=== PATIENT | male | born 1945 | race Caucasian/White ===

== ENCOUNTER → 2017-01-31 | Outpatient (CLI) | payer MEDICARE ==
[2017-01-31 09:08] LABS: ALT 51 U/L (21-72); AST 26 U/L (17-59); Alkaline Phosphatase 105 U/L (38-126); Anion Gap 10 mmol/L; Blood Urea Nitrogen 19 mg/dL (9-20); Calcium 8.6 mg/dL (8.4-10.2); Carbon Dioxide 27 mmol/L (22-30); Chloride 103 mmol/L (98-107); Cholesterol 152 mg/dL (<200); Glucose 113 mg/dL (74-99); HDL Cholesterol 40 mg/dL (40-60); Non-African American GFR(MDRD) >60 (>60 ml/min/1.73 sqM); Potassium 4.5 mmol/L (3.5-5.1); Sodium 140 mmol/L (137-145); Total Bilirubin 0.6 mg/dL (0.2-1.3); Total Protein 6.6 g/dL (6.3-8.2)
== END | disposition home or self-care (01) ==
LOC: LABWHC1 08:03
PROVIDERS: ATTEND Internal Medicine Interventional Cardiology
DX: E78.2 Mixed hyperlipidemia (principal)
CPT/HCPCS: 36415; 80053; 80061

== ENCOUNTER → 2018-01-01 | Outpatient (CLI) | payer MEDICARE ==
--- NOTE | 2018-01-01 16:02 | US ---
EXAMINATION TYPE: US venous doppler duplex LE LT DATE OF EXAM: 01/01/2018 3:31 PM COMPARISON: NONE CLINICAL HISTORY: I80.9 Superficial Thrombophlebitis. SIDE PERFORMED: Left TECHNIQUE: The lower extremity deep venous system is examined utilizing real time linear array sonog sang with graded compression, doppler sonography and color-flow sonography. VESSELS IMAGED: External Iliac Vein (EIV) Common Femoral Vein Deep Femoral Vein Greater Saphenous Vein * Femoral Vein Popliteal Vein Small Saphenous Vein * Proximal Calf Veins (* superficial vessels) Left Leg: Negative for DVT Preliminary report given to Taylor at Dr's office at time of exam. IMPRESSION: 1. Left lower extremity ultrasound negative for deep venous thrombosis.
== END | disposition home or self-care (01) ==
LOC: RADUSWWP 14:30
PROVIDERS: ATTEND Internal Medicine
DX: I80.9 Phlebitis and thrombophlebitis of unspecified site (principal)

== ENCOUNTER → 2018-03-17 | Outpatient (CLI) | payer MEDICARE ==
[2018-03-17 17:55] LABS: HCT 41.5 % (39.0-53.0); HGB 14.3 gm/dL (13.0-17.5); MCH 31.2 pg (25.0-35.0); MCHC 34.5 g/dL (31.0-37.0); MCV 90.4 fL (80.0-100.0); Mean Platelet Volume 7.3; Platelet Count 188 k/uL (150-450); RDW 13.4 % (11.5-15.5); WBC 7.6 k/uL (3.8-10.6)
[2018-03-17 18:12] LABS: Potassium 4.7 mmol/L (3.5-5.1)
== END | disposition home or self-care (01) ==
LOC: LABPAT 16:04
PROVIDERS: ATTEND Internal Medicine Interventional Cardiology
DX: Z01.812 Encounter for preprocedural laboratory examination (principal); I25.10 Atherosclerotic heart disease of native coronary artery without angina pectoris; I10 Essential (primary) hypertension; R07.9 Chest pain, unspecified
CPT/HCPCS: 80051; 82565; 84520; 85027

== ENCOUNTER 2018-03-25 06:14 | Day surgery (SDC) | payer MEDICARE ==
[2018-03-18 14:29] VITALS: BMI 29.9
[2018-03-25] MEDS ORDERED: NITROGLYCERIN SL TABS 0.4 MG TAB SUBLINGUAL PRN (06:39)
[2018-03-25] MEDS ORDERED: ATORVASTATIN 80 MG TAB PO STA (06:39)
[2018-03-25] MEDS ORDERED: ASPIRIN 325 MG TAB PO STA (06:39)
[2018-03-25] MEDS ORDERED: ALPRAZolam 0.5 MG TAB PO PRN (06:39)
[2018-03-25] MEDS ORDERED: SODIUM CHLORIDE 0.9% 1,000 ML in EMPTY BAG 1 BAG IV ONE (06:39)
[2018-03-25] MEDS ORDERED: ALPRAZolam 0.25 MG TAB PO PRN (06:39)
[2018-03-25 07:08] VITALS: TEMP 98.2
[2018-03-25 07:12] LABS: Glucose,Whole Blood 114 mg/dL (75-99)
[2018-03-25] MEDS ORDERED: fentaNYL (PF) 50 MCG/ML 2 ML AMP IV ONE (07:30)
[2018-03-25] MEDS ORDERED: LIDOCAINE 1% INJ 10MG/ML (20 ML MDV) SQ ONE (07:37)
[2018-03-25] MEDS: VERAPAMIL SYRINGE (5 MG/10 ML) INTRAARTER ONE ×2 (07:39→07:46)
[2018-03-25] MEDS ORDERED: HEPARIN SODIUM 1,000 UN/ML (10ML VL) IV ONE (07:45)
[2018-03-25] MEDS ORDERED: MIDAZOLAM 2 MG/2 ML VIAL IV ONE (07:47)
[2018-03-25] MEDS ORDERED: IOPAMIDOL-370 125ML BTL INJ ONE (07:57)
[2018-03-25] MEDS ORDERED: RX INFO: IV CONTRAST WAS GIVEN 1 EACH MISC MISCELLANE PRN (08:08)
[2018-03-25] MEDS ORDERED: SODIUM CHLORIDE 0.9% 1,000 ML IV SCH (08:15)
--- NOTE | 2018-03-25 08:37 | CC ---
CARDIAC CATHETERIZATION REPORT Mr. Neal is a 72-year-old male with a known history of coronary artery disease, status post stenting of the LAD in 2002, history of hypertension, hyperlipidemia, and diabetes mellitus who presented with symptoms of chest discomfort. In view of that, recommendation made regarding cardiac catheterization, the procedures, risks and complications were discussed with the patient who is in full understanding and agreement. PROCEDURE: Patient was brought to labor contract analyst in a fasting semi-sedated state after receiving fentanyl and Benadryl and achieving moderate conscious sedated state. Using Xylocaine anesthesia assist technique, a 6-Amharic sheath was introduced in the right radial artery. Selective right and left angiography performed using 5-Amharic 3.5 bend right and left Vilma catheter, multiple views of coronary artery including hemiaxial views were obtained. Following that, catheter and sheath were removed. Hemostasis was obtained with deployment of a TR band. There was no immediate complication. Patient was returned to his room in stable condition. Of note, patient received 5000 units of intravenous heparin as well as intra-arterial verapamil. FINDINGS: LEFT MAIN: This is a large-sized vessel bifurcating into left circumflex, left descending artery. The distal left main artery has a 50% to 60% plaque. LEFT ANTERIOR DESCENDING ARTERY: This is a large-sized vessel reaching toward the apex with a wraparound apex segment. The stented segment in the proximal and mid LAD are patent with mild intimal disease. The proximal LAD shortly after the takeoff has an eccentric 70% plaque. The rest of the vessel has no high-grade stenosis. LEFT CIRCUMFLEX: This vessel gives rise to three obtuse marginal branch after the takeoff of the first obtuse marginal branch. The vessel is totally occluded with ipsilateral collaterals to the large third obtuse marginal branch. RIGHT CORONARY ARTERY: This is a large dominant vessel, bifurcating into PDA and posterolateral segment branches. The right coronary artery proximally has an 80% stenosis. There is another tubular lesion in mid area of 80% and another 80% stenosis distally prior to the bifurcation. The right coronary artery gives collaterals to the left circumflex, third obtuse marginal branch. LEFT VENTRICULOGRAM: Left ventriculogram was not performed. CONCLUSION: 1. Significant disease involving the distal left main and the proximal left anterior descending artery. 2. Chronic occluded mid left circumflex. 3. Severe diffuse disease in the right coronary artery. RECOMMENDATION: In view of the anatomy and the location of the lesions and the a history of diabetes, I would recommend to be evaluated for possible coronary artery bypass grafting and depending on that, further recommendation will be made. Those findings and recommendation were discussed with the patient and his family who are in full understanding and agreement. Duration of procedure is 20 minutes. BERNY / GUANAKO: [id number] /
[2018-03-25] MEDS ORDERED: ISOSORBIDE MONONITRATE 120 MG PO SCH (09:00)
[2018-03-25] MEDS ORDERED: ATENOLOL 25 MG TAB PO SCH (09:00)
[2018-03-25] MEDS ORDERED: VENLAFAXINE HCL 75 MG TAB PO SCH (09:00)
[2018-03-25] MEDS ORDERED: ASPIRIN 325 MG TAB PO SCH (09:00)
[2018-03-25 13:23] LABS: Appearance,Urine Clear (Clear); Bilirubin,Urine Negative (Negative); Blood,Urine Negative (Negative); Color,Urine Yellow; Glucose,Urine (UA) Negative (Negative); Ketones,Urine Negative (Negative); Leukocyte Esterase,Urine Negative (Negative); Nitrite,Urine Negative (Negative); PH, Urine 6.5 (5.0-8.0); Protein,Urine Trace (Negative); Specific Gravity,Urine 1.043 (1.001-1.035); Urobilinogen,Urine <2.0 mg/dL (<2.0)
--- NOTE | 2018-03-25 15:43 | US ---
EXAMINATION TYPE: US carotid duplex BILAT DATE OF EXAM: 03/25/2018 COMPARISON: NONE CLINICAL HISTORY: Pre-Op Cardiac Surgery. EXAM MEASUREMENTS: RIGHT: Peak Systolic Velocity (PSV) cm/sec ----- Right CCA: 68.0 ----- Right ICA: 67.1 ----- Right ECA: 98.2 ICA/CCA ratio: 1.0 RIGHT: End Diastole cm/sec ----- Right CCA: 10.4 ----- Right ICA: 13.0 ----- Right ECA: 0.0 LEFT: Peak Systolic Velocity (PSV) cm/sec ----- Left CCA: 82.3 ----- Left ICA: 72.4 ----- Left ECA: 84.5 ICA/CCA ratio: 0.9 LEFT: End Diastole cm/sec ----- Left CCA: 16.4 ----- Left ICA: 23.0 ----- Left ECA: 0.0 VERTEBRALS (direction of flow): Right Vertebral: Antegrade Left Vertebral: Antegrade Rhythm: Normal No significant stenosis seen, mild bilateral plaque, no elevated velocities. IMPRESSION: 1. Mild atherosclerotic plaque bilaterally with no significant hemodynamic stenosis. Criteria for Assigning % of Stenosis / Diameter reduction (Estimation based on the indirect measurements of the internal carotid artery velocities (ICA PSV). 1. Normal (no stenosis)=ICA PSV < 125 cm/s: ratio < 2.0: ICA EDV<40 cm/s. 2. Less than 50% stenosis=ICA PSV < 125 cm/s: ratio < 2.0: ICA EDV<40 cm/s. 3. 50 to 69% stenosis=ICA PSV of 125 to 230 cm/s: ration 2.0 ? 4.0: ICA EDV 40-100 cm/s. 4. Greater than 70% stenosis to near occlusion= ICA PSV > 230 cm/s: ratio > 4.0: ICA EDV > 100 cm/s. 5. Near occlusion= ICA PSV velocities may be low or undetectable: variable ratio and ICA EDV. 6. Total occlusion=unable to detect flow.
[2018-03-25 16:46] LABS: ALT 38 U/L (21-72); AST 27 U/L (17-59); Albumin 3.4 g/dL (3.5-5.0); Alkaline Phosphatase 67 U/L (38-126); Anion Gap 7 mmol/L; Basophils % (A) 1 %; Blood Urea Nitrogen 23 mg/dL (9-20); Calcium 8.8 mg/dL (8.4-10.2); Carbon Dioxide 27 mmol/L (22-30); Chloride 105 mmol/L (98-107); Cholesterol 135 mg/dL (<200); Eosinophils # (A) 0.1 k/uL (0-0.7); Eosinophils % (A) 2 %; Glucose 112 mg/dL (74-99); HCT 40.3 % (39.0-53.0); HDL Cholesterol 40 mg/dL (40-60); HGB 13.2 gm/dL (13.0-17.5); LDL Cholesterol,Calculated 68 mg/dL (0-99); Lymphocytes # (A) 1.6 k/uL (1.0-4.8); Lymphocytes % (A) 26 %; MCH 31.1 pg (25.0-35.0); MCHC 32.7 g/dL (31.0-37.0); Magnesium 1.4 mg/dL (1.6-2.3); Mean Platelet Volume 7.1; Monocytes # (A) 0.6 k/uL (0-1.0); Monocytes % (A) 9 %; Neutrophils # (A) 3.7 k/uL (1.3-7.7); Neutrophils % (A) 61 %; Platelet Count 163 k/uL (150-450); Potassium 4.3 mmol/L (3.5-5.1); RBC 4.24 m/uL (4.30-5.90); RDW 13.9 % (11.5-15.5); Sodium 139 mmol/L (137-145); Total Bilirubin 0.4 mg/dL (0.2-1.3); Total Protein 6.1 g/dL (6.3-8.2); Triglycerides 134 mg/dL (<150); WBC 6.1 k/uL (3.8-10.6)
[2018-03-25 17:00] LABS: INR 1.1 (<1.2); Partial Thromboplastin Time 22.7 sec (22.0-30.0); Prothrombin Time 10.6 sec (9.0-12.0)
--- NOTE | 2018-03-25 17:29 | XR ---
EXAMINATION TYPE: XR chest 2V DATE OF EXAM: 03/25/2018 COMPARISON: 11/04/2014 HISTORY: Preop cardiac surgery TECHNIQUE: Frontal and lateral views of the chest are obtained. FINDINGS: There is no heart failure nor confluent pneumonic infiltrate. Costophrenic angles are rosita r. Bony thorax appears intact. Pulmonary vascularity is normal. IMPRESSION: No active cardiopulmonary disease. No change.
--- NOTE | 2018-03-25 18:17 | P.GSCN ---
History of Present Illness Consult date: 03/25/18 Reason for Consult: Symptomatic multivessel coronary artery disease. Requesting physician: Myla Arriaga History of present illness: This is 73-year-old gentleman who is followed by Dr. Aldo Cisse on an outpatient basis. Patient has a past medical history significant for coronary artery disease and previous myocardial infarction in 1986 with previous coronary artery stent placements in 1986 and 2002, hypertension, hyperlipidemia , obesity with a BMI of 30.7 kg/m, diabetes mellitus type 2, family history of early onset coronary artery disease with his dad being diagnosed with a myocardial infarction at age 55, depression and a history of sleep apnea and does not use a CPAP machine. The patient reports that he has been having episodes of chest discomfort off and on for the last 2-3 years which has been progressively coming on more frequently and has not been associated with activity. He denies any complaints of shortness of breath, nausea, vomiting, orthopnea, edema, palpitations or syncope. He was subsequently seen by his telephone surveyor Dr. Arriaga and on 10/15/2017 underwent a nuclear Lexiscan Cardiolite stress test which showed abnormal myocardial perfusion imaging with prior myocardial infarction involving the inferior and inferior lateral wall with minimal avani-infarct ischemia consistent with coronary artery disease of the left circumflex or right coronary artery. He also underwent a 2-D echocardiogram on 10/18/2017 which showed a normal left ventricular size with mildly decreased systolic function with an ejection fraction of 45%, mild mitral valve regurgitation, mild mitral valve stenosis and trace tricuspid valve regurgitation. Due to the patient's above-mentioned symptoms, history of coronary artery disease and abnormal stress test he was recommended to undergo a cardiac catheterization. After obtaining consent Dr. Arriaga performed a cardiac catheterization on the patient today 03/25/2018 which demonstrated a distal left main stenosis of 50-60%, a 70% stenosis to his proximal left anterior descending coronary artery, the stented segments of his proximal left anterior descending coronary artery and mid left anterior descending artery were patent with mild intimal disease, a totally occluded circumflex coronary artery with ipsilateral collaterals to the large third obtuse marginal branch, an 80% stenosis to his mid right coronary artery, an 80% stenosis to his distal right coronary artery and it also demonstrated the right coronary artery gives collaterals to the left circumflex, and third obtuse marginal coronary artery branch. The results of the heart catheterization were reviewed with the patient by Dr. Arriaga and a consult was placed to Dr. Marilu Rubio from cardiothoracic surgery for recommendations on myocardial revascularization surgery. Review of Systems A 14 point review systems was completed and was negative except as mentioned in the HPI. Past Medical History Past Medical History: Coronary Artery Disease (CAD) (History of previous stent placement in 1986 and 2002.), Diabetes Mellitus, Eye Disorder (History of bilateral cataracts.), Hyperlipidemia, Hypertension, Myocardial Infarction (DC) , Sleep Apnea/CPAP/BIPAP Additional Past Medical History / Comment(s): seasonal allergies, unable to use cpap, obesity. Last Myocardial Infarction Date:: 1986 History of Any Multi-Drug Resistant Organisms: None Reported Past Surgical History: Heart Catheterization With Stent Additional Past Surgical History / Comment(s): "3 or 4" heart stents, varicose veins rt leg with right leg vein stripping. Varicose veins to his left leg. Cataract surgery bilateral eyes 12 years ago. Past Anesthesia/Blood Transfusion Reactions: No Reported Reaction Date of Last Stent Placement:: 2002 Past Psychological History: Depression Smoking Status: Never smoker Past Alcohol Use History: Occasional Past Drug Use History: None Reported - Past Family History Mother Additional Family Medical History / Comment(s): Mother at age 89 from kidney disease and bladder problems. Father Family Medical History: Myocardial Infarction (DC) Additional Family Medical History / Comment(s): Father from myocardial infarction at age 56. Medications and Allergies Home Medications Medication Instructions Recorded Confirmed Type Atenolol [Tenormin] 25 mg PO DAILY 11/04/14 03/25/18 History Atorvastatin [Lipitor] 80 mg PO HS 11/04/14 03/25/18 History Isosorbide Mononitrate [Imdur] 120 mg PO DAILY 11/04/14 03/25/18 History metFORMIN HCL [Glucophage] 850 mg PO BID 11/04/14 03/25/18 History Aspirin 325 mg PO DAILY 03/18/18 03/25/18 History Lisinopril [Zestril] 10 mg PO HS 03/18/18 03/25/18 History Venlafaxine HCl [Effexor] 75 mg PO DAILY 03/18/18 03/25/18 History Allergies Allergy/AdvReac Type Severity Reaction Status Date / Time No Known Allergies Allergy Verified 03/25/18 06:56 Surgical - Exam Vital Signs Temp Pulse Resp BP Pulse Ox 98.2 F 60 18 134/84 94 L 03/25/18 07:07 03/25/18 07:07 03/25/18 07:07 03/25/18 07:07 03/25/18 07:07 - General well developed, well nourished, no distress, no pain, obese - Eyes PERRL, normal ocular movement - ENT normal pinna, normal nares, normal mucosa, no hearing loss, no congestion - Neck Neck is supple, no lymphadenopathy. no masses, no bruits, no venous distension - Respiratory Lung sounds are essentially clear throughout. Respirations are symmetrical and nonlabored. Bedside FEV1 was completed which showed 81% of predicted value. Oxygen saturations are 95% on room air. - Cardiovascular Regular rhythm and rate. S1 and S2 present, negative for S3, gallop or murmur. No edema present. Bedside telemetry showing sinus bradycardia heart rate 56. - Abdomen Abdomen is soft, nontender and nondistended. Active bowel sounds all 4 abdominal quadrants. No organomegaly. No guarding or rigidity. - Genitourinary Deferred - Rectum Deferred - Integumentary no rash, no growths, no abnormal pigmentation - Neurologic normal coordination, normal sensation - Musculoskeletal normal gait, normal posture - Psychiatric oriented to time, oriented to person, oriented to place, speech is normal, memory intact Results - Labs 03/25/18 16:22 03/25/18 16:22 Abnormal Lab Results - Last 24 Hours (Table) 03/25/18 03/25/18 Range/Units 06:50 13:00 POC Glucose (mg/dL) 114 H (75-99) mg/dL Ur Specific [place] 1.043 H (1.001-1.035) Urine Protein Trace H (Negative) - Imaging Comments: Radial artery studies reviewed, and vein mapping studies results reviewed, carotid duplex study results was reviewed and pulmonary function FEV1 study results reviewed. 2-D echocardiogram and nuclear Lexiscan Cardiolite stress test report reviewed. Heart cath films and results were reviewed by Dr. Marilu Rubio. Assessment and Plan (1) Hypertension Current Visit: Yes Status: Acute Code(s): I10 - ESSENTIAL (PRIMARY) HYPERTENSION SNOMED Code(s): 23163323 (2) Hyperlipidemia Current Visit: Yes Status: Acute Code(s): E78.5 - HYPERLIPIDEMIA, UNSPECIFIED SNOMED Code(s): 28942103 (3) Depression Current Visit: Yes Status: Acute Code(s): F32.9 - MAJOR DEPRESSIVE DISORDER , SINGLE EPISODE, UNSPECIFIED SNOMED Code(s): 24287337 (4) Coronary arteriosclerosis in patient with history of previous myocardial infarction Current Visit: Yes Status: Acute Code(s): I25.10 - ATHSCL HEART DISEASE OF [place] CORONARY ARTERY W/O ANG PCTRS; I25.2 - OLD MYOCARDIAL INFARCTION SNOMED Code(s): 796165596259307 (5) History of coronary artery stent placement Current Visit: Yes Status: Acute Code(s): Z95.5 - PRESENCE OF CORONARY ANGIOPLASTY IMPLANT AND GRAFT SNOMED Code(s): 371209379 (6) Coronary artery disease Current Visit: Yes Status: Acute Code(s): I25.10 - ATHSCL HEART DISEASE OF [place] CORONARY ARTERY W/O ANG PCTRS SNOMED Code(s): 26968853 (7) Sleep apnea Current Visit: Yes Status: Acute Code(s): G47.30 - SLEEP APNEA, UNSPECIFIED SNOMED Code(s): 86503423 (8) Type 2 diabetes mellitus Current Visit: Yes Status: Acute Code(s): E11.9 - TYPE 2 DIABETES MELLITUS WITHOUT COMPLICATIONS SNOMED Code(s): 80887901 (9) Obesity (BMI 30.0-34.9) Current Visit: Yes Status: Acute Code(s): E66.9 - OBESITY, UNSPECIFIED SNOMED Code(s): 267235752932448 (10) Family history of coronary artery disease in father Current Visit: Yes Status: Acute Code(s): Z82.49 - FAMILY HX OF ISCHE[place] HEART DIS AND OTH DIS OF THE CIRC SYS SNOMED Code(s): 151147635 Plan: The patient was seen and examined. Chart and diagnostics were reviewed. Preoperative testing was initiated. Preoperative teaching was initiated. He was seen and examined by Dr. Marilu Rubio from cardiothoracic surgery. He discussed the risks and benefits with the patient, STS risk score was calculated and discussed with the patient. Dr. Rubio discussed the cardiac catheterization film results with the patient and his family and has determined the patient a candidate for myocardial revascularization surgery. The patient wishes to proceed knowing the risks and benefits of surgery with myocardial revascularization and has been scheduled for myocardial revascularization surgery with FONTAINE and left radial artery endoscopic harvest for 04/01/2018. Thank you Dr. Arriaga for this consult and we will look for to working with you in the care of your patient. Time with Patient: Greater than 30
[2018-03-25 19:31] VITALS: PULSE 60; RESP 18
[2018-03-25 19:34] VITALS: BP 122/70
[2018-03-25 19:48] LABS: T4, Free (Free Thyroxine) 1.04 ng/dL (0.78-2.19)
[2018-03-25] MEDS ORDERED: ATORVASTATIN 80 MG TAB PO SCH (21:00)
[2018-03-25] MEDS ORDERED: LISINOPRIL 10 MG TAB PO SCH (21:00)
[2018-03-26 04:42] LABS: Hemoglobin A1C 6.3 % (4.0-6.0)
--- NOTE | 2018-03-29 08:46 | P.PN ---
Progress Note - Text Progress Note Date: 03/25/18 5 meter walk test completed 03/25/18: #1 3.38 sec #2 2.30 sec #3 3.02 sec
--- NOTE | 2018-04-02 09:27 | P.VSCSTY ---
Greater Saphenous Vein Mapping This is bilateral lower extremity greater saphenous vein mapping. Date of service 03/25/2018 Vein quality and ultrasound appearance the right side was not studied. The left side shows thrombosis of the greater saphenous vein mid calf on the left.. Vein size groin right [ ] groin left 7.6 x 6.9 High thigh right [ ] high thigh left 5.3 x 6.1 Mid thigh right [ ] mid thigh left 7.8 x 6.0 Above-knee right [ ] above-knee left 7.0 x 4.5 Below knee right [] below- knee left 6.1 x 6.7 Mid calf right [] mid calf left 6.1 x 5.6 but thrombosed in this area Ankle right [] ankle left 6.1 x 3.5 Impression vein on the right is not studied. Left leg greater saphenous vein is somewhat large for coronary conduit but potentially usable from groin to below the knee. Thrombosed area in mid calf. Clinical status to be reviewed..
--- NOTE | 2018-04-02 09:28 | P.ARTDOP ---
Arterial Doppler LOWER EXTREMITY ARTERIAL DOPPLER: DATE OF SERVICE: 03/25/2018 Reason for study: Pre-CABG. Doppler waveforms: Blunted but multiphasic bilaterally throughout. Pulse volume recording: []. Pressure gradients: None. Ankle-brachial indices: Greater than 1 bilaterally. Toe pressures: [] on the right, [] on the left Impression: Normal study.
--- NOTE | 2018-04-02 09:32 | P.ARTDOP ---
Arterial Doppler Left arm radial artery testing: Reason for study: Preop CABG This is an extremely limited study with imaging of the left radial artery done only. Imaging shows a large left radial ranging in size from 4.6 x 4.1-6.1 x 4.2. Left radial artery is noted to be of a size compatible with use as conduit. However, no plethysmography readings were done with radial artery compression to assess collateral status. We can not assess with this study the viability of the hand should the left radial artery be harvested. Clinical correlation suggested.
== END 2018-03-25 18:15 | disposition home or self-care (01) ==
LOC: CATHCVL 06:14
PROVIDERS: ATTEND Internal Medicine Interventional Cardiology
DX: I25.10 Atherosclerotic heart disease of native coronary artery without angina pectoris (principal); Z01.810 Encounter for preprocedural cardiovascular examination; I25.82 Chronic total occlusion of coronary artery; I10 Essential (primary) hypertension; I25.5 Ischemic cardiomyopathy; I08.3 Combined rheumatic disorders of mitral, aortic and tricuspid valves; E11.9 Type 2 diabetes mellitus without complications; E78.2 Mixed hyperlipidemia; I25.2 Old myocardial infarction; G47.30 Sleep apnea, unspecified; E66.9 Obesity, unspecified; F32.9 Major depressive disorder, single episode, unspecified; Z95.5 Presence of coronary angioplasty implant and graft; Z79.84 Long term (current) use of oral hypoglycemic drugs; Z79.82 Long term (current) use of aspirin; Z79.899 Other long term (current) drug therapy; Z82.49 Family history of ischemic heart disease and other diseases of the circulatory system; Z68.30 Body mass index [BMI] 30.0-30.9, adult
CPT/HCPCS: 94150; 93454; 86900; 86901; 84439; 83880; 80061; 80053; 80074; 84443; 83735; 85025; 85610; 85730; 86850; 86920; 81003; 87070; 87086; 83036; 71046; 93931; 93971; 93922; 93880; C1894; C1769; J2250; J2001; J3010; J1644; Q9967; 93458; 93930; 93970

== ENCOUNTER 2018-04-01 05:33 | Inpatient (IN) | payer MEDICARE ==
[2018-03-26 04:22] LABS: Hepatitis A Antibody IgM Non-Reactive (Non-Reactive); Hepatitis B Core IgM Non-Reactive (Non-Reactive)
[~2018-04-01 05:33] MED LIST: ALBUMIN HUMAN 25% 50 ML IV ONE; ALBUMIN HUMAN 5% 500 ML IVPB ONE; AMINOCAPROIC ACID 5,000 MG in DEXTROSE 5% IN WATER 50 ML IV ONE; ASPIRIN 325 MG TAB PO ONE; ATORVASTATIN 10 MG TAB PO ONE; CALCIUM CHLORIDE 100 MG/ML 10 ML SYRINGE IV ONE; CHLORHEXIDINE GLUCONATE 15 ML CUP MUCOUS MEM ONE; CLEVIDIPINE BUTYRATE 25 MG in EMPTY BAG 1 BAG IV ONE; DEXTROSE 5% IN WATER 1,000 ML with POTASSIUM CHLORIDE 110 MEQ, MAGNESIUM SULFATE 16 MEQ... IV ONE; DEXTROSE 5% IN WATER 1,000 ML with POTASSIUM CHLORIDE 25 MEQ, SODIUM CHLORIDE 2.5MEQ/ML... IRRIGATION ONE; HEPARIN SODIUM 1,000 UN/ML (10ML VL) IV ONE; HEPARIN SODIUM,PORCINE 5,000 UNIT in SODIUM CHLORIDE 0.9% 500 ML 500 ML IV ONE; INSULIN REGULAR 100 UNIT in SODIUM CHLORIDE 0.9% 100 ML IV ONE; LACTATED RINGERS 1,000 ML IV ONE; MAGNESIUM SULFATE MG 500 MG/ML IV ONE; METOPROLOL TARTRATE 12.5 MG TAB PO ONE; NITROGLYCERIN-D5W PMX 25 MG/250 ML BTL IV ONE; NITROGLYCERIN-D5W PMX 50 MG in DEXTROSE/WATER 1 250ML.BAG IV ONE; NOREPINEPHRINE 4 MG in SODIUM CHLORIDE 0.9% 250 ML IV ONE; PAPAVERINE 360 MG in SODIUM CHLORIDE 0.9% 90 ML IV ONE; PHENYLEPHRINE 40 MG in SODIUM CHLORIDE 0.9% 250 ML IV ONE; PHENYLEPHRINE-0.9% NACL SYG 1 MG/10 ML SYRINGE IV ONE; PROPOFOL 1,000 MG/100 ML VIAL IV ONE; PROTAMINE SULFATE 10 MG/ML 25 ML VIAL IV ONE; PROTAMINE SULFATE 250 MG in EMPTY BAG 1 BAG IV ONE; SODIUM BICARB 8.4% 50 ML SYR (1 MEQ/ML) IV ONE; SODIUM CHLORIDE 0.9% 1,000 ML IV ONE; TRANEXAMIC ACID 2,000 MG in SODIUM CHLORIDE 0.9% 180 ML IV ONE; ceFAZolin 1,000 MG in SODIUM CHLORIDE 0.9% IRRIGATIO 1,000 ML IRRIGATION ONE; ceFAZolin 2,000 MG in SODIUM CHLORIDE 0.9% 30 ML IVPB ONE; ceFAZolin IN SWFI 2 GM/20 ML SYRINGE IVP ONE
[2018-04-01 06:05] LABS: Glucose,Whole Blood 117 mg/dL (75-99)
[2018-04-01] MEDS ORDERED: VECURONIUM 10 MG VIAL IV ONE (08:02)
[2018-04-01] MEDS ORDERED: ALBUMIN HUMAN 5% 500 ML VIAL IVPB ONE (08:02)
[2018-04-01] MEDS ORDERED: ELECTROLYTE-R (PH 7.4) 1,000 ML IV.SOLN IV ONE (08:02)
[2018-04-01] MEDS ORDERED: HEPARIN SODIUM,PORCINE 10,000 UNIT/ML 1 ML VIAL ONE (08:02)
[2018-04-01] MEDS ORDERED: fentaNYL (PF) 50 MCG/ML 2 ML AMP ONE (08:02)
[2018-04-01] MEDS ORDERED: PROPOFOL 10 MG/ML 20 ML VIAL IV ONE (08:02)
[2018-04-01] MEDS ORDERED: LIDOCAINE 2% SYG (PF) 100 MG/5 ML ONE (08:02)
[2018-04-01] MEDS ORDERED: SODIUM CHLORIDE 0.9% IRRIG 1,000 ML BTL IRRIGATION ONE (08:02)
[2018-04-01] MEDS ORDERED: fentaNYL (PF) 50 MCG/ML 50 ML VIAL ONE (08:02)
[2018-04-01] MEDS ORDERED: PHENYLEPHRINE-0.9% NACL SYG 1 MG/10 ML SYRINGE ONE (08:02)
[2018-04-01] MEDS ORDERED: MIDAZOLAM 2 MG/2 ML VIAL ONE (08:02)
[2018-04-01] MEDS ORDERED: DILTIAZEM 50 MG in SODIUM CHLORIDE 0.9% 40 ML IV SCH (08:15)
[2018-04-01 08:40] LABS: ABG Base Excess -1.7 mmol/L; ABG HCO3 24 mmol/L (21-25); ABG Oxygen Saturation 99.5 % (94-97); ABG PCO2 45 mmHg (35-45); ABG PH 7.34 (7.35-7.45); ABG PO2 224 mmHg (83-108); ABG Potassium Whole Blood 4.3 mmol/L (3.4-4.5); ABG Sodium Whole Blood 138 mmol/L (135-146); ABG TCO2 26 mmol/L (19-24)
[2018-04-01 11:02] LABS: ABG Base Excess -2.7 mmol/L; ABG HCO3 23 mmol/L (21-25); ABG Oxygen Saturation 99.4 % (94-97); ABG PCO2 42 mmHg (35-45); ABG PH 7.34 (7.35-7.45); ABG PO2 221 mmHg (83-108); ABG Potassium Whole Blood 4.5 mmol/L (3.4-4.5); ABG Sodium Whole Blood 137 mmol/L (135-146); ABG TCO2 24 mmol/L (19-24)
[2018-04-01 11:46] LABS: ABG HCO3 25 mmol/L (21-25); ABG PCO2 38 mmHg (35-45); ABG PH 7.43 (7.35-7.45); ABG PO2 373 mmHg (83-108); ABG Potassium Whole Blood 5.8 mmol/L (3.4-4.5); ABG Sodium Whole Blood 132 mmol/L (135-146); ABG TCO2 27 mmol/L (19-24)
[2018-04-01 12:24] LABS: ABG Base Excess -0.2 mmol/L; ABG HCO3 24 mmol/L (21-25); ABG Oxygen Saturation 99.7 % (94-97); ABG PCO2 38 mmHg (35-45); ABG PH 7.41 (7.35-7.45); ABG PO2 303 mmHg (83-108); ABG Sodium Whole Blood 134 mmol/L (135-146); ABG TCO2 25 mmol/L (19-24)
[2018-04-01 12:56] LABS: ABG Base Excess -0.3 mmol/L; ABG HCO3 24 mmol/L (21-25); ABG Oxygen Saturation 99.9 % (94-97); ABG PCO2 39 mmHg (35-45); ABG PH 7.41 (7.35-7.45); ABG PO2 299 mmHg (83-108); ABG Potassium Whole Blood 4.8 mmol/L (3.4-4.5); ABG Sodium Whole Blood 135 mmol/L (135-146); ABG TCO2 26 mmol/L (19-24)
[2018-04-01 14:29] LABS: ABG Base Excess -1.9 mmol/L; ABG HCO3 23 mmol/L (21-25); ABG Oxygen Saturation 99.5 % (94-97); ABG PCO2 41 mmHg (35-45); ABG PH 7.36 (7.35-7.45); ABG PO2 184 mmHg (83-108); ABG Potassium Whole Blood 4.1 mmol/L (3.4-4.5); ABG Sodium Whole Blood 139 mmol/L (135-146); ABG TCO2 25 mmol/L (19-24)
--- NOTE | 2018-04-01 14:54 | XR ---
EXAMINATION TYPE: XR chest 1V DATE OF EXAM: 04/01/2018 COMPARISON: Prior chest x-ray 03/25/2018 HISTORY: Missing sponge, abnormal sponge count TECHNIQUE: Frontal view of the chest is obtained on 2 images. FINDINGS: Endotracheal tube is overlying the tracheal air column. There are overlying sternal wires. Right jugular central venous sheath and coaxial [place] catheter present with the distal tip over the right pulmonary artery. Lung apices not entirely included on the exam. Lung volumes are low. Subc utaneous emphysema present on the left, left-sided chest tube is in place. No evident pneumothorax. R etrocardiac densities present, bibasilar increased density noted. Metallic density is present in the parasternal location on the left coursing vertically from cephalad to caudal direction. There are ove rlying cardiac leads, suspect epicardial pacing leads. IMPRESSION: The entire chest is not included on the exam. There are overlying artifacts, instrumenta tion as described. Sponge not identified
[2018-04-01] MEDS ORDERED: AMIODARONE 450 MG in DEXTROSE 5% IN WATER 250 ML IV PRN ×2 (15:39)
[2018-04-01] MEDS ORDERED: ONDANSETRON 4 MG/2 ML VIAL IVP PRN (15:39)
[2018-04-01] MEDS ORDERED: ALBUMIN HUMAN 5% 250 ML in EMPTY BAG 1 BAG IVPB PRN (15:39)
[2018-04-01] MEDS ORDERED: PROPOFOL 1,000 MG in EMPTY BAG 1 BAG IV SCH (15:39)
[2018-04-01] MEDS ORDERED: BENZOCAINE/MENTHOL LOZENG 1 EACH LOZENGE MUCOUS MEM PRN (15:39)
[2018-04-01] MEDS ORDERED: NITROGLYCERIN-D5W PMX 50 MG in DEXTROSE/WATER 1 250ML.BAG IV SCH (15:39)
[2018-04-01] MEDS ORDERED: Magnesium Replacement Protocol 1 EACH MISC MISCELLANE PRN (15:39)
[2018-04-01] MEDS ORDERED: Phosphorus Replacement Protoco 1 EACH MISC MISCELLANE PRN (15:39)
[2018-04-01] MEDS ORDERED: IPRATROPIUM-ALBUTEROL 3 ML NEB INHALATION PRN (15:39)
[2018-04-01] MEDS ORDERED: Potassium Replacement Protocol 1 EACH MISC MISCELLANE PRN (15:39)
[2018-04-01] MEDS ORDERED: METOCLOPRAMIDE 5 MG/ML 2 ML VIAL IVP PRN (15:39)
[2018-04-01] MEDS: LACTATED RINGERS 1,000 ML IV SCH (16:00)
[2018-04-01] MEDS: CLEVIDIPINE BUTYRATE 25 MG in EMPTY BAG 1 BAG IV SCH ×2 (16:00→21:11)
[2018-04-01 16:05] LABS: Glucose,Whole Blood 132 mg/dL (75-99)
[2018-04-01 16:08] LABS: ABG HCO3 24 mmol/L (21-25); ABG Oxygen Saturation 99.4 % (94-97); ABG PCO2 47 mmHg (35-45); ABG PH 7.32 (7.35-7.45); ABG PO2 221 mmHg (83-108); ABG TCO2 26 mmol/L (19-24)
--- NOTE | 2018-04-01 16:10 | OP ---
OPERATIVE REPORT DATE OF THE SURGERY: 04/01/2018. SURGEON: Dr. Marilu Rubio. FORENSIC ACCOUNTANT: Dr. Neisha Pantoja and Nhan ARCE. PREOPERATIVE DIAGNOSES: 1. Triple-vessel coronary artery disease. 2. Chronically occluded circumflex artery collateralized. 3. Status post LAD stent that is patent. 4. 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 5. Mild mitral valve regurgitation. 6. Diabetes mellitus. 7. Hypertension. 8. Hyperlipidemia. 9. Obesity. 10.Varicose veins of both lower extremities, status post stripping of the right lower extremity, greater saphenous vein. POSTOPERATIVE DIAGNOSES: 1. Triple-vessel coronary artery disease. 2. Chronically occluded circumflex artery collateralized. 3. Status post LAD stent that is patent. 4. 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 5. Mild mitral valve regurgitation. 6. Diabetes mellitus. 7. Hypertension. 8. Hyperlipidemia. 9. Obesity. 10.Varicose veins of both lower extremities, status post stripping of the right lower extremity, greater saphenous vein. PROCEDURE: 1. All arterial triple coronary artery bypass grafting using the in situ skeletonized right internal mammary artery crossing the midline anteriorly to the left anterior descending artery, the skeletonized in situ left internal mammary artery to the obtuse marginal artery, the left radial artery from the aorta to the right coronary artery. 2. Endoscopic harvesting of the left radial artery. 3. Intraoperative graft flow measurements using the Medi-Stim system. 4. Intraoperative MELISSA and epiaortic scanning. INDICATIONS FOR PROCEDURE: The patient is a 73-year-old gentleman who is status post lateral myocardial infarction in 1986. He is status post stent to his LAD. He has a chronically occluded collateralized large obtuse marginal artery. The patient at this point has disease in his right coronary artery and proximal left anterior descending artery. He is brought in today for coronary artery bypass grafting. The strategy would be all arterial in view of stripping of the right lower extremity and grossly varicose veins on the left lower extremity. The STS risk was discussed with him and his family. They understood it and agreed to proceed. DESCRIPTION OF PROCEDURE: The patient had a right internal jugular Clay-Danny catheter and a right radial arterial line placed in the preoperative holding area. His PA pressure was 40/20 and his cardiac index was 2.5. Subsequently, he was brought to the operating room where general endotracheal anesthesia was induced uneventfully. The patient received 2 g of cefazolin intravenously. A Mott catheter was inserted. The chest, abdomen and both lower extremities and the left upper extremities were prepped and draped using ChloraPrep. Ioban was used to cover the skin. MELISSA confirmed the preoperative finding of severe hypokinesia of the lateral wall with mild mitral valve regurgitation and moderate left ventricular dysfunction. Midline sternotomy was performed and no bone wax was used. The bone was reasonably dense. The left hemisternum was elevated and the left internal mammary artery was harvested in a totally skeletonized fashion using the plasma blade. The left pleura was intentionally opened in this process and drained with a 24-Mozambican Patrice drain. The same procedure was repeated on the right side where the right richi sternum was elevated and the right internal mammary artery was harvested in a totally skeletonized fashion using the plasma blade. The right pleura was intentionally opened in this process and was drained with another 24-Mozambican Patrice drain. The patient was given 5000 units of heparin before clipping and transecting the left internal mammary artery before its bifurcation and it had an excellent pulsatile flow in it and also the right internal mammary artery was clipped distally and transected, had an excellent pulsatile flow in it. In the same setting, the left radial artery was harvested endoscopically without tourniquet. The left forearm incision was closed over a drain. The left radial artery was prepared by incising the fascia all along its volar aspect and clipping all the branches. It was of excellent quality around 3 mm in diameter. Mediastinal fat transected between 2 ties and epiaortic scanning revealed normal ascending aorta. Pericardium was opened in an inverted T-fashion and a pericardial crater was created. Findings included a normal size heart that was high situated with a short aorta. After systemic heparinization, after placement of respective pledgeted pursestring, aortic cannulation with a 24-Mozambican soft flow cannula in the proximal arch was performed. The venous cannulation was done via the right atrial appendage using a 29/37 dual stage cannula. Antegrade as well as retrograde cardioplegia catheter were placed. Cardiopulmonary bypass was initiated and patient temperature was allowed to drift down to 34 degrees Celsius. With the heart empty and beating, we looked at the target and appeared that the LAD, the right coronary artery beyond its distal plaque, and the obtuse marginal artery which is a totally occluded collateralized vessels would be the site for bypass. The aorta was clamped and myocardial protection was achieved with initial dose of 700 mL of antegrade cold blood cardioplegia followed by 500 mL of retrograde cold blood cardioplegia with adequate arrest at around 250 mL. Rest of the doses were given retrograde every 15 minutes. Graft: The 1st distal anastomosis was between the left internal mammary artery which was around 1.75 mm in diameter and the obtuse marginal artery which was opened was around 1.5 mm in diameter using Prolene 7-0 in continuous fashion. There was excellent flow into the graft, which was hemostatic. FloSeal was applied over the anastomosis. The 2nd distal anastomosis was between the left radial artery and the right coronary artery before its distal plaque which was continuing into an left ventricular branch. At that level, it was around 1.75 mm in diameter with a posterior plaque and the anastomosis was completed using Prolene 7-0 in a continuous fashion. There was excellent flow into the radial artery graft which was cut to length and suspended. At this point, I elected to perform the proximal anastomosis of the radial artery to the anterior proximal aorta using Prolene 7-0 in continuous fashion. Rewarming was started as we performed the last distal anastomosis between the right internal mammary artery, which crossed midline anteriorly at the level of the mid ascending aorta and the left anterior descending artery, which wass around 2 mm in diameter using Prolene 7-0 in continuous fashion. That anastomosis was hemostatic. The flow was reestablished into the grafts. The patient was given lidocaine and magnesium before unclamping the aorta. He regained spontaneous sinus rhythm. All anastomosis were hemostatic. However, I put in FloSeal over all anastomosis after reversal with protamine. We were able to wean off cardiopulmonary bypass after a period of reperfusion without the need of any inotropic support. The echo had showed the same preoperative finding of severe lateral hypokinesia and mild mitral valve regurgitation. Cardiac index was around 2.8. The test dose and then full dose protamine was given. Decannulation followed. The aortic cannulation site required several pledgeted 3-0 Prolene to control bleeding. A groove was made in the left pleura pericardial fat to accommodate the left internal mammary artery medial to the lung and away from the posterior sternal table. A shallower groove was made on the right pleura pericardial fat to accommodate the right internal mammary artery also away from the posterior sternal table. Two Patrice drains of 24-Mozambican each were placed, 1 substernal and 1 in the posterior pericardium. Pericardial fat was approximated over the heart and grafts. Graft flow measurements performed and that showed a graft flow off 51 mL/minute in the right internal mammary artery going to the left anterior descending artery with a pulsatility index of 2.3 and diastolic filling of 77%. The flow into the left internal mammary artery to the obtuse marginal artery was 27 mL/minute, pulsatility index of 2.6, and diastolic filling of 57%. The flow into the right radial artery going to the RCA was 45 mL/minute, pulsatility index 1, and diastolic filling at 62%. After ensuring adequate hemostasis and hemodynamic and after correct sponge, instrument, and needle count, the sternum was approximated using 5 figure-of- eight Bryce cable after interposing fibular between the sternal edges. Thorough irrigation with cefazolin followed. The rest of the closure proceeded in layers. Skin glue was applied. The patient did not receive any blood bank product but received 700 mL of Cell Saver blood. He was transferred to the ICU in stable condition, atrially paced at 80 , mean arterial pressure of 90 and PA pressure of 31/13 with a cardiac index of 3 with the chest closed. MMODL / IJN: [id number] / ALEJANDRO
--- NOTE | 2018-04-01 16:12 | XR ---
EXAMINATION TYPE: XR chest 1V portable DATE OF EXAM: 04/01/2018 Comparison: 04/01/2018 Clinical History: 73-year-old male Post Operative Cardiac Surgery Findings: Right IJ sheath with Sibley-Danny catheter. Tip in the distal right main pulmonary artery. NG tube cours es below the diaphragm. ET tube is satisfactory. Cardiomegaly. Left sided chest tube is in place. Med toni sternotomy wires. No appreciable pneumothorax. There is a small left pleural effusion with left b asilar and retrocardiac opacity which persists. Mild interstitial prominence. Cutaneous emphysema sherie ng the left chest wall. Impression: Cardiomegaly with interstitial changes, possible mild pulmonary vascular congestion. There is persist ent small left pleural effusion with left basilar and retrocardiac atelectasis and or consolidation.
[2018-04-01 16:22] LABS: Glucose,Whole Blood 120 mg/dL (75-99)
[2018-04-01] MEDS ORDERED: INSULIN REGULAR 100 UNIT in SODIUM CHLORIDE 0.9% 100 ML IV SCH (16:30)
[2018-04-01 16:59] LABS: Basophils % (A) 0 %; Eosinophils % (A) 0 %; HCT 31.7 % (39.0-53.0); HGB 10.6 gm/dL (13.0-17.5); Lymphocytes # (A) 1.3 k/uL (1.0-4.8); Lymphocytes % (A) 15 %; MCH 31.7 pg (25.0-35.0); MCHC 33.4 g/dL (31.0-37.0); MCV 94.9 fL (80.0-100.0); Mean Platelet Volume 7.4; Monocytes # (A) 0.5 k/uL (0-1.0); Monocytes % (A) 6 %; Neutrophils # (A) 6.3 k/uL (1.3-7.7); Neutrophils % (A) 77 %; Platelet Count 105 k/uL (150-450); RBC 3.35 m/uL (4.30-5.90); RDW 14.1 % (11.5-15.5); WBC 8.2 k/uL (3.8-10.6)
[2018-04-01] MEDS ORDERED: CALCIUM CHLORIDE 1,000 MG in SODIUM CHLORIDE 0.9% 100 ML IV PRN (17:00)
--- NOTE | 2018-04-01 17:02 | P.CNPUL ---
History of Present Illness Consult date: 04/01/18 Requesting physician: Marilu Rubio Reason for consult: other Chief complaint: Coronary artery disease, status post three-vessel coronary artery bypass History of present illness: This is A 73-year-old patient of Dr. Nicholas, with past medical history of coronary artery disease and previous myocardial infarction with previous stent placement, hypertension, hyperlipidemia, obesity, diabetes mellitus type 2, family history of early onset coronary artery disease, obstructive sleep apnea not on CPAP therapy. Patient had been having episodes of chest discomfort for 2 -3 years, he became progressively worse. He had Lexiscan Cardiolite stress test was abnormal. Heart catheterization on 03/25/2018 showed a distal left main stenosis of 50-60%, proximal LAD 70%, totally occluded circumflex coronary artery with ipsilateral collaterals to the large third obtuse marginal branch, mid RCA of 80%, and distal RCA of 80%. Patient was recommended surgical intervention, and today on 04/01/2018 patient underwent three-vessel artery artery bypass grafting Dr. Rubio, with right internal mammary artery to LAD, FONTAINE to the OM, left radial artery to the RCA with endoscopic harvesting of the left radial artery. He seen in the intensive care unit, the [facility], intubated on mechanical ventilator, current vent settings of SIMV mode with a rate of 14, tidal vital 600, FiO2 100%, PEEP of 8. Maintenance IV fluids include LR at a rate of 50, Diprivan is 65 mics per kilo per minute, clevidipine is currently at 4 mg per hour. Cardiac output and index is 7.3 and 3.0 respectively. Hemodynamically stable. Patient has 4 chest tubes, 2 mediastinal and right and left pleural chest tubes with small amount of sanguinous drainage in the Pleur- evac. PA pressure is 42/24. Blood gas showed pO2 of 184, pCO2 41, pH of 7.36. Chest x-ray has been reviewed, showed cardiomegaly with interstitial changes, mild pulmonary vascular congestion, persistent small left pleural effusion, left basilar and retrocardiac atelectasis. Review of Systems All systems: negative Constitutional: Denies chills, Denies fever Eyes: denies blurred vision, denies pain Ears, nose, mouth and throat: Denies headache, Denies sore throat Cardiovascular: Denies chest pain, Denies shortness of breath Respiratory: Denies cough Gastrointestinal: Denies abdominal pain, Denies diarrhea, Denies nausea, Denies vomiting Musculoskeletal: Denies myalgias Integumentary: Denies pruritus, Denies rash Neurological: Denies numbness, Denies weakness Psychiatric: Denies anxiety, Denies depression Endocrine: Denies fatigue, Denies weight change Past Medical History Past Medical History: Coronary Artery Disease (CAD), Diabetes Mellitus, Eye Disorder, Hyperlipidemia, Hypertension, Myocardial Infarction (CA), Sleep Apnea/ CPAP/BIPAP Additional Past Medical History / Comment(s): seasonal allergies, unable to use cpap, obesity. varicose vein left leg Last Myocardial Infarction Date:: 1986 History of Any Multi-Drug Resistant Organisms: None Reported Past Surgical History: Heart Catheterization With Stent, Orthopedic Surgery Additional Past Surgical History / Comment(s): 4 heart stents, varicose veins rt leg with right leg vein stripping. walker Cataract, LEFT HAND SX, HEART CATH Past Anesthesia/Blood Transfusion Reactions: No Reported Reaction Date of Last Stent Placement:: 2002 Smoking Status: Never smoker - Past Family History Mother Family Medical History: No Reported History Additional Family Medical History / Comment(s): Mother at age 89 from kidney disease and bladder problems. Father Family Medical History: Myocardial Infarction (CA) Additional Family Medical History / Comment(s): Father from myocardial infarction at age 56. Medications and Allergies Home Medications Medication Instructions Recorded Confirmed Type Atenolol [Tenormin] 25 mg PO DAILY 11/04/14 04/01/18 History Atorvastatin [Lipitor] 80 mg PO HS 11/04/14 04/01/18 History Isosorbide Mononitrate [Imdur] 120 mg PO DAILY 11/04/14 04/01/18 History metFORMIN HCL [Glucophage] 850 mg PO BID 11/04/14 04/01/18 History Aspirin 325 mg PO DAILY 03/18/18 04/01/18 History Lisinopril [Zestril] 10 mg PO HS 03/18/18 04/01/18 History Venlafaxine HCl [Effexor] 75 mg PO DAILY 03/18/18 04/01/18 History Allergies Allergy/AdvReac Type Severity Reaction Status Date / Time No Known Allergies Allergy Verified 04/01/18 05:53 Physical Exam Vitals: Vital Signs Temp Pulse Resp BP BP Pulse Ox 04/01/18 05:57 97 F L 76 16 146/84 152/89 95 Intake and Output 04/01/18 04/01/18 04/01/18 06:59 14:59 22:59 Intake Total 33 Output Total 2500 Balance -2467 Intake: IV 33 Output: Urine 500 Estimated Blood Loss 1999 GENERAL EXAM: Stated, intubated, 73-year-old white male in no apparent distress. HEAD: Normocephalic/atraumatic. EYES: Normal reaction of pupils, equal size. Conjunctiva pink, sclera white. NOSE: Clear with pink turbinates. THROAT: No erythema or exudates. NECK: No masses, no JVD, no thyroid enlargement, no adenopathy. CHEST: No chest wall deformity. Symmetrical expansion. Midsternal incision is clean dry and intact, covered with surgical dressing, epicardial wires connected to an external pacemaker, he is currently in paced at a mode of AAI at a rate of 80 BPM, intrinsic rhythm is sinus rhythm with a rate of 60 BPM. 2 mediastinal and right left pleural chest tubes minimal amount of sanguinous drainage in the Pleurx, connected to the wall suction, no air leak LUNGS: Equal air entry with no crackles, wheeze, rhonchi or dullness. CVS: Regular rate and rhythm, normal S1 and S2, no gallops, no murmurs, no rubs ABDOMEN: Soft, nontender. No hepatosplenomegaly, normal bowel sounds, no guarding or rigidity. EXTREMITIES: No clubbing, no edema, no cyanosis, 2+ pulses and upper and lower extremities. MUSCULOSKELETAL: Muscle strength and tone normal. SPINE: No scoliosis or deformity SKIN: No rashes CENTRAL NERVOUS SYSTEM: Sedated, intubated. No focal deficits, tone is normal in all 4 extremities. PSYCHIATRIC: Unable to assess patient sedated, intubated Results - Laboratory Findings ABG ABG pH 7.36 (7.35-7.45) 04/01/18 14:32 ABG pCO2 41 mmHg (35-45) 04/01/18 14:32 ABG pO2 184 mmHg (83-108) H 04/01/18 14:32 ABG O2 Saturation 99.5 % (94-97) H 04/01/18 14:32 Abnormal lab findings: Abnormal Labs 03/25/18 04/01/18 04/01/18 16:22 06:03 08:44 ABG pH 7.34 L ABG pO2 224 H ABG Total CO2 26 H ABG O2 Saturation 99.5 H ABG Hematocrit ABG Sodium ABG Potassium ABG Ionized Calcium ABG Glucose 109 H Hemoglobin POC Glucose (mg/dL) 117 H Arterial Blood Potassium Arterial Blood Glucose 109 H Crossmatch See Detail 04/01/18 04/01/18 04/01/18 11:05 11:50 12:28 ABG pH 7.34 L ABG pO2 221 H 373 H 303 H ABG Total CO2 27 H 25 H ABG O2 Saturation 99.4 H 100.0 H 99.7 H ABG Hematocrit 30 L 32 L ABG Sodium 132 L 134 L ABG Potassium 5.8 H 5.0 H ABG Ionized Calcium 3.9 L 4.1 L ABG Glucose 132 H 200 H 170 H Hemoglobin 12.9 L 9.8 L 10.4 L POC Glucose (mg/dL) Arterial Blood Potassium 5.8 H 5.0 H Arterial Blood Glucose 132 H 200 H 170 H Crossmatch 04/01/18 04/01/18 04/01/18 12:59 14:32 15:35 ABG pH ABG pO2 299 H 184 H ABG Total CO2 26 H 25 H ABG O2 Saturation 99.9 H 99.5 H ABG Hematocrit 32 L 29 L ABG Sodium ABG Potassium 4.8 H ABG Ionized Calcium 4.2 L 4.1 L ABG Glucose 187 H 130 H Hemoglobin 10.3 L 9.3 L POC Glucose (mg/dL) 132 H Arterial Blood Potassium 4.8 H Arterial Blood Glucose 187 H 130 H Crossmatch 04/01/18 16:02 ABG pH ABG pO2 ABG Total CO2 ABG O2 Saturation ABG Hematocrit ABG Sodium ABG Potassium ABG Ionized Calcium ABG Glucose Hemoglobin POC Glucose (mg/dL) 120 H Arterial Blood Potassium Arterial Blood Glucose Crossmatch - Diagnostic Findings Chest x-ray: report reviewed, image reviewed Assessment and Plan Plan: Assessment: #1. Multivessel symptomatic coronary artery disease, status post three-vessel bypass grafting, with right intramammary artery to the LAD, FONTAINE to the OM, and left radial artery to the right coronary artery, postop day 0 #2. Routine postoperative ventilator management #3. History of previous myocardial infarction, previous coronary artery stenting #4. Hypertension, hyperlipidemia #5. Obesity #6. Diabetes mellitus type 2 #7. Obstructive sleep apnea, patient does not use a CPAP machine #8. Depression #9. Nonsmoker Plan: Postop chest x-ray blood gases were reviewed by Dr. Hackett. We'll proceed with weaning and extubation once the patient is awake and following commands. Hemodynamically stable. Continue nebulized bronchodilators, incentive spirometry to the bedside, deep breathing and coughing after extubation. Continue clevidipine for blood pressure control. Chest x-ray in the morning, labs. GI and DVT prophylaxis per CT surgery. We'll continue to closely follow. I performed a history & physical examination of the patient and discussed their management with my nurse practitioner, Jammie Blackburn. I reviewed the nurse practitioner's note and agree with the documented findings and plan of care. Lung sounds are clear, diminished. The findings and the impression was discussed with the patient. I attest to the documentation by the nurse practitioner. Time with Patient: Greater than 30
[2018-04-01 17:03] LABS: INR 1.2 (<1.2); Partial Thromboplastin Time 50.6 sec (22.0-30.0); Prothrombin Time 11.8 sec (9.0-12.0)
[2018-04-01 17:17] LABS: Ionized Calcium 4.9 mg/dL (4.5-5.3)
[2018-04-01] MEDS: ACETAMINOPHEN IV (For NPO) 1,000 MG in EMPTY BAG 1 BAG IVPB SCH ×2 (17:17→23:01)
[2018-04-01] MEDS: ceFAZolin IN SWFI 2 GM/20 ML SYRINGE IVP SCH (17:27)
[2018-04-01 17:28] LABS: ALT 34 U/L (21-72); AST 45 U/L (17-59); Albumin 3.9 g/dL (3.5-5.0); Alkaline Phosphatase 45 U/L (38-126); Anion Gap 8 mmol/L; Blood Urea Nitrogen 19 mg/dL (9-20); Calcium 8.1 mg/dL (8.4-10.2); Carbon Dioxide 23 mmol/L (22-30); Chloride 108 mmol/L (98-107); Glucose 121 mg/dL (74-99); Sodium 139 mmol/L (137-145); Total Bilirubin 1.3 mg/dL (0.2-1.3); Total Protein 5.9 g/dL (6.3-8.2)
[2018-04-01 17:32] LABS: Glucose,Whole Blood 142 mg/dL (75-99)
[2018-04-01 17:43] LABS: Potassium 4.7 mmol/L (3.5-5.1)
[2018-04-01 18:30] LABS: Glucose,Whole Blood 154 mg/dL (75-99)
[2018-04-01 19:22] LABS: ABG Base Excess -4.5 mmol/L; ABG HCO3 24 mmol/L (21-25); ABG Oxygen Saturation 89.7 % (94-97); ABG PCO2 67 mmHg (35-45); ABG PO2 70 mmHg (83-108); ABG TCO2 26 mmol/L (19-24)
[2018-04-01 19:23] LABS: ABG PH 7.17 (7.35-7.45)
[2018-04-01 19:36] LABS: Glucose,Whole Blood 183 mg/dL (75-99)
[2018-04-01] MEDS ORDERED: IPRATROPIUM-ALBUTEROL 3 ML NEB INHALATION SCH (20:00)
[2018-04-01 20:10] LABS: Glucose,Whole Blood 192 mg/dL (75-99)
[2018-04-01 20:51] LABS: ALT 30 U/L (21-72); AST 42 U/L (17-59); Albumin 3.7 g/dL (3.5-5.0); Alkaline Phosphatase 38 U/L (38-126); Anion Gap 8 mmol/L; Blood Urea Nitrogen 20 mg/dL (9-20); Calcium 7.9 mg/dL (8.4-10.2); Carbon Dioxide 23 mmol/L (22-30); Chloride 107 mmol/L (98-107); Glucose 176 mg/dL (74-99); Potassium 4.6 mmol/L (3.5-5.1); Sodium 138 mmol/L (137-145); Total Bilirubin 1.1 mg/dL (0.2-1.3); Total Protein 5.6 g/dL (6.3-8.2)
[2018-04-01 20:55] LABS: Basophils % (A) 0 %; Eosinophils % (A) 0 %; HCT 30.5 % (39.0-53.0); HGB 10.1 gm/dL (13.0-17.5); Lymphocytes # (A) 0.7 k/uL (1.0-4.8); Lymphocytes % (A) 8 %; MCH 31.4 pg (25.0-35.0); MCV 95.1 fL (80.0-100.0); Mean Platelet Volume 7.1; Monocytes # (A) 0.5 k/uL (0-1.0); Monocytes % (A) 6 %; Neutrophils # (A) 7.4 k/uL (1.3-7.7); Neutrophils % (A) 86 %; Platelet Count 116 k/uL (150-450); RDW 13.9 % (11.5-15.5); WBC 8.6 k/uL (3.8-10.6)
[2018-04-01] MEDS ORDERED: MUPIROCIN 2% OINT 22 GM TUBE NASAL ONE (21:00)
[2018-04-01] MEDS: MUPIROCIN 2% OINT 22 GM TUBE NASAL SCH (21:05)
[2018-04-01 21:10] LABS: Glucose,Whole Blood 182 mg/dL (75-99)
[2018-04-01 21:22] LABS: ABG Base Excess -2.4 mmol/L; ABG HCO3 24 mmol/L (21-25); ABG PCO2 52 mmHg (35-45); ABG PH 7.28 (7.35-7.45); ABG PO2 71 mmHg (83-108); ABG TCO2 26 mmol/L (19-24)
[2018-04-01 22:24] LABS: Glucose,Whole Blood 167 mg/dL (75-99)
[2018-04-01] MEDS: HEPARIN SODIUM,PORCINE 5,000 UNIT/ML 1 ML VIAL SQ SCH (23:00)
[2018-04-01 23:16] LABS: Glucose,Whole Blood 159 mg/dL (75-99)
[2018-04-02] MEDS: CLEVIDIPINE BUTYRATE 25 MG in EMPTY BAG 1 BAG IV SCH ×6 (00:13→18:04)
[2018-04-02 00:20] LABS: Glucose,Whole Blood 141 mg/dL (75-99)
[2018-04-02] MEDS: MORPHINE SULFATE 2 MG/ML SYRINGE IVP PRN ×3 (01:03→05:08)
[2018-04-02] MEDS: ceFAZolin IN SWFI 2 GM/20 ML SYRINGE IVP SCH ×2 (01:04→10:22)
[2018-04-02 01:24] LABS: Glucose,Whole Blood 138 mg/dL (75-99)
[2018-04-02 02:18] LABS: Glucose,Whole Blood 147 mg/dL (75-99)
[2018-04-02 03:22] LABS: Glucose,Whole Blood 151 mg/dL (75-99)
[2018-04-02 04:20] LABS: Glucose,Whole Blood 158 mg/dL (75-99)
[2018-04-02 04:20] LABS: Basophils % (A) 0 %; Eosinophils % (A) 0 %; HCT 31.4 % (39.0-53.0); HGB 10.3 gm/dL (13.0-17.5); Lymphocytes # (A) 0.5 k/uL (1.0-4.8); Lymphocytes % (A) 5 %; MCH 30.9 pg (25.0-35.0); MCHC 32.7 g/dL (31.0-37.0); MCV 94.4 fL (80.0-100.0); Mean Platelet Volume 7.9; Monocytes # (A) 0.5 k/uL (0-1.0); Monocytes % (A) 5 %; Neutrophils # (A) 8.4 k/uL (1.3-7.7); Neutrophils % (A) 89 %; Platelet Count 112 k/uL (150-450); RBC 3.33 m/uL (4.30-5.90); WBC 9.5 k/uL (3.8-10.6)
[2018-04-02 04:26] LABS: INR 1.1 (<1.2); Ionized Calcium 4.9 mg/dL (4.5-5.3); Partial Thromboplastin Time 24.2 sec (22.0-30.0); Prothrombin Time 11.1 sec (9.0-12.0)
[2018-04-02 04:39] LABS: Albumin 3.6 g/dL (3.5-5.0); Calcium 8.3 mg/dL (8.4-10.2); Magnesium 1.7 mg/dL (1.6-2.3); Potassium 4.4 mmol/L (3.5-5.1); Total Bilirubin 0.7 mg/dL (0.2-1.3); Total Protein 5.5 g/dL (6.3-8.2)
[2018-04-02] MEDS ORDERED: Magnesium Replacement Protocol 1 EACH MISC MISCELLANE PRN (04:40)
[2018-04-02] MEDS: MAGNESIUM SULFATE-D5W PMX 1 GM in DEXTROSE/WATER 1 100ML.BAG IVPB SCH ×2 (04:52→07:07)
[2018-04-02 05:11] LABS: Glucose,Whole Blood 156 mg/dL (75-99)
[2018-04-02] MEDS: ACETAMINOPHEN IV (For NPO) 1,000 MG in EMPTY BAG 1 BAG IVPB SCH ×3 (05:13→18:05)
[2018-04-02] MEDS ORDERED: FUROSEMIDE 10 MG/ML 2 ML VIAL IV STA ×2 (06:25→13:59)
[2018-04-02 06:34] LABS: Glucose,Whole Blood 154 mg/dL (75-99)
[2018-04-02] MEDS: IPRATROPIUM-ALBUTEROL 3 ML NEB INHALATION SCH ×4 (07:21→19:34)
[2018-04-02] MEDS: KETOROLAC 30 MG/ML 1 ML VIAL IVP SCH ×3 (07:25→18:06)
[2018-04-02 07:29] LABS: Glucose,Whole Blood 139 mg/dL (75-99)
--- NOTE | 2018-04-02 08:02 | P.PN ---
Subjective Progress Note Date: 04/02/18 Principal diagnosis: Triple-vessel coronary artery disease. Chronically occluded circumflex artery collateralized. Status post LAD stent that is patent. 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 Mild mitral valve regurgitation. Diabetes mellitus with preoperative hemoglobin A1c 6.3%. Hypertension. Hyperlipidemia. Obesity. Varicose veins of both lower extremity is, status post stripping of the right lower extremity, greater saphenous vein. Depression. Obstructive sleep apnea not currently using CPAP. Family history of coronary artery disease. POD #1 all arterial triple coronary artery bypass grafting using the in situ skeletonized right internal mammary artery crossing the midline anteriorly to the left anterior descending artery, skeletonized in situ left internal mammary artery to the obtuse marginal artery, the left radial artery from the aorta to the right coronary artery. Endoscopic harvesting of the left radial artery. Intraoperative graft flow measurements using the [employer] system. Intraoperative transesophageal echocardiogram and epi-aortic scanning. The patient is currently sitting up into the recliner in the intensive care unit. He is in no acute distress. Does complain of pain at his incision and chest tube sites along with mild shortness of breath. Hemodynamically stable on no inotropes. He was successfully extubated at 12:40 AM. Urine output has been marginal overnight and he has ready been given IV Lasix. No other new complaints. Objective - Vital Signs Vital signs: Vital Signs Temp 78.2 F L 04/02/18 04:00 Pulse 81 04/02/18 07:22 Resp 22 04/02/18 07:00 BP 113/72 04/02/18 04:00 Pulse Ox 92 L 04/02/18 07:00 Intake & Output 04/01/18 04/02/18 04/02/18 18:59 06:59 18:59 Intake Total 281.785 3158.773 203.667 Output Total 2835 969 112 Balance -2327.548 1004.773 91.667 Weight 116.7 kg Intake: IV 460 1758 159 ACETAMINOPHEN IV (For NPO 100 800 ) 1,000 mg In Empty Bag 1 bag @ 400 mls/hr IVPB Q6HR [facility] Rx#:[id number] CO/CI 160 150 Lactated Ringers 1,000 ml 100 600 50 @ 20 mls/hr IV .Q24H [facility] Rx#:[id number] Magnesium Sulfate-D5w Pmx 100 100 1 gm In Dextrose/Water 1 100ml.bag @ 100 mls/hr IVPB Q1H [facility] Rx#: [id number] PRESSURE BAGS 27 108 9 ceFAZolin 2,000 mg In 40 Sodium Chloride 0.9% 30 ml @ Per Protocol IVPB ONCE ONE Rx#:[id number] Intake, IV Titration 47.452 215.773 44.667 Amount Clevidipine Butyrate 25 177.999 44.667 mg In Empty Bag 1 bag @ 1 MG/HR 2 mls/hr IV .Q24H [facility] Rx#:[id number] Insulin Regular 100 unit 1.089 37.774 In Sodium Chloride 0.9% 100 ml @ Per Protocol IV .Q0M [facility] Rx#:[id number] Propofol 1,000 mg In 46.363 Empty Bag 1 bag @ Titrate IV .Q0M [facility] Rx#: [id number] Output: Chest Tube Drainage 305 344 72 Chest Tube Bilateral 115 125 50 Mediastinal Chest Tube Left 80 104 20 Chest Tube Right 110 115 2 Urine 530 625 40 Estimated Blood Loss 1999 Other: Voiding Method Indwelling Catheter ABP, PAP, CO, CI - Last Documented Arterial Blood Pressure 108/49 Pulmonary Artery Pressure 28/19 Cardiac Output 7.7 Cardiac Index 3.2 - Constitutional General appearance: Present: cooperative, no acute distress, obese - Respiratory Details: Lungs sounds diminished bilaterally. Respirations even, nonlabored. Currently on 7 L high flow nasal cannula with oxygen saturation 94%. Only able to achieve 500 mL on his incentive spirometry. Weak cough. Mediastinal chest tube to continuous wall suction, 75 mL serosanguineous drainage overnight, 400 mL since surgery. Left pleural chest tube to continuous wall suction, 60 mL serosanguineous drainage overnight, 160 mL since surgery. Right pleural chest tube to continuous wall suction, 70 mL serosanguineous drainage overnight, 300 mL since surgery. No air leaks present. - Cardiovascular Details: S1, S2 present. Regular rate and rhythm, sinus rhythm on telemetry with occasional PVCs. Sternum stable. A/V epicardial pacemaker wires present, grounded. Palpable peripheral pulses bilaterally. No edema present. No calf pain or tenderness noted. Right internal jugular [place], right radial arterial line present. Last CO/CI 7.7/3.2 on no inotropes. Heart hugger in place with patient intermittently demonstrating appropriate use. Antiembolism stockings, SCDs present. - Gastrointestinal Gastrointestinal Comment(s): Abdomen soft, nontender, nondistended. Hypoactive bowel sounds present 4 quadrants. Tolerating sips of clear liquids. Negative flatus. - Genitourinary Genitourinary Comment(s): [place] present draining clear, yellow urine. Output overnight 35-45 mL per hour , 325 mL in 8 hours. - Integumentary Integumentary Comment(s): Skin is warm and dry with evidence of good perfusion. Anterior chest incision well approximated and covered with dry intact dressing. Left radial harvest site well approximated, EDUIN drain present with minimal drainage. - Neurologic Neurologic: Present: CNII-XII intact - Musculoskeletal Musculoskeletal: Present: gait normal, generalized weakness, strength equal bilaterally - Psychiatric Psychiatric: Present: A&O x's 3, appropriate affect, intact judgment & insight - Allied health notes Allied health notes reviewed: nursing - Labs CBC & Chem 7: 04/02/18 04:00 04/02/18 04:00 Labs: Abnormal Lab Results - Last 24 Hours (Table) 03/25/18 04/01/18 04/01/18 Range/Units 16:22 08:44 11:05 RBC (4.30-5.90) m/uL Hgb (13.0-17.5) gm/dL Hct (39.0-53.0) % Plt Count (150-450) k/uL Neutrophils # (1.3-7.7) k/uL Lymphocytes # (1.0-4.8) k/uL INR (<1.2) APTT (22.0-30.0) sec ABG pH 7.34 L 7.34 L (7.35-7.45) ABG pCO2 (35-45) mmHg ABG pO2 224 H 221 H (83-108) mmHg ABG Total CO2 26 H (19-24) mmol/L ABG O2 Saturation 99.5 H 99.4 H (94-97) % ABG Hematocrit (34.0-46.0) % ABG Sodium (135-146) mmol/L ABG Potassium (3.4-4.5) mmol/L ABG Ionized Calcium (4.5-5.3) mg/dL ABG Glucose 109 H 132 H (75-99) mg/dL Hemoglobin 12.9 L (13.0-17.5) gm/dL Chloride (98-107) mmol/L BUN (9-20) mg/dL Glucose (74-99) mg/dL POC Glucose (mg/dL) (75-99) mg/dL Calcium (8.4-10.2) mg/dL Total Protein (6.3-8.2) g/dL Arterial Blood Potassium (3.4-4.5) mmol/L Arterial Blood Glucose 109 H 132 H (75-99) mg/dL Crossmatch See Detail 04/01/18 04/01/18 04/01/18 Range/Units 11:50 12:28 12:59 RBC (4.30-5.90) m/uL Hgb (13.0-17.5) gm/dL Hct (39.0-53.0) % Plt Count (150-450) k/uL Neutrophils # (1.3-7.7) k/uL Lymphocytes # (1.0-4.8) k/uL INR (<1.2) APTT (22.0-30.0) sec ABG pH (7.35-7.45) ABG pCO2 (35-45) mmHg ABG pO2 373 H 303 H 299 H (83-108) mmHg ABG Total CO2 27 H 25 H 26 H (19-24) mmol/L ABG O2 Saturation 100.0 H 99.7 H 99.9 H (94-97) % ABG Hematocrit 30 L 32 L 32 L (34.0-46.0) % ABG Sodium 132 L 134 L (135-146) mmol/L ABG Potassium 5.8 H 5.0 H 4.8 H (3.4-4.5) mmol/L ABG Ionized Calcium 3.9 L 4.1 L 4.2 L (4.5-5.3) mg/dL ABG Glucose 200 H 170 H 187 H (75-99) mg/dL Hemoglobin 9.8 L 10.4 L 10.3 L (13.0-17.5) gm/dL Chloride (98-107) mmol/L BUN (9-20) mg/dL Glucose (74-99) mg/dL POC Glucose (mg/dL) (75-99) mg/dL Calcium (8.4-10.2) mg/dL Total Protein (6.3-8.2) g/dL Arterial Blood Potassium 5.8 H 5.0 H 4.8 H (3.4-4.5) mmol/L Arterial Blood Glucose 200 H 170 H 187 H (75-99) mg/dL Crossmatch 04/01/18 04/01/18 04/01/18 Range/Units 14:32 15:35 16:02 RBC (4.30-5.90) m/uL Hgb (13.0-17.5) gm/dL Hct (39.0-53.0) % Plt Count (150-450) k/uL Neutrophils # (1.3-7.7) k/uL Lymphocytes # (1.0-4.8) k/uL INR (<1.2) APTT (22.0-30.0) sec ABG pH (7.35-7.45) ABG pCO2 (35-45) mmHg ABG pO2 184 H (83-108) mmHg ABG Total CO2 25 H (19-24) mmol/L ABG O2 Saturation 99.5 H (94-97) % ABG Hematocrit 29 L (34.0-46.0) % ABG Sodium (135-146) mmol/L ABG Potassium (3.4-4.5) mmol/L ABG Ionized Calcium 4.1 L (4.5-5.3) mg/dL ABG Glucose 130 H (75-99) mg/dL Hemoglobin 9.3 L (13.0-17.5) gm/dL Chloride (98-107) mmol/L BUN (9-20) mg/dL Glucose (74-99) mg/dL POC Glucose (mg/dL) 132 H 120 H (75-99) mg/dL Calcium (8.4-10.2) mg/dL Total Protein (6.3-8.2) g/dL Arterial Blood Potassium (3.4-4.5) mmol/L Arterial Blood Glucose 130 H (75-99) mg/dL Crossmatch 04/01/18 04/01/18 04/01/18 Range/Units 16:03 16:50 16:50 RBC 3.35 L (4.30-5.90) m/uL Hgb 10.6 L (13.0-17.5) gm/dL Hct 31.7 L (39.0-53.0) % Plt Count 105 L (150-450) k/uL Neutrophils # (1.3-7.7) k/uL Lymphocytes # (1.0-4.8) k/uL INR (<1.2) APTT (22.0-30.0) sec ABG pH 7.32 L (7.35-7.45) ABG pCO2 47 H (35-45) mmHg ABG pO2 221 H (83-108) mmHg ABG Total CO2 26 H (19-24) mmol/L ABG O2 Saturation 99.4 H (94-97) % ABG Hematocrit (34.0-46.0) % ABG Sodium (135-146) mmol/L ABG Potassium (3.4-4.5) mmol/L ABG Ionized Calcium (4.5-5.3) mg/dL ABG Glucose (75-99) mg/dL Hemoglobin (13.0-17.5) gm/dL Chloride 108 H (98-107) mmol/L BUN (9-20) mg/dL Glucose 121 H (74-99) mg/dL POC Glucose (mg/dL) (75-99) mg/dL Calcium 8.1 L (8.4-10.2) mg/dL Total Protein 5.9 L (6.3-8.2) g/dL Arterial Blood Potassium (3.4-4.5) mmol/L Arterial Blood Glucose (75-99) mg/dL Crossmatch 04/01/18 04/01/18 04/01/18 Range/Units 16:50 17:22 18:00 RBC (4.30-5.90) m/uL Hgb (13.0-17.5) gm/dL Hct (39.0-53.0) % Plt Count (150-450) k/uL Neutrophils # (1.3-7.7) k/uL Lymphocytes # (1.0-4.8) k/uL INR 1.2 H (<1.2) APTT 50.6 H (22.0-30.0) sec ABG pH (7.35-7.45) ABG pCO2 (35-45) mmHg ABG pO2 (83-108) mmHg ABG Total CO2 (19-24) mmol/L ABG O2 Saturation (94-97) % ABG Hematocrit (34.0-46.0) % ABG Sodium (135-146) mmol/L ABG Potassium (3.4-4.5) mmol/L ABG Ionized Calcium (4.5-5.3) mg/dL ABG Glucose (75-99) mg/dL Hemoglobin (13.0-17.5) gm/dL Chloride (98-107) mmol/L BUN (9-20) mg/dL Glucose (74-99) mg/dL POC Glucose (mg/dL) 142 H 154 H (75-99) mg/dL Calcium (8.4-10.2) mg/dL Total Protein (6.3-8.2) g/dL Arterial Blood Potassium (3.4-4.5) mmol/L Arterial Blood Glucose (75-99) mg/dL Crossmatch 04/01/18 04/01/18 04/01/18 Range/Units 19:08 19:19 20:00 RBC (4.30-5.90) m/uL Hgb (13.0-17.5) gm/dL Hct (39.0-53.0) % Plt Count (150-450) k/uL Neutrophils # (1.3-7.7) k/uL Lymphocytes # (1.0-4.8) k/uL INR (<1.2) APTT (22.0-30.0) sec ABG pH 7.17 L* (7.35-7.45) ABG pCO2 67 H (35-45) mmHg ABG pO2 70 L (83-108) mmHg ABG Total CO2 26 H (19-24) mmol/L ABG O2 Saturation 89.7 L (94-97) % ABG Hematocrit (34.0-46.0) % ABG Sodium (135-146) mmol/L ABG Potassium (3.4-4.5) mmol/L ABG Ionized Calcium (4.5-5.3) mg/dL ABG Glucose (75-99) mg/dL Hemoglobin (13.0-17.5) gm/dL Chloride (98-107) mmol/L BUN (9-20) mg/dL Glucose 176 H (74-99) mg/dL POC Glucose (mg/dL) 183 H (75-99) mg/dL Calcium 7.9 L (8.4-10.2) mg/dL Total Protein 5.6 L (6.3-8.2) g/dL Arterial Blood Potassium (3.4-4.5) mmol/L Arterial Blood Glucose (75-99) mg/dL Crossmatch 04/01/18 04/01/18 04/01/18 Range/Units 20:00 20:00 20:59 RBC 3.20 L (4.30-5.90) m/uL Hgb 10.1 L (13.0-17.5) gm/dL Hct 30.5 L (39.0-53.0) % Plt Count 116 L (150-450) k/uL Neutrophils # (1.3-7.7) k/uL Lymphocytes # 0.7 L (1.0-4.8) k/uL INR (<1.2) APTT (22.0-30.0) sec ABG pH (7.35-7.45) ABG pCO2 (35-45) mmHg ABG pO2 (83-108) mmHg ABG Total CO2 (19-24) mmol/L ABG O2 Saturation (94-97) % ABG Hematocrit (34.0-46.0) % ABG Sodium (135-146) mmol/L ABG Potassium (3.4-4.5) mmol/L ABG Ionized Calcium (4.5-5.3) mg/dL ABG Glucose (75-99) mg/dL Hemoglobin (13.0-17.5) gm/dL Chloride (98-107) mmol/L BUN (9-20) mg/dL Glucose (74-99) mg/dL POC Glucose (mg/dL) 192 H 182 H (75-99) mg/dL Calcium (8.4-10.2) mg/dL Total Protein (6.3-8.2) g/dL Arterial Blood Potassium (3.4-4.5) mmol/L Arterial Blood Glucose (75-99) mg/dL Crossmatch 04/01/18 04/01/18 04/01/18 Range/Units 21:19 22:13 23:05 RBC (4.30-5.90) m/uL Hgb (13.0-17.5) gm/dL Hct (39.0-53.0) % Plt Count (150-450) k/uL Neutrophils # (1.3-7.7) k/uL Lymphocytes # (1.0-4.8) k/uL INR (<1.2) APTT (22.0-30.0) sec ABG pH 7.28 L (7.35-7.45) ABG pCO2 52 H (35-45) mmHg ABG pO2 71 L (83-108) mmHg ABG Total CO2 26 H (19-24) mmol/L ABG O2 Saturation 93.0 L (94-97) % ABG Hematocrit (34.0-46.0) % ABG Sodium (135-146) mmol/L ABG Potassium (3.4-4.5) mmol/L ABG Ionized Calcium (4.5-5.3) mg/dL ABG Glucose (75-99) mg/dL Hemoglobin (13.0-17.5) gm/dL Chloride (98-107) mmol/L BUN (9-20) mg/dL Glucose (74-99) mg/dL POC Glucose (mg/dL) 167 H 159 H (75-99) mg/dL Calcium (8.4-10.2) mg/dL Total Protein (6.3-8.2) g/dL Arterial Blood Potassium (3.4-4.5) mmol/L Arterial Blood Glucose (75-99) mg/dL Crossmatch 04/02/18 04/02/18 04/02/18 Range/Units 00:09 01:12 02:07 RBC (4.30-5.90) m/uL Hgb (13.0-17.5) gm/dL Hct (39.0-53.0) % Plt Count (150-450) k/uL Neutrophils # (1.3-7.7) k/uL Lymphocytes # (1.0-4.8) k/uL INR (<1.2) APTT (22.0-30.0) sec ABG pH (7.35-7.45) ABG pCO2 (35-45) mmHg ABG pO2 (83-108) mmHg ABG Total CO2 (19-24) mmol/L ABG O2 Saturation (94-97) % ABG Hematocrit (34.0-46.0) % ABG Sodium (135-146) mmol/L ABG Potassium (3.4-4.5) mmol/L ABG Ionized Calcium (4.5-5.3) mg/dL ABG Glucose (75-99) mg/dL Hemoglobin (13.0-17.5) gm/dL Chloride (98-107) mmol/L BUN (9-20) mg/dL Glucose (74-99) mg/dL POC Glucose (mg/dL) 141 H 138 H 147 H (75-99) mg/dL Calcium (8.4-10.2) mg/dL Total Protein (6.3-8.2) g/dL Arterial Blood Potassium (3.4-4.5) mmol/L Arterial Blood Glucose (75-99) mg/dL Crossmatch 04/02/18 04/02/18 04/02/18 Range/Units 03:10 04:00 04:00 RBC 3.33 L (4.30-5.90) m/uL Hgb 10.3 L (13.0-17.5) gm/dL Hct 31.4 L (39.0-53.0) % Plt Count 112 L (150-450) k/uL Neutrophils # 8.4 H (1.3-7.7) k/uL Lymphocytes # 0.5 L (1.0-4.8) k/uL INR (<1.2) APTT (22.0-30.0) sec ABG pH (7.35-7.45) ABG pCO2 (35-45) mmHg ABG pO2 (83-108) mmHg ABG Total CO2 (19-24) mmol/L ABG O2 Saturation (94-97) % ABG Hematocrit (34.0-46.0) % ABG Sodium (135-146) mmol/L ABG Potassium (3.4-4.5) mmol/L ABG Ionized Calcium (4.5-5.3) mg/dL ABG Glucose (75-99) mg/dL Hemoglobin (13.0-17.5) gm/dL Chloride (98-107) mmol/L BUN 21 H (9-20) mg/dL Glucose 142 H (74-99) mg/dL POC Glucose (mg/dL) 151 H (75-99) mg/dL Calcium 8.3 L (8.4-10.2) mg/dL Total Protein 5.5 L (6.3-8.2) g/dL Arterial Blood Potassium (3.4-4.5) mmol/L Arterial Blood Glucose (75-99) mg/dL Crossmatch 04/02/18 04/02/18 04/02/18 Range/Units 04:09 04:59 06:22 RBC (4.30-5.90) m/uL Hgb (13.0-17.5) gm/dL Hct (39.0-53.0) % Plt Count (150-450) k/uL Neutrophils # (1.3-7.7) k/uL Lymphocytes # (1.0-4.8) k/uL INR (<1.2) APTT (22.0-30.0) sec ABG pH (7.35-7.45) ABG pCO2 (35-45) mmHg ABG pO2 (83-108) mmHg ABG Total CO2 (19-24) mmol/L ABG O2 Saturation (94-97) % ABG Hematocrit (34.0-46.0) % ABG Sodium (135-146) mmol/L ABG Potassium (3.4-4.5) mmol/L ABG Ionized Calcium (4.5-5.3) mg/dL ABG Glucose (75-99) mg/dL Hemoglobin (13.0-17.5) gm/dL Chloride (98-107) mmol/L BUN (9-20) mg/dL Glucose (74-99) mg/dL POC Glucose (mg/dL) 158 H 156 H 154 H (75-99) mg/dL Calcium (8.4-10.2) mg/dL Total Protein (6.3-8.2) g/dL Arterial Blood Potassium (3.4-4.5) mmol/L Arterial Blood Glucose (75-99) mg/dL Crossmatch 04/02/18 Range/Units 07:19 RBC (4.30-5.90) m/uL Hgb (13.0-17.5) gm/dL Hct (39.0-53.0) % Plt Count (150-450) k/uL Neutrophils # (1.3-7.7) k/uL Lymphocytes # (1.0-4.8) k/uL INR (<1.2) APTT (22.0-30.0) sec ABG pH (7.35-7.45) ABG pCO2 (35-45) mmHg ABG pO2 (83-108) mmHg ABG Total CO2 (19-24) mmol/L ABG O2 Saturation (94-97) % ABG Hematocrit (34.0-46.0) % ABG Sodium (135-146) mmol/L ABG Potassium (3.4-4.5) mmol/L ABG Ionized Calcium (4.5-5.3) mg/dL ABG Glucose (75-99) mg/dL Hemoglobin (13.0-17.5) gm/dL Chloride (98-107) mmol/L BUN (9-20) mg/dL Glucose (74-99) mg/dL POC Glucose (mg/dL) 139 H (75-99) mg/dL Calcium (8.4-10.2) mg/dL Total Protein (6.3-8.2) g/dL Arterial Blood Potassium (3.4-4.5) mmol/L Arterial Blood Glucose (75-99) mg/dL Crossmatch Assessment and Plan (1) Coronary arteriosclerosis in patient with history of previous myocardial infarction Current Visit: Yes Status: Chronic Code(s): I25.10 - ATHSCL HEART DISEASE OF [place] CORONARY ARTERY W/O ANG PCTRS; I25.2 - OLD MYOCARDIAL INFARCTION SNOMED Code(s): 257382636934878 (2) Coronary artery disease Current Visit: Yes Status: Chronic Code(s): I25.10 - ATHSCL HEART DISEASE OF [place] CORONARY ARTERY W/O ANG PCTRS SNOMED Code(s): 08512289 (3) Depression Current Visit: Yes Status: Chronic Code(s): F32.9 - MAJOR DEPRESSIVE DISORDER, SINGLE EPISODE, UNSPECIFIED SNOMED Code(s): 92336414 (4) Family history of coronary artery disease in father Current Visit: Yes Status: Chronic Code(s): Z82.49 - FAMILY HX OF [place] HEART DIS AND OTH DIS OF THE CIRC SYS SNOMED Code(s): 861874135 (5) History of coronary artery stent placement Current Visit: Yes Status: Chronic Code(s): Z95.5 - PRESENCE OF CORONARY ANGIOPLASTY IMPLANT AND GRAFT SNOMED Code(s): 995193531 (6) Hyperlipidemia Current Visit: Yes Status: Chronic Code(s): E78.5 - HYPERLIPIDEMIA, UNSPECIFIED SNOMED Code(s): 28000908 (7) Hypertension Current Visit: Yes Status: Chronic Code(s): I10 - ESSENTIAL (PRIMARY) HYPERTENSION SNOMED Code(s): 89369041 (8) Obesity (BMI 30.0-34.9) Current Visit: Yes Status: Chronic Code(s): E66.9 - OBESITY, UNSPECIFIED SNOMED Code(s): 378375498150384 (9) Sleep apnea Current Visit: Yes Status: Chronic Code(s): G47.30 - SLEEP APNEA, UNSPECIFIED SNOMED Code(s): 18504228 (10) Type 2 diabetes mellitus Current Visit: Yes Status: Chronic Code(s): E11.9 - TYPE 2 DIABETES MELLITUS WITHOUT COMPLICATIONS SNOMED Code(s): 79077911 (11) Varicose veins of both lower extremities Current Visit: Yes Status: Chronic Code(s): I83.93 - ASYMPTOMATIC VARICOSE VEINS OF BILATERAL LOWER EXTREMITIES SNOMED Code(s): 73225498 Plan: 1. Continue aspirin, statin, Plavix, beta lo. Will increase beta lo therapy as tolerated. Will add Sammy when able. 2. Norvasc added for radial artery spasm. Discontinue IV nitro after administration of Norvasc. 3. Wean Cleviprex as tolerated. 4. Wean O2 as tolerated. Encourage incentive spirometry use 10 times every hour while awake. Patient needs aggressive pulmonary hygiene. 5. IV Lasix 20 mg given this morning. Potentially will give more Lasix later based on patient's progress. 6. Increase activity, ambulate in the room. PT/OT/cardiac rehab following. 7. Pain control with current medication regimen. Toradol added. 8. Will monitor daily labs and x-rays. 10. Insulin per primary care service. 11. Discontinue [place] catheter. Connect Cordis to continuous CVP monitoring. 12. Bronchodilators per pulmonology. 13. Home medications added. 14. More recommendations as patient progresses. Time with Patient: Greater than 30
[2018-04-02] MEDS: HEPARIN SODIUM,PORCINE 5,000 UNIT/ML 1 ML VIAL SQ SCH ×2 (08:12→15:21)
[2018-04-02] MEDS: ASPIRIN 325 MG TAB PO SCH (08:14)
[2018-04-02] MEDS: ATORVASTATIN 80 MG TAB PO SCH (08:15)
[2018-04-02] MEDS: VENLAFAXINE HCL ER 75 MG CAP PO SCH (08:15)
[2018-04-02] MEDS: CLOPIDOGREL 75 MG TAB PO SCH (08:15)
[2018-04-02] MEDS: MUPIROCIN 2% OINT 22 GM TUBE NASAL SCH ×2 (08:15→20:17)
[2018-04-02 08:22] LABS: Glucose,Whole Blood 152 mg/dL (75-99)
[2018-04-02] MEDS ORDERED: ATORVASTATIN 40 MG TAB PO SCH (09:00)
[2018-04-02] MEDS ORDERED: amLODIPine 2.5 MG TAB PO SCH (09:00)
[2018-04-02] MEDS ORDERED: PANTOPRAZOLE 40 MG/10 ML VIAL IVP SCH (09:00)
[2018-04-02] MEDS ORDERED: METOPROLOL TARTRATE 12.5 MG TAB PO SCH (09:00)
[2018-04-02 09:20] LABS: Glucose,Whole Blood 110 mg/dL (75-99)
--- NOTE | 2018-04-02 09:34 | P.CRDCN ---
History of Present Illness Consult date: 04/02/18 History of present illness: This is a pleasant 73-year-old gentleman who I requested to see for post coronary artery bypass grafting. The patient does follows Dr. Arriaga in the office on regular basis. Recently he was experiencing symptoms of chest discomfort. He underwent a myocardial perfusion imaging stress test and that revealed ischemia. Because of that he underwent a heart catheterization on March 252017 and that revealed severe coronary artery disease involving the distal left main coronary artery appears to be in the range of 50-60% and also severe disease involving the proximal LAD as well as totally occluded left circumflex and severe disease involving the RCA. Surgical consult was placed and the patient underwent yesterday coronary artery bypass grafting 3 where he received FONTAINE to OM, TITUS to LAD, and radial artery to RCA. This is postoperative day #1. The patient was extubated after midnight today. He has been maintaining normal sinus mechanism. He is hemodynamically stable and he is currently on nitro drip which would be going to stop soon and the patient will be started on calcium channel lo with Norvasc because of the radial grafts. Beside that he is on aspirin and he is on a statin. He has been refusing about 30-40 mL per hour of urine. The cardiac output and cardiac index appeared to be within normal limits. The chest x-ray from the morning was reviewed and did show cardiomegaly with mild bilateral pleural effusion. From the cardiac standpoint, we'll continue the current medical regimen including aspirin as well as statin. Continue monitor the hemoglobin and kidney function. Continue monitor the rhythm and the patient has been maintaining normal sinus mechanism so far. Past Medical History Past Medical History: Coronary Artery Disease (CAD), Diabetes Mellitus, Eye Disorder, Hyperlipidemia, Hypertension, Myocardial Infarction (ND), Sleep Apnea/ CPAP/BIPAP Additional Past Medical History / Comment(s): seasonal allergies, unable to use cpap, obesity. varicose vein left leg Last Myocardial Infarction Date:: 1986 History of Any Multi-Drug Resistant Organisms: None Reported Past Surgical History: Heart Catheterization With Stent, Orthopedic Surgery Additional Past Surgical History / Comment(s): 4 heart stents, varicose veins rt leg with right leg vein stripping. walker Cataract, LEFT HAND SX, HEART CATH Past Anesthesia/Blood Transfusion Reactions: No Reported Reaction Date of Last Stent Placement:: 2002 Smoking Status: Never smoker - Past Family History Mother Family Medical History: No Reported History Additional Family Medical History / Comment(s): Mother at age 89 from kidney disease and bladder problems. Father Family Medical History: Myocardial Infarction (ND) Additional Family Medical History / Comment(s): Father from myocardial infarction at age 56. Medications and Allergies Home Medications Medication Instructions Recorded Confirmed Type Atenolol [Tenormin] 25 mg PO DAILY 11/04/14 04/01/18 History Atorvastatin [Lipitor] 80 mg PO HS 11/04/14 04/01/18 History Isosorbide Mononitrate [Imdur] 120 mg PO DAILY 11/04/14 04/01/18 History metFORMIN HCL [Glucophage] 850 mg PO BID 11/04/14 04/01/18 History Aspirin 325 mg PO DAILY 03/18/18 04/01/18 History Lisinopril [Zestril] 10 mg PO HS 03/18/18 04/01/18 History Venlafaxine HCl [Effexor] 75 mg PO DAILY 03/18/18 04/01/18 History Allergies Allergy/AdvReac Type Severity Reaction Status Date / Time No Known Allergies Allergy Verified 04/01/18 16:50 Physical Exam Vitals: Vital Signs Temp Pulse Pulse Resp BP BP BP 04/02/18 07:39 82 04/02/18 07:22 81 04/02/18 07:00 86 22 04/02/18 06:30 75 20 04/02/18 06:00 80 22 04/02/18 05:30 77 23 04/02/18 05:00 80 33 H 04/02/18 04:30 81 25 H 04/02/18 04:00 78.2 F L 82 23 113/72 04/02/18 03:30 81 20 113/72 04/02/18 03:00 84 27 H 04/02/18 02:30 86 23 04/02/18 02:00 87 24 04/02/18 01:30 93 33 H 04/02/18 01:00 87 24 113/72 04/02/18 00:30 85 20 113/72 04/02/18 00:05 87 16 113/72 04/02/18 00:00 98.3 F 85 15 04/01/18 23:30 92 26 H 04/01/18 23:00 87 19 04/01/18 22:30 87 10 L 04/01/18 22:00 96 32 H 04/01/18 21:30 93 26 H 113/72 04/01/18 21:00 90 28 H 04/01/18 20:24 87 16 04/01/18 20:09 85 17 04/01/18 20:00 86 8 L 113/72 04/01/18 19:00 91 18 113/72 04/01/18 18:35 97.9 F 94 27 H 113/72 04/01/18 17:00 97.9 F 80 27 H 146/84 152/89 04/01/18 16:00 80 27 H 146/84 152/89 04/01/18 15:39 04/01/18 15:30 80 14 Pulse Ox 04/02/18 07:39 04/02/18 07:22 04/02/18 07:00 92 L 04/02/18 06:30 94 L 04/02/18 06:00 90 L 04/02/18 05:30 91 L 04/02/18 05:00 92 L 04/02/18 04:30 94 L 04/02/18 04:00 92 L 04/02/18 03:30 94 L 04/02/18 03:00 93 L 04/02/18 02:30 94 L 04/02/18 02:00 94 L 04/02/18 01:30 93 L 04/02/18 01:00 93 L 04/02/18 00:30 96 04/02/18 00:05 96 04/02/18 00:00 96 04/01/18 23:30 96 04/01/18 23:00 96 04/01/18 22:30 95 04/01/18 22:00 94 L 04/01/18 21:30 96 04/01/18 21:00 98 04/01/18 20:24 04/01/18 20:09 04/01/18 20:00 96 04/01/18 19:00 91 L 04/01/18 18:35 91 L 04/01/18 17:00 91 L 04/01/18 16:00 91 L 04/01/18 15:39 100 04/01/18 15:30 Intake and Output 10/23/18 10/24/18 10/24/18 22:59 06:59 14:59 Intake Total 878.437 2165.696 219.575 Output Total 774 530 112 Balance 72.529 1071.696 107.575 Intake: IV 743 1442 159 ACETAMINOPHEN IV (For NPO 100 800 ) 1,000 mg In Empty Bag 1 bag @ 400 mls/hr IVPB Q6HR [facility] Rx#:[id number] CO/CI 240 70 Lactated Ringers 1,000 ml 300 400 50 @ 20 mls/hr IV .Q24H [facility] Rx#:[id number] Magnesium Sulfate-D5w Pmx 100 100 1 gm In Dextrose/Water 1 100ml.bag @ 100 mls/hr IVPB Q1H [facility] Rx#: [id number] PRESSURE BAGS 63 72 9 ceFAZolin 2,000 mg In 40 Sodium Chloride 0.9% 30 ml @ Per Protocol IVPB ONCE ONE Rx#:[id number] Intake, IV Titration 103.529 159.696 60.575 Amount Clevidipine Butyrate 25 50 127.999 44.667 mg In Empty Bag 1 bag @ 1 MG/HR 2 mls/hr IV .Q24H [facility] Rx#:[id number] Insulin Regular 100 unit 7.166 31.697 15.908 In Sodium Chloride 0.9% 100 ml @ Per Protocol IV .Q0M [facility] Rx#:[id number] Propofol 1,000 mg In 46.363 Empty Bag 1 bag @ Titrate IV .Q0M [facility] Rx#: [id number] Output: Chest Tube Drainage 444 205 72 Chest Tube Bilateral 165 75 50 Mediastinal Chest Tube Left 124 60 20 Chest Tube Right 155 70 2 Urine 330 325 40 Other: Voiding Method Indwelling Catheter Weight 116.7 kg ABP, PAP, CO, CI - Last 8 Hours Arterial Blood Pressure 108/49 Arterial Blood Pressure 140/66 Arterial Blood Pressure 145/68 Arterial Blood Pressure 128/56 Arterial Blood Pressure 137/60 Arterial Blood Pressure 137/61 Arterial Blood Pressure 138/60 Arterial Blood Pressure 129/58 Arterial Blood Pressure 116/56 Arterial Blood Pressure 126/58 Arterial Blood Pressure 123/60 Arterial Blood Pressure 131/61 Pulmonary Artery Pressure 28/19 Pulmonary Artery Pressure 47/29 Pulmonary Artery Pressure 47/30 Pulmonary Artery Pressure 37/21 Pulmonary Artery Pressure 42/25 Pulmonary Artery Pressure 40/25 Pulmonary Artery Pressure 38/24 Pulmonary Artery Pressure 42/22 Pulmonary Artery Pressure 34/22 Pulmonary Artery Pressure 36/21 Pulmonary Artery Pressure 39/22 Pulmonary Artery Pressure 44/23 Cardiac Output 7.7 Cardiac Index 3.2 - Constitutional General appearance: no acute distress - Respiratory Respiratory: bilateral: diminished - Cardiovascular Rhythm: regular Results 04/02/18 04:00 04/02/18 04:00 Cardiac Enzymes 04/01/18 04/01/18 04/02/18 Range/Units 16:50 20:00 04:00 AST 45 42 44 (17-59) U/L Coagulation 04/01/18 04/02/18 Range/Units 16:50 04:00 PT 11.8 11.1 (9.0-12.0) sec APTT 50.6 H 24.2 (22.0-30.0) sec CBC 04/01/18 04/01/18 04/02/18 Range/Units 16:50 20:00 04:00 WBC 8.2 8.6 9.5 (3.8-10.6) k/uL RBC 3.35 L 3.20 L 3.33 L (4.30-5.90) m/uL Hgb 10.6 L 10.1 L 10.3 L (13.0-17.5) gm/dL Hct 31.7 L 30.5 L 31.4 L (39.0-53.0) % Plt Count 105 L 116 L 112 L (150-450) k/uL Comprehensive Metabolic Panel 04/01/18 04/01/18 04/02/18 Range/Units 16:50 20:00 04:00 Sodium 139 138 138 (137-145) mmol/L Potassium 4.7 4.6 4.4 (3.5-5.1) mmol/L Chloride 108 H 107 107 (98-107) mmol/L Carbon Dioxide 23 23 23 (22-30) mmol/L BUN 19 20 21 H (9-20) mg/dL Creatinine 0.80 0.93 0.99 (0.66-1.25) mg/dL Glucose 121 H 176 H 142 H (74-99) mg/dL Calcium 8.1 L 7.9 L 8.3 L (8.4-10.2) mg/dL AST 45 42 44 (17-59) U/L ALT 34 30 30 (21-72) U/L Alkaline Phosphatase 45 38 42 (38-126) U/L Total Protein 5.9 L 5.6 L 5.5 L (6.3-8.2) g/dL Albumin 3.9 3.7 3.6 (3.5-5.0) g/dL Current Medications Generic Name Dose Route Start Last Admin Trade Name Freq PRN Reason Stop Dose Admin Hydrocodone Bitart/Acetaminophen 2 each 04/02/18 14:48 [place] 5-325 PO Q4HR PRN Severe Pain Hydrocodone Bitart/Acetaminophen 1 each 04/02/18 14:48 [place] 5-325 PO Q4HR PRN Moderate Pain Albuterol/Ipratropium 3 ml 04/01/18 15:39 Duoneb 0.5 Mg-3 Mg/3 Ml Soln INHALATION RT-Q2H PRN Shortness Of Breath Or Wheezing Albuterol/Ipratropium 3 ml 04/02/18 08:00 04/02/18 07:21 Duoneb 0.5 Mg-3 Mg/3 Ml Soln INHALATION 3 ml RT-QID [facility] Administration Amlodipine Besylate 2.5 mg 04/02/18 09:00 04/02/18 08:15 Norvasc PO 2.5 mg DAILY [facility] Administration Aspirin 325 mg 04/02/18 09:00 04/02/18 08:14 Aspirin PO 325 mg DAILY [facility] Administration Atorvastatin Calcium 80 mg 04/02/18 09:00 04/02/18 08:15 Lipitor PO 80 mg DAILY [facility] Administration Benzocaine/Menthol 1 each 04/01/18 15:39 Cepacol Lozenge MUCOUS MEM Q2H PRN Sore Throat Bisacodyl 10 mg 04/02/18 14:49 Dulcolax RECTAL DAILY PRN Constipation Cefazolin Sodium 2 gm 04/01/18 18:00 04/02/18 01:04 Kefzol IVP 04/02/18 10:01 2 gm Q8H [facility] Administration Clopidogrel Bisulfate 75 mg 04/02/18 09:00 04/02/18 08:15 Plavix PO 75 mg DAILY [facility] Administration Heparin Sodium (Porcine) 5,000 unit 04/02/18 00:00 04/02/18 08:12 Heparin SQ 5,000 unit Q8HR [facility] Administration Acetaminophen 1,000 mg/ IV 100 mls @ 400 mls/hr 04/01/18 18:00 04/02/18 05:13 Solution IVPB 04/02/18 18:01 400 mls/hr Q6HR [facility] Administration Albumin Human 250 ml/ IV 250 mls @ 250 mls/hr 04/01/18 15:39 Solution IVPB 04/03/18 15:40 Q1HR PRN For Volume Amiodarone HCl 150 mg/ 103 mls @ 618 mls/hr 04/01/18 15:39 Dextrose/Water IV .Q10M PRN Per protocol Protocol Amiodarone HCl 450 mg/ 259 mls @ 34.53 mls/hr 04/01/18 15:39 Dextrose/Water IV .Q7H31M PRN Per Protocol Protocol 1 MG/MIN Clevidipine 25 mg/ IV Solution 50 mls @ 2 mls/hr 04/01/18 15:39 04/02/18 07: 25 IV 4 mg/hr .Q24H [facility] 8 mls/hr Administration Protocol 1 MG/HR Insulin Human Regular 100 unit 101 mls @ 0 mls/hr 04/01/18 16:30 04/02/18 08: 10 / Sodium Chloride IV 5 units/hr .Q0M [facility] 5.05 mls/hr Titration Protocol Per Protocol Lactated Ringer's 1,000 mls @ 20 mls/hr 04/01/18 15:39 04/01/18 16:00 Lactated Ringers IV 50 mls/hr .Q24H [facility] Administration Ketorolac Tromethamine 15 mg 04/02/18 07:00 04/02/18 07:25 Toradol IVP 04/06/18 07:00 15 mg Q6H [facility] Administration Magnesium Hydroxide 2,400 mg 04/02/18 14:49 Milk Of Magnesia PO BID PRN Constipation Metoclopramide HCl 10 mg 04/01/18 15:39 Reglan IVP Q4H PRN Nausea And Vomiting Metoprolol Tartrate 12.5 mg 04/02/18 09:00 04/02/18 08:12 Lopressor PO 12.5 mg BID [facility] Administration Miscellaneous Information 1 each 04/01/18 15:39 Magnesium Per Protocol MISCELLANE DAILY PRN Per Protocol Protocol Miscellaneous Information 1 each 04/01/18 15:39 Phosphorus Per Protocol MISCELLANE DAILY PRN Per Protocol Protocol Miscellaneous Information 1 each 04/01/18 15:39 Potassium Per Protocol MISCELLANE DAILY PRN Per Protocol Protocol Miscellaneous Information 1 each 04/02/18 04:40 Magnesium Per Protocol MISCELLANE DAILY PRN Per Protocol Protocol Mupirocin 1 applic 04/01/18 21:00 04/02/18 08:15 Bactroban Oint NASAL 04/04/18 21:01 1 applic BID [facility] Administration Ondansetron HCl 4 mg 04/01/18 15:39 Zofran IVP Q6HR PRN Nausea And Vomiting Oxycodone HCl 10 mg 04/01/18 15:39 Oxyir PO 04/02/18 15:40 Q4H PRN Severe Pain Oxycodone HCl 5 mg 04/01/18 15:39 04/01/18 18:29 Oxyir PO 04/02/18 15:40 5 mg Q4H PRN Administration Moderate Pain Pantoprazole Sodium 40 mg 04/02/18 09:00 04/02/18 08:15 Protonix IVP 40 mg DAILY [facility] Administration Senna/Docusate Sodium 2 each 04/02/18 21:00 Senokot-S PO HS [facility] Sodium Chloride 10 ml 04/01/18 21:00 04/02/18 08:16 Saline Flush IV 10 ml BID [facility] Administration Venlafaxine HCl 75 mg 04/02/18 09:00 04/02/18 08:15 Effexor Xr PO 75 mg DAILY [facility] Administration Intake and Output 04/01/18 04/02/18 04/02/18 22:59 06:59 14:59 Intake Total 840.884 3814.696 219.575 Output Total 774 530 112 Balance 72.529 1071.696 107.575 Intake: IV 743 1442 159 ACETAMINOPHEN IV (For NPO 100 800 ) 1,000 mg In Empty Bag 1 bag @ 400 mls/hr IVPB Q6HR [facility] Rx#:[id number] CO/CI 240 70 Lactated Ringers 1,000 ml 300 400 50 @ 20 mls/hr IV .Q24H [facility] Rx#:[id number] Magnesium Sulfate-D5w Pmx 100 100 1 gm In Dextrose/Water 1 100ml.bag @ 100 mls/hr IVPB Q1H [facility] Rx#: [id number] PRESSURE BAGS 63 72 9 ceFAZolin 2,000 mg In 40 Sodium Chloride 0.9% 30 ml @ Per Protocol IVPB ONCE ONE Rx#:[id number] Intake, IV Titration 103.529 159.696 60.575 Amount Clevidipine Butyrate 25 50 127.999 44.667 mg In Empty Bag 1 bag @ 1 MG/HR 2 mls/hr IV .Q24H [facility] Rx#:[id number] Insulin Regular 100 unit 7.166 31.697 15.908 In Sodium Chloride 0.9% 100 ml @ Per Protocol IV .Q0M [facility] Rx#:[id number] Propofol 1,000 mg In 46.363 Empty Bag 1 bag @ Titrate IV .Q0M [facility] Rx#: [id number] Output: Chest Tube Drainage 444 205 72 Chest Tube Bilateral 165 75 50 Mediastinal Chest Tube Left 124 60 20 Chest Tube Right 155 70 2 Urine 330 325 40 Other: Voiding Method Indwelling Catheter Weight 116.7 kg 04/02/18 04:00 04/02/18 04:00 Assessment and Plan Assessment: Assessment #1 multi vessel coronary artery disease and status post coronary artery that is grafting as described above #2 systemic hypertension #3 dyslipidemia #4 diabetes type 2 #5 sleep apnea Plan #1 continue monitor the kidney function as well as electrolytes and hemoglobin #2 start the patient on Plavix in addition to aspirin #3 continue aspirin and statin #4 follow-up with the patient.
--- NOTE | 2018-04-02 09:36 | XR ---
EXAMINATION TYPE: XR chest 1V portable DATE OF EXAM: 04/02/2018 COMPARISON: 04/01/2018 HISTORY: Post cardiac surgery TECHNIQUE: Single frontal view of the chest is obtained. FINDINGS: ET and NG tube have been removed. [place]-Danny catheter stable in position. Fry megaly and postsurgical changes noted with bilateral consolidation and pleural effusion. Central venous congesti on suggested. No pneumothorax. There is near complete resolution of subcutaneous emphysema along the left lateral soft tissues of the chest. IMPRESSION: 1. Postsurgical changes with bilateral consolidation and pleural effusion. Underlying CHF in the diff erential. Correlate clinically.
[2018-04-02 10:03] LABS: Glucose,Whole Blood 115 mg/dL (75-99)
[2018-04-02 10:37] VITALS: BMI 32.1
--- NOTE | 2018-04-02 11:05 | P.PN ---
Subjective Progress Note Date: 04/02/18 Principal diagnosis: Coronary artery disease, status post three-vessel coronary artery bypass grafting This is A 73-year-old patient of Dr. Nicholas, with past medical history of coronary artery disease and previous myocardial infarction with previous stent placement, hypertension, hyperlipidemia, obesity, diabetes mellitus type 2, family history of early onset coronary artery disease, obstructive sleep apnea not on CPAP therapy. Patient had been having episodes of chest discomfort for 2 -3 years, he became progressively worse. He had Lexiscan Cardiolite stress test was abnormal. Heart catheterization on 03/25/2018 showed a distal left main stenosis of 50-60%, proximal LAD 70%, totally occluded circumflex coronary artery with ipsilateral collaterals to the large third obtuse marginal branch, mid RCA of 80%, and distal RCA of 80%. Patient was recommended surgical intervention, and today on 04/01/2018 patient underwent three-vessel artery artery bypass grafting Dr. Rubio, with right internal mammary artery to LAD, FONTAINE to the OM, left radial artery to the RCA with endoscopic harvesting of the left radial artery. He seen in the intensive care unit, the [facility], intubated on mechanical ventilator, current vent settings of SIMV mode with a rate of 14, tidal vital 600, FiO2 100%, PEEP of 8. Maintenance IV fluids include LR at a rate of 50, Diprivan is 65 mics per kilo per minute, clevidipine is currently at 4 mg per hour. Cardiac output and index is 7.3 and 3.0 respectively. Hemodynamically stable. Patient has 4 chest tubes, 2 mediastinal and right and left pleural chest tubes with small amount of sanguinous drainage in the Pleur- evac. PA pressure is 42/24. Blood gas showed pO2 of 184, pCO2 41, pH of 7.36. Chest x-ray has been reviewed, showed cardiomegaly with interstitial changes, mild pulmonary vascular congestion, persistent small left pleural effusion, left basilar and retrocardiac atelectasis. The patient is seen again today 04/02/2018 in follow-up in the intensive care unit. He was successfully extubated approximately midnight last night. He is currently maintaining O2 saturation in the low 90s on 8 L high flow nasal cannula. Chest x-ray reveals some bilateral consolidation and pleural effusion. He did receive one dose of 20 mg of Lasix this morning. Currently in a positive balance. He is up in a chair at the bedside. He is awake and alert in no acute distress. He is receiving lactated Ringer's at 50 MLS per hour. Clevidipine at 4 mg per hour. Insulin drip at 5 units per hour. His remaining in sinus rhythm. Blood pressure stable. PA pressure 28/19, CVP 12, cardiac output 7.7. Cardiac and is 3.2. White count 9.5. Hemoglobin 10.3. Platelet count 112,000. Creatinine 0.99. He is working well with the incentive spirometer. Objective - Vital Signs Vital signs: Vital Signs Temp 78.2 F L 04/02/18 04:00 Pulse 82 04/02/18 07:39 Resp 22 04/02/18 07:00 BP 113/72 04/02/18 04:00 Pulse Ox 92 L 04/02/18 07:00 Intake & Output 04/01/18 04/02/18 04/02/18 18:59 06:59 18:59 Intake Total 430.672 0073.773 219.575 Output Total 2835 969 112 Balance -2327.548 1004.773 107.575 Weight 116.7 kg 116.7 kg Intake: IV 460 1758 159 ACETAMINOPHEN IV (For NPO 100 800 ) 1,000 mg In Empty Bag 1 bag @ 400 mls/hr IVPB Q6HR [facility] Rx#:[id number] CO/CI 160 150 Lactated Ringers 1,000 ml 100 600 50 @ 20 mls/hr IV .Q24H [facility] Rx#:[id number] Magnesium Sulfate-D5w Pmx 100 100 1 gm In Dextrose/Water 1 100ml.bag @ 100 mls/hr IVPB Q1H [facility] Rx#: [id number] PRESSURE BAGS 27 108 9 ceFAZolin 2,000 mg In 40 Sodium Chloride 0.9% 30 ml @ Per Protocol IVPB ONCE ONE Rx#:[id number] Intake, IV Titration 47.452 215.773 60.575 Amount Clevidipine Butyrate 25 177.999 44.667 mg In Empty Bag 1 bag @ 1 MG/HR 2 mls/hr IV .Q24H [facility] Rx#:[id number] Insulin Regular 100 unit 1.089 37.774 15.908 In Sodium Chloride 0.9% 100 ml @ Per Protocol IV .Q0M [facility] Rx#:[id number] Propofol 1,000 mg In 46.363 Empty Bag 1 bag @ Titrate IV .Q0M [facility] Rx#: [id number] Output: Chest Tube Drainage 305 344 72 Chest Tube Bilateral 115 125 50 Mediastinal Chest Tube Left 80 104 20 Chest Tube Right 110 115 2 Urine 530 625 40 Estimated Blood Loss 1999 Other: Voiding Method Indwelling Catheter ABP, PAP, CO, CI - Last Documented Arterial Blood Pressure 108/49 Pulmonary Artery Pressure 28/19 Cardiac Output 7.7 Cardiac Index 3.2 - Exam GENERAL EXAM: Alert, fairly comfortable in no apparent distress. Currently on 8 L high flow nasal cannula. HEAD: Normocephalic. EYES: Normal reaction of pupils, equal size. NOSE: Clear with pink turbinates. THROAT: No erythema or exudates. NECK: No masses, no JVD. CHEST: Gen. dressing dry and intact.. LUNGS: Equal air entry with crackles in the posterior bases. Chest tubes in place. CVS: S1 and S2 normal with no audible murmur, regular rhythm. ABDOMEN: No hepatosplenomegaly, normal bowel sounds, no guarding or rigidity. SPINE: No scoliosis or deformity SKIN: No rashes CENTRAL NERVOUS SYSTEM: No focal deficits, tone is normal in all 4 extremities. EXTREMITIES: Right radial EDUIN drain in place. There is no peripheral edema. No clubbing, no cyanosis. Peripheral pulses are intact. - Labs CBC & Chem 7: 04/02/18 04:00 04/02/18 04:00 Labs: Abnormal Lab Results - Last 24 Hours (Table) 03/25/18 04/01/18 04/01/18 Range/Units 16:22 08:44 11:05 RBC (4.30-5.90) m/uL Hgb (13.0-17.5) gm/dL Hct (39.0-53.0) % Plt Count (150-450) k/uL Neutrophils # (1.3-7.7) k/uL Lymphocytes # (1.0-4.8) k/uL INR (<1.2) APTT (22.0-30.0) sec ABG pH 7.34 L 7.34 L (7.35-7.45) ABG pCO2 (35-45) mmHg ABG pO2 224 H 221 H (83-108) mmHg ABG Total CO2 26 H (19-24) mmol/L ABG O2 Saturation 99.5 H 99.4 H (94-97) % ABG Hematocrit (34.0-46.0) % ABG Sodium (135-146) mmol/L ABG Potassium (3.4-4.5) mmol/L ABG Ionized Calcium (4.5-5.3) mg/dL ABG Glucose 109 H 132 H (75-99) mg/dL Hemoglobin 12.9 L (13.0-17.5) gm/dL Chloride (98-107) mmol/L BUN (9-20) mg/dL Glucose (74-99) mg/dL POC Glucose (mg/dL) (75-99) mg/dL Calcium (8.4-10.2) mg/dL Total Protein (6.3-8.2) g/dL Arterial Blood Potassium (3.4-4.5) mmol/L Arterial Blood Glucose 109 H 132 H (75-99) mg/dL Crossmatch See Detail 04/01/18 04/01/18 04/01/18 Range/Units 11:50 12:28 12:59 RBC (4.30-5.90) m/uL Hgb (13.0-17.5) gm/dL Hct (39.0-53.0) % Plt Count (150-450) k/uL Neutrophils # (1.3-7.7) k/uL Lymphocytes # (1.0-4.8) k/uL INR (<1.2) APTT (22.0-30.0) sec ABG pH (7.35-7.45) ABG pCO2 (35-45) mmHg ABG pO2 373 H 303 H 299 H (83-108) mmHg ABG Total CO2 27 H 25 H 26 H (19-24) mmol/L ABG O2 Saturation 100.0 H 99.7 H 99.9 H (94-97) % ABG Hematocrit 30 L 32 L 32 L (34.0-46.0) % ABG Sodium 132 L 134 L (135-146) mmol/L ABG Potassium 5.8 H 5.0 H 4.8 H (3.4-4.5) mmol/L ABG Ionized Calcium 3.9 L 4.1 L 4.2 L (4.5-5.3) mg/dL ABG Glucose 200 H 170 H 187 H (75-99) mg/dL Hemoglobin 9.8 L 10.4 L 10.3 L (13.0-17.5) gm/dL Chloride (98-107) mmol/L BUN (9-20) mg/dL Glucose (74-99) mg/dL POC Glucose (mg/dL) (75-99) mg/dL Calcium (8.4-10.2) mg/dL Total Protein (6.3-8.2) g/dL Arterial Blood Potassium 5.8 H 5.0 H 4.8 H (3.4-4.5) mmol/L Arterial Blood Glucose 200 H 170 H 187 H (75-99) mg/dL Crossmatch 04/01/18 04/01/18 04/01/18 Range/Units 14:32 15:35 16:02 RBC (4.30-5.90) m/uL Hgb (13.0-17.5) gm/dL Hct (39.0-53.0) % Plt Count (150-450) k/uL Neutrophils # (1.3-7.7) k/uL Lymphocytes # (1.0-4.8) k/uL INR (<1.2) APTT (22.0-30.0) sec ABG pH (7.35-7.45) ABG pCO2 (35-45) mmHg ABG pO2 184 H (83-108) mmHg ABG Total CO2 25 H (19-24) mmol/L ABG O2 Saturation 99.5 H (94-97) % ABG Hematocrit 29 L (34.0-46.0) % ABG Sodium (135-146) mmol/L ABG Potassium (3.4-4.5) mmol/L ABG Ionized Calcium 4.1 L (4.5-5.3) mg/dL ABG Glucose 130 H (75-99) mg/dL Hemoglobin 9.3 L (13.0-17.5) gm/dL Chloride (98-107) mmol/L BUN (9-20) mg/dL Glucose (74-99) mg/dL POC Glucose (mg/dL) 132 H 120 H (75-99) mg/dL Calcium (8.4-10.2) mg/dL Total Protein (6.3-8.2) g/dL Arterial Blood Potassium (3.4-4.5) mmol/L Arterial Blood Glucose 130 H (75-99) mg/dL Crossmatch 04/01/18 04/01/18 04/01/18 Range/Units 16:03 16:50 16:50 RBC 3.35 L (4.30-5.90) m/uL Hgb 10.6 L (13.0-17.5) gm/dL Hct 31.7 L (39.0-53.0) % Plt Count 105 L (150-450) k/uL Neutrophils # (1.3-7.7) k/uL Lymphocytes # (1.0-4.8) k/uL INR (<1.2) APTT (22.0-30.0) sec ABG pH 7.32 L (7.35-7.45) ABG pCO2 47 H (35-45) mmHg ABG pO2 221 H (83-108) mmHg ABG Total CO2 26 H (19-24) mmol/L ABG O2 Saturation 99.4 H (94-97) % ABG Hematocrit (34.0-46.0) % ABG Sodium (135-146) mmol/L ABG Potassium (3.4-4.5) mmol/L ABG Ionized Calcium (4.5-5.3) mg/dL ABG Glucose (75-99) mg/dL Hemoglobin (13.0-17.5) gm/dL Chloride 108 H (98-107) mmol/L BUN (9-20) mg/dL Glucose 121 H (74-99) mg/dL POC Glucose (mg/dL) (75-99) mg/dL Calcium 8.1 L (8.4-10.2) mg/dL Total Protein 5.9 L (6.3-8.2) g/dL Arterial Blood Potassium (3.4-4.5) mmol/L Arterial Blood Glucose (75-99) mg/dL Crossmatch 04/01/18 04/01/18 04/01/18 Range/Units 16:50 17:22 18:00 RBC (4.30-5.90) m/uL Hgb (13.0-17.5) gm/dL Hct (39.0-53.0) % Plt Count (150-450) k/uL Neutrophils # (1.3-7.7) k/uL Lymphocytes # (1.0-4.8) k/uL INR 1.2 H (<1.2) APTT 50.6 H (22.0-30.0) sec ABG pH (7.35-7.45) ABG pCO2 (35-45) mmHg ABG pO2 (83-108) mmHg ABG Total CO2 (19-24) mmol/L ABG O2 Saturation (94-97) % ABG Hematocrit (34.0-46.0) % ABG Sodium (135-146) mmol/L ABG Potassium (3.4-4.5) mmol/L ABG Ionized Calcium (4.5-5.3) mg/dL ABG Glucose (75-99) mg/dL Hemoglobin (13.0-17.5) gm/dL Chloride (98-107) mmol/L BUN (9-20) mg/dL Glucose (74-99) mg/dL POC Glucose (mg/dL) 142 H 154 H (75-99) mg/dL Calcium (8.4-10.2) mg/dL Total Protein (6.3-8.2) g/dL Arterial Blood Potassium (3.4-4.5) mmol/L Arterial Blood Glucose (75-99) mg/dL Crossmatch 04/01/18 04/01/18 04/01/18 Range/Units 19:08 19:19 20:00 RBC (4.30-5.90) m/uL Hgb (13.0-17.5) gm/dL Hct (39.0-53.0) % Plt Count (150-450) k/uL Neutrophils # (1.3-7.7) k/uL Lymphocytes # (1.0-4.8) k/uL INR (<1.2) APTT (22.0-30.0) sec ABG pH 7.17 L* (7.35-7.45) ABG pCO2 67 H (35-45) mmHg ABG pO2 70 L (83-108) mmHg ABG Total CO2 26 H (19-24) mmol/L ABG O2 Saturation 89.7 L (94-97) % ABG Hematocrit (34.0-46.0) % ABG Sodium (135-146) mmol/L ABG Potassium (3.4-4.5) mmol/L ABG Ionized Calcium (4.5-5.3) mg/dL ABG Glucose (75-99) mg/dL Hemoglobin (13.0-17.5) gm/dL Chloride (98-107) mmol/L BUN (9-20) mg/dL Glucose 176 H (74-99) mg/dL POC Glucose (mg/dL) 183 H (75-99) mg/dL Calcium 7.9 L (8.4-10.2) mg/dL Total Protein 5.6 L (6.3-8.2) g/dL Arterial Blood Potassium (3.4-4.5) mmol/L Arterial Blood Glucose (75-99) mg/dL Crossmatch 04/01/18 04/01/18 04/01/18 Range/Units 20:00 20:00 20:59 RBC 3.20 L (4.30-5.90) m/uL Hgb 10.1 L (13.0-17.5) gm/dL Hct 30.5 L (39.0-53.0) % Plt Count 116 L (150-450) k/uL Neutrophils # (1.3-7.7) k/uL Lymphocytes # 0.7 L (1.0-4.8) k/uL INR (<1.2) APTT (22.0-30.0) sec ABG pH (7.35-7.45) ABG pCO2 (35-45) mmHg ABG pO2 (83-108) mmHg ABG Total CO2 (19-24) mmol/L ABG O2 Saturation (94-97) % ABG Hematocrit (34.0-46.0) % ABG Sodium (135-146) mmol/L ABG Potassium (3.4-4.5) mmol/L ABG Ionized Calcium (4.5-5.3) mg/dL ABG Glucose (75-99) mg/dL Hemoglobin (13.0-17.5) gm/dL Chloride (98-107) mmol/L BUN (9-20) mg/dL Glucose (74-99) mg/dL POC Glucose (mg/dL) 192 H 182 H (75-99) mg/dL Calcium (8.4-10.2) mg/dL Total Protein (6.3-8.2) g/dL Arterial Blood Potassium (3.4-4.5) mmol/L Arterial Blood Glucose (75-99) mg/dL Crossmatch 04/01/18 04/01/18 04/01/18 Range/Units 21:19 22:13 23:05 RBC (4.30-5.90) m/uL Hgb (13.0-17.5) gm/dL Hct (39.0-53.0) % Plt Count (150-450) k/uL Neutrophils # (1.3-7.7) k/uL Lymphocytes # (1.0-4.8) k/uL INR (<1.2) APTT (22.0-30.0) sec ABG pH 7.28 L (7.35-7.45) ABG pCO2 52 H (35-45) mmHg ABG pO2 71 L (83-108) mmHg ABG Total CO2 26 H (19-24) mmol/L ABG O2 Saturation 93.0 L (94-97) % ABG Hematocrit (34.0-46.0) % ABG Sodium (135-146) mmol/L ABG Potassium (3.4-4.5) mmol/L ABG Ionized Calcium (4.5-5.3) mg/dL ABG Glucose (75-99) mg/dL Hemoglobin (13.0-17.5) gm/dL Chloride (98-107) mmol/L BUN (9-20) mg/dL Glucose (74-99) mg/dL POC Glucose (mg/dL) 167 H 159 H (75-99) mg/dL Calcium (8.4-10.2) mg/dL Total Protein (6.3-8.2) g/dL Arterial Blood Potassium (3.4-4.5) mmol/L Arterial Blood Glucose (75-99) mg/dL Crossmatch 04/02/18 04/02/18 04/02/18 Range/Units 00:09 01:12 02:07 RBC (4.30-5.90) m/uL Hgb (13.0-17.5) gm/dL Hct (39.0-53.0) % Plt Count (150-450) k/uL Neutrophils # (1.3-7.7) k/uL Lymphocytes # (1.0-4.8) k/uL INR (<1.2) APTT (22.0-30.0) sec ABG pH (7.35-7.45) ABG pCO2 (35-45) mmHg ABG pO2 (83-108) mmHg ABG Total CO2 (19-24) mmol/L ABG O2 Saturation (94-97) % ABG Hematocrit (34.0-46.0) % ABG Sodium (135-146) mmol/L ABG Potassium (3.4-4.5) mmol/L ABG Ionized Calcium (4.5-5.3) mg/dL ABG Glucose (75-99) mg/dL Hemoglobin (13.0-17.5) gm/dL Chloride (98-107) mmol/L BUN (9-20) mg/dL Glucose (74-99) mg/dL POC Glucose (mg/dL) 141 H 138 H 147 H (75-99) mg/dL Calcium (8.4-10.2) mg/dL Total Protein (6.3-8.2) g/dL Arterial Blood Potassium (3.4-4.5) mmol/L Arterial Blood Glucose (75-99) mg/dL Crossmatch 04/02/18 04/02/18 04/02/18 Range/Units 03:10 04:00 04:00 RBC 3.33 L (4.30-5.90) m/uL Hgb 10.3 L (13.0-17.5) gm/dL Hct 31.4 L (39.0-53.0) % Plt Count 112 L (150-450) k/uL Neutrophils # 8.4 H (1.3-7.7) k/uL Lymphocytes # 0.5 L (1.0-4.8) k/uL INR (<1.2) APTT (22.0-30.0) sec ABG pH (7.35-7.45) ABG pCO2 (35-45) mmHg ABG pO2 (83-108) mmHg ABG Total CO2 (19-24) mmol/L ABG O2 Saturation (94-97) % ABG Hematocrit (34.0-46.0) % ABG Sodium (135-146) mmol/L ABG Potassium (3.4-4.5) mmol/L ABG Ionized Calcium (4.5-5.3) mg/dL ABG Glucose (75-99) mg/dL Hemoglobin (13.0-17.5) gm/dL Chloride (98-107) mmol/L BUN 21 H (9-20) mg/dL Glucose 142 H (74-99) mg/dL POC Glucose (mg/dL) 151 H (75-99) mg/dL Calcium 8.3 L (8.4-10.2) mg/dL Total Protein 5.5 L (6.3-8.2) g/dL Arterial Blood Potassium (3.4-4.5) mmol/L Arterial Blood Glucose (75-99) mg/dL Crossmatch 04/02/18 04/02/18 04/02/18 Range/Units 04:09 04:59 06:22 RBC (4.30-5.90) m/uL Hgb (13.0-17.5) gm/dL Hct (39.0-53.0) % Plt Count (150-450) k/uL Neutrophils # (1.3-7.7) k/uL Lymphocytes # (1.0-4.8) k/uL INR (<1.2) APTT (22.0-30.0) sec ABG pH (7.35-7.45) ABG pCO2 (35-45) mmHg ABG pO2 (83-108) mmHg ABG Total CO2 (19-24) mmol/L ABG O2 Saturation (94-97) % ABG Hematocrit (34.0-46.0) % ABG Sodium (135-146) mmol/L ABG Potassium (3.4-4.5) mmol/L ABG Ionized Calcium (4.5-5.3) mg/dL ABG Glucose (75-99) mg/dL Hemoglobin (13.0-17.5) gm/dL Chloride (98-107) mmol/L BUN (9-20) mg/dL Glucose (74-99) mg/dL POC Glucose (mg/dL) 158 H 156 H 154 H (75-99) mg/dL Calcium (8.4-10.2) mg/dL Total Protein (6.3-8.2) g/dL Arterial Blood Potassium (3.4-4.5) mmol/L Arterial Blood Glucose (75-99) mg/dL Crossmatch 04/02/18 04/02/18 04/02/18 Range/Units 07:19 08:09 09:08 RBC (4.30-5.90) m/uL Hgb (13.0-17.5) gm/dL Hct (39.0-53.0) % Plt Count (150-450) k/uL Neutrophils # (1.3-7.7) k/uL Lymphocytes # (1.0-4.8) k/uL INR (<1.2) APTT (22.0-30.0) sec ABG pH (7.35-7.45) ABG pCO2 (35-45) mmHg ABG pO2 (83-108) mmHg ABG Total CO2 (19-24) mmol/L ABG O2 Saturation (94-97) % ABG Hematocrit (34.0-46.0) % ABG Sodium (135-146) mmol/L ABG Potassium (3.4-4.5) mmol/L ABG Ionized Calcium (4.5-5.3) mg/dL ABG Glucose (75-99) mg/dL Hemoglobin (13.0-17.5) gm/dL Chloride (98-107) mmol/L BUN (9-20) mg/dL Glucose (74-99) mg/dL POC Glucose (mg/dL) 139 H 152 H 110 H (75-99) mg/dL Calcium (8.4-10.2) mg/dL Total Protein (6.3-8.2) g/dL Arterial Blood Potassium (3.4-4.5) mmol/L Arterial Blood Glucose (75-99) mg/dL Crossmatch 04/02/18 Range/Units 09:52 RBC (4.30-5.90) m/uL Hgb (13.0-17.5) gm/dL Hct (39.0-53.0) % Plt Count (150-450) k/uL Neutrophils # (1.3-7.7) k/uL Lymphocytes # (1.0-4.8) k/uL INR (<1.2) APTT (22.0-30.0) sec ABG pH (7.35-7.45) ABG pCO2 (35-45) mmHg ABG pO2 (83-108) mmHg ABG Total CO2 (19-24) mmol/L ABG O2 Saturation (94-97) % ABG Hematocrit (34.0-46.0) % ABG Sodium (135-146) mmol/L ABG Potassium (3.4-4.5) mmol/L ABG Ionized Calcium (4.5-5.3) mg/dL ABG Glucose (75-99) mg/dL Hemoglobin (13.0-17.5) gm/dL Chloride (98-107) mmol/L BUN (9-20) mg/dL Glucose (74-99) mg/dL POC Glucose (mg/dL) 115 H (75-99) mg/dL Calcium (8.4-10.2) mg/dL Total Protein (6.3-8.2) g/dL Arterial Blood Potassium (3.4-4.5) mmol/L Arterial Blood Glucose (75-99) mg/dL Crossmatch Assessment and Plan Assessment: Assessment: #1. Multivessel symptomatic coronary artery disease, status post three-vessel bypass grafting, with right intramammary artery to the LAD, FONTAINE to the OM, and left radial artery to the right coronary artery, postop day 1 #2. Routine postoperative ventilator management, successfully extubated. Currently on 8 L high flow nasal cannula. #3. History of previous myocardial infarction, previous coronary artery stenting #4. Hypertension, hyperlipidemia #5. Obesity #6. Diabetes mellitus type 2 #7. Obstructive sleep apnea, patient does not use a CPAP machine #8. Depression #9. Nonsmoker Plan: The patient was seen and evaluated by Dr. Hackett. Chest x-ray and labs were reviewed. He is currently maintaining good O2 saturations in the 90s on 8 L high flow nasal cannula. He received Lasix 20 mg IVP 1 this morning. Needs increased encouragement regarding the use of the incentive spirometer and cough and deep breathing exercises. Continue bronchodilators. Chest tubes remain in place. Chest x-ray and labs in the a.m. We'll continue to monitor him here closely in the intensive care unit another 24 hours. We'll continue to follow make further recommendations based on his clinical status. I, the cosigning physician, performed a history & physical examination of the patient. Lungs sounds with crackles in the bilateral posterior bases. Maintaining good O2 saturations in the 90s on 8 L high flow nasal cannula. I discussed the assessment and plan of care with my nurse practitioner, Racquel Jernigan. I attest to the above note as dictated by her.
[2018-04-02 11:11] LABS: Glucose,Whole Blood 153 mg/dL (75-99)
[2018-04-02] MEDS: LACTATED RINGERS 1,000 ML IV SCH (12:21)
[2018-04-02 12:26] LABS: Glucose,Whole Blood 129 mg/dL (75-99)
[2018-04-02 13:14] LABS: Glucose,Whole Blood 148 mg/dL (75-99)
[2018-04-02] MEDS ORDERED: METOPROLOL TARTRATE 12.5 MG TAB PO STA (13:58)
[2018-04-02 14:02] LABS: Glucose,Whole Blood 119 mg/dL (75-99)
[2018-04-02] MEDS ORDERED: HYDROcodone/APAP 5-325MG 1 EACH TAB PO PRN (14:48)
[2018-04-02] MEDS ORDERED: MAGNESIUM HYDROXIDE 2,400 MG/10 ML CUP PO PRN (14:49)
[2018-04-02] MEDS ORDERED: BISACODYL 10 MG SUPP RECTAL PRN (14:49)
[2018-04-02 15:15] LABS: Glucose,Whole Blood 128 mg/dL (75-99)
--- NOTE | 2018-04-02 16:11 | CONS ---
CONSULTATION DATE OF CONSULTATION: 03/13/2018 REASON FOR CONSULTATION: Medical management requested by Dr. Rubio. CONSULTATION: This is a very pleasant 73-year-old patient who follows with Dr. Aldo Nicholas. Chronic stable medical conditions include diabetes mellitus, type 2, hyperlipidemia, hypertension, obstructive sleep apnea, though does not use a CPAP, and obesity. The patient has known prior history of coronary artery disease with prior stents. His last stent was about a week ago and decision was made to proceed with coronary artery bypass. The patient had coronary artery bypass done yesterday, was extubated around 1:00 this morning. The patient has [address] He is awake, sitting up, tolerating some lunch. He is in sinus rhythm on nasal cannula. Current drips include Cleviprex, insulin. He did get IV Lasix 20 mg this morning. He is a bit tired and rundown, able to answer some questions. Currently no chest pain. Some shortness of breath. REVIEW OF SYSTEMS: CONSTITUTIONAL: Tired. HEENT: None. RESPIRATORY: Some shortness of breath. CARDIOVASCULAR: Some pain at the incision site. Otherwise as above. PULMONARY: As above. DERMATOLOGICAL: None. HEMATOLOGICAL: None. LYMPHATICS: None. PSYCHIATRY: None. MUSCULOSKELETAL: None. PSYCHIATRY: Some depression. PAST MEDICAL HISTORY: 1. Coronary artery disease with stents. 2. Diabetes mellitus, type 2. 3. Hyperlipidemia. 4. Hypertension. 5. Sleep apnea. Does not use CPAP. 6. Varicose vein in the left leg. 7. Seasonal allergies. PAST SURGICAL HISTORY: 1. Cardiac cath stents. 2. Varicose veins, right leg, and right leg vein stripping. 3. Bilateral cataracts. 4. Left hand surgery. 5. Cardiac catheterization on 03/25/2018. SOCIAL HISTORY: . Used to work at [employer]. Would drink about 6 or 7 drinks a week. No smoking. FAMILY HISTORY: Mother at age of 89 from kidney and bladder problems. HOME MEDICATIONS: 1. Metformin 850 mg p.o. b.i.d. 2. Effexor 75 mg p.o. daily. 3. Zestril 10 mg at bedtime. 4. Imdur 120 mg p.o. daily. 5. Lipitor 80 mg at bedtime. 6. Tenormin 25 mg p.o. daily. 7. Aspirin 325 mg p.o. daily. ALLERGIES: NONE. PHYSICAL EXAMINATION: Temperature 98.6, pulse 74, respiration 20, blood pressure 113/72, pulse ox 99% on nasal cannula. GENERAL APPEARANCE: Well built; BMI 32.2. Sitting up, tired-appearing. EYES: Pupils equal. Conjunctivae normal. HEENT: External appearance of nose and ears normal. Oral cavity normal. Nasal cannula in place. NECK: JVD not raised. Mass not palpable. RESPIRATORY: Effort normal. LUNGS: Slightly decreased breath sounds. CARDIOVASCULAR: First and second sounds normal. No edema. ABDOMEN: Soft, non-tender. Liver and spleen not palpable. LYMPHATIC: No lymph node palpable in neck or axillae. PSYCHIATRY: Alert and oriented x3. Mood and affect normal. CHEST WALL: Patient has [address] INVESTIGATIONS: White count 8.2, hemoglobin 10.6, potassium 4.7. BUN and creatinine are normal. Platelets 105. Patient's preoperative blood work showed a white count of 7.6, hemoglobin 14.3 and platelets of 188. Chest x-ray film, personally reviewed by me, shows a portable film slight venous prominence, some fluid in the horizontal fissure. ASSESSMENT: 1. Status post coronary artery bypass. 2. Coronary artery disease with prior history of stent. 3. Obesity; body mass index 32.2. 4. Diabetes mellitus, type 2, on oral hypoglycemic. 5. Essential hypertension. 6. Hyperlipidemia. 7. Depression not otherwise specified. 8. Acute postoperative blood loss anemia, expected from surgery. 9. Dilutional thrombocytopenia. PLAN: Home medications are resumed. Patient is on insulin drip. Also currently on clevidipine. Because of fluid overload, getting IV Lasix. Also did get some amiodarone. Also on insulin drip. Diet has been advanced. Pain is controlled. Chest tubes in place. Follow electrolytes closely. Thank you, Dr. Rubio. MMODL / IJN: [id number] /
[2018-04-02 16:32] LABS: Glucose,Whole Blood 127 mg/dL (75-99)
[2018-04-02 17:17] LABS: Glucose,Whole Blood 105 mg/dL (75-99)
[2018-04-02 18:13] LABS: Glucose,Whole Blood 113 mg/dL (75-99)
[2018-04-02 19:25] LABS: Glucose,Whole Blood 189 mg/dL (75-99)
[2018-04-02] MEDS: SENNOSIDES-DOCUSATE SODIUM 1 EACH TAB PO SCH (20:17)
[2018-04-02 20:31] LABS: Glucose,Whole Blood 157 mg/dL (75-99)
[2018-04-02] MEDS ORDERED: METOPROLOL TARTRATE 25 MG TAB PO SCH (21:00)
[2018-04-02 21:19] LABS: Glucose,Whole Blood 123 mg/dL (75-99)
[2018-04-02 22:10] LABS: Glucose,Whole Blood 110 mg/dL (75-99)
[2018-04-02 23:13] LABS: Glucose,Whole Blood 101 mg/dL (75-99)
[2018-04-03 00:16] LABS: Glucose,Whole Blood 113 mg/dL (75-99)
[2018-04-03] MEDS: KETOROLAC 30 MG/ML 1 ML VIAL IVP SCH ×4 (00:24→18:02)
[2018-04-03] MEDS: HEPARIN SODIUM,PORCINE 5,000 UNIT/ML 1 ML VIAL SQ SCH ×3 (00:24→16:15)
[2018-04-03 01:11] LABS: Glucose,Whole Blood 113 mg/dL (75-99)
[2018-04-03] MEDS: LACTATED RINGERS 1,000 ML IV SCH (01:50)
[2018-04-03] MEDS: CLEVIDIPINE BUTYRATE 25 MG in EMPTY BAG 1 BAG IV SCH ×2 (01:50→06:09)
[2018-04-03 02:08] LABS: Glucose,Whole Blood 125 mg/dL (75-99)
[2018-04-03 03:15] LABS: Glucose,Whole Blood 129 mg/dL (75-99)
[2018-04-03 04:32] LABS: Glucose,Whole Blood 111 mg/dL (75-99)
[2018-04-03 04:44] LABS: Basophils % (A) 0 %; Eosinophils % (A) 0 %; HCT 30.3 % (39.0-53.0); HGB 10.1 gm/dL (13.0-17.5); Lymphocytes # (A) 1.1 k/uL (1.0-4.8); Lymphocytes % (A) 11 %; MCH 31.3 pg (25.0-35.0); MCHC 33.3 g/dL (31.0-37.0); Mean Platelet Volume 7.5; Monocytes # (A) 0.6 k/uL (0-1.0); Monocytes % (A) 6 %; Neutrophils # (A) 8.5 k/uL (1.3-7.7); Neutrophils % (A) 82 %; Platelet Count 104 k/uL (150-450); RBC 3.22 m/uL (4.30-5.90); RDW 14.2 % (11.5-15.5); WBC 10.3 k/uL (3.8-10.6)
[2018-04-03 04:49] LABS: Ionized Calcium 5.1 mg/dL (4.5-5.3)
[2018-04-03 04:57] LABS: Calcium 8.4 mg/dL (8.4-10.2); Magnesium 2.2 mg/dL (1.6-2.3); Phosphorus 2.9 mg/dL (2.5-4.5)
[2018-04-03 05:37] LABS: Glucose,Whole Blood 105 mg/dL (75-99)
[2018-04-03 06:28] LABS: Glucose,Whole Blood 116 mg/dL (75-99)
[2018-04-03 07:19] LABS: Glucose,Whole Blood 122 mg/dL (75-99)
--- NOTE | 2018-04-03 07:22 | P.PN ---
Subjective Progress Note Date: 04/03/18 Principal diagnosis: Status post coronary artery bypass grafting This is a pleasant 73-year-old gentleman who I requested to see for post coronary artery bypass grafting. The patient does follows Dr. Arriaga in the office on regular basis. Recently he was experiencing symptoms of chest discomfort. He underwent a myocardial perfusion imaging stress test and that revealed ischemia. Because of that he underwent a heart catheterization on March 252017 and that revealed severe coronary artery disease involving the distal left main coronary artery appears to be in the range of 50-60% and also severe disease involving the proximal LAD as well as totally occluded left circumflex and severe disease involving the RCA. Surgical consult was placed and the patient underwent yesterday coronary artery bypass grafting 3 where he received FONTAINE to OM, TITUS to LAD, and radial artery to RCA. This is postoperative day #1. The patient was extubated after midnight today. He has been maintaining normal sinus mechanism. He is hemodynamically stable and as a matter of fact he is slightly hypertensive and the dose of metoprolol was increased yesterday and I would suggest increasing her today. He has been Damaso using good urine. He continues to be on dual antiplatelet therapy along with a statin as well as metoprolol. Objective - Vital Signs Vital signs: Vital Signs Temp 98.0 F 04/03/18 04:00 Pulse 76 04/03/18 07:00 Resp 21 04/03/18 07:00 BP 133/83 04/02/18 20:00 Pulse Ox 96 04/03/18 07:00 Intake & Output 04/02/18 04/03/18 04/03/18 18:59 06:59 18:59 Intake Total 1311.670 401.762 26 Output Total 1395 885 60 Balance -83.330 -483.238 -34 Weight 116.7 kg 113.6 kg Intake: IV 654 312 26 ACETAMINOPHEN IV (For NPO 200 ) 1,000 mg In Empty Bag 1 bag @ 400 mls/hr IVPB Q6HR R[facility] Rx#:[id number] Lactated Ringers 1,000 ml 270 240 20 @ 20 mls/hr IV .Q24H R[facility] Rx#:[id number] Magnesium Sulfate-D5w Pmx 100 1 gm In Dextrose/Water 1 100ml.bag @ 100 mls/hr IVPB Q1H R[facility] Rx#: [id number] PRESSURE BAGS 84 72 6 Intake, IV Titration 177.670 89.762 0 Amount Clevidipine Butyrate 25 131.233 78.433 mg In Empty Bag 1 bag @ 1 MG/HR 2 mls/hr IV .Q24H RONEY Rx#:[id number] Insulin Regular 100 unit 46.437 11.329 0 In Sodium Chloride 0.9% 100 ml @ Per Protocol IV .Q0M R[facility]Y Rx#:[id number] Oral 480 Output: Chest Tube Drainage 280 215 20 Chest Tube Bilateral 200 110 10 Mediastinal Chest Tube Left 58 45 10 Chest Tube Right 22 60 0 Urine 1115 670 40 Other: Voiding Method Indwelling Catheter Indwelling Catheter ABP, PAP, CO, CI - Last Documented Arterial Blood Pressure 136/54 Pulmonary Artery Pressure 28/19 Cardiac Output 7.7 Cardiac Index 3.2 - Constitutional General appearance: Present: no acute distress - Respiratory Respiratory: bilateral: diminished - Cardiovascular Rhythm: regular - Labs CBC & Chem 7: 04/03/18 04:30 04/03/18 04:30 Labs: Abnormal Lab Results - Last 24 Hours (Table) 04/02/18 04/02/18 04/02/18 Range/Units 07:19 08:09 09:08 RBC (4.30-5.90) m/uL Hgb (13.0-17.5) gm/dL Hct (39.0-53.0) % Plt Count (150-450) k/uL Neutrophils # (1.3-7.7) k/uL Sodium (137-145) mmol/L BUN (9-20) mg/dL Glucose (74-99) mg/dL POC Glucose (mg/dL) 139 H 152 H 110 H (75-99) mg/dL 04/02/18 04/02/18 04/02/18 Range/Units 09:52 11:00 12:15 RBC (4.30-5.90) m/uL Hgb (13.0-17.5) gm/dL Hct (39.0-53.0) % Plt Count (150-450) k/uL Neutrophils # (1.3-7.7) k/uL Sodium (137-145) mmol/L BUN (9-20) mg/dL Glucose (74-99) mg/dL POC Glucose (mg/dL) 115 H 153 H 129 H (75-99) mg/dL 04/02/18 04/02/18 04/02/18 Range/Units 13:01 13:50 15:04 RBC (4.30-5.90) m/uL Hgb (13.0-17.5) gm/dL Hct (39.0-53.0) % Plt Count (150-450) k/uL Neutrophils # (1.3-7.7) k/uL Sodium (137-145) mmol/L BUN (9-20) mg/dL Glucose (74-99) mg/dL POC Glucose (mg/dL) 148 H 119 H 128 H (75-99) mg/dL 04/02/18 04/02/18 04/02/18 Range/Units 16:21 16:57 18:01 RBC (4.30-5.90) m/uL Hgb (13.0-17.5) gm/dL Hct (39.0-53.0) % Plt Count (150-450) k/uL Neutrophils # (1.3-7.7) k/uL Sodium (137-145) mmol/L BUN (9-20) mg/dL Glucose (74-99) mg/dL POC Glucose (mg/dL) 127 H 105 H 113 H (75-99) mg/dL 04/02/18 04/02/18 04/02/18 Range/Units 19:13 20:20 21:08 RBC (4.30-5.90) m/uL Hgb (13.0-17.5) gm/dL Hct (39.0-53.0) % Plt Count (150-450) k/uL Neutrophils # (1.3-7.7) k/uL Sodium (137-145) mmol/L BUN (9-20) mg/dL Glucose (74-99) mg/dL POC Glucose (mg/dL) 189 H 157 H 123 H (75-99) mg/dL 04/02/18 04/02/18 04/03/18 Range/Units 21:59 23:02 00:04 RBC (4.30-5.90) m/uL Hgb (13.0-17.5) gm/dL Hct (39.0-53.0) % Plt Count (150-450) k/uL Neutrophils # (1.3-7.7) k/uL Sodium (137-145) mmol/L BUN (9-20) mg/dL Glucose (74-99) mg/dL POC Glucose (mg/dL) 110 H 101 H 113 H (75-99) mg/dL 04/03/18 04/03/18 04/03/18 Range/Units 00:59 01:56 03:03 RBC (4.30-5.90) m/uL Hgb (13.0-17.5) gm/dL Hct (39.0-53.0) % Plt Count (150-450) k/uL Neutrophils # (1.3-7.7) k/uL Sodium (137-145) mmol/L BUN (9-20) mg/dL Glucose (74-99) mg/dL POC Glucose (mg/dL) 113 H 125 H 129 H (75-99) mg/dL 04/03/18 04/03/18 04/03/18 Range/Units 04:21 04:30 04:30 RBC 3.22 L (4.30-5.90) m/uL Hgb 10.1 L (13.0-17.5) gm/dL Hct 30.3 L (39.0-53.0) % Plt Count 104 L (150-450) k/uL Neutrophils # 8.5 H (1.3-7.7) k/uL Sodium 136 L (137-145) mmol/L BUN 26 H (9-20) mg/dL Glucose 110 H (74-99) mg/dL POC Glucose (mg/dL) 111 H (75-99) mg/dL 04/03/18 04/03/18 04/03/18 Range/Units 05:26 06:17 07:07 RBC (4.30-5.90) m/uL Hgb (13.0-17.5) gm/dL Hct (39.0-53.0) % Plt Count (150-450) k/uL Neutrophils # (1.3-7.7) k/uL Sodium (137-145) mmol/L BUN (9-20) mg/dL Glucose (74-99) mg/dL POC Glucose (mg/dL) 105 H 116 H 122 H (75-99) mg/dL Assessment and Plan Assessment: Assessment #1 multi vessel coronary artery disease and status post coronary artery that is grafting as described above #2 systemic hypertension #3 dyslipidemia #4 diabetes type 2 #5 sleep apnea Plan #1 continue monitor the kidney function as well as electrolytes and hemoglobin #2 continue the current medical regimen which included dual antiplatelet therapy along with statin #3 increase the dose of metoprolol #4 follow-up with the patient.
[2018-04-03] MEDS: IPRATROPIUM-ALBUTEROL 3 ML NEB INHALATION SCH ×4 (08:13→20:45)
--- NOTE | 2018-04-03 08:20 | P.PN ---
Subjective Progress Note Date: 04/03/18 Principal diagnosis: Triple-vessel coronary artery disease. Chronically occluded circumflex artery collateralized. Status post LAD stent that is patent. 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 Mild mitral valve regurgitation. Diabetes mellitus with preoperative hemoglobin A1c 6.3%. Hypertension. Hyperlipidemia. Obesity. Varicose veins of both lower extremity is, status post stripping of the right lower extremity, greater saphenous vein. Depression. Obstructive sleep apnea not currently using CPAP. Family history of coronary artery disease. POD #2 all arterial triple coronary artery bypass grafting using the in situ skeletonized right internal mammary artery crossing the midline anteriorly to the left anterior descending artery, skeletonized in situ left internal mammary artery to the obtuse marginal artery, the left radial artery from the aorta to the right coronary artery. Endoscopic harvesting of the left radial artery. Intraoperative graft flow measurements using the [employer] system. Intraoperative transesophageal echocardiogram and epi-aortic scanning. The patient is currently sitting up into the recliner in the intensive care unit. He is in no acute distress. Does complain of pain at his incision and chest tube sites, although he has not asked for any pain medication. Denies shortness of breath. Hemodynamically stable on no inotropes. No other new complaints. Objective - Vital Signs Vital signs: Vital Signs Temp 98.0 F 04/03/18 04:00 Pulse 76 04/03/18 07:00 Resp 21 04/03/18 07:00 BP 133/83 04/02/18 20:00 Pulse Ox 96 04/03/18 07:00 Intake & Output 04/02/18 04/03/18 04/03/18 18:59 06:59 18:59 Intake Total 1311.670 401.762 26 Output Total 1395 885 60 Balance -83.330 -483.238 -34 Weight 116.7 kg 113.6 kg Intake: IV 654 312 26 ACETAMINOPHEN IV (For NPO 200 ) 1,000 mg In Empty Bag 1 bag @ 400 mls/hr IVPB Q6HR [facility] Rx#:[id number] Lactated Ringers 1,000 ml 270 240 20 @ 20 mls/hr IV .Q24H [facility] Rx#:[id number] Magnesium Sulfate-D5w Pmx 100 1 gm In Dextrose/Water 1 100ml.bag @ 100 mls/hr IVPB Q1H [facility] Rx#: [id number] PRESSURE BAGS 84 72 6 Intake, IV Titration 177.670 89.762 0 Amount Clevidipine Butyrate 25 131.233 78.433 mg In Empty Bag 1 bag @ 1 MG/HR 2 mls/hr IV .Q24H [facility] Rx#:[id number] Insulin Regular 100 unit 46.437 11.329 0 In Sodium Chloride 0.9% 100 ml @ Per Protocol IV .Q0M [facility] Rx#:[id number] Oral 480 Output: Chest Tube Drainage 280 215 20 Chest Tube Bilateral 200 110 10 Mediastinal Chest Tube Left 58 45 10 Chest Tube Right 22 60 0 Urine 1115 670 40 Other: Voiding Method Indwelling Catheter Indwelling Catheter ABP, PAP, CO, CI - Last Documented Arterial Blood Pressure 136/54 Pulmonary Artery Pressure 28/19 Cardiac Output 7.7 Cardiac Index 3.2 - Constitutional General appearance: Present: cooperative, no acute distress, obese - EENT EENT Comment(s): Voice is a bit hoarse this morning. - Respiratory Details: Lungs sounds diminished bilaterally. Respirations even, nonlabored. Currently on 4 L high flow nasal cannula with oxygen saturation 92%. Only able to achieve 500 mL on his incentive spirometry. Weak cough. Mediastinal chest tube to continuous wall suction, 60 mL serosanguineous drainage overnight, 300 mL in the last 24 hours. Left pleural chest tube to continuous wall suction, 20 mL serosanguineous drainage overnight, 150 mL in the last 24 hours. Right pleural chest tube to continuous wall suction, 40 mL serosanguineous drainage overnight, 100 mL in the last 24 hours. No air leaks present. - Cardiovascular Details: S1, S2 present. Regular rate and rhythm, sinus rhythm on telemetry. Sternum stable. A/V epicardial pacemaker wires present, grounded. Palpable peripheral pulses bilaterally. No edema present. No calf pain or tenderness noted. Right internal jugular Cordis, right radial arterial line present. Heart hugger in place with patient intermittently demonstrating appropriate use. Antiembolism stockings, SCDs present. - Gastrointestinal Gastrointestinal Comment(s): Abdomen soft, nondistended, slightly tender to deep palpation. Active bowel sounds present 4 quadrants. Tolerating minimal diet. Negative flatus. - Genitourinary Genitourinary Comment(s): Mott present draining clear, yellow urine. Output overnight 40-60 mL per hour , 370 mL in 8 hours. - Integumentary Integumentary Comment(s): Skin is warm and dry with evidence of good perfusion. Anterior chest incision well approximated and covered with dry intact dressing. Left radial harvest site well approximated, EDUIN drain present with minimal drainage. - Neurologic Neurologic: Present: CNII-XII intact - Musculoskeletal Musculoskeletal: Present: generalized weakness, strength equal bilaterally - Psychiatric Psychiatric: Present: A&O x's 3, appropriate affect, intact judgment & insight - Allied health notes Allied health notes reviewed: nursing - Labs CBC & Chem 7: 04/03/18 04:30 04/03/18 04:30 Labs: Abnormal Lab Results - Last 24 Hours (Table) 04/02/18 04/02/18 04/02/18 Range/Units 08:09 09:08 09:52 RBC (4.30-5.90) m/uL Hgb (13.0-17.5) gm/dL Hct (39.0-53.0) % Plt Count (150-450) k/uL Neutrophils # (1.3-7.7) k/uL Sodium (137-145) mmol/L BUN (9-20) mg/dL Glucose (74-99) mg/dL POC Glucose (mg/dL) 152 H 110 H 115 H (75-99) mg/dL 04/02/18 04/02/18 04/02/18 Range/Units 11:00 12:15 13:01 RBC (4.30-5.90) m/uL Hgb (13.0-17.5) gm/dL Hct (39.0-53.0) % Plt Count (150-450) k/uL Neutrophils # (1.3-7.7) k/uL Sodium (137-145) mmol/L BUN (9-20) mg/dL Glucose (74-99) mg/dL POC Glucose (mg/dL) 153 H 129 H 148 H (75-99) mg/dL 04/02/18 04/02/18 04/02/18 Range/Units 13:50 15:04 16:21 RBC (4.30-5.90) m/uL Hgb (13.0-17.5) gm/dL Hct (39.0-53.0) % Plt Count (150-450) k/uL Neutrophils # (1.3-7.7) k/uL Sodium (137-145) mmol/L BUN (9-20) mg/dL Glucose (74-99) mg/dL POC Glucose (mg/dL) 119 H 128 H 127 H (75-99) mg/dL 04/02/18 04/02/18 04/02/18 Range/Units 16:57 18:01 19:13 RBC (4.30-5.90) m/uL Hgb (13.0-17.5) gm/dL Hct (39.0-53.0) % Plt Count (150-450) k/uL Neutrophils # (1.3-7.7) k/uL Sodium (137-145) mmol/L BUN (9-20) mg/dL Glucose (74-99) mg/dL POC Glucose (mg/dL) 105 H 113 H 189 H (75-99) mg/dL 04/02/18 04/02/18 04/02/18 Range/Units 20:20 21:08 21:59 RBC (4.30-5.90) m/uL Hgb (13.0-17.5) gm/dL Hct (39.0-53.0) % Plt Count (150-450) k/uL Neutrophils # (1.3-7.7) k/uL Sodium (137-145) mmol/L BUN (9-20) mg/dL Glucose (74-99) mg/dL POC Glucose (mg/dL) 157 H 123 H 110 H (75-99) mg/dL 04/02/18 04/03/18 04/03/18 Range/Units 23:02 00:04 00:59 RBC (4.30-5.90) m/uL Hgb (13.0-17.5) gm/dL Hct (39.0-53.0) % Plt Count (150-450) k/uL Neutrophils # (1.3-7.7) k/uL Sodium (137-145) mmol/L BUN (9-20) mg/dL Glucose (74-99) mg/dL POC Glucose (mg/dL) 101 H 113 H 113 H (75-99) mg/dL 04/03/18 04/03/18 04/03/18 Range/Units 01:56 03:03 04:21 RBC (4.30-5.90) m/uL Hgb (13.0-17.5) gm/dL Hct (39.0-53.0) % Plt Count (150-450) k/uL Neutrophils # (1.3-7.7) k/uL Sodium (137-145) mmol/L BUN (9-20) mg/dL Glucose (74-99) mg/dL POC Glucose (mg/dL) 125 H 129 H 111 H (75-99) mg/dL 04/03/18 04/03/18 04/03/18 Range/Units 04:30 04:30 05:26 RBC 3.22 L (4.30-5.90) m/uL Hgb 10.1 L (13.0-17.5) gm/dL Hct 30.3 L (39.0-53.0) % Plt Count 104 L (150-450) k/uL Neutrophils # 8.5 H (1.3-7.7) k/uL Sodium 136 L (137-145) mmol/L BUN 26 H (9-20) mg/dL Glucose 110 H (74-99) mg/dL POC Glucose (mg/dL) 105 H (75-99) mg/dL 04/03/18 04/03/18 Range/Units 06:17 07:07 RBC (4.30-5.90) m/uL Hgb (13.0-17.5) gm/dL Hct (39.0-53.0) % Plt Count (150-450) k/uL Neutrophils # (1.3-7.7) k/uL Sodium (137-145) mmol/L BUN (9-20) mg/dL Glucose (74-99) mg/dL POC Glucose (mg/dL) 116 H 122 H (75-99) mg/dL - Imaging and Cardiology Chest x-ray: image reviewed Assessment and Plan (1) Coronary arteriosclerosis in patient with history of previous myocardial infarction Current Visit: Yes Status: Chronic Code(s): I25.10 - ATHSCL HEART DISEASE OF [place] CORONARY ARTERY W/O ANG PCTRS; I25.2 - OLD MYOCARDIAL INFARCTION SNOMED Code(s): 724900858727079 (2) Coronary artery disease Current Visit: Yes Status: Chronic Code(s): I25.10 - ATHSCL HEART DISEASE OF [place] CORONARY ARTERY W/O ANG PCTRS SNOMED Code(s): 61252895 (3) Depression Current Visit: Yes Status: Chronic Code(s): F32.9 - MAJOR DEPRESSIVE DISORDER, SINGLE EPISODE, UNSPECIFIED SNOMED Code(s): 50553843 (4) Family history of coronary artery disease in father Current Visit: Yes Status: Chronic Code(s): Z82.49 - FAMILY HX OF ISCHEM HEART DIS AND OTH DIS OF THE CIRC SYS SNOMED Code(s): 513073737 (5) History of coronary artery stent placement Current Visit: Yes Status: Chronic Code(s): Z95.5 - PRESENCE OF CORONARY ANGIOPLASTY IMPLANT AND GRAFT SNOMED Code(s): 869132646 (6) Hyperlipidemia Current Visit: Yes Status: Chronic Code(s): E78.5 - HYPERLIPIDEMIA, UNSPECIFIED SNOMED Code(s): 31424991 (7) Hypertension Current Visit: Yes Status: Chronic Code(s): I10 - ESSENTIAL (PRIMARY) HYPERTENSION SNOMED Code(s): 92707535 (8) Obesity (BMI 30.0-34.9) Current Visit: Yes Status: Chronic Code(s): E66.9 - OBESITY, UNSPECIFIED SNOMED Code(s): 894111757520606 (9) Sleep apnea Current Visit: Yes Status: Chronic Code(s): G47.30 - SLEEP APNEA, UNSPECIFIED SNOMED Code(s): 49042387 (10) Type 2 diabetes mellitus Current Visit: Yes Status: Chronic Code(s): E11.9 - TYPE 2 DIABETES MELLITUS WITHOUT COMPLICATIONS SNOMED Code(s): 29391629 (11) Varicose veins of both lower extremities Current Visit: Yes Status: Chronic Code(s): I83.93 - ASYMPTOMATIC VARICOSE VEINS OF BILATERAL LOWER EXTREMITIES SNOMED Code(s): 39386794 Plan: 1. Continue aspirin, statin, Plavix, beta lo. Will increase beta lo therapy as tolerated, increased to 50 mg twice daily. Will add Sammy when able. 2. Norvasc added for radial artery spasm, increased to 5 mg daily. 3. Wean Cleviprex as tolerated. 4. Wean O2 as tolerated. Encourage incentive spirometry use 10 times every hour while awake. Patient needs aggressive pulmonary hygiene. 5. No IV Lasix today. 6. Increase activity, ambulate in the hallway. PT/OT/cardiac rehab following. 7. Pain control with current medication regimen. 8. Will monitor daily labs and x-rays. 10. Insulin per primary care service. 11. Discontinue Jjis, EDUIN Mott drain. Once off Cleviprex may DC arterial line. 12. Will discontinue mediastinal and right pleural chest tubes today. 13. Bronchodilators per pulmonology. 14. Likely will place transfer orders for 3 [facility] cardiac stepdown unit this afternoon. 15. More recommendations as patient progresses. Time with Patient: Greater than 30
[2018-04-03] MEDS: METOPROLOL TARTRATE 50 MG TAB PO SCH ×2 (09:15→21:21)
[2018-04-03] MEDS: ATORVASTATIN 80 MG TAB PO SCH (09:15)
[2018-04-03] MEDS: VENLAFAXINE HCL ER 75 MG CAP PO SCH (09:16)
[2018-04-03] MEDS: MUPIROCIN 2% OINT 22 GM TUBE NASAL SCH ×2 (09:16→21:21)
[2018-04-03] MEDS: ASPIRIN 325 MG TAB PO SCH (09:16)
[2018-04-03] MEDS: CLOPIDOGREL 75 MG TAB PO SCH (09:16)
[2018-04-03] MEDS: PANTOPRAZOLE 40 MG TABLET PO SCH (09:16)
[2018-04-03] MEDS: HYDROcodone/APAP 5-325MG 1 EACH TAB PO PRN (10:29)
--- NOTE | 2018-04-03 10:55 | XR ---
EXAMINATION TYPE: XR chest 1V portable DATE OF EXAM: 04/03/2018 COMPARISON: Prior chest x-ray 04/02/2018 HISTORY: Chest tube, Abnormal chest x-ray TECHNIQUE: Single frontal view of the chest is obtained. FINDINGS: Right jugular central venous sheath remains in place, coaxial Blanchard-Danny catheter has been removed. Lung volumes are low and the patient is rotated. Left-sided chest tube remains in place. No sizable pneumothorax. Heart size is likely stable. Patient is post median sternotomy. There are overl tawanda cardiac leads. Bibasilar increased density persists. Aorta is dense. IMPRESSION: Expiratory rotated exam. Interval Blanchard-Danny catheter removal. Basilar atelectasis versus edema or pneumonia, difficult to exclude minimal effusion. Additional follow-up recommended. Cardioyassine fiore.
[2018-04-03 12:18] LABS: Glucose,Whole Blood 136 mg/dL (75-99)
[2018-04-03] MEDS: amLODIPine 5 MG TAB PO SCH (12:37)
[2018-04-03] MEDS: INSULIN ASPART 100 UNIT/ML 1 ML 10 ML VIAL SQ SCH ×3 (12:39→21:20)
[2018-04-03] MEDS: DEXTROSE 5% IN WATER 100 ML with AMIODARONE 150 MG IV PRN ×4 (13:03→17:51)
--- NOTE | 2018-04-03 13:38 | P.PN ---
Subjective Progress Note Date: 04/03/18 Principal diagnosis: Coronary artery disease, status post three-vessel coronary artery bypass grafting This is A 73-year-old patient of Dr. Nicholas, with past medical history of coronary artery disease and previous myocardial infarction with previous stent placement, hypertension, hyperlipidemia, obesity, diabetes mellitus type 2, family history of early onset coronary artery disease, obstructive sleep apnea not on CPAP therapy. Patient had been having episodes of chest discomfort for 2 -3 years, he became progressively worse. He had Lexiscan Cardiolite stress test was abnormal. Heart catheterization on 03/25/2018 showed a distal left main stenosis of 50-60%, proximal LAD 70%, totally occluded circumflex coronary artery with ipsilateral collaterals to the large third obtuse marginal branch, mid RCA of 80%, and distal RCA of 80%. Patient was recommended surgical intervention, and today on 04/01/2018 patient underwent three-vessel artery artery bypass grafting Dr. Rubio, with right internal mammary artery to LAD, FONTAINE to the OM, left radial artery to the RCA with endoscopic harvesting of the left radial artery. He seen in the intensive care unit, the [facility], intubated on mechanical ventilator, current vent settings of SIMV mode with a rate of 14, tidal vital 600, FiO2 100%, PEEP of 8. Maintenance IV fluids include LR at a rate of 50, Diprivan is 65 mics per kilo per minute, clevidipine is currently at 4 mg per hour. Cardiac output and index is 7.3 and 3.0 respectively. Hemodynamically stable. Patient has 4 chest tubes, 2 mediastinal and right and left pleural chest tubes with small amount of sanguinous drainage in the Pleur- evac. PA pressure is 42/24. Blood gas showed pO2 of 184, pCO2 41, pH of 7.36. Chest x-ray has been reviewed, showed cardiomegaly with interstitial changes, mild pulmonary vascular congestion, persistent small left pleural effusion, left basilar and retrocardiac atelectasis. The patient is seen again today 04/02/2018 in follow-up in the intensive care unit. He was successfully extubated approximately midnight last night. He is currently maintaining O2 saturation in the low 90s on 8 L high flow nasal cannula. Chest x-ray reveals some bilateral consolidation and pleural effusion. He did receive one dose of 20 mg of Lasix this morning. Currently in a positive balance. He is up in a chair at the bedside. He is awake and alert in no acute distress. He is receiving lactated Ringer's at 50 MLS per hour. Clevidipine at 4 mg per hour. Insulin drip at 5 units per hour. His remaining in sinus rhythm. Blood pressure stable. PA pressure 28/19, CVP 12, cardiac output 7.7. Cardiac and is 3.2. White count 9.5. Hemoglobin 10.3. Platelet count 112,000. Creatinine 0.99. He is working well with the incentive spirometer. The patient is seen again today 04/03/2018 in follow-up in the intensive care unit. He is currently sitting up in a chair at the bedside. He is awake and alert in no acute distress. He is maintaining good O2 saturations in the mid 90s on 6 L high flow nasal cannula. Chest x-ray reveals basilar atelectasis. He is working fairly well with the incentive spirometer. Needs increased encouragement. He's been afebrile. Hemodynamically stable. White count 10.3. Hemoglobin 10.1. Creatinine 1.05. The plan is to remove pacer wires, mediastinal and right chest tubes. Left pleural chest tube to stay in place. Objective - Vital Signs Vital signs: Vital Signs Temp 98.3 F 04/03/18 12:00 Pulse 102 H 04/03/18 13:00 Resp 22 04/03/18 13:00 BP 113/82 04/03/18 13:00 Pulse Ox 96 04/03/18 13:00 Intake & Output 04/02/18 04/03/18 04/03/18 18:59 06:59 18:59 Intake Total 1311.670 401.762 399.8 Output Total 1395 885 300 Balance -83.330 -483.238 99.8 Weight 116.7 kg 113.6 kg Intake: IV 654 312 145 ACETAMINOPHEN IV (For NPO 200 ) 1,000 mg In Empty Bag 1 bag @ 400 mls/hr IVPB Q6HR [facility] Rx#:[id number] Lactated Ringers 1,000 ml 270 240 130 @ 20 mls/hr IV .Q24H [facility] Rx#:[id number] Magnesium Sulfate-D5w Pmx 100 1 gm In Dextrose/Water 1 100ml.bag @ 100 mls/hr IVPB Q1H [facility] Rx#: [id number] PRESSURE BAGS 84 72 15 Intake, IV Titration 177.670 89.762 14.8 Amount Clevidipine Butyrate 25 131.233 78.433 14.8 mg In Empty Bag 1 bag @ 1 MG/HR 2 mls/hr IV .Q24H [facility] Rx#:[id number] Insulin Regular 100 unit 46.437 11.329 0 In Sodium Chloride 0.9% 100 ml @ Per Protocol IV .Q0M [facility] Rx#:[id number] Oral 480 Tube Feeding 240 Output: Chest Tube Drainage 280 215 60 Chest Tube Bilateral 200 110 30 Mediastinal Chest Tube Left 58 45 30 Chest Tube Right 22 60 0 Urine 1115 670 240 Other: Voiding Method Indwelling Catheter Indwelling Catheter Urinal Indwelling Catheter ABP, PAP, CO, CI - Last Documented Arterial Blood Pressure 151/58 Pulmonary Artery Pressure 28/19 Cardiac Output 7.7 Cardiac Index 3.2 - Exam GENERAL EXAM: Alert, fairly comfortable in no apparent distress. Currently on 6 L high flow nasal cannula. HEAD: Normocephalic. EYES: Normal reaction of pupils, equal size. NOSE: Clear with pink turbinates. THROAT: No erythema or exudates. NECK: No masses, no JVD. CHEST: Gen. dressing dry and intact.. LUNGS: Equal air entry with crackles in the posterior bases. Chest tubes in place. CVS: S1 and S2 normal with no audible murmur, regular rhythm. ABDOMEN: No hepatosplenomegaly, normal bowel sounds, no guarding or rigidity. SPINE: No scoliosis or deformity SKIN: No rashes CENTRAL NERVOUS SYSTEM: No focal deficits, tone is normal in all 4 extremities. EXTREMITIES: Right radial EDUIN drain in place. There is no peripheral edema. No clubbing, no cyanosis. Peripheral pulses are intact. - Labs CBC & Chem 7: 04/03/18 04:30 04/03/18 04:30 Labs: Abnormal Lab Results - Last 24 Hours (Table) 04/02/18 04/02/18 04/02/18 Range/Units 13:50 15:04 16:21 RBC (4.30-5.90) m/uL Hgb (13.0-17.5) gm/dL Hct (39.0-53.0) % Plt Count (150-450) k/uL Neutrophils # (1.3-7.7) k/uL Sodium (137-145) mmol/L BUN (9-20) mg/dL Glucose (74-99) mg/dL POC Glucose (mg/dL) 119 H 128 H 127 H (75-99) mg/dL 04/02/18 04/02/18 04/02/18 Range/Units 16:57 18:01 19:13 RBC (4.30-5.90) m/uL Hgb (13.0-17.5) gm/dL Hct (39.0-53.0) % Plt Count (150-450) k/uL Neutrophils # (1.3-7.7) k/uL Sodium (137-145) mmol/L BUN (9-20) mg/dL Glucose (74-99) mg/dL POC Glucose (mg/dL) 105 H 113 H 189 H (75-99) mg/dL 04/02/18 04/02/18 04/02/18 Range/Units 20:20 21:08 21:59 RBC (4.30-5.90) m/uL Hgb (13.0-17.5) gm/dL Hct (39.0-53.0) % Plt Count (150-450) k/uL Neutrophils # (1.3-7.7) k/uL Sodium (137-145) mmol/L BUN (9-20) mg/dL Glucose (74-99) mg/dL POC Glucose (mg/dL) 157 H 123 H 110 H (75-99) mg/dL 04/02/18 04/03/18 04/03/18 Range/Units 23:02 00:04 00:59 RBC (4.30-5.90) m/uL Hgb (13.0-17.5) gm/dL Hct (39.0-53.0) % Plt Count (150-450) k/uL Neutrophils # (1.3-7.7) k/uL Sodium (137-145) mmol/L BUN (9-20) mg/dL Glucose (74-99) mg/dL POC Glucose (mg/dL) 101 H 113 H 113 H (75-99) mg/dL 04/03/18 04/03/18 04/03/18 Range/Units 01:56 03:03 04:21 RBC (4.30-5.90) m/uL Hgb (13.0-17.5) gm/dL Hct (39.0-53.0) % Plt Count (150-450) k/uL Neutrophils # (1.3-7.7) k/uL Sodium (137-145) mmol/L BUN (9-20) mg/dL Glucose (74-99) mg/dL POC Glucose (mg/dL) 125 H 129 H 111 H (75-99) mg/dL 04/03/18 04/03/18 04/03/18 Range/Units 04:30 04:30 05:26 RBC 3.22 L (4.30-5.90) m/uL Hgb 10.1 L (13.0-17.5) gm/dL Hct 30.3 L (39.0-53.0) % Plt Count 104 L (150-450) k/uL Neutrophils # 8.5 H (1.3-7.7) k/uL Sodium 136 L (137-145) mmol/L BUN 26 H (9-20) mg/dL Glucose 110 H (74-99) mg/dL POC Glucose (mg/dL) 105 H (75-99) mg/dL 04/03/18 04/03/18 04/03/18 Range/Units 06:17 07:07 12:06 RBC (4.30-5.90) m/uL Hgb (13.0-17.5) gm/dL Hct (39.0-53.0) % Plt Count (150-450) k/uL Neutrophils # (1.3-7.7) k/uL Sodium (137-145) mmol/L BUN (9-20) mg/dL Glucose (74-99) mg/dL POC Glucose (mg/dL) 116 H 122 H 136 H (75-99) mg/dL Assessment and Plan Assessment: Assessment: #1. Multivessel symptomatic coronary artery disease, status post three-vessel bypass grafting, with right intramammary artery to the LAD, FONTAINE to the OM, and left radial artery to the right coronary artery, postop day 2 #2. Routine postoperative ventilator management, successfully extubated. Currently on 6 L high flow nasal cannula. #3. History of previous myocardial infarction, previous coronary artery stenting #4. Hypertension, hyperlipidemia #5. Obesity #6. Diabetes mellitus type 2 #7. Obstructive sleep apnea, patient does not use a CPAP machine #8. Depression #9. Nonsmoker Plan: The patient was seen and evaluated by Dr. Hackett. Chest x-ray and labs were reviewed. He is currently maintaining good O2 saturations in the 90s on 6 L high flow nasal cannula. Needs increased encouragement regarding the use of the incentive spirometer and cough and deep breathing exercises. Continue bronchodilators. Chest tube remain in place. Chest x-ray and labs in the a.m. We'll continue to follow make further recommendations based on his clinical status. I, the cosigning physician, performed a history & physical examination of the patient. Lungs sounds with crackles in the bilateral posterior bases. Maintaining good O2 saturations in the 90s on 6 L high flow nasal cannula. I discussed the assessment and plan of care with my nurse practitioner, Racquel Jernigan. I attest to the above note as dictated by her.
[2018-04-03 17:39] LABS: Glucose,Whole Blood 137 mg/dL (75-99)
[2018-04-03 21:00] LABS: Glucose,Whole Blood 147 mg/dL (75-99)
--- NOTE | 2018-04-03 21:09 | PN ---
PROGRESS NOTE DATE OF SERVICE: 04/03/18. PRESENTING COMPLAINT: Coronary artery bypass. INTERVAL HISTORY: Patient is status post coronary bypass, was extubated early in the morning yesterday. Some of the chest tubes were removed today. Patient did go into atrial fibrillation. Did tolerate diet, sitting up, tolerating a diet. Some shortness of breath. REVIEW OF SYSTEMS: Done for constitutional, cardiovascular, GI, pulmonary; relevant findings as above. CURRENT MEDICATIONS: Reviewed. The patient is put on Amiodarone. PHYSICAL EXAMINATION: On examination, temperature 98.3, pulse 90, respiratory 28, blood pressure 111/72, pulse 97% on 6 L. GENERAL APPEARANCE: Sitting up, awake. EYES: Pupils equal. Conjunctivae normal. HEENT: External appearance of nose and ears normal. Oral cavity normal. NECK: JVD not raised. Mass not palpable. RESPIRATORY: Effort normal. Lungs, slightly decreased breath sounds. CARDIOVASCULAR: First and second sounds, no edema. ABDOMEN: Soft, nontender. Liver and spleen not palpable. PSYCHIATRY: Alert and oriented x3. Mood and affect normal. INVESTIGATIONS: Accu-Cheks are noted. White count 10.3, hemoglobin 10.1, potassium 4, platelets 104. ASSESSMENT: 1. Status post coronary artery bypass. 2. Coronary artery disease with prior history of stent. 3. Obesity; BMI 32.2. 4. Diabetes mellitus type 2 on oral hypoglycemic. 5. Essential hypertension. 6. Hyperlipidemia. 7. Depression, not otherwise specified. 8. Acute postoperative blood-loss anemia as expected from surgery. 9. Dilutional thrombocytopenia. 10.New onset atrial fibrillation. PLAN: Continue current medication and treatment plan. The patient was started on amiodarone. Other medication and treatment plan to continue. MMODL / IJN: [id number] /
--- NOTE | 2018-04-03 21:09 | CONS ---
CONSULTATION ADDENDUM: The patient's consultation dictated on 04/02/18 at 1456. Date transcribed on 04/02/18 at 1605. The correct date of consultation is 04/02/18. MMODL / IJN: [id number] /
[2018-04-03] MEDS: SENNOSIDES-DOCUSATE SODIUM 1 EACH TAB PO SCH (21:21)
[2018-04-04] MEDS: KETOROLAC 30 MG/ML 1 ML VIAL IVP SCH ×4 (00:36→18:27)
[2018-04-04] MEDS: HEPARIN SODIUM,PORCINE 5,000 UNIT/ML 1 ML VIAL SQ SCH ×3 (00:36→16:00)
[2018-04-04 02:23] LABS: Glucose,Whole Blood 128 mg/dL (75-99)
[2018-04-04 05:50] LABS: Basophils % (A) 0 %; Eosinophils # (A) 0.1 k/uL (0-0.7); Eosinophils % (A) 2 %; HCT 30.2 % (39.0-53.0); HGB 9.9 gm/dL (13.0-17.5); Lymphocytes # (A) 1.1 k/uL (1.0-4.8); Lymphocytes % (A) 15 %; MCH 31.4 pg (25.0-35.0); MCHC 32.9 g/dL (31.0-37.0); MCV 95.3 fL (80.0-100.0); Mean Platelet Volume 7.4; Monocytes # (A) 0.5 k/uL (0-1.0); Monocytes % (A) 6 %; Neutrophils # (A) 5.8 k/uL (1.3-7.7); Neutrophils % (A) 75 %; Platelet Count 129 k/uL (150-450); RBC 3.17 m/uL (4.30-5.90); RDW 13.9 % (11.5-15.5); WBC 7.7 k/uL (3.8-10.6)
[2018-04-04 06:00] LABS: Ionized Calcium 4.9 mg/dL (4.5-5.3)
[2018-04-04 06:12] LABS: Albumin 3.1 g/dL (3.5-5.0); Calcium 8.7 mg/dL (8.4-10.2); Magnesium 1.9 mg/dL (1.6-2.3); Phosphorus 3.2 mg/dL (2.5-4.5); Potassium 4.3 mmol/L (3.5-5.1); Total Bilirubin 0.9 mg/dL (0.2-1.3); Total Protein 5.5 g/dL (6.3-8.2)
[2018-04-04] MEDS: MAGNESIUM SULFATE-D5W PMX 1 GM in DEXTROSE/WATER 1 100ML.BAG IVPB SCH ×2 (07:29→09:37)
[2018-04-04 07:31] LABS: Glucose,Whole Blood 135 mg/dL (75-99)
--- NOTE | 2018-04-04 08:10 | P.PN ---
Subjective Progress Note Date: 04/04/18 Principal diagnosis: Status post coronary artery bypass grafting This is a pleasant 73-year-old gentleman who I requested to see for post coronary artery bypass grafting. The patient does follows Dr. Arriaga in the office on regular basis. Recently he was experiencing symptoms of chest discomfort. He underwent a myocardial perfusion imaging stress test and that revealed ischemia. Because of that he underwent a heart catheterization on March 252017 and that revealed severe coronary artery disease involving the distal left main coronary artery appears to be in the range of 50-60% and also severe disease involving the proximal LAD as well as totally occluded left circumflex and severe disease involving the RCA. Surgical consult was placed and the patient underwent yesterday coronary artery bypass grafting 3 where he received FONTAINE to OM, TITUS to LAD, and radial artery to RCA. This is postoperative elevation day #2. The patient continues to be hemodynamically stable. He did go to A. fib with RVR yesterday and he was started on amiodarone IV and he is converted back to normal sinus mechanism. Since then he has been maintaining normal sinus mechanism on amiodarone IV. He will be started on amiodarone by mouth later on today. He continues to be on dual antiplatelet therapy along with statin and metoprolol. Objective - Vital Signs Vital signs: Vital Signs Temp 97.6 F 04/04/18 04:00 Pulse 73 04/04/18 07:00 Resp 29 H 04/04/18 07:00 BP 153/87 04/04/18 07:00 Pulse Ox 95 04/04/18 07:00 Intake & Output 04/03/18 04/04/18 04/04/18 18:59 06:59 18:59 Intake Total 1302.39 342.719 Output Total 530 440 Balance 772.39 -97.281 Weight 116.6 kg Intake: IV 407.59 120 Amiodarone 450 mg In 202.59 Dextrose 5% in Water 250 ml @ 1 MG/MIN 34.53 mls/ hr IV .Q7H31M [facility] Rx#: [id number] Lactated Ringers 1,000 ml 190 120 @ 20 mls/hr IV .Q24H [facility] Rx#:[id number] PRESSURE BAGS 15 Intake, IV Titration 414.8 222.719 Amount Amiodarone 450 mg In 100 222.719 Dextrose 5% in Water 250 ml @ 1 MG/MIN 34.53 mls/ hr IV .Q7H31M PRN Rx#: [id number] Clevidipine Butyrate 25 14.8 mg In Empty Bag 1 bag @ 1 MG/HR 2 mls/hr IV .Q24H [facility] Rx#:[id number] Dextrose 5% in Water 100 300 ml @ 618 mls/hr IV .Q10M PRN with Amiodarone 150 mg Rx#:[id number] Insulin Regular 100 unit 0 In Sodium Chloride 0.9% 100 ml @ Per Protocol IV .Q0M [facility] Rx#:[id number] Oral 240 Tube Feeding 240 Output: Chest Tube Drainage 90 40 Chest Tube Bilateral 30 Mediastinal Chest Tube Left 60 40 Chest Tube Right 0 Urine 440 400 Other: Voiding Method Urinal Urinal Indwelling Catheter # Voids 1 ABP, PAP, CO, CI - Last Documented Arterial Blood Pressure 151/58 Pulmonary Artery Pressure 28/19 Cardiac Output 7.7 Cardiac Index 3.2 - Constitutional General appearance: Present: no acute distress - Respiratory Respiratory: bilateral: diminished - Cardiovascular Rhythm: regular - Labs CBC & Chem 7: 04/04/18 04:52 04/04/18 04:52 Labs: Abnormal Lab Results - Last 24 Hours (Table) 04/03/18 04/03/18 04/03/18 Range/Units 12:06 17:27 20:48 RBC (4.30-5.90) m/uL Hgb (13.0-17.5) gm/dL Hct (39.0-53.0) % Plt Count (150-450) k/uL Sodium (137-145) mmol/L BUN (9-20) mg/dL Glucose (74-99) mg/dL POC Glucose (mg/dL) 136 H 137 H 147 H (75-99) mg/dL ALT (21-72) U/L Total Protein (6.3-8.2) g/dL Albumin (3.5-5.0) g/dL 04/04/18 04/04/18 04/04/18 Range/Units 02:11 04:52 04:52 RBC 3.17 L (4.30-5.90) m/uL Hgb 9.9 L (13.0-17.5) gm/dL Hct 30.2 L (39.0-53.0) % Plt Count 129 L (150-450) k/uL Sodium 136 L (137-145) mmol/L BUN 29 H (9-20) mg/dL Glucose 129 H (74-99) mg/dL POC Glucose (mg/dL) 128 H (75-99) mg/dL ALT 18 L (21-72) U/L Total Protein 5.5 L (6.3-8.2) g/dL Albumin 3.1 L (3.5-5.0) g/dL 04/04/18 Range/Units 07:19 RBC (4.30-5.90) m/uL Hgb (13.0-17.5) gm/dL Hct (39.0-53.0) % Plt Count (150-450) k/uL Sodium (137-145) mmol/L BUN (9-20) mg/dL Glucose (74-99) mg/dL POC Glucose (mg/dL) 135 H (75-99) mg/dL ALT (21-72) U/L Total Protein (6.3-8.2) g/dL Albumin (3.5-5.0) g/dL Assessment and Plan Assessment: Assessment #1 multi vessel coronary artery disease and status post coronary artery that is grafting as described above #2 systemic hypertension #3 dyslipidemia #4 diabetes type 2 #5 sleep apnea #6 paroxysmal atrial fibrillation Plan #1 continue monitor the kidney function as well as electrolytes and hemoglobin #2 continue the current medical regimen which included dual antiplatelet therapy along with statin #3 increase the dose of metoprolol #4 start the patient later today on amiodarone by mouth #5 follow-up with the patient.
[2018-04-04] MEDS: INSULIN ASPART 100 UNIT/ML 1 ML 10 ML VIAL SQ SCH ×4 (09:17→21:34)
[2018-04-04] MEDS: IPRATROPIUM-ALBUTEROL 3 ML NEB INHALATION SCH ×4 (09:28→21:11)
[2018-04-04] MEDS: PANTOPRAZOLE 40 MG TABLET PO SCH (09:37)
[2018-04-04] MEDS: VENLAFAXINE HCL ER 75 MG CAP PO SCH (09:37)
[2018-04-04] MEDS: METOPROLOL TARTRATE 50 MG TAB PO SCH (09:37)
[2018-04-04] MEDS: CLOPIDOGREL 75 MG TAB PO SCH (09:37)
[2018-04-04] MEDS: ASPIRIN 325 MG TAB PO SCH (09:37)
[2018-04-04] MEDS: AMIODARONE 200 MG TAB PO SCH ×2 (09:37→20:23)
[2018-04-04] MEDS: ATORVASTATIN 80 MG TAB PO SCH (09:37)
[2018-04-04] MEDS: MUPIROCIN 2% OINT 22 GM TUBE NASAL SCH ×2 (09:38→20:24)
[2018-04-04] MEDS ORDERED: ARTIFICIAL TEARS-HYPROMELLOSE DROPS 15 ML BTL BOTH EYES PRN (10:00)
--- NOTE | 2018-04-04 12:11 | XR ---
EXAMINATION TYPE: XR chest 1V portable DATE OF EXAM: 04/04/2018 COMPARISON: Prior chest x-ray 04/03/2018 HISTORY: Abnormal chest x-ray, chest tube TECHNIQUE: Single frontal view of the chest is obtained. FINDINGS: There is no significant change. Right jugular central venous sheath remains in place. Martha ent is post median sternotomy and the heart is enlarged. Left chest tube is again noted. No evident p neumothorax. Lung volumes are low. Patchy bibasilar density is noted. IMPRESSION: Expiratory rotated exam. Stable cardiomegaly. Probable basilar atelectasis, correlate to exclude pneumonia. Follow-up recommended.
[2018-04-04] MEDS: amLODIPine 5 MG TAB PO SCH (12:34)
[2018-04-04 12:37] LABS: Glucose,Whole Blood 135 mg/dL (75-99)
--- NOTE | 2018-04-04 12:47 | P.PN ---
Subjective Progress Note Date: 04/04/18 Principal diagnosis: Triple-vessel coronary artery disease. Chronically occluded circumflex artery collateralized. Status post LAD stent that is patent. 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 Mild mitral valve regurgitation. Diabetes mellitus with preoperative hemoglobin A1c 6.3%. Hypertension. Hyperlipidemia. Obesity. Varicose veins of both lower extremity is, status post stripping of the right lower extremity, greater saphenous vein. Depression. Obstructive sleep apnea not currently using CPAP. Family history of coronary artery disease. POD #3 all arterial triple coronary artery bypass grafting using the in situ skeletonized right internal mammary artery crossing the midline anteriorly to the left anterior descending artery, skeletonized in situ left internal mammary artery to the obtuse marginal artery, the left radial artery from the aorta to the right coronary artery. Endoscopic harvesting of the left radial artery. Intraoperative graft flow measurements using the Perceptis system. Intraoperative transesophageal echocardiogram and epi-aortic scanning. Postoperative atrial fibrillation, an expected outcome of cardiac surgery, with return to normal sinus rhythm. The patient is currently sitting up into the recliner in the intensive care unit. He is in no acute distress. States pain is currently controlled on medication regimen. Denies shortness of breath. Hemodynamically stable on no inotropes. No other new complaints. Mediastinal chest tube, arterial line, epicardial pacemaker wires EDUIN drain, Mott catheter were discontinued yesterday. Patient did go into atrial fibrillation with rapid ventricular response yesterday, received IV amiodarone and did convert to normal sinus rhythm. Objective - Vital Signs Vital signs: Vital Signs Temp 97.6 F 04/04/18 04:00 Pulse 74 04/04/18 09:31 Resp 29 H 04/04/18 07:00 BP 153/87 04/04/18 07:00 Pulse Ox 95 04/04/18 09:31 Intake & Output 04/03/18 04/04/18 04/04/18 18:59 06:59 18:59 Intake Total 1302.39 342.719 Output Total 530 440 Balance 772.39 -97.281 Weight 116.6 kg Intake: IV 407.59 120 Amiodarone 450 mg In 202.59 Dextrose 5% in Water 250 ml @ 1 MG/MIN 34.53 mls/ hr IV .Q7H31M PRN Rx#: [id number] Lactated Ringers 1,000 ml 190 120 @ 20 mls/hr IV .Q24H [facility] Rx#:[id number] PRESSURE BAGS 15 Intake, IV Titration 414.8 222.719 Amount Amiodarone 450 mg In 100 222.719 Dextrose 5% in Water 250 ml @ 1 MG/MIN 34.53 mls/ hr IV .Q7H31M PRN Rx#: [id number] Clevidipine Butyrate 25 14.8 mg In Empty Bag 1 bag @ 1 MG/HR 2 mls/hr IV .Q24H [facility] Rx#:[id number] Dextrose 5% in Water 100 300 ml @ 618 mls/hr IV .Q10M PRN with Amiodarone 150 mg Rx#:[id number] Insulin Regular 100 unit 0 In Sodium Chloride 0.9% 100 ml @ Per Protocol IV .Q0M [facility] Rx#:[id number] Oral 240 Tube Feeding 240 Output: Chest Tube Drainage 90 40 Chest Tube Bilateral 30 Mediastinal Chest Tube Left 60 40 Chest Tube Right 0 Urine 440 400 Other: Voiding Method Urinal Urinal Indwelling Catheter # Voids 1 ABP, PAP, CO, CI - Last Documented Arterial Blood Pressure 151/58 Pulmonary Artery Pressure 28/19 Cardiac Output 7.7 Cardiac Index 3.2 - Constitutional General appearance: Present: cooperative, no acute distress, obese - Respiratory Details: Lungs sounds diminished bilaterally. Respirations even, nonlabored. Currently on 2 L high flow nasal cannula with oxygen saturation 95%. Able to achieve 750 mL on his incentive spirometry. Weak cough. Left pleural chest tube to continuous wall suction, 40 mL serous drainage overnight, 100 mL in the last 24 hours. No air leak present. - Cardiovascular Details: S1, S2 present. Regular rate and rhythm, sinus rhythm on telemetry. Sternum stable. Palpable peripheral pulses bilaterally. No edema present. No calf pain or tenderness noted. Right internal jugular Cordis present. Heart hugger in place with patient demonstrating appropriate use. Antiembolism stockings, SCDs present. - Gastrointestinal Gastrointestinal Comment(s): Abdomen soft, nondistended, nontender. Active bowel sounds present 4 quadrants. Tolerating minimal diet. Positive flatus, negative bowel movement since surgery. - Genitourinary Genitourinary Comment(s): Mott discontinued yesterday. Patient has voided, 400 mL overnight. - Integumentary Integumentary Comment(s): Skin is warm and dry with evidence of good perfusion. Anterior chest incision well approximated and covered with dry intact dressing. Left radial harvest site well approximated. - Neurologic Neurologic: Present: CNII-XII intact - Musculoskeletal Musculoskeletal: Present: gait normal, strength equal bilaterally - Psychiatric Psychiatric: Present: A&O x's 3, appropriate affect, intact judgment & insight - Allied health notes Allied health notes reviewed: nursing - Labs CBC & Chem 7: 04/04/18 04:52 04/04/18 04:52 Labs: Abnormal Lab Results - Last 24 Hours (Table) 04/03/18 04/03/18 04/03/18 Range/Units 12:06 17:27 20:48 RBC (4.30-5.90) m/uL Hgb (13.0-17.5) gm/dL Hct (39.0-53.0) % Plt Count (150-450) k/uL Sodium (137-145) mmol/L BUN (9-20) mg/dL Glucose (74-99) mg/dL POC Glucose (mg/dL) 136 H 137 H 147 H (75-99) mg/dL ALT (21-72) U/L Total Protein (6.3-8.2) g/dL Albumin (3.5-5.0) g/dL 04/04/18 04/04/18 04/04/18 Range/Units 02:11 04:52 04:52 RBC 3.17 L (4.30-5.90) m/uL Hgb 9.9 L (13.0-17.5) gm/dL Hct 30.2 L (39.0-53.0) % Plt Count 129 L (150-450) k/uL Sodium 136 L (137-145) mmol/L BUN 29 H (9-20) mg/dL Glucose 129 H (74-99) mg/dL POC Glucose (mg/dL) 128 H (75-99) mg/dL ALT 18 L (21-72) U/L Total Protein 5.5 L (6.3-8.2) g/dL Albumin 3.1 L (3.5-5.0) g/dL 04/04/18 Range/Units 07:19 RBC (4.30-5.90) m/uL Hgb (13.0-17.5) gm/dL Hct (39.0-53.0) % Plt Count (150-450) k/uL Sodium (137-145) mmol/L BUN (9-20) mg/dL Glucose (74-99) mg/dL POC Glucose (mg/dL) 135 H (75-99) mg/dL ALT (21-72) U/L Total Protein (6.3-8.2) g/dL Albumin (3.5-5.0) g/dL - Imaging and Cardiology Chest x-ray: image reviewed Assessment and Plan (1) Coronary arteriosclerosis in patient with history of previous myocardial infarction Current Visit: Yes Status: Chronic Code(s): I25.10 - ATHSCL HEART DISEASE OF [place] CORONARY ARTERY W/O ANG PCTRS; I25.2 - OLD MYOCARDIAL INFARCTION SNOMED Code(s): 542225333565009 (2) Coronary artery disease Current Visit: Yes Status: Chronic Code(s): I25.10 - ATHSCL HEART DISEASE OF [place] CORONARY ARTERY W/O ANG PCTRS SNOMED Code(s): 52728328 (3) Depression Current Visit: Yes Status: Chronic Code(s): F32.9 - MAJOR DEPRESSIVE DISORDER, SINGLE EPISODE, UNSPECIFIED SNOMED Code(s): 24037004 (4) Family history of coronary artery disease in father Current Visit: Yes Status: Chronic Code(s): Z82.49 - FAMILY HX OF [place] HEART DIS AND OTH DIS OF THE CIRC SYS SNOMED Code(s): 425125222 (5) History of coronary artery stent placement Current Visit: Yes Status: Chronic Code(s): Z95.5 - PRESENCE OF CORONARY ANGIOPLASTY IMPLANT AND GRAFT SNOMED Code(s): 028063494 (6) Hyperlipidemia Current Visit: Yes Status: Chronic Code(s): E78.5 - HYPERLIPIDEMIA, UNSPECIFIED SNOMED Code(s): 53753734 (7) Hypertension Current Visit: Yes Status: Chronic Code(s): I10 - ESSENTIAL (PRIMARY) HYPERTENSION SNOMED Code(s): 79106774 (8) Obesity (BMI 30.0-34.9) Current Visit: Yes Status: Chronic Code(s): E66.9 - OBESITY, UNSPECIFIED SNOMED Code(s): 416279116348072 (9) Sleep apnea Current Visit: Yes Status: Chronic Code(s): G47.30 - SLEEP APNEA, UNSPECIFIED SNOMED Code(s): 47329567 (10) Type 2 diabetes mellitus Current Visit: Yes Status: Chronic Code(s): E11.9 - TYPE 2 DIABETES MELLITUS WITHOUT COMPLICATIONS SNOMED Code(s): 85099575 (11) Varicose veins of both lower extremities Current Visit: Yes Status: Chronic Code(s): I83.93 - ASYMPTOMATIC VARICOSE VEINS OF BILATERAL LOWER EXTREMITIES SNOMED Code(s): 68128420 Plan: 1. Continue aspirin, statin, Plavix, beta lo. Will increase beta lo therapy as tolerated. Will add Sammy when able. 2. Continue Norvasc for radial artery spasm. 3. Continue amiodarone for A. fib prophylaxis. Transitioned to oral amiodarone. No anticoagulation necessary unless in A. fib greater than 24 hours. 4. Wean O2 as tolerated. Encourage incentive spirometry use 10 times every hour while awake. Patient needs aggressive pulmonary hygiene. 5. No IV Lasix today. 6. Increase activity, ambulate in the hallway. PT/OT/cardiac rehab following. 7. Pain control with current medication regimen. 8. Will monitor daily labs and x-rays. 10. Insulin per primary care service. 11. Discontinue Cordis, left pleural chest tube. 12. Bronchodilators per pulmonology. 13. Transfer orders placed for 3 south cardiac stepdown, may transfer when bed available. 14. Discharge planning in progress. Anticipate discharge to home with home care Saturday or Saturday. 15. More recommendations as patient progresses. Time with Patient: Greater than 30
--- NOTE | 2018-04-04 13:23 | P.PN ---
Subjective Progress Note Date: 04/04/18 Principal diagnosis: Coronary artery disease, status post three-vessel coronary artery bypass grafting This is A 73-year-old patient of Dr. Nicholas, with past medical history of coronary artery disease and previous myocardial infarction with previous stent placement, hypertension, hyperlipidemia, obesity, diabetes mellitus type 2, family history of early onset coronary artery disease, obstructive sleep apnea not on CPAP therapy. Patient had been having episodes of chest discomfort for 2 -3 years, he became progressively worse. He had Lexiscan Cardiolite stress test was abnormal. Heart catheterization on 03/25/2018 showed a distal left main stenosis of 50-60%, proximal LAD 70%, totally occluded circumflex coronary artery with ipsilateral collaterals to the large third obtuse marginal branch, mid RCA of 80%, and distal RCA of 80%. Patient was recommended surgical intervention, and today on 04/01/2018 patient underwent three-vessel artery artery bypass grafting Dr. Rubio, with right internal mammary artery to LAD, FONTAINE to the OM, left radial artery to the RCA with endoscopic harvesting of the left radial artery. He seen in the intensive care unit, the [facility], intubated on mechanical ventilator, current vent settings of SIMV mode with a rate of 14, tidal vital 600, FiO2 100%, PEEP of 8. Maintenance IV fluids include LR at a rate of 50, Diprivan is 65 mics per kilo per minute, clevidipine is currently at 4 mg per hour. Cardiac output and index is 7.3 and 3.0 respectively. Hemodynamically stable. Patient has 4 chest tubes, 2 mediastinal and right and left pleural chest tubes with small amount of sanguinous drainage in the Pleur- evac. PA pressure is 42/24. Blood gas showed pO2 of 184, pCO2 41, pH of 7.36. Chest x-ray has been reviewed, showed cardiomegaly with interstitial changes, mild pulmonary vascular congestion, persistent small left pleural effusion, left basilar and retrocardiac atelectasis. The patient is seen again today 04/02/2018 in follow-up in the intensive care unit. He was successfully extubated approximately midnight last night. He is currently maintaining O2 saturation in the low 90s on 8 L high flow nasal cannula. Chest x-ray reveals some bilateral consolidation and pleural effusion. He did receive one dose of 20 mg of Lasix this morning. Currently in a positive balance. He is up in a chair at the bedside. He is awake and alert in no acute distress. He is receiving lactated Ringer's at 50 MLS per hour. Clevidipine at 4 mg per hour. Insulin drip at 5 units per hour. His remaining in sinus rhythm. Blood pressure stable. PA pressure 28/19, CVP 12, cardiac output 7.7. Cardiac and is 3.2. White count 9.5. Hemoglobin 10.3. Platelet count 112,000. Creatinine 0.99. He is working well with the incentive spirometer. The patient is seen again today 04/03/2018 in follow-up in the intensive care unit. He is currently sitting up in a chair at the bedside. He is awake and alert in no acute distress. He is maintaining good O2 saturations in the mid 90s on 6 L high flow nasal cannula. Chest x-ray reveals basilar atelectasis. He is working fairly well with the incentive spirometer. Needs increased encouragement. He's been afebrile. Hemodynamically stable. White count 10.3. Hemoglobin 10.1. Creatinine 1.05. The plan is to remove pacer wires, mediastinal and right chest tubes. Left pleural chest tube to stay in place. The patient is seen again today 04/04/2018 in follow-up in the intensive care unit. He is currently resting quite comfortably in bed. He is awake and alert in no acute distress. He states he is breathing easier today as compared to yesterday. Continues with a loose nonproductive cough. Average approximate 750 MLS on the incentive spirometer. His pain is better controlled. He is maintaining good O2 saturations in the 90s on 2 L/m per nasal cannula. He's been afebrile. Hemodynamically stable. Chest x-ray shows stable cardiomegaly. There is some basilar atelectasis. Left chest tube is to be removed today. White count 7.7. Hemoglobin 9.9. Creatinine 1.15. He is back in sinus rhythm. He is off IV amiodarone. Objective - Vital Signs Vital signs: Vital Signs Temp 98.6 F 04/04/18 08:01 Pulse 80 04/04/18 13:12 Resp 30 H 04/04/18 11:19 BP 139/99 04/04/18 11:00 Pulse Ox 94 L 04/04/18 11:00 Intake & Output 04/03/18 04/04/18 04/04/18 18:59 06:59 18:59 Intake Total 1302.39 342.719 206 Output Total 530 440 470 Balance 772.39 -97.281 -264 Weight 116.6 kg Intake: IV 407.59 120 106 Amiodarone 450 mg In 202.59 66 Dextrose 5% in Water 250 ml @ 1 MG/MIN 34.53 mls/ hr IV .Q7H31M PRN Rx#: [id number] Lactated Ringers 1,000 ml 190 120 40 @ 20 mls/hr IV .Q24H [facility] Rx#:[id number] PRESSURE BAGS 15 Intake, IV Titration 414.8 222.719 100 Amount Amiodarone 450 mg In 100 222.719 Dextrose 5% in Water 250 ml @ 1 MG/MIN 34.53 mls/ hr IV .Q7H31M PRN Rx#: [id number] Clevidipine Butyrate 25 14.8 mg In Empty Bag 1 bag @ 1 MG/HR 2 mls/hr IV .Q24H [facility] Rx#:[id number] Dextrose 5% in Water 100 300 ml @ 618 mls/hr IV .Q10M PRN with Amiodarone 150 mg Rx#:[id number] Insulin Regular 100 unit 0 In Sodium Chloride 0.9% 100 ml @ Per Protocol IV .Q0M [facility] Rx#:[id number] Magnesium Sulfate-D5w Pmx 100 1 gm In Dextrose/Water 1 100ml.bag @ 100 mls/hr IVPB Q1H [facility] Rx#: [id number] Oral 240 Tube Feeding 240 Output: Chest Tube Drainage 90 40 20 Chest Tube Bilateral 30 Mediastinal Chest Tube Left 60 40 20 Chest Tube Right 0 Urine 440 400 450 Other: Voiding Method Urinal Urinal Urinal Indwelling Catheter # Voids 1 1 ABP, PAP, CO, CI - Last Documented Arterial Blood Pressure 151/58 Pulmonary Artery Pressure 28/19 Cardiac Output 7.7 Cardiac Index 3.2 - Exam GENERAL EXAM: Alert, comfortable in no apparent distress. Currently on 2 L/m per nasal cannula. HEAD: Normocephalic. EYES: Normal reaction of pupils, equal size. NOSE: Clear with pink turbinates. THROAT: No erythema or exudates. NECK: No masses, no JVD. CHEST: Sternal dressing dry and intact.. LUNGS: Equal air entry with crackles in the posterior bases. CVS: S1 and S2 normal with no audible murmur, regular rhythm. ABDOMEN: No hepatosplenomegaly, normal bowel sounds, no guarding or rigidity. SPINE: No scoliosis or deformity SKIN: No rashes CENTRAL NERVOUS SYSTEM: No focal deficits, tone is normal in all 4 extremities. EXTREMITIES: There is no peripheral edema. No clubbing, no cyanosis. Peripheral pulses are intact. - Labs CBC & Chem 7: 04/04/18 04:52 04/04/18 04:52 Labs: Abnormal Lab Results - Last 24 Hours (Table) 04/03/18 04/03/18 04/04/18 Range/Units 17:27 20:48 02:11 RBC (4.30-5.90) m/uL Hgb (13.0-17.5) gm/dL Hct (39.0-53.0) % Plt Count (150-450) k/uL Sodium (137-145) mmol/L BUN (9-20) mg/dL Glucose (74-99) mg/dL POC Glucose (mg/dL) 137 H 147 H 128 H (75-99) mg/dL ALT (21-72) U/L Total Protein (6.3-8.2) g/dL Albumin (3.5-5.0) g/dL 04/04/18 04/04/18 04/04/18 Range/Units 04:52 04:52 07:19 RBC 3.17 L (4.30-5.90) m/uL Hgb 9.9 L (13.0-17.5) gm/dL Hct 30.2 L (39.0-53.0) % Plt Count 129 L (150-450) k/uL Sodium 136 L (137-145) mmol/L BUN 29 H (9-20) mg/dL Glucose 129 H (74-99) mg/dL POC Glucose (mg/dL) 135 H (75-99) mg/dL ALT 18 L (21-72) U/L Total Protein 5.5 L (6.3-8.2) g/dL Albumin 3.1 L (3.5-5.0) g/dL 04/04/18 Range/Units 12:15 RBC (4.30-5.90) m/uL Hgb (13.0-17.5) gm/dL Hct (39.0-53.0) % Plt Count (150-450) k/uL Sodium (137-145) mmol/L BUN (9-20) mg/dL Glucose (74-99) mg/dL POC Glucose (mg/dL) 135 H (75-99) mg/dL ALT (21-72) U/L Total Protein (6.3-8.2) g/dL Albumin (3.5-5.0) g/dL Assessment and Plan Assessment: Assessment: #1. Multivessel symptomatic coronary artery disease, status post three-vessel bypass grafting, with right intramammary artery to the LAD, FONTAINE to the OM, and left radial artery to the right coronary artery, postop day 3 #2. Routine postoperative ventilator management, successfully extubated. Currently on 2 L/m per nasal cannula. #3. History of previous myocardial infarction, previous coronary artery stenting #4. Hypertension, hyperlipidemia #5. Obesity #6. Diabetes mellitus type 2 #7. Obstructive sleep apnea, patient does not use a CPAP machine #8. Depression #9. Nonsmoker Plan: The patient was seen and evaluated by Dr. Hackett. Chest x-ray and labs were reviewed. He is currently maintaining good O2 saturations in the 90s on 2 L/m per nasal cannula. Needs increased encouragement regarding the use of the incentive spirometer and cough and deep breathing exercises. Continue bronchodilators. He could be transferred out of the intensive care unit today. We'll continue to follow make further recommendations based on his clinical status. I, the cosigning physician, performed a history & physical examination of the patient. Lungs sounds with crackles in the bilateral posterior bases. Maintaining good O2 saturations in the 90s on 2 L/m per nasal cannula. I discussed the assessment and plan of care with my nurse practitioner, Racquel Jernigan. I attest to the above note as dictated by her.
[2018-04-04 17:39] LABS: Glucose,Whole Blood 122 mg/dL (75-99)
[2018-04-04] MEDS: SENNOSIDES-DOCUSATE SODIUM 1 EACH TAB PO SCH (20:24)
[2018-04-04 20:49] LABS: Glucose,Whole Blood 166 mg/dL (75-99)
--- NOTE | 2018-04-04 22:58 | PN ---
PROGRESS NOTE DATE OF SERVICE: 04/04/2018 PRESENTING COMPLAINT: Coronary artery bypass. INTERVAL HISTORY: Patient is status post coronary artery bypass, doing much better. The patient had atrial fibrillation yesterday; back in sinus rhythm. The patient did walk in the hallway. Breathing is better. Did pass some flatus. Pain is controlled. REVIEW OF SYSTEMS: Done for constitutional, cardiovascular, GI, pulmonary; relevant findings as above. CURRENT MEDICATIONS: Reviewed. PHYSICAL EXAMINATION: Temperature 98.3, pulse 75, respiration 19, blood pressure 144/98, pulse ox 95% on 2 L. GENERAL APPEARANCE: Sitting up. Comfortable. EYES: Pupils equal. Conjunctivae normal. HEENT: External appearance of nose and ears normal. Oral cavity normal. NECK: JVD unable to assess. Mass not palpable. RESPIRATORY: Effort increased. LUNGS: Decreased breath sounds. CARDIOVASCULAR: First and second sounds normal. Minimal edema. ABDOMEN: Soft, non-tender. Liver and spleen not palpable. PSYCHIATRY: Alert and oriented x3. Mood and affect normal. INVESTIGATIONS: White count 7.7, hemoglobin 9.9, platelets 129, potassium 4.3, creatinine 1.15. Accu- Cheks are noted. ASSESSMENT: 1. Status post coronary artery bypass. 2. Coronary artery disease with prior history of stent. 3. Obesity; body mass index 32.2. 4. Diabetes mellitus, type 2, on oral hypoglycemic. 5. Essential hypertension. 6. Hyperlipidemia. 7. Depression not otherwise specified. 8. Acute postoperative blood loss anemia, expected from surgery. 9. Dilutional thrombocytopenia. 10.Paroxysmal atrial fibrillation, back in sinus rhythm. PLAN: Continue current medication and treatment plan. Care was discussed with the patient and his at the bedside. Patient is doing rather well. Ambulatory. MMODL / IJN: [id number] /
[2018-04-05] MEDS: KETOROLAC 30 MG/ML 1 ML VIAL IVP SCH ×4 (01:01→18:30)
[2018-04-05] MEDS: HEPARIN SODIUM,PORCINE 5,000 UNIT/ML 1 ML VIAL SQ SCH ×3 (01:02→16:17)
[2018-04-05 02:37] LABS: Glucose,Whole Blood 125 mg/dL (75-99)
[2018-04-05] MEDS: INSULIN ASPART 100 UNIT/ML 1 ML 10 ML VIAL SQ SCH ×4 (06:07→20:22)
[2018-04-05 06:09] LABS: Glucose,Whole Blood 131 mg/dL (75-99)
[2018-04-05] MEDS: PANTOPRAZOLE 40 MG TABLET PO SCH (06:11)
[2018-04-05 06:48] LABS: HCT 28.7 % (39.0-53.0); HGB 9.6 gm/dL (13.0-17.5); MCH 31.2 pg (25.0-35.0); MCHC 33.3 g/dL (31.0-37.0); MCV 93.5 fL (80.0-100.0); Platelet Count 155 k/uL (150-450); RBC 3.07 m/uL (4.30-5.90); RDW 13.8 % (11.5-15.5); WBC 6.3 k/uL (3.8-10.6)
[2018-04-05 06:59] LABS: Albumin 2.8 g/dL (3.5-5.0); Calcium 8.5 mg/dL (8.4-10.2); Potassium 4.3 mmol/L (3.5-5.1); Total Bilirubin 0.7 mg/dL (0.2-1.3); Total Protein 5.2 g/dL (6.3-8.2)
--- NOTE | 2018-04-05 07:27 | XR ---
EXAMINATION TYPE: XR chest 2V DATE OF EXAM: 04/05/2018 HISTORY: post cardiac surgery. REFERENCE: Previous study dated 04/04/2018. FINDINGS: The patient right internal jugular sheath is been removed. The heart is enlarged. There is bibasilar airspace disease. I suspect small, bilateral effusions. IMPRESSION: 1. CARDIOMEGALY. 2. SMALL, BILATERAL EFFUSIONS. 3. BIBASILAR AIRSPACE DISEASE.
[2018-04-05] MEDS: IPRATROPIUM-ALBUTEROL 3 ML NEB INHALATION SCH ×4 (08:47→20:23)
[2018-04-05] MEDS ORDERED: FUROSEMIDE 10 MG/ML 2 ML VIAL IV ONE (08:48)
[2018-04-05] MEDS ORDERED: LISINOPRIL 2.5 MG TAB PO SCH (09:00)
[2018-04-05] MEDS: HYDROcodone/APAP 5-325MG 1 EACH TAB PO PRN (09:09)
[2018-04-05] MEDS: LOSARTAN 25 MG TAB PO SCH (09:09)
[2018-04-05] MEDS: VENLAFAXINE HCL ER 75 MG CAP PO SCH (09:09)
[2018-04-05] MEDS: METOPROLOL TARTRATE 50 MG TAB PO SCH ×2 (09:09→20:21)
[2018-04-05] MEDS: ATORVASTATIN 80 MG TAB PO SCH (09:10)
[2018-04-05] MEDS: ASPIRIN 325 MG TAB PO SCH (09:10)
[2018-04-05] MEDS: CLOPIDOGREL 75 MG TAB PO SCH (09:10)
[2018-04-05] MEDS: AMIODARONE 200 MG TAB PO SCH ×2 (09:10→20:22)
--- NOTE | 2018-04-05 09:33 | P.PN ---
Subjective Progress Note Date: 04/05/18 Principal diagnosis: Triple-vessel coronary artery disease. Chronically occluded circumflex artery collateralized. Status post LAD stent that is patent. 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 Mild mitral valve regurgitation. Diabetes mellitus with preoperative hemoglobin A1c 6.3%. Hypertension. Hyperlipidemia. Obesity. Varicose veins of both lower extremity is, status post stripping of the right lower extremity, greater saphenous vein. Depression. Obstructive sleep apnea not currently using CPAP. Family history of coronary artery disease. POD #4 all arterial triple coronary artery bypass grafting using the in situ skeletonized right internal mammary artery crossing the midline anteriorly to the left anterior descending artery, skeletonized in situ left internal mammary artery to the obtuse marginal artery, the left radial artery from the aorta to the right coronary artery. Endoscopic harvesting of the left radial artery. Intraoperative graft flow measurements using the [employer] system. Intraoperative transesophageal echocardiogram and epi-aortic scanning. Postoperative atrial fibrillation, an expected outcome of cardiac surgery, with return to normal sinus rhythm. The patient is currently sitting up into the recliner in no acute distress. Was transferred out of ICU to [address] [place] [address] cardiac stepdown unit early this morning. States pain is currently controlled on medication regimen. Denies shortness of breath. Hemodynamically stable. No new complaints. Remains in normal sinus rhythm. Patient is ambulating in the room and has ambulated in the hallway. Objective - Vital Signs Vital signs: Vital Signs Temp 97 F L 04/05/18 03:25 Pulse 84 04/05/18 03:25 Resp 22 04/05/18 03:25 BP 160/87 04/05/18 03:25 Pulse Ox 98 04/05/18 03:25 Intake & Output 04/04/18 04/05/18 04/05/18 18:59 06:59 18:59 Intake Total 286 730 240 Output Total 1170 550 Balance -884 180 240 Weight 97.8 kg Intake: IV 186 Amiodarone 450 mg In 66 Dextrose 5% in Water 250 ml @ 1 MG/MIN 34.53 mls/ hr IV .Q7H31M PRN Rx#: [id number] Lactated Ringers 1,000 ml 120 @ 20 mls/hr IV .Q24H [facility] Rx#:[id number] Intake, IV Titration 100 Amount Magnesium Sulfate-D5w Pmx 100 1 gm In Dextrose/Water 1 100ml.bag @ 100 mls/hr IVPB Q1H [facility] Rx#: [id number] Oral 730 240 Output: Chest Tube Drainage 20 Chest Tube Left 20 Urine 1150 550 Other: Voiding Method Urinal Urinal # Voids 1 1 ABP, PAP, CO, CI - Last Documented Arterial Blood Pressure 151/58 Pulmonary Artery Pressure 28/19 Cardiac Output 7.7 Cardiac Index 3.2 - Constitutional General appearance: Present: cooperative, no acute distress, obese - Respiratory Details: Lungs sounds diminished bilaterally with fine crackles in the bases. Respirations even, nonlabored. Currently on 2 L high flow nasal cannula with oxygen saturation 98%, did try patient on room air and oxygen saturations dipped down into the 70s. Able to achieve 1000 mL on his incentive spirometry. Weak cough. - Cardiovascular Details: S1, S2 present. Regular rate and rhythm, sinus rhythm on telemetry. Sternum stable. Palpable peripheral pulses bilaterally. No edema present. No calf pain or tenderness noted. Heart hugger in place with patient demonstrating appropriate use. Antiembolism stockings, SCDs present. - Gastrointestinal Gastrointestinal Comment(s): Abdomen soft, nondistended, nontender. Active bowel sounds present 4 quadrants. Tolerating minimal diet. Positive flatus, negative bowel movement since surgery. - Genitourinary Genitourinary Comment(s): Patient continues to void clear, yellow urine. Output overnight 550 mL. - Integumentary Integumentary Comment(s): Skin is warm and dry with evidence of good perfusion. Anterior chest incision well approximated and covered with dry intact dressing. Left radial harvest site well approximated. Patient is able to move his left hand without difficulty, denies any numbness or tingling, skin is warm and dry. - Neurologic Neurologic: Present: CNII-XII intact - Musculoskeletal Musculoskeletal: Present: gait normal, strength equal bilaterally - Psychiatric Psychiatric: Present: A&O x's 3, appropriate affect, intact judgment & insight - Allied health notes Allied health notes reviewed: nursing - Labs CBC & Chem 7: 04/05/18 06:16 04/05/18 06:16 Labs: Abnormal Lab Results - Last 24 Hours (Table) 04/04/18 04/04/18 04/04/18 Range/Units 12:15 17:16 20:37 RBC (4.30-5.90) m/uL Hgb (13.0-17.5) gm/dL Hct (39.0-53.0) % Glucose (74-99) mg/dL POC Glucose (mg/dL) 135 H 122 H 166 H (75-99) mg/dL Total Protein (6.3-8.2) g/dL Albumin (3.5-5.0) g/dL 04/05/18 04/05/18 04/05/18 Range/Units 02:25 06:06 06:16 RBC 3.07 L (4.30-5.90) m/uL Hgb 9.6 L (13.0-17.5) gm/dL Hct 28.7 L (39.0-53.0) % Glucose (74-99) mg/dL POC Glucose (mg/dL) 125 H 131 H (75-99) mg/dL Total Protein (6.3-8.2) g/dL Albumin (3.5-5.0) g/dL 04/05/18 Range/Units 06:16 RBC (4.30-5.90) m/uL Hgb (13.0-17.5) gm/dL Hct (39.0-53.0) % Glucose 125 H (74-99) mg/dL POC Glucose (mg/dL) (75-99) mg/dL Total Protein 5.2 L (6.3-8.2) g/dL Albumin 2.8 L (3.5-5.0) g/dL - Imaging and Cardiology Chest x-ray: report reviewed, image reviewed Assessment and Plan (1) Coronary arteriosclerosis in patient with history of previous myocardial infarction Current Visit: Yes Status: Chronic Code(s): I25.10 - ATHSCL HEART DISEASE OF [place] CORONARY ARTERY W/O ANG PCTRS; I25.2 - OLD MYOCARDIAL INFARCTION SNOMED Code(s): 050284600844062 (2) Coronary artery disease Current Visit: Yes Status: Chronic Code(s): I25.10 - ATHSCL HEART DISEASE OF [place] CORONARY ARTERY W/O ANG PCTRS SNOMED Code(s): 10535486 (3) Depression Current Visit: Yes Status: Chronic Code(s): F32.9 - MAJOR DEPRESSIVE DISORDER, SINGLE EPISODE, UNSPECIFIED SNOMED Code(s): 77609556 (4) Family history of coronary artery disease in father Current Visit: Yes Status: Chronic Code(s): Z82.49 - FAMILY HX OF [place] HEART DIS AND OTH DIS OF THE CIRC SYS SNOMED Code(s): 258516455 (5) History of coronary artery stent placement Current Visit: Yes Status: Chronic Code(s): Z95.5 - PRESENCE OF CORONARY ANGIOPLASTY IMPLANT AND GRAFT SNOMED Code(s): 651389983 (6) Hyperlipidemia Current Visit: Yes Status: Chronic Code(s): E78.5 - HYPERLIPIDEMIA, UNSPECIFIED SNOMED Code(s): 50465331 (7) Hypertension Current Visit: Yes Status: Chronic Code(s): I10 - ESSENTIAL (PRIMARY) HYPERTENSION SNOMED Code(s): 40789493 (8) Obesity (BMI 30.0-34.9) Current Visit: Yes Status: Chronic Code(s): E66.9 - OBESITY, UNSPECIFIED SNOMED Code(s): 599738588735034 (9) Sleep apnea Current Visit: Yes Status: Chronic Code(s): G47.30 - SLEEP APNEA, UNSPECIFIED SNOMED Code(s): 24611570 (10) Type 2 diabetes mellitus Current Visit: Yes Status: Chronic Code(s): E11.9 - TYPE 2 DIABETES MELLITUS WITHOUT COMPLICATIONS SNOMED Code(s): 91359617 (11) Varicose veins of both lower extremities Current Visit: Yes Status: Chronic Code(s): I83.93 - ASYMPTOMATIC VARICOSE VEINS OF BILATERAL LOWER EXTREMITIES SNOMED Code(s): 09397013 Plan: 1. Continue aspirin, statin, Plavix, beta lo. Will increase beta lo therapy as tolerated. Will add losartan. 2. Continue Norvasc for radial artery spasm. 3. Continue amiodarone for A. fib prophylaxis. No anticoagulation necessary unless in A. fib greater than 24 hours. 4. Wean O2 as tolerated. Encourage incentive spirometry use 10 times every hour while awake. Patient needs aggressive pulmonary hygiene. 5. IV Lasix ordered for today. 6. Increase activity, ambulate in the hallway minimum 4 times daily. PT/OT/ cardiac rehab following. 7. Pain control with current medication regimen. 8. Will monitor daily labs and x-rays. 10. Insulin per primary care service. 11. Bronchodilators per pulmonology. 12. Discharge planning in progress. Anticipate discharge to home with home care Saturday or Saturday. 13. More recommendations as patient progresses. Time with Patient: Greater than 30
[2018-04-05 10:46] VITALS: RESP 18
[2018-04-05 11:48] LABS: Glucose,Whole Blood 124 mg/dL (75-99)
[2018-04-05] MEDS: amLODIPine 5 MG TAB PO SCH (12:05)
--- NOTE | 2018-04-05 12:26 | PN ---
PROGRESS NOTE Mr. Neal is a 73-year-old male who is status post bypass grafting with a triple bypass to the LAD, right coronary artery and the obtuse marginal branch. He is doing well this morning. His breathing is stable. He has been ambulating. He is using the incentive spirometry. He continues to be in sinus mechanism. He has no dizziness or palpitation. He continues to be on amlodipine 5 mg daily, amiodarone 400 mg twice a day, aspirin once a day, Lipitor 80 mg daily, Plavix 75 mg daily, losartan 25 mg daily, metoprolol tartrate 50 mg twice a day. PHYSICAL EXAMINATION: Blood pressure 122/70 with a heart rate in the 80s. LUNGS: Mild crackles at the bases. No wheezes. HEART: Regular rate and rhythm. S1, S2. No S3. No rub. ABDOMEN: Soft, nontender. EXTREMITIES: No significant edema. LAB DATA: BUN and creatinine of 20 and 1.03, potassium 4.3. IMPRESSION: 1. Status post coronary artery bypass grafting, stable. 2. Hypertension. 3. Hyperlipidemia. RECOMMENDATIONS: Will continue increasing his level of activity and continue incentive spirometry. I am hopeful that he will be able to be discharged home in the next 24 to 48 hours. MMODL / IJN: [id number] /
--- NOTE | 2018-04-05 15:51 | P.PN ---
Subjective Progress Note Date: 04/05/18 Principal diagnosis: Coronary artery disease, status post three-vessel coronary artery bypass grafting This is A 73-year-old patient of Dr. Nicholas, with past medical history of coronary artery disease and previous myocardial infarction with previous stent placement, hypertension, hyperlipidemia, obesity, diabetes mellitus type 2, family history of early onset coronary artery disease, obstructive sleep apnea not on CPAP therapy. Patient had been having episodes of chest discomfort for 2 -3 years, he became progressively worse. He had Lexiscan Cardiolite stress test was abnormal. Heart catheterization on 03/25/2018 showed a distal left main stenosis of 50-60%, proximal LAD 70%, totally occluded circumflex coronary artery with ipsilateral collaterals to the large third obtuse marginal branch, mid RCA of 80%, and distal RCA of 80%. Patient was recommended surgical intervention, and today on 04/01/2018 patient underwent three-vessel artery artery bypass grafting Dr. Rubio, with right internal mammary artery to LAD, FONTAINE to the OM, left radial artery to the RCA with endoscopic harvesting of the left radial artery. He seen in the intensive care unit, the [facility], intubated on mechanical ventilator, current vent settings of SIMV mode with a rate of 14, tidal vital 600, FiO2 100%, PEEP of 8. Maintenance IV fluids include LR at a rate of 50, Diprivan is 65 mics per kilo per minute, clevidipine is currently at 4 mg per hour. Cardiac output and index is 7.3 and 3.0 respectively. Hemodynamically stable. Patient has 4 chest tubes, 2 mediastinal and right and left pleural chest tubes with small amount of sanguinous drainage in the Pleur- evac. PA pressure is 42/24. Blood gas showed pO2 of 184, pCO2 41, pH of 7.36. Chest x-ray has been reviewed, showed cardiomegaly with interstitial changes, mild pulmonary vascular congestion, persistent small left pleural effusion, left basilar and retrocardiac atelectasis. The patient is seen again today 04/02/2018 in follow-up in the intensive care unit. He was successfully extubated approximately midnight last night. He is currently maintaining O2 saturation in the low 90s on 8 L high flow nasal cannula. Chest x-ray reveals some bilateral consolidation and pleural effusion. He did receive one dose of 20 mg of Lasix this morning. Currently in a positive balance. He is up in a chair at the bedside. He is awake and alert in no acute distress. He is receiving lactated Ringer's at 50 MLS per hour. Clevidipine at 4 mg per hour. Insulin drip at 5 units per hour. His remaining in sinus rhythm. Blood pressure stable. PA pressure 28/19, CVP 12, cardiac output 7.7. Cardiac and is 3.2. White count 9.5. Hemoglobin 10.3. Platelet count 112,000. Creatinine 0.99. He is working well with the incentive spirometer. The patient is seen again today 04/03/2018 in follow-up in the intensive care unit. He is currently sitting up in a chair at the bedside. He is awake and alert in no acute distress. He is maintaining good O2 saturations in the mid 90s on 6 L high flow nasal cannula. Chest x-ray reveals basilar atelectasis. He is working fairly well with the incentive spirometer. Needs increased encouragement. He's been afebrile. Hemodynamically stable. White count 10.3. Hemoglobin 10.1. Creatinine 1.05. The plan is to remove pacer wires, mediastinal and right chest tubes. Left pleural chest tube to stay in place. The patient is seen again today 04/04/2018 in follow-up in the intensive care unit. He is currently resting quite comfortably in bed. He is awake and alert in no acute distress. He states he is breathing easier today as compared to yesterday. Continues with a loose nonproductive cough. Average approximate 750 MLS on the incentive spirometer. His pain is better controlled. He is maintaining good O2 saturations in the 90s on 2 L/m per nasal cannula. He's been afebrile. Hemodynamically stable. Chest x-ray shows stable cardiomegaly. There is some basilar atelectasis. Left chest tube is to be removed today. White count 7.7. Hemoglobin 9.9. Creatinine 1.15. He is back in sinus rhythm. He is off IV amiodarone. The patient is seen again today 04/05/2018 in follow-up on the selective care unit. He is currently sitting up in a chair at the bedside. He is awake and alert in no acute distress. His chest tubes have been removed. He denies any worsening shortness of breath, cough or congestion. Chest x-ray shows cardiomegaly and small bilateral pleural effusions with bibasilar airspace disease. He is doing better with the incentive spirometer over 1 L today. He is maintaining good O2 saturations in the high 90s on room air. White count 6.3. Hemoglobin 9.6. Creatinine 1.03. Objective - Vital Signs Vital signs: Vital Signs Temp 98.2 F 04/05/18 12:00 Pulse 89 04/05/18 12:00 Resp 18 04/05/18 12:00 BP 119/75 04/05/18 12:00 Pulse Ox 99 04/05/18 12:00 Intake & Output 04/04/18 04/05/18 04/05/18 18:59 06:59 18:59 Intake Total 286 730 240 Output Total 1170 550 Balance -884 180 240 Weight 97.8 kg Intake: IV 186 Amiodarone 450 mg In 66 Dextrose 5% in Water 250 ml @ 1 MG/MIN 34.53 mls/ hr IV .Q7H31M PRN Rx#: [id number] Lactated Ringers 1,000 ml 120 @ 20 mls/hr IV .Q24H [facility] Rx#:[id number] Intake, IV Titration 100 Amount Magnesium Sulfate-D5w Pmx 100 1 gm In Dextrose/Water 1 100ml.bag @ 100 mls/hr IVPB Q1H [facility] Rx#: [id number] Oral 730 240 Output: Chest Tube Drainage 20 Chest Tube Left 20 Urine 1150 550 Other: Voiding Method Urinal Urinal Urinal # Voids 1 1 ABP, PAP, CO, CI - Last Documented Arterial Blood Pressure 151/58 Pulmonary Artery Pressure 28/19 Cardiac Output 7.7 Cardiac Index 3.2 - Exam GENERAL EXAM: Alert, comfortable in no apparent distress. Currently on room air. HEAD: Normocephalic. EYES: Normal reaction of pupils, equal size. NOSE: Clear with pink turbinates. THROAT: No erythema or exudates. NECK: No masses, no JVD. CHEST: Sternal dressing dry and intact.. LUNGS: Equal air entry with crackles in the posterior bases. CVS: S1 and S2 normal with no audible murmur, regular rhythm. ABDOMEN: No hepatosplenomegaly, normal bowel sounds, no guarding or rigidity. SPINE: No scoliosis or deformity SKIN: No rashes CENTRAL NERVOUS SYSTEM: No focal deficits, tone is normal in all 4 extremities. EXTREMITIES: There is no peripheral edema. No clubbing, no cyanosis. Peripheral pulses are intact. - Labs CBC & Chem 7: 04/05/18 06:16 04/05/18 06:16 Labs: Abnormal Lab Results - Last 24 Hours (Table) 04/04/18 04/04/18 04/05/18 Range/Units 17:16 20:37 02:25 RBC (4.30-5.90) m/uL Hgb (13.0-17.5) gm/dL Hct (39.0-53.0) % Glucose (74-99) mg/dL POC Glucose (mg/dL) 122 H 166 H 125 H (75-99) mg/dL Total Protein (6.3-8.2) g/dL Albumin (3.5-5.0) g/dL 04/05/18 04/05/18 04/05/18 Range/Units 06:06 06:16 06:16 RBC 3.07 L (4.30-5.90) m/uL Hgb 9.6 L (13.0-17.5) gm/dL Hct 28.7 L (39.0-53.0) % Glucose 125 H (74-99) mg/dL POC Glucose (mg/dL) 131 H (75-99) mg/dL Total Protein 5.2 L (6.3-8.2) g/dL Albumin 2.8 L (3.5-5.0) g/dL 04/05/18 Range/Units 11:43 RBC (4.30-5.90) m/uL Hgb (13.0-17.5) gm/dL Hct (39.0-53.0) % Glucose (74-99) mg/dL POC Glucose (mg/dL) 124 H (75-99) mg/dL Total Protein (6.3-8.2) g/dL Albumin (3.5-5.0) g/dL Assessment and Plan Assessment: Assessment: #1. Multivessel symptomatic coronary artery disease, status post three-vessel bypass grafting, with right intramammary artery to the LAD, FONTAINE to the OM, and left radial artery to the right coronary artery #2. Routine postoperative ventilator management, successfully extubated. Currently on room air. #3. History of previous myocardial infarction, previous coronary artery stenting #4. Hypertension, hyperlipidemia #5. Obesity #6. Diabetes mellitus type 2 #7. Obstructive sleep apnea, patient does not use a CPAP machine #8. Depression #9. Nonsmoker Plan: The patient was seen and evaluated by Dr. Hackett. Chest x-ray and labs were reviewed. He is doing very well from the pulmonary standpoint. Continue the use of the incentive spirometer and cough and deep breathing exercises. Continue bronchodilators. We'll continue to follow make further recommendations based on his clinical status. I, the cosigning physician, performed a history & physical examination of the patient. Lungs sounds with crackles in the bilateral posterior bases. Maintaining good O2 saturations in the 90s on room air. I discussed the assessment and plan of care with my nurse practitioner, Racquel Jernigan. I attest to the above note as dictated by her.
[2018-04-05 16:41] LABS: Glucose,Whole Blood 141 mg/dL (75-99)
[2018-04-05 20:17] LABS: Glucose,Whole Blood 182 mg/dL (75-99)
[2018-04-05] MEDS: SENNOSIDES-DOCUSATE SODIUM 1 EACH TAB PO SCH (20:22)
--- NOTE | 2018-04-05 23:29 | PN ---
PROGRESS NOTE DATE OF SERVICE: April 05, 2018. PRESENTING COMPLAINT: Status post bypass. INTERVAL HISTORY: Patient is status post coronary artery bypass. Continues to do much better, walking up and about. Remains in sinus rhythm. Breathing is much improved. Tolerating a diet. REVIEW OF SYSTEMS: Done for constitutional, cardiovascular, GI, pulmonary; relevant findings as above. CURRENT MEDICATIONS: Reviewed. PHYSICAL EXAMINATION: VITAL SIGNS: Temperature 96.7, pulse 83, respiratory rate 18, blood pressure 130/65, pulse ox 99% on room air. GENERAL APPEARANCE: Sitting up comfortable. EYES: Pupils equal. Conjunctivae normal. HEENT: External appearance of nose and ears normal. Oral cavity normal. NECK: JVD unable to assess. Mass not palpable. RESPIRATORY: Effort normal. LUNGS: Diminished breath sounds. CARDIOVASCULAR: 1st and 2nd sounds. No edema. ABDOMEN: Soft, nontender. Liver and spleen not palpable. PSYCHIATRY: Alert and oriented x3. Mood and affect normal. INVESTIGATIONS: Platelets 155, hemoglobin 9.6, potassium 4.3. ASSESSMENT: 1. Status post coronary bypass. 2. Coronary artery disease prior history of stent. 3. Obesity; BMI 33.2. 4. Diabetes mellitus, type II, on oral hypoglycemics. 5. Essential hypertension. 6. Hyperlipidemia. 7. Depression, not otherwise specified. 8. Acute postoperative blood loss anemia expected from surgery. 9. Dilutional thrombocytopenia, improved. 10.Paroxysmal atrial fibrillation, back in sinus rhythm. PLAN: Patient is clinically doing much better, up and about. Continue current medication and treatment plan. Care was discussed with the patient. MMODL / IJN: [id number] /
[2018-04-06] MEDS: HEPARIN SODIUM,PORCINE 5,000 UNIT/ML 1 ML VIAL SQ SCH ×2 (01:04→08:34)
[2018-04-06 01:05] LABS: Glucose,Whole Blood 109 mg/dL (75-99)
[2018-04-06] MEDS: KETOROLAC 30 MG/ML 1 ML VIAL IVP SCH ×2 (01:05→06:19)
[2018-04-06] MEDS: PANTOPRAZOLE 40 MG TABLET PO SCH (06:19)
[2018-04-06] MEDS: INSULIN ASPART 100 UNIT/ML 1 ML 10 ML VIAL SQ SCH ×2 (06:22→12:52)
[2018-04-06 06:24] LABS: Glucose,Whole Blood 129 mg/dL (75-99)
[2018-04-06 06:30] LABS: HCT 29.8 % (39.0-53.0); MCH 31.7 pg (25.0-35.0); MCHC 33.7 g/dL (31.0-37.0); MCV 94.2 fL (80.0-100.0); Platelet Count 183 k/uL (150-450); RBC 3.16 m/uL (4.30-5.90); RDW 13.6 % (11.5-15.5); WBC 6.2 k/uL (3.8-10.6)
[2018-04-06 06:39] LABS: Calcium 8.7 mg/dL (8.4-10.2); Potassium 4.2 mmol/L (3.5-5.1); Total Bilirubin 0.8 mg/dL (0.2-1.3); Total Protein 5.3 g/dL (6.3-8.2)
--- NOTE | 2018-04-06 06:53 | XR ---
EXAMINATION TYPE: XR chest 2V DATE OF EXAM: 04/06/2018 HISTORY: post cardiac surgery. REFERENCE: Previous study dated 04/05/2018. FINDINGS: There has been a midline sternotomy. The heart is enlarged. There continues be bibasilar airspace disease either representing atelectasis or pneumonia. There are small, bilateral effusions. IMPRESSION: NO SIGNIFICANT INTERVAL CHANGE IN THE APPEARANCE OF THE CHEST.
[2018-04-06] MEDS ORDERED: ACETAMINOPHEN TAB 325 MG TAB PO PRN ×2 (07:21)
--- NOTE | 2018-04-06 08:12 | P.PN ---
Subjective Progress Note Date: 04/06/18 Principal diagnosis: Triple-vessel coronary artery disease. Chronically occluded circumflex artery collateralized. Status post LAD stent that is patent. 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 Mild mitral valve regurgitation. Diabetes mellitus with preoperative hemoglobin A1c 6.3%. Hypertension. Hyperlipidemia. Obesity. Varicose veins of both lower extremity is, status post stripping of the right lower extremity, greater saphenous vein. Depression. Obstructive sleep apnea not currently using CPAP. Family history of coronary artery disease. POD #5 all arterial triple coronary artery bypass grafting using the in situ skeletonized right internal mammary artery crossing the midline anteriorly to the left anterior descending artery, skeletonized in situ left internal mammary artery to the obtuse marginal artery, the left radial artery from the aorta to the right coronary artery. Endoscopic harvesting of the left radial artery. Intraoperative graft flow measurements using the [facility] system. Intraoperative transesophageal echocardiogram and epi-aortic scanning. Postoperative atrial fibrillation, an expected outcome of cardiac surgery, with return to normal sinus rhythm. The patient is currently sitting up into the recliner in no acute distress. States pain is currently controlled on medication regimen. Denies shortness of breath. Hemodynamically stable. No new complaints. Remains in normal sinus rhythm. Patient has ambulated in the hallway. States he feels ready to go home today. Objective - Vital Signs Vital signs: Vital Signs Temp 98 F 04/05/18 23:14 Pulse 78 04/05/18 23:14 Resp 18 04/06/18 05:28 BP 133/72 04/05/18 23:14 Pulse Ox 96 04/06/18 05:28 Intake & Output 04/05/18 04/06/18 04/06/18 18:59 06:59 18:59 Intake Total 600 480 Output Total 750 Balance 600 -270 Weight 109.9 kg Intake: Oral 600 480 Output: Urine 750 Other: Voiding Method Urinal Urinal # Voids 1 2 ABP, PAP, CO, CI - Last Documented Arterial Blood Pressure 151/58 Pulmonary Artery Pressure Cardiac Output 7.7 Cardiac Index 3.2 - Constitutional General appearance: Present: cooperative, no acute distress, obese - Respiratory Details: Lungs sounds diminished bilaterally. Respirations even, nonlabored. Currently on room air with oxygen saturation 96%. Able to achieve 1500 mL on his incentive spirometry. Strong cough. - Cardiovascular Details: S1, S2 present. Regular rate and rhythm, sinus rhythm on telemetry. Sternum stable. Palpable peripheral pulses bilaterally. No edema present. No calf pain or tenderness noted. Heart hugger in place with patient demonstrating appropriate use. Antiembolism stockings, SCDs present. - Gastrointestinal Gastrointestinal Comment(s): Abdomen soft, nondistended, nontender. Active bowel sounds present 4 quadrants. Tolerating minimal diet. Positive bowel movement 04/05. - Genitourinary Genitourinary Comment(s): Patient continues to void clear, yellow urine. Output overnight 750 mL. - Integumentary Integumentary Comment(s): Skin is warm and dry with evidence of good perfusion. Anterior chest incision well approximated and covered with dry intact dressing. Left radial harvest site well approximated. Patient is able to move his left hand without difficulty, denies any numbness or tingling, skin is warm and dry. - Neurologic Neurologic: Present: CNII-XII intact - Musculoskeletal Musculoskeletal: Present: gait normal, strength equal bilaterally - Psychiatric Psychiatric: Present: A&O x's 3, appropriate affect, intact judgment & insight - Allied health notes Allied health notes reviewed: nursing - Labs CBC & Chem 7: 04/06/18 06:09 04/06/18 06:09 Labs: Abnormal Lab Results - Last 24 Hours (Table) 04/05/18 04/05/18 04/05/18 Range/Units 11:43 16:35 20:16 RBC (4.30-5.90) m/uL Hgb (13.0-17.5) gm/dL Hct (39.0-53.0) % BUN (9-20) mg/dL Glucose (74-99) mg/dL POC Glucose (mg/dL) 124 H 141 H 182 H (75-99) mg/dL Total Protein (6.3-8.2) g/dL Albumin (3.5-5.0) g/dL 04/06/18 04/06/18 04/06/18 Range/Units 01:04 06:09 06:09 RBC 3.16 L (4.30-5.90) m/uL Hgb 10.0 L (13.0-17.5) gm/dL Hct 29.8 L (39.0-53.0) % BUN 25 H (9-20) mg/dL Glucose 125 H (74-99) mg/dL POC Glucose (mg/dL) 109 H (75-99) mg/dL Total Protein 5.3 L (6.3-8.2) g/dL Albumin 3.0 L (3.5-5.0) g/dL 04/06/18 Range/Units 06:16 RBC (4.30-5.90) m/uL Hgb (13.0-17.5) gm/dL Hct (39.0-53.0) % BUN (9-20) mg/dL Glucose (74-99) mg/dL POC Glucose (mg/dL) 129 H (75-99) mg/dL Total Protein (6.3-8.2) g/dL Albumin (3.5-5.0) g/dL - Imaging and Cardiology Chest x-ray: report reviewed, image reviewed Assessment and Plan (1) Coronary arteriosclerosis in patient with history of previous myocardial infarction Current Visit: Yes Status: Chronic Code(s): I25.10 - ATHSCL HEART DISEASE OF [place] CORONARY ARTERY W/O ANG PCTRS; I25.2 - OLD MYOCARDIAL INFARCTION SNOMED Code(s): 186910086570671 (2) Coronary artery disease Current Visit: Yes Status: Chronic Code(s): I25.10 - ATHSCL HEART DISEASE OF [place] CORONARY ARTERY W/O ANG PCTRS SNOMED Code(s): 79835136 (3) Depression Current Visit: Yes Status: Chronic Code(s): F32.9 - MAJOR DEPRESSIVE DISORDER, SINGLE EPISODE, UNSPECIFIED SNOMED Code(s): 09466619 (4) Family history of coronary artery disease in father Current Visit: Yes Status: Chronic Code(s): Z82.49 - FAMILY HX OF ISCHEM HEART DIS AND OTH DIS OF THE CIRC SYS SNOMED Code(s): 571726827 (5) History of coronary artery stent placement Current Visit: Yes Status: Chronic Code(s): Z95.5 - PRESENCE OF CORONARY ANGIOPLASTY IMPLANT AND GRAFT SNOMED Code(s): 336489372 (6) Hyperlipidemia Current Visit: Yes Status: Chronic Code(s): E78.5 - HYPERLIPIDEMIA, UNSPECIFIED SNOMED Code(s): 71896053 (7) Hypertension Current Visit: Yes Status: Chronic Code(s): I10 - ESSENTIAL (PRIMARY) HYPERTENSION SNOMED Code(s): 77685203 (8) Obesity (BMI 30.0-34.9) Current Visit: Yes Status: Chronic Code(s): E66.9 - OBESITY, UNSPECIFIED SNOMED Code(s): 607889589306206 (9) Sleep apnea Current Visit: Yes Status: Chronic Code(s): G47.30 - SLEEP APNEA, UNSPECIFIED SNOMED Code(s): 47073040 (10) Type 2 diabetes mellitus Current Visit: Yes Status: Chronic Code(s): E11.9 - TYPE 2 DIABETES MELLITUS WITHOUT COMPLICATIONS SNOMED Code(s): 87211698 (11) Varicose veins of both lower extremities Current Visit: Yes Status: Chronic Code(s): I83.93 - ASYMPTOMATIC VARICOSE VEINS OF BILATERAL LOWER EXTREMITIES SNOMED Code(s): 74705146 Plan: 1. Continue aspirin, statin, Plavix, losartan, beta lo. Will increase beta lo therapy as tolerated. 2. Continue Norvasc for radial artery spasm. 3. Continue amiodarone for A. fib prophylaxis. No anticoagulation necessary unless in A. fib greater than 24 hours. 4. Encourage incentive spirometry use 10 times every hour while awake. 5. Increase activity, ambulate in the hallway minimum 4 times daily. PT/OT/ cardiac rehab following. 6. Pain control with current medication regimen. 7. Insulin per primary care service. 8. Bronchodilators per pulmonology. 9. Discharge planning in progress. Anticipate discharge to home with home care this afternoon. 10. More recommendations as patient progresses. Time with Patient: Greater than 30
[2018-04-06] MEDS: METOPROLOL TARTRATE 50 MG TAB PO SCH (08:32)
[2018-04-06] MEDS: LOSARTAN 25 MG TAB PO SCH (08:32)
[2018-04-06] MEDS: AMIODARONE 200 MG TAB PO SCH (08:32)
[2018-04-06] MEDS: CLOPIDOGREL 75 MG TAB PO SCH (08:32)
[2018-04-06] MEDS: ASPIRIN 325 MG TAB PO SCH (08:32)
[2018-04-06] MEDS: ATORVASTATIN 80 MG TAB PO SCH (08:32)
[2018-04-06] MEDS: VENLAFAXINE HCL ER 75 MG CAP PO SCH (08:32)
[2018-04-06] MEDS: IPRATROPIUM-ALBUTEROL 3 ML NEB INHALATION SCH ×2 (08:53→11:39)
--- NOTE | 2018-04-06 10:19 | P.DS ---
Providers Date of admission: 04/01/18 05:33 Expected date of discharge: 04/06/18 Attending physician: Marilu Rubio Consults: 04/01/18 15:39 Consult Physician Routine Consulting Provider: Caridad Hackett Consult Reason/Comments: Freelance Director Consult: post cardiac surgery Do you want consulting provider notified?: Yes Consult Physician Routine Consulting Provider: Joselito Tay Consult Reason/Comments: med management, pt of Dr. Nicholas Do you want consulting provider notified?: Yes Consult Physician Routine Consulting Provider: Myla Arriaga Consult Reason/Comments: Telepathist Consult: post cardiac surgery Do you want consulting provider notified?: Yes Primary care physician: Aldo Nicholas - Discharge Diagnosis(es) (1) Coronary arteriosclerosis in patient with history of previous myocardial infarction Current Visit: Yes Status: Chronic (2) Coronary artery disease Current Visit: Yes Status: Chronic (3) Depression Current Visit: Yes Status: Chronic (4) Family history of coronary artery disease in father Current Visit: Yes Status: Chronic (5) History of coronary artery stent placement Current Visit: Yes Status: Chronic (6) Hyperlipidemia Current Visit: Yes Status: Chronic (7) Hypertension Current Visit: Yes Status: Chronic (8) Obesity (BMI 30.0-34.9) Current Visit: Yes Status: Chronic (9) Sleep apnea Current Visit: Yes Status: Chronic (10) Type 2 diabetes mellitus Current Visit: Yes Status: Chronic (11) Varicose veins of both lower extremities Current Visit: Yes Status: Chronic Hospital Course: FINAL DIAGNOSIS: 1. Triple-vessel coronary artery disease, chronically occluded circumflex artery collateralized, status post LAD stent that is patent 2. Old lateral wall myocardial infarction with moderate left ventricular dysfunction with ejection fraction of 45% 3. Mild mitral valve regurgitation 4. Diabetes mellitus with preoperative hemoglobin A1c 6.3% 5. Hypertension 6. Hyperlipidemia 7. Obesity 8. Varicose veins of both lower extremities, status post stripping of the right lower extremity, greater saphenous vein 9. Depression 10. Obstructive sleep apnea not currently using CPAP 11. Family history of early onset coronary artery disease, father with myocardial infarction at 55 years old 12. Postoperative atrial fibrillation, an expected outcome PRINCIPAL PROCEDURE: 1. All arterial triple coronary artery bypass grafting using the in situ skeletonized right internal mammary artery crossing the midline anteriorly to the left anterior descending artery, skeletonized in situ left internal mammary artery to the obtuse marginal artery, the left radial artery from the aorta to the right coronary artery 2. Endoscopic harvesting of the left radial artery 3. Intraoperative graft flow measurements using the [employer] system 4. Intraoperative transesophageal echocardiogram and epi-aortic scanning HISTORY OF PRESENT ILLNESS: This is a 73-year-old gentleman who follows with Dr Aldo Nicholas on an outpatient basis. He reported intermittent chest discomfort off and on for the previous 2-3 years which had become progressively worse and was occurring at rest. He reported no other symptoms. He was evaluated by cardiology, underwent stress testing which was abnormal demonstrating prior myocardial infarction involving the inferior and infero-lateral wall with minimal avani-artifact ischemia consistent with coronary artery disease of the left circumflex or right coronary artery. Subsequently he underwent heart catheterization demonstrating distal left main stenosis of 50-60%, 70% stenosis to the proximal LAD, patent prior stented segments of the proximal and mid LAD with mild intimal disease, totally occluded circumflex artery with ipsilateral collaterals to the large third obtuse marginal branch, 80% stenosis to the mid and distal right coronary artery with collaterals to the left circumflex and third obtuse marginal coronary artery branch. The patient was referred to Dr. Rubio from cardiothoracic surgery. He was recommended to undergo coronary artery bypass grafting. The usual perioperative course was explained in detail to the patient and his family, all risks and benefits were discussed, all questions were answered, and consent was obtained to proceed with surgery. HOSPITAL COURSE: The patient was brought to the hospital on 04/01/2018, taken to the preoperative area, prepared in the usual fashion, and subsequently taken to the operating room where Dr. Rubio performed an all arterial triple coronary artery bypass grafting using the in situ skeletonized right internal mammary artery crossing the midline anteriorly to the left anterior descending artery, skeletonized in situ left internal mammary artery to the obtuse marginal artery, the left radial artery from the aorta to the right coronary artery, endoscopic harvesting of the left radial artery, intraoperative graft flow measurements using the [employer] system, intraoperative transesophageal echocardiogram and epi-aortic scanning. Upon completion of surgery the patient was transferred to the cardiovascular intensive care unit where he was recovered , monitored hemodynamically, and where he progressed to cardiac rehabilitation phase 1. He was extubated, all lines, tubes, and drips were discontinued when appropriate, and he was transferred to [address] [place] [address] cardiac stepdown unit for further monitoring and rehabilitation. He did have an episode of A. fib with RVR while in the intensive care unit which was treated with amiodarone with conversion to normal sinus rhythm. His oxygen was titrated down, he continued to work with physical and occupational therapy, he was tolerating oral diet, his pain was controlled, and he was ready to be discharged to home with [facility] on postoperative day #5. He received written and verbal instruction regarding his medications, activity restrictions, signs and symptoms requiring physician notification, and follow-up appointments. COMPLICATIONS: The patient experienced no postoperative complications. Plan - Discharge Summary Discharge Rx Participant: Yes New Discharge Prescriptions: New Acetaminophen Tab [Tylenol] 650 mg PO Q4HR PRN tab PRN Reason: Fever And/ Or Pain Acetaminophen Tab [Tylenol] 325 mg PO Q4HR PRN tab PRN Reason: Fever And/ Or Pain Amiodarone [Cordarone] 400 mg PO BID #40 tab amLODIPine [Norvasc] 5 mg PO DAILY@1200 #30 tab Clopidogrel [Plavix] 75 mg PO DAILY #30 tab Losartan [Cozaar] 25 mg PO DAILY #30 tab Metoprolol Tartrate [Lopressor] 50 mg PO BID #60 tab Pantoprazole [Protonix] 40 mg PO AC-BRKFST #[address] Martinorosemary-Docusate Sodium [Senokot-S] 2 each PO HS PRN tab PRN Reason: Constipation Continue metFORMIN HCL [Glucophage] 850 mg PO BID Atorvastatin [Lipitor] 80 mg PO HS Venlafaxine HCl [Effexor] 75 mg PO DAILY Aspirin 325 mg PO DAILY #30 tab Discontinued Isosorbide Mononitrate [Imdur] 120 mg PO DAILY Atenolol [Tenormin] 25 mg PO DAILY Lisinopril [Zestril] 10 mg PO HS Discharge Medication List Atorvastatin [Lipitor] 80 mg PO HS 11/04/14 [History] metFORMIN HCL [Glucophage] 850 mg PO BID 11/04/14 [History] Venlafaxine HCl [Effexor] 75 mg PO DAILY 03/18/18 [History] Acetaminophen Tab [Tylenol] 325 mg PO Q4HR PRN tab 04/06/18 [Rx] Acetaminophen Tab [Tylenol] 650 mg PO Q4HR PRN tab 04/06/18 [Rx] Amiodarone [Cordarone] 400 mg PO BID #40 tab 10/28/18 [Rx] Aspirin 325 mg PO DAILY #30 tab 04/06/18 [Rx] Clopidogrel [Plavix] 75 mg PO DAILY #30 tab 04/06/18 [Rx] Losartan [Cozaar] 25 mg PO DAILY #30 tab 04/06/18 [Rx] Metoprolol Tartrate [Lopressor] 50 mg PO BID #60 tab 04/06/18 [Rx] Pantoprazole [Protonix] 40 mg PO AC-BRKFST #30 tablet. 04/06/18 [Rx] Sennosides-Docusate Sodium [Senokot-S] 2 each PO HS PRN tab 04/06/18 [Rx] amLODIPine [Norvasc] 5 mg PO DAILY@1200 #30 tab 04/06/18 [Rx] Follow up Appointment(s)/Referral(s): Dominique Mendosa NPC [Nurse Practitioner] - 04/10/18 11:00 am [facility], [NON-STAFF] - As Needed Myla Arriaga MD [STAFF PHYSICIAN] - 04/30/18 9:45 am Marilu Rubio MD [STAFF PHYSICIAN] - 05/02/18 10:00 am Aldo Nicholas MD [Primary Care Provider] - 2 Weeks Caridad Hackett MD [STAFF PHYSICIAN] - 05/05/18 1:30 pm Ambulatory/Diagnostic Orders: Complete Blood Count w/diff [LAB.AMB] Time Frame: 3 Days, Location: None Selected Comprehensive Metabolic Panel [LAB.AMB] Time Frame: 3 Days, Location: None Selected Activity/Diet/Wound Care/Special Instructions: DISCHARGE INSTRUCTIONS: 1. No driving for 4 weeks, or until physician gives their ok. 2. The patient should sleep in their own bed, no medical bed needed. 3. Stairs are not an issue. If the bedroom is upstairs, it is advised that the patient go up at night and down in the morning for the first week. Go slowly, using handrail and take 1 step at a time. 4. SHELBI hose are to be worn for 30 days or until physician discontinues. 5. Heart hugger is to be worn 100% of the time until physician discontinues.( except when showering) 6. No lifting, pushing, or pulling more than 10 pounds for 12 weeks. The physician will advise of any restriction changes. 7. The patient is expected to continue the prescribed walking program. 8. Continue pain control per as needed orders. 9. Continue with incentive spirometry and splinting/heart hugger until otherwise directed by the physician. 10. Must shower daily using liquid antibacterial soap and a separate white washcloth for each individual incision. 11. Routine sternal incision care. No powders, lotions, ointments on incisions. 12. Please call surgeon/PROGRAM OR PROJECT ADMINISTRATOR for temp greater than 101 F or purulent drainage from incisions. 13. All prescriptions given by surgeon for 30 days. Refills need to be filled through systems test engineer/primary care physician. 14. A Red armband has been placed on the patient. It should be worn for 30 days post surgery and will be removed by the cardiac surgeons. If an ER visit is necessary, please make sure the number on the Red armband is called. HOME HEALTH SERVICES TO PROVIDE: RN SKILLED HOME CARE SERVICES FOR POST-OP SURGICAL PATIENTS WITH THE FOLLOWING: Coronary Artery Bypass Surgery (CABG), Mitral Valve Replacement/ Repair ( MVR), Aortic Valve Replacement/Repair (AVR) RN TO CONTINUE EDUCATION FROM ``ROAD TO A HEALTH HEART PATIENT EDUCATION MANUAL (GIVEN TO PATIENT IN THE HOSPITAL) MEDICATION RECONCILIATION WITH EDUCATION NEEDED ON FIRST HOME VISIT EMPHASIZE IMPORTANCE OF WEARING BREAST SUPPORT/HEART HUGGER ENCOURAGE USE OF INCENTIVE SPIROMETER 10 X EVERY HOUR WHILE AWAKE ENCOURAGE UTILIZATION OF LOWER EXTREMITY COMPRESSION STOCKINGS/SHELBI HOSE and ELEVATE LEGS ABOVE LEVEL OF HEART WHILE AT REST. ENCOURAGE AMBULATION 3-5x/day INCREASING TOLERATES, WHILE AVOID EXTREMES IN TEMPERATURE FREQUENCY: RN TO OPEN THE PATIENT WITHIN 24 HOURS OF DISCHARGE FROM THE HOSPITAL WITH [place] [facility] [place] 2-3 X A WEEK FOR 4 WEEKS ESTABLISHED BY PATIENT NEEDS. REMOVAL OF SUTURES: NURSING SERVICES TO REMOVE SUTURES TWO WEEKS POST SURGICAL DATE . If any questions regarding suture removal please call the office at . LABORATORY: CBC, CMP TO BE DRAWN ON THE THIRD DAY HOME, (RAN STAT) FAX RESULTS TO [phone]. TELEHEALTH PARAMETERS: WEIGHT: NOTIFY MD OF WEIGHT GAIN OF 2 LBS IN 24 HOURS OR 5 LBS IN ONE WEEK HR: NOTIFY MD OF HR <55 BPM OR HR>100 BPM BP: NOTIFY MD IF BP <90/55 OR BP>140/100 O2 SAT: NOTIFY MD IF PO2<93% ON ROOM AIR SEND TELEHEALTH REPORT TO CONTROL VALVE TECHNICIAN AND CARDIOVASCULAR SURGEON THE FIRST WEEK OF CARE AND THEN BI-WEEKLY. PLEASE ADDITIONALLY COMMUNICATE ANY ABNORMALS AND NEW FINDINGS TO THE SURGEONS OFFICE. Discharge Disposition: HOME WITH HOME HEALTH SERVICES
[2018-04-06 10:27] VITALS: BP 108/66; TEMP 97.9
[2018-04-06 11:46] LABS: Glucose,Whole Blood 108 mg/dL (75-99)
[2018-04-06 11:51] VITALS: PULSE 88
[2018-04-06] MEDS: amLODIPine 5 MG TAB PO SCH (12:52)
--- NOTE | 2018-04-06 14:11 | P.PN ---
Subjective Mr. Neal is a pleasant 73-year-old male status post bypass grafting with FONTAINE to LAD, SVG to RCA and SVG to OM. He is seen and examined sitting up in the chair. He denies symptoms of chest pain, dizziness or palpitations. He states he does get mildly short of breath with maximum exertion. With this seems to be improving day by day. He is using his incentive spirometer regularly. Blood pressure 108/66 heart rate 96 afebrile maintaining oxygen saturation on room air. Laboratory data reviewed, hemoglobin 10, platelets 183, sodium 1:30, potassium 4.2, creatinine 1.07. GENERAL: Well-appearing, well-nourished and in no acute distress. NECK: Supple without JVD or thyromegaly. LUNGS: Breath sounds clear to auscultation bilaterally. Respiration equal and unlabored. No wheezes, rales or rhonchi. Diminished bilaterally. HEART: Regular rate and rhythm without murmurs, rubs or gallops. S1 and S2 heard. EXTREMITIES: Normal range of motion, no edema. No clubbing or cyanosis. Peripheral pulses intact. ASSESSMENT Status post coronary artery bypass grafting Hypertension Dyslipidemia PLAN Continue current medical regimen. Encourage use of incentive spirometry after discharge. Follow-up with Dr. Arriaga in the office, appointment has been made. Nurse Practitioner note has been reviewed, I agree with a documented findings and plan of care. Patient was seen and examined. Objective - Vital Signs Vital signs: Vital Signs Temp 97.9 F 04/06/18 08:00 Pulse 88 04/06/18 11:50 Resp 18 04/06/18 08:00 BP 108/66 04/06/18 08:00 Pulse Ox 95 04/06/18 08:56 Intake & Output 04/05/18 04/06/18 04/06/18 18:59 06:59 18:59 Intake Total 600 480 416 Output Total 750 Balance 600 -270 416 Weight 109.9 kg Intake: Oral 600 480 416 Output: Urine 750 Other: Voiding Method Urinal Urinal Urinal # Voids 1 2 ABP, PAP, CO, CI - Last Documented Arterial Blood Pressure 151/58 Pulmonary Artery Pressure Cardiac Output 7.7 Cardiac Index 3.2 - Labs CBC & Chem 7: 04/06/18 06:09 04/06/18 06:09 Labs: Abnormal Lab Results - Last 24 Hours (Table) 04/05/18 04/05/18 04/06/18 Range/Units 16:35 20:16 01:04 RBC (4.30-5.90) m/uL Hgb (13.0-17.5) gm/dL Hct (39.0-53.0) % BUN (9-20) mg/dL Glucose (74-99) mg/dL POC Glucose (mg/dL) 141 H 182 H 109 H (75-99) mg/dL Total Protein (6.3-8.2) g/dL Albumin (3.5-5.0) g/dL 04/06/18 04/06/18 04/06/18 Range/Units 06:09 06:09 06:16 RBC 3.16 L (4.30-5.90) m/uL Hgb 10.0 L (13.0-17.5) gm/dL Hct 29.8 L (39.0-53.0) % BUN 25 H (9-20) mg/dL Glucose 125 H (74-99) mg/dL POC Glucose (mg/dL) 129 H (75-99) mg/dL Total Protein 5.3 L (6.3-8.2) g/dL Albumin 3.0 L (3.5-5.0) g/dL 04/06/18 Range/Units 11:44 RBC (4.30-5.90) m/uL Hgb (13.0-17.5) gm/dL Hct (39.0-53.0) % BUN (9-20) mg/dL Glucose (74-99) mg/dL POC Glucose (mg/dL) 108 H (75-99) mg/dL Total Protein (6.3-8.2) g/dL Albumin (3.5-5.0) g/dL
--- NOTE | 2018-04-06 15:05 | P.PN ---
Subjective Progress Note Date: 04/06/18 This is A 73-year-old patient of Dr. Nicholas, with past medical history of coronary artery disease and previous myocardial infarction with previous stent placement, hypertension, hyperlipidemia, obesity, diabetes mellitus type 2, family history of early onset coronary artery disease, obstructive sleep apnea not on CPAP therapy. Patient had been having episodes of chest discomfort for 2 -3 years, he became progressively worse. He had Lexiscan Cardiolite stress test was abnormal. Heart catheterization on 03/25/2018 showed a distal left main stenosis of 50-60%, proximal LAD 70%, totally occluded circumflex coronary artery with ipsilateral collaterals to the large third obtuse marginal branch, mid RCA of 80%, and distal RCA of 80%. Patient was recommended surgical intervention, and today on 04/01/2018 patient underwent three-vessel artery artery bypass grafting Dr. Rubio, with right internal mammary artery to LAD, FONTAINE to the OM, left radial artery to the RCA with endoscopic harvesting of the left radial artery. He seen in the intensive care unit, the [facility], intubated on mechanical ventilator, current vent settings of SIMV mode with a rate of 14, tidal vital 600, FiO2 100%, PEEP of 8. Maintenance IV fluids include LR at a rate of 50, Diprivan is 65 mics per kilo per minute, clevidipine is currently at 4 mg per hour. Cardiac output and index is 7.3 and 3.0 respectively. Hemodynamically stable. Patient has 4 chest tubes, 2 mediastinal and right and left pleural chest tubes with small amount of sanguinous drainage in the Pleur- evac. PA pressure is 42/24. Blood gas showed pO2 of 184, pCO2 41, pH of 7.36. Chest x-ray has been reviewed, showed cardiomegaly with interstitial changes, mild pulmonary vascular congestion, persistent small left pleural effusion, left basilar and retrocardiac atelectasis. The patient is seen again today 04/02/2018 in follow-up in the intensive care unit. He was successfully extubated approximately midnight last night. He is currently maintaining O2 saturation in the low 90s on 8 L high flow nasal cannula. Chest x-ray reveals some bilateral consolidation and pleural effusion. He did receive one dose of 20 mg of Lasix this morning. Currently in a positive balance. He is up in a chair at the bedside. He is awake and alert in no acute distress. He is receiving lactated Ringer's at 50 MLS per hour. Clevidipine at 4 mg per hour. Insulin drip at 5 units per hour. His remaining in sinus rhythm. Blood pressure stable. PA pressure 28/19, CVP 12, cardiac output 7.7. Cardiac and is 3.2. White count 9.5. Hemoglobin 10.3. Platelet count 112,000. Creatinine 0.99. He is working well with the incentive spirometer. The patient is seen again today 04/03/2018 in follow-up in the intensive care unit. He is currently sitting up in a chair at the bedside. He is awake and alert in no acute distress. He is maintaining good O2 saturations in the mid 90s on 6 L high flow nasal cannula. Chest x-ray reveals basilar atelectasis. He is working fairly well with the incentive spirometer. Needs increased encouragement. He's been afebrile. Hemodynamically stable. White count 10.3. Hemoglobin 10.1. Creatinine 1.05. The plan is to remove pacer wires, mediastinal and right chest tubes. Left pleural chest tube to stay in place. The patient is seen again today 04/04/2018 in follow-up in the intensive care unit. He is currently resting quite comfortably in bed. He is awake and alert in no acute distress. He states he is breathing easier today as compared to yesterday. Continues with a loose nonproductive cough. Average approximate 750 MLS on the incentive spirometer. His pain is better controlled. He is maintaining good O2 saturations in the 90s on 2 L/m per nasal cannula. He's been afebrile. Hemodynamically stable. Chest x-ray shows stable cardiomegaly. There is some basilar atelectasis. Left chest tube is to be removed today. White count 7.7. Hemoglobin 9.9. Creatinine 1.15. He is back in sinus rhythm. He is off IV amiodarone. The patient is seen again today 04/05/2018 in follow-up on the selective care unit. He is currently sitting up in a chair at the bedside. He is awake and alert in no acute distress. His chest tubes have been removed. He denies any worsening shortness of breath, cough or congestion. Chest x-ray shows cardiomegaly and small bilateral pleural effusions with bibasilar airspace disease. He is doing better with the incentive spirometer over 1 L today. He is maintaining good O2 saturations in the high 90s on room air. White count 6.3. Hemoglobin 9.6. Creatinine 1.03. On 04/06/2018, the patient is awake and alert and ambulating and has no specific complaints. No chest pain. Sternum stable clean and intact. The patient is hemodynamically stable also. All of the chest is able removed. Hemoglobin stable at 10. Creatinine is stable at 1. A follow-up chest x-ray shows A negative from limited bibasilar airspace disease and atelectasis in lung bases. There is also small bilateral pleural effusion. No other abnormalities noted. Objective - Vital Signs Vital signs: Vital Signs Temp 97.9 F 04/06/18 08:00 Pulse 88 04/06/18 11:50 Resp 18 04/06/18 08:00 BP 108/66 04/06/18 08:00 Pulse Ox 95 04/06/18 08:56 Intake & Output 04/05/18 04/06/18 04/06/18 18:59 06:59 18:59 Intake Total 600 480 416 Output Total 750 Balance 600 -270 416 Weight 109.9 kg Intake: Oral 600 480 416 Output: Urine 750 Other: Voiding Method Urinal Urinal Urinal # Voids 1 2 ABP, PAP, CO, CI - Last Documented Arterial Blood Pressure 151/58 Pulmonary Artery Pressure 28/19 Cardiac Output 7.7 Cardiac Index 3.2 - Exam GENERAL EXAM: Alert, comfortable in no apparent distress. Currently on room air. HEAD: Normocephalic. EYES: Normal reaction of pupils, equal size. NOSE: Clear with pink turbinates. THROAT: No erythema or exudates. NECK: No masses, no JVD. CHEST: Sternal dressing dry and intact.. LUNGS: Equal air entry with crackles in the posterior bases. CVS: S1 and S2 normal with no audible murmur, regular rhythm. ABDOMEN: No hepatosplenomegaly, normal bowel sounds, no guarding or rigidity. SPINE: No scoliosis or deformity SKIN: No rashes CENTRAL NERVOUS SYSTEM: No focal deficits, tone is normal in all 4 extremities. EXTREMITIES: There is no peripheral edema. No clubbing, no cyanosis. Peripheral pulses are intact. - Labs CBC & Chem 7: 04/06/18 06:09 04/06/18 06:09 Labs: Abnormal Lab Results - Last 24 Hours (Table) 04/05/18 04/05/18 04/06/18 Range/Units 16:35 20:16 01:04 RBC (4.30-5.90) m/uL Hgb (13.0-17.5) gm/dL Hct (39.0-53.0) % BUN (9-20) mg/dL Glucose (74-99) mg/dL POC Glucose (mg/dL) 141 H 182 H 109 H (75-99) mg/dL Total Protein (6.3-8.2) g/dL Albumin (3.5-5.0) g/dL 04/06/18 04/06/18 04/06/18 Range/Units 06:09 06:09 06:16 RBC 3.16 L (4.30-5.90) m/uL Hgb 10.0 L (13.0-17.5) gm/dL Hct 29.8 L (39.0-53.0) % BUN 25 H (9-20) mg/dL Glucose 125 H (74-99) mg/dL POC Glucose (mg/dL) 129 H (75-99) mg/dL Total Protein 5.3 L (6.3-8.2) g/dL Albumin 3.0 L (3.5-5.0) g/dL 04/06/18 Range/Units 11:44 RBC (4.30-5.90) m/uL Hgb (13.0-17.5) gm/dL Hct (39.0-53.0) % BUN (9-20) mg/dL Glucose (74-99) mg/dL POC Glucose (mg/dL) 108 H (75-99) mg/dL Total Protein (6.3-8.2) g/dL Albumin (3.5-5.0) g/dL Assessment and Plan Plan: Assessment: #1. Multivessel symptomatic coronary artery disease, status post three-vessel bypass grafting, with right intramammary artery to the LAD, FONTAINE to the OM, and left radial artery to the right coronary artery #2. Routine postoperative ventilator management, successfully extubated. Currently on room air. #3. History of previous myocardial infarction, previous coronary artery stenting #4. Hypertension, hyperlipidemia #5. Obesity #6. Diabetes mellitus type 2 #7. Obstructive sleep apnea, patient does not use a CPAP machine #8. Depression #9. Nonsmoker The patient will be discharged home today. Outpatient medications were all reviewed. No need for oxygen therapy. Continue using incentive spirometer. Continue aspirin and Plavix. Continue oral metoprolol. Metformin for blood sugar control. Lipitor high-dose. Outpatient follow-up. We'll continue to follow.
== END 2018-04-06 13:35 | disposition home health service (06) | DRG 236 ==
LOC: 2ORMAIN 05:33 → 2SICU 15:39 → 3SCARD 04-05 02:43
PROVIDERS: ADMIT Surgery; ATTEND Surgery
PROC: 021009W Bypass Coronary Artery, One Artery from Aorta with Autologous Venous Tissue, Open Approach (ICD-10-PCS; 2018-04-01)
PROC: 03BC4ZZ Excision of Left Radial Artery, Percutaneous Endoscopic Approach (ICD-10-PCS; 2018-04-01)
PROC: B246ZZ4 Ultrasonography of Right and Left Heart, Transesophageal (ICD-10-PCS; 2018-04-01)
PROC: 5A1221Z Performance of Cardiac Output, Continuous (ICD-10-PCS; 2018-04-01)
PROC: 02100Z8 Bypass Coronary Artery, One Artery from Right Internal Mammary, Open Approach (ICD-10-PCS; principal; 2018-04-01 08:00)
PROC: 02100Z9 Bypass Coronary Artery, One Artery from Left Internal Mammary, Open Approach (ICD-10-PCS; 2018-04-01 08:00)
DX: I25.10 Atherosclerotic heart disease of native coronary artery without angina pectoris (principal); J98.11 Atelectasis; D62 Acute posthemorrhagic anemia; J90 Pleural effusion, not elsewhere classified; I25.82 Chronic total occlusion of coronary artery; D69.59 Other secondary thrombocytopenia; E87.70 Fluid overload, unspecified; I48.0 Paroxysmal atrial fibrillation; I34.0 Nonrheumatic mitral (valve) insufficiency; E11.9 Type 2 diabetes mellitus without complications; I10 Essential (primary) hypertension; I25.2 Old myocardial infarction; E78.5 Hyperlipidemia, unspecified; I83.93 Asymptomatic varicose veins of bilateral lower extremities; J30.2 Other seasonal allergic rhinitis; G47.33 Obstructive sleep apnea (adult) (pediatric); F32.9 Major depressive disorder, single episode, unspecified; E66.9 Obesity, unspecified; Z68.33 Body mass index [BMI] 33.0-33.9, adult; Z71.3 Dietary counseling and surveillance; Z79.82 Long term (current) use of aspirin; Z79.84 Long term (current) use of oral hypoglycemic drugs; Z79.899 Other long term (current) drug therapy; Z98.42 Cataract extraction status, left eye; Z95.5 Presence of coronary angioplasty implant and graft; Z98.41 Cataract extraction status, right eye; Z99.89 Dependence on other enabling machines and devices; Z84.1 Family history of disorders of kidney and ureter; Z82.49 Family history of ischemic heart disease and other diseases of the circulatory system
CPT/HCPCS: 71045; 71046; 80048; 80053; 80074; 82330; 82805; 83735; 84100; 85025; 85027; 85520; 85610; 85730; 86850; 86891; 86900; 86901; 86920; 94002; 94640; 94760

== ENCOUNTER → 2018-05-07 | Outpatient (CLI) | payer MEDICARE ==
[2018-05-07 16:28] LABS: LDL Cholesterol,Calculated 80.6 mg/dL (0.0-131.0); VLDL Calculation 21.4 mg/dL (5.00-40.00)
== END | disposition home or self-care (01) ==
LOC: LABWHC1 09:25
PROVIDERS: ATTEND Internal Medicine Interventional Cardiology
DX: E78.2 Mixed hyperlipidemia (principal)
CPT/HCPCS: 36415; 80061; 84450; 84460

== ENCOUNTER → 2020-06-17 | Outpatient (CLI) | payer MEDICARE ==
--- NOTE | 2020-06-17 11:07 | US ---
EXAMINATION TYPE: US venous doppler duplex LE DATE OF EXAM: 06/17/2020 10:43 AM COMPARISON: US CLINICAL HISTORY: I80.299 Thrombophlebitis lower extremity. SIDE PERFORMED: Left TECHNIQUE: The lower extremity deep venous system is examined utilizing real time linear array sonog sang with graded compression, doppler sonography and color-flow sonography. VESSELS IMAGED: Common Femoral Vein Deep Femoral Vein Greater Saphenous Vein * Femoral Vein Popliteal Vein Small Saphenous Vein * Proximal Calf Veins (* superficial vessels) Left Leg: Negative for DVT Patient has reddened area inside lower thigh and inside mid calf. These areas were scanned and it is directly over the GSV . The GSV is distended with minimal flow and non compressible in these areas. IMPRESSION: 1. Left lower extremity ultrasound negative for deep venous thrombosis. 2. Superficial thrombus within the left greater saphenous vein.
== END | disposition home or self-care (01) ==
LOC: RADUSWWP 10:14
PROVIDERS: ATTEND Internal Medicine
DX: I82.812 Embolism and thrombosis of superficial veins of left lower extremity (principal)

== ENCOUNTER → 2020-11-21 | Outpatient (CLI) | payer MEDICARE ==
--- NOTE | 2020-11-21 11:18 | US ---
EXAMINATION TYPE: US venous doppler duplex LE DATE OF EXAM: 11/21/2020 11:01 AM COMPARISON: US 2020 CLINICAL HISTORY: M79.662 pain left lower limb. Left leg pain, patient taking aspirin SIDE PERFORMED: Left TECHNIQUE: The lower extremity deep venous system is examined utilizing real time linear array sonog sang with graded compression, doppler sonography and color-flow sonography. VESSELS IMAGED: Common Femoral Vein Deep Femoral Vein Greater Saphenous Vein * Femoral Vein Popliteal Vein Small Saphenous Vein * Proximal Calf Veins (* superficial vessels) Left Leg: Appears negative for DVT Left calf at patient's area of concern: thrombus seen within superficial vessel Grayscale, color doppler, spectral doppler imaging performed of the deep veins of the left lower extr emity. There is normal flow, compressibility, vascular waveforms. IMPRESSION: No ultrasound evidence for acute DVT in the left lower extremity. Thrombophlebitis at the level of left calf towards end of study.
== END | disposition home or self-care (01) ==
LOC: RADUSWWP 10:40
PROVIDERS: ATTEND Family Medicine
DX: I80.292 Phlebitis and thrombophlebitis of other deep vessels of left lower extremity (principal)

== ENCOUNTER → 2022-09-22 | Outpatient (CLI) | payer MEDICARE ==
--- NOTE | 2022-09-22 11:52 | MR ---
EXAMINATION TYPE: MR Prostate wo/w con DATE OF EXAM: 09/22/2022 9:27 AM COMPARISON: . CLINICAL INDICATION:Male, 77 years old with history of R97.20 ELEVATED PROSTATE SPECIFIC ANTIGEN; TECHNIQUE: Multi-planar, multi-sequence imaging of the pelvis is performed prior to and following the uncomplicated administration of bolus intravenous gadolinium. CONTRAST: 12 Gadavist Interpretive Criteria: PI-RADS v2.1 SERUM PSA: 8.2 on 07/25/2022 8.2 on 06/16/2021 5.9 on 02/23/2020 4.5 on 03/23/2019 SURGICAL PATHOLOGY: No data available. FINDINGS: Prostatic dimensions: 4.6 x 5.1 x 3.1 cm. "Bullet" Volume:47.60 (PSA density=0.17 ng/mL/mL) CENTRAL GLAND (Central and Transition Zones/CZ+TZ): Anterior mid gland low T2 signal area with associated diffusion restriction measuring 2.4 x 1.6 cm. T his is involves the mid gland and base anteriorly. This extends along the anterior capsule of the gla nd at least 3.81 cm. The lesion does demonstrate arterial phase hyperenhancement (PI-RADS 5) Median l obe hypertrophy with protrusion into the base of the bladder. PERIPHERAL ZONE (PZ): High DWI associated low ADC signal seen within the left posterior prostate gland measuring 13 x 10 mm . (PI-RADS 4) SEMINAL VESICLES (SV): Symmetric and unremarkable. PERIPROSTATIC TISSUES: Unremarkable. LYMPH NODES: No enlarged pelvic lymph node. REMAINING PELVIS: Bladder wall is within normal limits given distention. No abnormal free or organized intrapelvic fluid collection. No pathologic bowel dilation or mural thickening. Scattered colonic diverticula. Bilateral fat-containing inguinal hernias. Perianal high T2 cyst measuring up to 14 x 7 mm. OSSEOUS STRUCTURES: No suspicious osseous abnormality. IMPRESSION: 1. PI-RADS 5 central mid gland and base and extends along the anterior gland no obvious extracapsular extension at this time. Measuring 2.4 x 1.6 cm. 2. PI-RADS 4 lesion within the left posterior peripheral zone measuring 13 x 10 mm. 3. No suspicious osseous lesion. No lymphadenopathy. No evidence of prostate adenocarcinoma involving the periprostatic tissues. 4. Moderate BPH, estimated gland volume 47.60 mL. 5. Perianal cyst versus hemorrhagic change correlate with physical exam.
== END | disposition home or self-care (01) ==
LOC: RADMRIMAIN 08:15
PROVIDERS: ATTEND Urology
DX: N40.0 Benign prostatic hyperplasia without lower urinary tract symptoms (principal); R97.20 Elevated prostate specific antigen [PSA]
CPT/HCPCS: 72197; A9585

== ENCOUNTER → 2022-12-18 | Outpatient (CLI) | payer MEDICARE ==
[2022-12-18 16:32] LABS: Appearance,Urine Clear (Clear); Bilirubin,Urine Negative (Negative); Blood,Urine Negative (Negative); Color,Urine Yellow (Yellow); Ketones,Urine Negative (Negative); Nitrite,Urine Negative (Negative); PH, Urine 6.5; Specific Gravity,Urine 1.014 (1.001-1.030)
[2022-12-18 16:34] LABS: Basophils # (A) 0.05 X 10*3/uL (0.00-0.10); Basophils % (A) 0.7 %; Eosinophils # (A) 0.22 X 10*3/uL (0.04-0.35); Eosinophils % (A) 2.9 %; HCT 43.1 % (39.6-50.0); HGB 14.1 d/dL (12.0-15.0); Lymphocytes % (A) 23.5 %; MCH 30.2 pg (27.0-32.0); MCHC 32.7 d/dL (32.0-37.0); MCV 92.3 FL (80.0-97.0); Mean Platelet Volume 10.2 FL (9.5-12.2); Monocytes # (A) 0.77 X 10*3/uL (0.20-1.00); Monocytes % (A) 10.1 %; NRBC Per 100 WBC 0 X 10*3/uL (0.00-0.01); Neutrophils % (A) 62.5 %; Platelet Count 217 X 10*3/uL (140-440); RBC 4.67 X 10*6/uL (4.40-5.60); RDW 13.2 % (11.5-14.5); WBC 7.66 X 10*3/uL (4.50-10.00)
[2022-12-18 16:56] LABS: BUN/Creat Ratio 14.31 Ratio (12.00-20.00); Blood Urea Nitrogen 18.6 mg/dL (9.0-27.0); Calcium 9.1 mg/dL (8.7-10.3); Carbon Dioxide 23.2 mmol/L (21.6-31.8); Chloride 103 mmol/L (96-109); Glucose 137 mg/dL (70-110); Sodium 137 mmol/L (135-145)
== END | disposition home or self-care (01) ==
LOC: LABPAT 10:13
PROVIDERS: ATTEND Urology
DX: Z01.812 Encounter for preprocedural laboratory examination (principal); E11.9 Type 2 diabetes mellitus without complications; R97.20 Elevated prostate specific antigen [PSA]; R31.29 Other microscopic hematuria
CPT/HCPCS: 80048; 81003; 85025; 87086

== ENCOUNTER 2023-10-01 09:20 | Emergency (ER) | payer MEDICARE ==
--- NOTE | 2023-10-01 10:05 | ED ---
General Adult HPI - General Chief complaint: Recheck/Abnormal Lab/Rx Stated complaint: Infection/problem urinating Time Seen by Provider: 10/01/23 09:54 Source: patient, family, RN notes reviewed Mode of arrival: ambulatory Limitations: no limitations - History of Present Illness Initial comments: 78-year-old male presents emergency department chief complaint of infection to his right foot. He states that he has been seen twice at his PCPs office. Steve nieto states that they have opened his toe in place, antibiotics initially states he went back they opened up his toe blisters again but states that his white count has been worsening and they sent him in for IV antibiotics. Patient denies any fevers. Patient does admit that he is a diabetic and has underlying vascular issues. States he also has some difficulty urinating states he has not been urinating very much is very dark in nature. - Related Data Home Medications Medication Instructions Recorded Confirmed Atorvastatin [Lipitor] 80 mg PO HS 11/04/14 10/01/23 metFORMIN HCL [Glucophage] 850 mg PO BID 11/04/14 10/01/23 Cholecalciferol [Vitamin D3 (25 25 mcg PO DAILY 12/21/22 10/01/23 Mcg = 1000 Iu)] Cyanocobalamin (Vitamin B-12) 1,000 mcg PO DAILY 12/21/22 10/01/23 [Vitamin B-12] Ezetimibe [Zetia] 10 mg PO DAILY 12/21/22 10/01/23 Latanoprost Ophth [Xalatan 0.005%] 1 drop BOTH EYES HS 12/21/22 10/01/23 Cefuroxime [Ceftin] 250 mg PO BID 10/01/23 10/01/23 Timolol 0.5% Ophth Soln [Timoptic 1 drop RIGHT EYE BID 10/01/23 10/01/23 0.5% Ophth Soln] Valsartan [Diovan] 320 mg PO DAILY 10/01/23 10/01/23 Venlafaxine HCl [Effexor XR] 75 mg PO DAILY 10/01/23 10/01/23 Previous Rx's Medication Instructions Recorded Acetaminophen Tab [Tylenol] 325 mg PO Q4HR PRN tab 04/06/18 Aspirin 325 mg PO DAILY #30 tab 04/06/18 Metoprolol Tartrate [Lopressor] 50 mg PO BID #60 tab 04/06/18 Sulfamethox-Tmp 800-160Mg [Bactrim 1 each PO Q12HR #20 tab 10/01/23 Ds] Allergies Allergy/AdvReac Type Severity Reaction Status Date / Time No Known Allergies Allergy Verified 10/01/23 12:03 Review of Systems ROS Statement: Those systems with pertinent positive or pertinent negative responses have been documented in the HPI. ROS Other: All systems not noted in ROS Statement are negative. Past Medical History Past Medical History: Coronary Artery Disease (CAD), Diabetes Mellitus, Hyperlipidemia, Hypertension Additional Past Medical History / Comment(s): seasonal allergies, unable to use cpap, obesity. varicose vein left leg Last Myocardial Infarction Date:: 1986 History of Any Multi-Drug Resistant Organisms: None Reported Past Surgical History: Coronary Bypass/CABG, Heart Catheterization With Stent, Orthopedic Surgery Additional Past Surgical History / Comment(s): 4 heart stents, varicose veins rt leg with right leg vein stripping. walker Cataract, LEFT HAND SX, HEART CATH 03/25/18 Past Anesthesia/Blood Transfusion Reactions: No Reported Reaction Date of Last Stent Placement:: 2002 Past Psychological History: Depression Past Alcohol Use History: Occasional Past Drug Use History: None Reported - Past Family History Mother Family Medical History: No Reported History Additional Family Medical History / Comment(s): Mother at age 89 from kidney disease and bladder problems. Father Family Medical History: Myocardial Infarction ([place]) Additional Family Medical History / Comment(s): Father from myocardial infarction at age 56. General Exam Limitations: no limitations General appearance: alert, in no apparent distress Head exam: Present: atraumatic, normocephalic, normal inspection Respiratory exam: Present: normal lung sounds bilaterally. Absent: respiratory distress, wheezes, rales, rhonchi, stridor Cardiovascular Exam: Present: regular rate, normal rhythm, normal heart sounds. Absent: systolic murmur, diastolic murmur, rubs, gallop, clicks GI/Abdominal exam: Present: soft, normal bowel sounds. Absent: distended, tenderness, guarding, rebound, rigid Extremities exam: Present: other (Right foot second digit there is a open sore on the interphalangeal joint with mild erythema) Course Vital Signs 10/01/23 10/01/23 10/01/23 09:51 10:20 14:22 Temperature 98.2 F 99.4 F Pulse Rate 90 80 74 Respiratory 20 18 16 Rate Blood Pressure 81/54 91/54 115/75 O2 Sat by Pulse 96 96 96 Oximetry 10/01/23 16:33 Temperature Pulse Rate 74 Respiratory 18 Rate Blood Pressure 125/83 O2 Sat by Pulse 98 Oximetry Medical Decision Making - Medical Decision Making Was pt. sent in by a medical professional or institution (, PA, ASSOCIATE PROFESSOR OF MEDIA ARTS, urgent care, hospital, or detention...) When possible be specific @ -No Did you speak to anyone other than the patient for history (EMS, parent, family, police, friend...)? What history was obtained from this source @ -No Did you review nursing and triage notes (agree or disagree)? Why? @ -I reviewed and agree with nursing and triage notes Were old charts reviewed (outside hosp., previous admission, EMS record, old EKG, old radiological studies, urgent care reports/EKG's, detention records)? Report findings @ -No old charts were reviewed Differential Diagnosis (chest pain, altered mental status, abdominal pain women, abdominal pain men, vaginal bleeding, weakness, fever, dyspnea, syncope, headache, dizziness, GI bleed, back pain, seizure, CVA, palpatations, mental health, musculoskeletal)? @ -Differential Weakness: Hypoglycemia, shock, sepsis, hyponatremia, anemia, infection, MA, ETOH, adverse medicine reaction, overdose, stroke, this is not meant to be an all-inclusive list. EKG interpreted by me (3pts min.). @ -As above X-rays interpreted by me (1pt min.). @ -Chest x-ray shows no acute process X-ray right toes no evidence of osteomyelitis CT interpreted by me (1pt min.). @ -None done U/S interpreted by me (1pt. min.). @ -None done What testing was considered but not performed or refused? (CT, X-rays, U/S, labs)? Why? @ -None What meds were considered but not given or refused? Why? @ -None Did you discuss the management of the patient with other professionals (professionals i.e. , PA, ASSOCIATE PROFESSOR OF MEDIA ARTS, lab, RT, psych nurse, social security benefits interviewer, medical lab technologist, teacher, accounts officer, case planner)? Give summary @ -No Was smoking cessation discussed for >3mins.? @ -No Was critical care preformed (if so, how long)? @ -No Were there social determinants of health that impacted care today? How? (Homelessness, low income, unemployed, alcoholism, drug addiction, trans portation, low edu. Level, literacy, decrease access to med. care, [place] [facility], rehab)? @ -No Was there de-escalation of care discussed even if they declined (Discuss DNR or withdrawal of care, Hospice)? DNR status @ -No What co-morbidities impacted this encounter? (DM, HTN, Smoking, COPD, CAD, Cancer, CVA, ARF, Chemo, Hep., AIDS, mental health diagnosis, sleep apnea, morbid obesity)? @ -None Was patient admitted / discharged? Hospital course, mention meds given and route, prescriptions, significant lab abnormalities, going to OR and other pertinent info. @ -[Discharge patient found to have a urinary tract infection patient does have an open wound on his foot in which she is currently being followed by wound center. Patient was started on oral antibiotics urine culture blood cultures were sent. Family and patient updated on results and recommended close follow- up. Undiagnosed new problem with uncertain prognosis? @ -No Drug Therapy requiring intensive monitoring for toxicity (Heparin, Nitro, Insulin, Cardizem)? @ -No Were any procedures done? @ -No Diagnosis/symptom? @ -UTI, open foot wound Acute, or Chronic, or Acute on Chronic? @ -Acute Uncomplicated (without systemic symptoms) or Complicated (systemic symptoms)? @ -Comp. Side effects of treatment? @ -No Exacerbation, Progression, or Severe Exacerbation? @ -No Poses a threat to life or bodily function? How? (Chest pain, [place], MA, pneumonia, PE, COPD, DKA, ARF, appy, cholecystitis, CVA, Diverticulitis, Homicidal, Suicidal, threat to staff... and all critical care pts) @ -No - Lab Data Result diagrams: 10/01/23 10:19 10/01/23 10:19 Lab Results 10/01/23 10/01/23 10/01/23 Range/Units 10:19 10:19 10:19 WBC 15.5 H (3.8-10.6) k/uL RBC 4.04 L (4.30-5.90) m/uL Hgb 11.6 L (13.0-17.5) gm/dL Hct 35.9 L (39.0-53.0) % MCV 88.8 (80.0-100.0) fL MCH 28.6 (25.0-35.0) pg MCHC 32.2 (31.0-37.0) g/dL RDW 15.1 (11.5-15.5) % Plt Count 306 (150-450) k/uL MPV 7.9 Neutrophils % 82 % Lymphocytes % 8 % Monocytes % 6 % Eosinophils % 4 % Basophils % 0 % Neutrophils # 12.7 H (1.3-7.7) k/uL Lymphocytes # 1.2 (1.0-4.8) k/uL Monocytes # 0.9 (0-1.0) k/uL Eosinophils # 0.5 (0-0.7) k/uL Basophils # 0.1 (0-0.2) k/uL Sodium 134 L (137-145) mmol/L Potassium 4.3 (3.5-5.1) mmol/L Chloride 99 (98-107) mmol/L Carbon Dioxide 21 L (22-30) mmol/L Anion Gap 14 mmol/L BUN 31 H (9-20) mg/dL Creatinine 1.44 H (0.66-1.25) mg/dL Est GFR (CKD-EPI)AfAm 53 (>60 ml/min/1.73 sqM) Est GFR (CKD-EPI)NonAf 46 (>60 ml/min/1.73 sqM) Glucose 134 H (74-99) mg/dL Lactic Ac Sepsis Rflx Plasma Lactic Acid Eduardo 2.2 H* (0.7-2.0) mmol/L Calcium 8.8 (8.4-10.2) mg/dL Total Bilirubin 0.6 (0.2-1.3) mg/dL AST 27 (17-59) U/L ALT 29 (4-49) U/L Alkaline Phosphatase 132 H (38-126) U/L C-Reactive Protein 30.4 H (<1.0) mg/dL Total Protein 6.9 (6.3-8.2) g/dL Albumin 3.5 (3.5-5.0) g/dL Urine Color Urine Appearance (Clear) Urine pH (5.0-8.0) Ur Specific [place] (1.001-1.035) Urine Protein (Negative) Urine Glucose (UA) (Negative) Urine Ketones (Negative) Urine Blood (Negative) Urine Nitrite (Negative) Urine Bilirubin (Negative) Urine Urobilinogen (<2.0) mg/dL Ur Leukocyte Esterase (Negative) Urine RBC (0-5) /hpf Urine WBC (0-5) /hpf Urine WBC Clumps (None) /hpf Ur Squamous Epith Cells (0-4) /hpf Urine Bacteria (None) /hpf Hyaline Casts (0-2) /lpf Waxy Casts (0) /lpf Urine Mucus (None) /hpf 10/01/23 10/01/23 10/01/23 Range/Units 11:32 14:08 15:25 WBC (3.8-10.6) k/uL RBC (4.30-5.90) m/uL Hgb (13.0-17.5) gm/dL Hct (39.0-53.0) % MCV (80.0-100.0) fL MCH (25.0-35.0) pg MCHC (31.0-37.0) g/dL RDW (11.5-15.5) % Plt Count (150-450) k/uL MPV Neutrophils % % Lymphocytes % % Monocytes % % Eosinophils % % Basophils % % Neutrophils # (1.3-7.7) k/uL Lymphocytes # (1.0-4.8) k/uL Monocytes # (0-1.0) k/uL Eosinophils # (0-0.7) k/uL Basophils # (0-0.2) k/uL Sodium (137-145) mmol/L Potassium (3.5-5.1) mmol/L Chloride (98-107) mmol/L Carbon Dioxide (22-30) mmol/L Anion Gap mmol/L BUN (9-20) mg/dL Creatinine (0.66-1.25) mg/dL Est GFR (CKD-EPI)AfAm (>60 ml/min/1.73 sqM) Est GFR (CKD-EPI)NonAf (>60 ml/min/1.73 sqM) Glucose (74-99) mg/dL Lactic Ac Sepsis Rflx Y Plasma Lactic Acid Eduardo 1.0 (0.7-2.0) mmol/L Calcium (8.4-10.2) mg/dL Total Bilirubin (0.2-1.3) mg/dL AST (17-59) U/L ALT (4-49) U/L Alkaline Phosphatase (38-126) U/L C-Reactive Protein (<1.0) mg/dL Total Protein (6.3-8.2) g/dL Albumin (3.5-5.0) g/dL Urine Color Light Yellow Urine Appearance Cloudy (Clear) Urine pH 5.0 (5.0-8.0) Ur Specific [place] 1.010 (1.001-1.035) Urine Protein Trace H (Negative) Urine Glucose (UA) Negative (Negative) Urine Ketones Negative (Negative) Urine Blood Trace H (Negative) Urine Nitrite Negative (Negative) Urine Bilirubin Negative (Negative) Urine Urobilinogen <2.0 (<2.0) mg/dL Ur Leukocyte Esterase Large H (Negative) Urine RBC 8 H (0-5) /hpf Urine WBC 64 H (0-5) /hpf Urine WBC Clumps Few H (None) /hpf Ur Squamous Epith Cells <1 (0-4) /hpf Urine Bacteria Rare H (None) /hpf Hyaline Casts 1 (0-2) /lpf Waxy Casts 1 (0) /lpf Urine Mucus Rare H (None) /hpf Disposition Clinical Impression: UTI (urinary tract infection), Open toe wound Disposition: HOME SELF-CARE Condition: Stable Instructions (If sedation given, give patient instructions): Urinary Tract Infection in Men (ED) Additional Instructions: Please return to the Emergency Department if symptoms worsen or any other concerns. Prescriptions: Sulfamethox-Tmp 800-160Mg [Bactrim Ds] 1 each PO Q12HR #20 tab Is patient prescribed a controlled substance at d/c from ED?: No Referrals: Tima Juarez PAC [REFERRING] - 1-2 days Time of Disposition: 16:06
[2023-10-01] MEDS: SODIUM CHLORIDE 0.9% 1,000 ML IV ONE (10:20)
[2023-10-01 10:54] LABS: Basophils # (A) 0.1 k/uL (0-0.2); Basophils % (A) 0 %; Eosinophils # (A) 0.5 k/uL (0-0.7); Eosinophils % (A) 4 %; HCT 35.9 % (39.0-53.0); HGB 11.6 gm/dL (13.0-17.5); Lymphocytes # (A) 1.2 k/uL (1.0-4.8); Lymphocytes % (A) 8 %; MCH 28.6 pg (25.0-35.0); MCHC 32.2 g/dL (31.0-37.0); MCV 88.8 fL (80.0-100.0); Mean Platelet Volume 7.9; Monocytes # (A) 0.9 k/uL (0-1.0); Monocytes % (A) 6 %; Neutrophils # (A) 12.7 k/uL (1.3-7.7); Neutrophils % (A) 82 %; Platelet Count 306 k/uL (150-450); RBC 4.04 m/uL (4.30-5.90); RDW 15.1 % (11.5-15.5); WBC 15.5 k/uL (3.8-10.6)
[2023-10-01 10:55] LABS: ALT 29 U/L (4-49); AST 27 U/L (17-59); African American GFR (CKD) 53 (>60 ml/min/1.73 sqM); Albumin 3.5 g/dL (3.5-5.0); Alkaline Phosphatase 132 U/L (38-126); Anion Gap 14 mmol/L; Blood Urea Nitrogen 31 mg/dL (9-20); Calcium 8.8 mg/dL (8.4-10.2); Carbon Dioxide 21 mmol/L (22-30); Chloride 99 mmol/L (98-107); Glucose 134 mg/dL (74-99); Non-African American GFR(CKD) 46 (>60 ml/min/1.73 sqM); Potassium 4.3 mmol/L (3.5-5.1); Sodium 134 mmol/L (137-145); Total Bilirubin 0.6 mg/dL (0.2-1.3); Total Protein 6.9 g/dL (6.3-8.2)
--- NOTE | 2023-10-01 11:07 | XR ---
EXAMINATION TYPE: XR chest 2V DATE OF EXAM: 10/01/2023 10:49 AM CLINICAL INDICATION:Male, 78 years old with history of weakness; PHH COMPARISON: Chest radiographs from TECHNIQUE: XR chest 2V Frontal and lateral views of the chest. FINDINGS: Lungs/Pleura: There is no evidence of pleural effusion, focal consolidation, or pneumothorax. Pulmonary vascularity: Unremarkable. Heart/mediastinum: Cardiomediastinal silhouette is unremarkable. Postoperative changes are present i n the mediastinum. Sternotomy wires and mediastinal vascular clips. Musculoskeletal: No acute osseous pathology. Other findings: None Lines/Tubes: None IMPRESSION: No acute cardiopulmonary disease/process.
--- NOTE | 2023-10-01 11:12 | XR ---
EXAMINATION TYPE: XR toes RT DATE OF EXAM: 10/01/2023 10:50 AM CLINICAL INDICATION:Male, 78 years old with history of infection 2nd; PHH. Pain swelling and discolor ation right second toe. Initial encounter COMPARISON: None. TECHNIQUE: XR toes RT examined in the AP, oblique, and lateral projections. FINDINGS: No evidence of any acute osseous pathology. No evidence of soft tissue swelling. Joints are preserve d. IMPRESSION: No evidence of acute fracture.
[2023-10-01 11:13] VITALS: TEMP 99.4
[2023-10-01 11:52] LABS: C Reactive Protein 30.4 mg/dL (<1.0)
[2023-10-01] MEDS: SODIUM CHLORIDE 0.9% 500 ML 500 ML IV ONE (14:00)
[2023-10-01 15:00] VITALS: PULSE 74
[2023-10-01 15:48] LABS: Appearance,Urine Cloudy (Clear); Bacteria,Urine Rare /hpf; Bilirubin,Urine Negative (Negative); Blood,Urine Trace (Negative); Color,Urine Light Yellow; Glucose,Urine (UA) Negative (Negative); Hyaline Casts,Urine 1 /lpf (0-2); Ketones,Urine Negative (Negative); Leukocyte Esterase,Urine Large (Negative); Mucus,Urine Rare /hpf; Nitrite,Urine Negative (Negative); Protein,Urine Trace (Negative); RBC,Urine 8 /hpf (0-5); Squamous Epithelial Cell,Urine <1 /hpf (0-4); Urobilinogen,Urine <2.0 mg/dL (<2.0); WBC,Urine 64 /hpf (0-5); Waxy Casts,Urine 1 /lpf (0)
[2023-10-01] MEDS: cefTRIAXone IN SWFI 1,000 MG/10 ML SYRINGE IVP STA (16:24)
[2023-10-01 17:08] VITALS: BP 125/83; RESP 18
== END 2023-10-01 16:34 | disposition home or self-care (01) ==
LOC: EC 09:20
DX: S91.101A Unspecified open wound of right great toe without damage to nail, initial encounter (principal); N39.0 Urinary tract infection, site not specified; Z95.1 Presence of aortocoronary bypass graft; Z95.5 Presence of coronary angioplasty implant and graft; X58.XXXA Exposure to other specified factors, initial encounter
CPT/HCPCS: 51798; 36415; 80053; 83605; 85025; 86140; 81001; 87040; 87086; 73660; 71046; 99284; 96374; 96361 ×4; J0696

== ENCOUNTER 2024-01-08 10:30 | Day surgery (SDC) | payer MEDICARE ==
--- NOTE | 2024-01-08 09:13 | P.GSHP ---
History of Present Illness H&P Date: 01/08/24 Chief Complaint: ulceration right second toe patient has had an ulcer on the right second toe mid aspect dorsum for several months. It has progressed into the joint. - Constitutional Constitutional: Denies chills, Denies fever - EENT Eyes: denies blurred vision, denies pain Ears, nose, mouth and throat: Denies headache, Denies sore throat - Cardiovascular Cardiovascular: Denies chest pain, Denies shortness of breath - Respiratory Respiratory: Denies cough, Denies 7 - Gastrointestinal Gastrointestinal: Denies abdominal pain, Denies diarrhea, Denies nausea, Denies vomiting - Genitourinary (Female) Genitourinary: Denies dysuria, Denies hematuria - Genitourinary (Male) Genitourinary: Denies dysuria, Denies hematuria - Musculoskeletal Musculoskeletal: Denies myalgias - Integumentary Integumentary: Denies pruritus, Denies rash - Neurological Neurological: Denies numbness, Denies weakness - Psychiatric Psychiatric: Denies anxiety, Denies depression - Endocrine Endocrine: Denies fatigue, Denies weight change Past Medical History Past Medical History: Coronary Artery Disease (CAD), Diabetes Mellitus, Hyperlipidemia, Hypertension, Hypertension, Myocardial Infarction ([place]), Sleep Apnea/CPAP/BIPAP Additional Past Medical History / Comment(s): seasonal allergies, unable to use cpap, obesity. varicose vein left leg Last Myocardial Infarction Date:: 1986 History of Any Multi-Drug Resistant Organisms: None Reported Past Surgical History: Coronary Bypass/CABG, Heart Catheterization With Stent, Orthopedic Surgery Additional Past Surgical History / Comment(s): 4 heart stents, varicose veins rt leg with right leg vein stripping. walker Cataract, LEFT HAND SX, HEART CATH 03/25/18 Past Anesthesia/Blood Transfusion Reactions: No Reported Reaction Date of Last Stent Placement:: 2002 Smoking Status: Never smoker - Past Family History Mother Family Medical History: No Reported History Additional Family Medical History / Comment(s): Mother at age 89 from kidney disease and bladder problems. Father Family Medical History: Myocardial Infarction ([place]) Additional Family Medical History / Comment(s): Father from myocardial infarction at age 56. Medications and Allergies Home Medications Medication Instructions Recorded Confirmed Type Atorvastatin [Lipitor] 80 mg PO HS 11/04/14 01/06/24 History metFORMIN HCL [Glucophage] 850 mg PO BID 11/04/14 01/06/24 History Acetaminophen Tab [Tylenol] 325 mg PO Q4HR PRN tab 04/06/18 01/06/24 Rx Aspirin 325 mg PO DAILY #30 tab 04/06/18 01/06/24 Rx Metoprolol Tartrate [Lopressor] 50 mg PO BID #60 tab 04/06/18 01/06/24 Rx Cholecalciferol [Vitamin D3 (25 25 mcg PO DAILY 12/21/22 01/06/24 History Mcg = 1000 Iu)] Cyanocobalamin (Vitamin B-12) 1,000 mcg PO DAILY 12/21/22 01/06/24 History [Vitamin B-12] Ezetimibe [Zetia] 10 mg PO DAILY 12/21/22 01/06/24 History Latanoprost Ophth [Xalatan 0.005%] 1 drop BOTH EYES HS 12/21/22 01/06/24 History Timolol 0.5% Ophth Soln [Timoptic 1 drop RIGHT EYE BID 10/01/23 01/06/24 History 0.5% Ophth Soln] Valsartan [Diovan] 320 mg PO QAM 10/01/23 01/06/24 History Venlafaxine HCl [Effexor XR] 75 mg PO QAM 10/01/23 01/06/24 History Tamsulosin [Flomax] 0.4 mg PO HS 01/06/24 01/06/24 History Allergies Allergy/AdvReac Type Severity Reaction Status Date / Time No Known Allergies Allergy Verified 01/06/24 14:44 Surgical - Exam Osteopathic Statement: *. No significant issues noted on an osteopathic structural exam other than those noted in the History and Physical/Consult. - General well developed, well nourished, no distress - Eyes normal ocular movement, no icteric - ENT no hearing loss, no congestion - Neck no masses, trachea midline - Respiratory normal respiratory effort, clear to auscultation - Abdomen Abdomen: soft, non tender, no guarding, no rigid, no rebound - Integumentary no rash, no abnormal pigmentation - Neurologic no disoriented, no combative - Psychiatric oriented to time, oriented to person, oriented to place, speech is normal, memory intact open ulcer dorsal and plantar aspect right second toe with open joint distal interphalangeal. 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 We discussed with patient and family the options and risks involved the appear to understand these and agree to proceed. He will car only mild sedation during the procedure.
[~2024-01-08 10:30] MED LIST changes: -ALBUMIN HUMAN 25% 50 ML IV ONE; -ALBUMIN HUMAN 5% 500 ML IVPB ONE; -AMINOCAPROIC ACID 5,000 MG in DEXTROSE 5% IN WATER 50 ML IV ONE; -ASPIRIN 325 MG TAB PO ONE; -ATORVASTATIN 10 MG TAB PO ONE; -CALCIUM CHLORIDE 100 MG/ML 10 ML SYRINGE IV ONE; -CHLORHEXIDINE GLUCONATE 15 ML CUP MUCOUS MEM ONE; -CLEVIDIPINE BUTYRATE 25 MG in EMPTY BAG 1 BAG IV ONE; -DEXTROSE 5% IN WATER 1,000 ML with POTASSIUM CHLORIDE 110 MEQ, MAGNESIUM SULFATE 16 MEQ... IV ONE; -DEXTROSE 5% IN WATER 1,000 ML with POTASSIUM CHLORIDE 25 MEQ, SODIUM CHLORIDE 2.5MEQ/ML... IRRIGATION ONE; -HEPARIN SODIUM 1,000 UN/ML (10ML VL) IV ONE; -HEPARIN SODIUM,PORCINE 5,000 UNIT in SODIUM CHLORIDE 0.9% 500 ML 500 ML IV ONE; +HYDROmorphone 0.5 MG/0.5 ML SYRINGE IVP PRN; -INSULIN REGULAR 100 UNIT in SODIUM CHLORIDE 0.9% 100 ML IV ONE; -LACTATED RINGERS 1,000 ML IV ONE; +LIDOCAINE 1% (10MG/ML) FOR IV START INTRADERMA PRN; -MAGNESIUM SULFATE MG 500 MG/ML IV ONE; -METOPROLOL TARTRATE 12.5 MG TAB PO ONE; -NITROGLYCERIN-D5W PMX 25 MG/250 ML BTL IV ONE; -NITROGLYCERIN-D5W PMX 50 MG in DEXTROSE/WATER 1 250ML.BAG IV ONE; -NOREPINEPHRINE 4 MG in SODIUM CHLORIDE 0.9% 250 ML IV ONE; -PAPAVERINE 360 MG in SODIUM CHLORIDE 0.9% 90 ML IV ONE; -PHENYLEPHRINE 40 MG in SODIUM CHLORIDE 0.9% 250 ML IV ONE; -PHENYLEPHRINE-0.9% NACL SYG 1 MG/10 ML SYRINGE IV ONE; -PROPOFOL 1,000 MG/100 ML VIAL IV ONE; -PROTAMINE SULFATE 10 MG/ML 25 ML VIAL IV ONE; -PROTAMINE SULFATE 250 MG in EMPTY BAG 1 BAG IV ONE; -SODIUM BICARB 8.4% 50 ML SYR (1 MEQ/ML) IV ONE; -SODIUM CHLORIDE 0.9% 1,000 ML IV ONE; -TRANEXAMIC ACID 2,000 MG in SODIUM CHLORIDE 0.9% 180 ML IV ONE; -ceFAZolin 1,000 MG in SODIUM CHLORIDE 0.9% IRRIGATIO 1,000 ML IRRIGATION ONE; -ceFAZolin 2,000 MG in SODIUM CHLORIDE 0.9% 30 ML IVPB ONE; -ceFAZolin IN SWFI 2 GM/20 ML SYRINGE IVP ONE
[2024-01-08] MEDS: IV FLUID CONTINUATION 1,000 ML IV ONE (10:45)
[2024-01-08 11:23] LABS: Glucose,Whole Blood 138 mg/dL (70-110)
[2024-01-08 11:31] VITALS: TEMP 97.4
[2024-01-08] MEDS: ONDANSETRON 4 MG/2 ML VIAL IVP ONE (11:34)
[2024-01-08] MEDS: LACTATED RINGERS 1,000 ML IV SCH (11:34)
[2024-01-08] MEDS ORDERED: fentaNYL (PF) 50 MCG/ML 2 ML AMP ONE (12:34)
[2024-01-08] MEDS ORDERED: MIDAZOLAM 2 MG/2 ML VIAL ONE (12:34)
[2024-01-08] MEDS ORDERED: KETAMINE HCL IN 0.9 % NACL 50 MG/5 ML SYRINGE ONE (12:34)
[2024-01-08] MEDS ORDERED: PROPOFOL 10 MG/ML 20 ML VIAL IV ONE (12:34)
[2024-01-08] MEDS: SODIUM CHLORIDE 0.9% 50 ML with ceFAZolin 2,000 MG IV ONE (12:38)
[2024-01-08 13:37] VITALS: RESP 16
[2024-01-08 13:45] VITALS: BP 116/70; PULSE 81
== END 2024-01-08 13:55 | disposition home or self-care (01) ==
LOC: OR 10:30
PROVIDERS: ATTEND Thoracic Surgery (Cardiothoracic Vascular Surgery)

== ENCOUNTER 2024-01-15 15:34 | Observation (INO) | payer MEDICARE ==
[2024-01-16] MEDS ORDERED: LACTATED RINGERS 1,000 ML BAG ONE (15:29)
[2024-01-16] MEDS ORDERED: fentaNYL (PF) 50 MCG/ML 2 ML AMP ONE (15:29)
[2024-01-16] MEDS ORDERED: SUCCINYLCHOLINE CHLORIDE 200 MG/10 ML VIAL IV ONE (15:29)
[2024-01-16] MEDS ORDERED: cefTRIAXone 2 GM VIAL ONE (15:29)
[2024-01-16] MEDS ORDERED: LIDOCAINE 1% INJ 10MG/ML (20 ML MDV) ONE (15:29)
[2024-01-16] MEDS ORDERED: MIDAZOLAM 2 MG/2 ML VIAL ONE (15:29)
[2024-01-16] MEDS ORDERED: ONDANSETRON 4 MG/2 ML VIAL ONE (15:29)
[2024-01-16] MEDS ORDERED: SODIUM CHLORIDE 0.9% 50 ML BAG ONE (15:29)
[2024-01-16] MEDS ORDERED: PHENYLEPHRINE-0.9% NACL SYG 1,000 MCG/10 ML SYRINGE ONE (15:29)
[2024-01-16] MEDS ORDERED: PROPOFOL 10 MG/ML 20 ML VIAL IV ONE (15:29)
[2024-01-16] MEDS: SODIUM CHLORIDE 0.9% IRRIG 3,000 ML BAG IRRIGATION ONE (16:00)
[2024-01-16] MEDS: IOPAMIDOL-300 50ML BTL MISCELLANE ONE (16:00)
== END 2024-01-18 22:00 | disposition home or self-care (01) ==
LOC: 3SCARD 15:34
PROVIDERS: ADMIT Urology; ATTEND Urology
DX: N13.1 Hydronephrosis with ureteral stricture, not elsewhere classified (principal); N39.0 Urinary tract infection, site not specified; D62 Acute posthemorrhagic anemia; D72.829 Elevated white blood cell count, unspecified; I95.9 Hypotension, unspecified; E11.65 Type 2 diabetes mellitus with hyperglycemia; I10 Essential (primary) hypertension; E78.5 Hyperlipidemia, unspecified; I25.10 Atherosclerotic heart disease of native coronary artery without angina pectoris; E87.1 Hypo-osmolality and hyponatremia; Z85.46 Personal history of malignant neoplasm of prostate; Z86.718 Personal history of other venous thrombosis and embolism; Z87.440 Personal history of urinary (tract) infections; Z95.5 Presence of coronary angioplasty implant and graft; Z79.4 Long term (current) use of insulin; Z79.899 Other long term (current) drug therapy

== ENCOUNTER 2024-01-15 15:34 | Observation (INO) | payer MEDICARE ==
[~2024-01-15 15:34] MED LIST changes: -HYDROmorphone 0.5 MG/0.5 ML SYRINGE IVP PRN; +HYDROmorphone 1 MG/ML 1 ML SYRINGE ONE; -LIDOCAINE 1% (10MG/ML) FOR IV START INTRADERMA PRN; +MORPHINE SULFATE 4 MG/ML SYRINGE ONE
[2024-01-15] MEDS ORDERED: HYDROmorphone 1 MG/ML 1 ML SYRINGE ONE (17:16)
[2024-01-15] MEDS ORDERED: HYDROcodone/APAP 5-325MG 1 EACH TAB ONE (21:08)
[2024-01-15] MEDS ORDERED: SODIUM CHLORIDE 0.9% 1,000 ML BAG ONE (23:00)
[2024-01-16] MEDS ORDERED: METOPROLOL TARTRATE 50 MG TAB ONE ×3 (00:26→20:07)
[2024-01-16] MEDS ORDERED: LATANOPROST 0.005% OPHTH DROPS 2.5 ML BTL ONE (08:00)
[2024-01-16] MEDS ORDERED: TIMOLOL 0.5% OPHTH DROPS 5 ML BTL ONE (08:00)
[2024-01-16] MEDS ORDERED: SODIUM CHLORIDE 0.9% 50 ML BAG ONE (08:00)
[2024-01-16] MEDS ORDERED: SODIUM CHLORIDE 0.9% 1,000 ML BAG ONE (08:00)
[2024-01-16] MEDS ORDERED: EZETIMIBE 10 MG TAB ONE (08:58)
[2024-01-16] MEDS ORDERED: cefTRIAXone 1 GM VIAL ONE (08:59)
[2024-01-16] MEDS ORDERED: ATORVASTATIN 80 MG TAB ONE (20:07)
[2024-01-16] MEDS ORDERED: HYDROcodone/APAP 5-325MG 1 EACH TAB ONE (20:08)
[2024-01-16] MEDS ORDERED: INSULIN ASPART (NovoLOG) 100 UNIT/ML VIAL SQ ONE (21:06)
[2024-01-17] MEDS ORDERED: EZETIMIBE 10 MG TAB ONE (08:40)
[2024-01-17] MEDS ORDERED: ATORVASTATIN 80 MG TAB ONE ×2 (08:40→21:08)
[2024-01-17] MEDS ORDERED: METOPROLOL TARTRATE 50 MG TAB ONE ×2 (08:41→21:08)
[2024-01-17] MEDS ORDERED: HYDROcodone/APAP 5-325MG 1 EACH TAB ONE ×3 (08:42→23:00)
[2024-01-17] MEDS ORDERED: cefTRIAXone 1 GM VIAL ONE (08:43)
[2024-01-17] MEDS ORDERED: VENLAFAXINE HCL ER 75 MG CAP PO ONE (08:44)
[2024-01-17] MEDS ORDERED: TAMSULOSIN 0.4 MG CAP.ER.24H PO ONE (08:57)
[2024-01-17] MEDS ORDERED: SENNOSIDES 8.6 MG TAB ONE (08:58)
[2024-01-17] MEDS ORDERED: LACTULOSE 20 GM/30 ML CUP ONE (08:58)
[2024-01-17] MEDS ORDERED: VALSARTAN 160 MG TAB ONE (09:00)
[2024-01-17] MEDS ORDERED: SODIUM CHLORIDE 0.9% 50 ML BAG ONE (09:00)
[2024-01-17] MEDS ORDERED: SODIUM CHLORIDE 0.9% 1,000 ML BAG ONE (09:00)
[2024-01-18] MEDS ORDERED: HYDROcodone/APAP 5-325MG 1 EACH TAB ONE (06:03)
[2024-01-18] MEDS ORDERED: EZETIMIBE 10 MG TAB ONE (08:41)
[2024-01-18] MEDS ORDERED: METOPROLOL TARTRATE 50 MG TAB ONE (08:42)
[2024-01-18] MEDS ORDERED: VENLAFAXINE HCL ER 75 MG CAP PO ONE (08:43)
--- NOTE | 2024-02-14 13:39 | CT ---
EXAM: CT abdomen and pelvis with contrast DATE OF EXAM: 01/15/24 INDICATION: Patient age:RODY RAMIREZ : 1945 Reason for study: Left flank pain. COMPARISON: None, please note PACS downtime occurred during the radiologist interpretation of these i mages with limited priors/reports.. TECHNIQUE: CT abdomen pelvis. with axial imaging and sagittal and coronal reformats following the administration of 100 cc of ISO 370 IV contrast material.. One or more CT dose reduction strategies were utilized d uring this examination. Total DLP administered was 1584 mGycm. FINDINGS: LOWER CHEST: The heart is enlarged for size with coronary artery calcifications. ABDOMEN LIVER: Unremarkable GALLBLADDER AND BILE DUCTS: Unremarkable. PANCREAS: Unremarkable. SPLEEN: Unremarkable. ADRENAL GLANDS: Unremarkable. KIDNEYS AND URETERS: Thinned atrophic left superior pole of the kidney with cysts present. There may be mild thickening of the proximal left ureter near the ureteropelvic junction on the left with mild hydronephrosis of the collecting system.. No right renal calculi are obstructive uropathy. No left ca lculi visualized. Dense cysts versus calyceal diverticulum with peripheral calcifications noted. PELVIS BLADDER: Unremarkable REPRODUCTIVE: Unremarkable. ABDOMEN & PELVIS STOMACH AND BOWEL: Stomach and duodenum are unremarkable. No evidence of bowel obstruction. Moderate amount of stool throughout the colon. Scattered colonic diverticula present. PERITONEUM: No evidence of pneumoperitoneum or free fluid. VASCULATURE: No evidence of aortic aneurysm. MUSCULOSKELETAL: No acute osseous abnormalities LYMPH NODES: No gross evidence for lymphadenopathy. SOFT TISSUE/ABDOMINAL WALL: Unremarkable IMPRESSION: 1. Mild left hydronephrosis with stricture thought to be present in the proximal left ureter near th e ureteropelvic junction. Further evaluation recommended to exclude stricture versus malignancy. 2. Colonic diverticulosis. 3. Cardiomegaly with coronary artery atherosclerosis.
--- NOTE | 2024-03-05 14:39 | DS ---
DISCHARGE SUMMARY PRIMARY DIAGNOSES: 1. Hematuria. 2. Possible urinary tract infection. PROCEDURES: Cystoscopy, left retrograde pyelogram, left ureteral stent insertion on January 16, 2024. HISTORY: The patient presented to the ER and was admitted with complaints of left flank pain and hematuria. CT scan suggested the presence of mild left hydronephrosis. Urinalysis showed a possible UTI, and the wbc count was elevated at 17.44. He was admitted and treated with Rocephin. On January 15, he underwent cystoscopy with left retrograde pyelogram and left ureteral stent insertion. At that time, he was noted to have filling defects within the left upper pole calyces. There was no definite hydronephrosis. He felt better following placement of the stent, and his leukocytosis improved to 11.62 on the day of discharge. He remained afebrile throughout the hospitalization. Urine culture and urine cytology sent at the time of cytoscopy on January 15, are pending at the time of discharge. Arrangements will be made for the patient to undergo cystoscopy, left ureteroscopy with biopsy. DISPOSITION: The patient is discharged home in good condition. DISCHARGE MEDICATIONS: A prescription is given for ciprofloxacin 500 mg b.i.d. for 5 days. MMODL / IJN: [id number] /
--- NOTE | 2024-03-05 14:39 | PN ---
PROGRESS NOTE DATE OF SERVICE: 01/18/2024 FRENCH: The patient is located on the [facility]. REASON FOR VISIT: Left hydronephrosis, possible UTI. HISTORY OF PRESENT ILLNESS: The patient underwent cystoscopy with left retrograde pyelogram on January 16, 2024 to evaluate the finding of mild left hydronephrosis on CT scan. The retrograde pyelogram showed what appeared to be a filling defect within the left upper pole calyces. There was no definite hydronephrosis. A ureteral stent was placed. He continues to receive IV antibiotics. He remains afebrile. He does report mild increased urinary frequency and urgency. He denies dysuria. He lopez report hematuria, but states that it is improving. PHYSICAL EXAMINATION: GENERAL: The patient is a well-developed, well-nourished, white male, in no apparent distress. VITAL SIGNS: Temperature 98.5, pulse 79, respiration 16, blood pressure 134/71. Examination by system: ABDOMEN: Soft, nondistended, nontender. No mass. PERTINENT LABORATORY VALUES: The WBC count today is 11.62, down from 17.44 on January 15. Urine culture is pending. IMPRESSION: Left renal pelvic filling defect, suspicious for urothelial carcinoma. PLAN: Arrangements will be made for the patient to undergo outpatient evaluation consisting of cystoscopy, left ureteroscopy with possible biopsies. This is then reviewed in detail with the patient. In the meantime, I would consider discharging the patient home on oral antibiotics, given the inability to obtain culture results. It should be noted that urine was obtained at the time of the stent placement on January 15, and sent for both culture and cytology. MMODL / IJN: [id number] /
--- NOTE | 2024-03-10 18:21 | FL ---
EXAMINATION TYPE: FL urography retrograde COMPARISON: Pre Operative Images if available both CT/MRI or plain film CLINICAL INDICATION: Male, 78 years old with history of CYSTO LITHO IN OR; TECHNIQUE: FL urography retrograde, multiple fluoroscopic images provided for procedure. Total fluoroscopy time: 29 seconds minutes Total submitted images to PACS: 6 DAP: [id number] mGym2 Gycm2 uGym2 cGycm2 FINDINGS: Fluoroscopic images during retrograde pyelogram demonstrate contrast in the renal collecting system t here is dilation of the collecting system. Contrast is seen in multiple calyces possible extravasatio n of contrast seen in the left lateral aspect. Attention follow-up imaging 2018 IMPRESSION: Dilation of the collecting system with possible extravasation contrast noted. No contrast extravasati on seen on follow-up retrograde 02/27/2024. Please see the operative/procedural note for further details. [facility], , 03/10/2024 6:18 PM
== END 2024-01-18 17:50 | disposition home or self-care (01) ==
LOC: 4SSUR 15:34
PROVIDERS: ADMIT Urology; ATTEND Urology
DX: N13.1 Hydronephrosis with ureteral stricture, not elsewhere classified (principal); K57.30 Diverticulosis of large intestine without perforation or abscess without bleeding; I25.10 Atherosclerotic heart disease of native coronary artery without angina pectoris; I51.7 Cardiomegaly
CPT/HCPCS: 74177; 74420; 80048; 80053; 81003; 83605; 85025

== ENCOUNTER → 2024-02-24 | Outpatient (CLI) | payer MEDICARE ==
[2024-02-24 21:51] LABS: BUN/Creat Ratio 18.93 Ratio (12.00-20.00); Blood Urea Nitrogen 26.5 mg/dL (9.0-27.0); Carbon Dioxide 19.8 mmol/L (21.6-31.8); Chloride 102 mmol/L (96-109); Glucose 166 mg/dL (70-110); Potassium 4.5 mmol/L (3.5-5.5); Sodium 138 mmol/L (135-145)
[2024-02-24 21:57] LABS: Basophils # (A) 0.06 X 10*3/uL (0.00-0.10); Basophils % (A) 0.4 %; Eosinophils # (A) 0.74 X 10*3/uL (0.04-0.35); Eosinophils % (A) 4.6 %; HCT 33.3 % (39.6-50.0); HGB 9.8 g/dL (13.0-17.0); Lymphocytes # (A) 1.79 X 10*3/uL (0.90-5.00); Lymphocytes % (A) 11.2 %; MCH 26.6 pg (27.0-32.0); MCHC 29.4 g/dL (32.0-37.0); MCV 90.2 FL (80.0-97.0); Mean Platelet Volume 10.8 FL (9.5-12.2); Monocytes # (A) 1.23 X 10*3/uL (0.20-1.00); Monocytes % (A) 7.7 %; NRBC Per 100 WBC 0 X 10*3/uL (0.00-0.01); Neutrophils # (A) 12.06 X 10*3/uL (1.80-7.70); Neutrophils % (A) 75.7 %; Platelet Count 394 X 10*3/uL (140-440); RBC 3.69 X 10*6/uL (4.40-5.60); RDW 15.3 % (11.5-14.5); WBC 15.94 X 10*3/uL (4.50-10.00)
== END | disposition home or self-care (01) ==
LOC: LABWHC1 13:56
PROVIDERS: ATTEND Urology
DX: Z01.812 Encounter for preprocedural laboratory examination (principal); D41.12 Neoplasm of uncertain behavior of left renal pelvis
CPT/HCPCS: 36415; 80048; 85025

== ENCOUNTER 2024-02-27 05:56 | Day surgery (SDC) | payer MEDICARE ==
[2024-02-25 08:36] VITALS: BMI 27.1
--- NOTE | 2024-02-25 13:19 | P.GSHP ---
History of Present Illness H&P Date: 02/25/24 Chief Complaint: Left renal pelvic lesion The patient is an 78-year-old white male diagnosed with prostate cancer 1 year ago. Biopsies showed moderately differentiated prostate cancer, and he has elected to be managed with active surveillance. His most recent PSA level was 9.51. He developed hematuria in early January and was hospitalized at [facility]. CT scan showed evidence of mild left hydronephrosis. He underwent cystoscopy with left retrograde pyelogram, revealing what appeared to be a right upper pole filling defect. A ureteral stent was placed. He subsequently underwent left ureteroscopy on January 29, 2024 revealing necrotic tissue like material within a left upper pole calyx. Biopsies were obtained but were non-diagnostic. He now comes for repeat biopsies. - Constitutional Constitutional: Denies chills, Denies fever - Cardiovascular Cardiovascular: Reports high blood pressure - Genitourinary (Male) Genitourinary: Reports as per HPI Past Medical History Past Medical History: Coronary Artery Disease (CAD), Cancer, Diabetes Mellitus, Hearing Disorder / Deafness, Hyperlipidemia, Hypertension, Hypertension, Myocardial Infarction (RI), Osteoarthritis (OA), Sleep Apnea/CPAP/BIPAP Additional Past Medical History / Comment(s): Current prostate cancer, gets checked every 6 months, no current treatment, seasonal allergies, BIPAP use, varicose vein left leg. Enlarged prostate. Hard of hearing. Last Myocardial Infarction Date:: 1986 History of Any Multi-Drug Resistant Organisms: None Reported Past Surgical History: Coronary Bypass/CABG, Heart Catheterization, Heart Chastity terization With Stent, Orthopedic Surgery Additional Past Surgical History / Comment(s): 4 heart stents, triple bypass, varicose veins right leg with right leg vein stripping, bilateral cataract surgery, LEFT HAND SURGERY, left ureteral stent, right 2nd toe amputated. Past Anesthesia/Blood Transfusion Reactions: No Reported Reaction Date of Last Stent Placement:: 2002 Smoking Status: Never smoker - Past Family History Mother Family Medical History: No Reported History, Renal Disease Additional Family Medical History / Comment(s): Mother at age 89 from kidney disease and bladder problems. Aortic Aneurysm. Father Family Medical History: Myocardial Infarction (RI) Additional Family Medical History / Comment(s): Father from myocardial infarction at age 56. Medications and Allergies Home Medications Medication Instructions Recorded Confirmed Type Atorvastatin [Lipitor] 80 mg PO HS 11/04/14 02/25/24 History metFORMIN HCL [Glucophage] 850 mg PO BID 11/04/14 02/25/24 History Acetaminophen Tab [Tylenol] 325 mg PO Q4HR PRN tab 04/06/18 02/25/24 Rx Metoprolol Tartrate [Lopressor] 50 mg PO BID #60 tab 04/06/18 02/25/24 Rx Cholecalciferol [Vitamin D3 (25 25 mcg PO DAILY 12/21/22 02/25/24 History Mcg = 1000 Iu)] Cyanocobalamin (Vitamin B-12) 1,000 mcg PO DAILY 12/21/22 02/25/24 History [Vitamin B-12] Ezetimibe [Zetia] 10 mg PO DAILY 12/21/22 02/25/24 History Latanoprost Ophth [Xalatan 0.005%] 1 drop BOTH EYES HS 12/21/22 02/25/24 History Timolol 0.5% Ophth Soln [Timoptic 1 drop RIGHT EYE BID 10/01/23 02/25/24 History 0.5% Ophth Soln] Valsartan [Diovan] 320 mg PO QAM 10/01/23 02/25/24 History Venlafaxine HCl [Effexor XR] 75 mg PO QAM 10/01/23 02/25/24 History Tamsulosin [Flomax] 0.4 mg PO HS 01/06/24 02/25/24 History Aspirin [Adult Low Dose Aspirin EC] 81 mg PO DAILY 02/25/24 02/25/24 History Empagliflozin [Jardiance] 10 mg PO DAILY 02/25/24 02/25/24 History Allergies Allergy/AdvReac Type Severity Reaction Status Date / Time No Known Allergies Allergy Verified 02/24/24 16:05 Surgical - Exam - General well developed, well nourished, no distress - Respiratory normal respiratory effort - Abdomen Abdomen: soft, non tender, no guarding, no rigid, no rebound - Genitourinary normal penis with no external lesions, testicles non-tender - Psychiatric oriented to time, oriented to person, oriented to place, speech is normal, memory intact Results - Imaging CT scan - abdomen: report reviewed, image reviewed Assessment and Plan (1) 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 The procedure has been reviewed in detail with the patient and his . They are aware of potential risks, which include anesthesia, bleeding, infection, ureteral injury, and another non-diagnostic result.
[~2024-02-27 05:56] MED LIST changes: +HYDROmorphone 0.5 MG/0.5 ML SYRINGE IVP PRN; -HYDROmorphone 1 MG/ML 1 ML SYRINGE ONE; +LIDOCAINE 1% (10MG/ML) FOR IV START INTRADERMA PRN; +MIDAZOLAM 2 MG/2 ML VIAL IV PRN; -MORPHINE SULFATE 4 MG/ML SYRINGE ONE; +fentaNYL (PF) 50 MCG/ML 2 ML AMP IVP PRN
[2024-02-27 06:39] VITALS: TEMP 97.3
[2024-02-27 06:56] LABS: Glucose,Whole Blood 151 mg/dL (70-110)
[2024-02-27] MEDS: DEXAMETHASONE SOD PHOSPHATE 4 MG/ML 1 ML VIAL IV ONE (06:56)
[2024-02-27] MEDS: ONDANSETRON 4 MG/2 ML VIAL IVP ONE (06:56)
[2024-02-27] MEDS: LACTATED RINGERS 1,000 ML IV SCH (06:57)
[2024-02-27] MEDS: IV FLUID CONTINUATION 1,000 ML IV ONE ×2 (06:59→08:39)
[2024-02-27] MEDS ORDERED: GLYCOPYRROLATE 0.2 MG/ML 2 ML VIAL ONE (07:31)
[2024-02-27] MEDS ORDERED: PROPOFOL 10 MG/ML 20 ML VIAL IV ONE (07:31)
[2024-02-27] MEDS ORDERED: PHENYLEPHRINE 10 MG/ML VIAL ONE (07:31)
[2024-02-27] MEDS ORDERED: SUCCINYLCHOLINE CHLORIDE 200 MG/10 ML VIAL IV ONE (07:31)
[2024-02-27] MEDS ORDERED: NEOSTIGMINE 1 MG/ML 10 ML VIAL ONE (07:31)
[2024-02-27] MEDS ORDERED: ROCURONIUM 10 MG/ML (5 ML VIAL) IV ONE (07:31)
[2024-02-27] MEDS ORDERED: LIDOCAINE 1% INJ 10MG/ML (20 ML MDV) ONE (07:31)
[2024-02-27] MEDS ORDERED: fentaNYL (PF) 50 MCG/ML 2 ML AMP ONE (07:31)
[2024-02-27] MEDS: IOPAMIDOL-370 100ML BTL MISCELLANE ONE ×2 (08:15)
[2024-02-27 08:46] LABS: Glucose,Whole Blood 134 mg/dL (70-110)
[2024-02-27 09:25] VITALS: RESP 18
[2024-02-27 09:40] VITALS: BP 116/66; PULSE 67
--- NOTE | 2024-02-27 13:46 | P.OP ---
Date of Procedure: 02/27/24 Preoperative Diagnosis: Neoplasm of uncertain behavior, left renal pelvis Postoperative Diagnosis: Left hydronephrosis of indeterminate etiology Procedure(s) Performed: Cystoscopy, left ureteral stent removal, left ureteroscopy Anesthesia: CRISTY Surgeon: Marshal Samson Estimated Blood Loss (ml): 5 IV fluids (ml): 500 Pathology: none sent Condition: stable Disposition: PACU Indications for Procedure: The patient is an 78-year-old white male diagnosed with prostate cancer 1 year ago. Biopsies showed moderately differentiated prostate cancer, and he has elected to be managed with active surveillance. His most recent PSA level was 9.51. He developed hematuria in early January and was hospitalized at [facility]. CT scan showed evidence of mild left hydronephrosis. He underwent cystoscopy with left retrograde pyelogram, revealing what appeared to be a right upper pole filling defect. A ureteral stent was placed. He subsequently underwent left ureteroscopy on January 29, 2024 revealing necrotic tissue like material within a left upper pole calyx. Biopsies were obtained but were non-diagnostic. He now comes for repeat biopsies. Operative Findings: Dilated upper pole calyx. Purulent urine seen within the left renal pelvis. Inflammation appears to arise from the dilated upper pole calyx. No lesions suspicious for malignancy seen. Description of Procedure: The patient was taken to the operating room and placed in the dorsolithotomy position, with legs supported in David stirrups. The external genitalia was prepped and draped sterilely. The 30 lens was used to introduce the 21-[place]andan Ratliff cystoscopic sheath through the urethra and into the bladder under direct vision. The prostatic urethra showed evidence of mild lateral lobe enlargement. The bladder was examined in its entirety. The urine was noted to be cloudy upon entering the bladder and was irrigated. The bladder was otherwise unremarkable. Grasping forceps were used to grasp the distal end of the left ureteral stent which was removed along with the cystoscope. A 0.035 inch Glidewire was passed through the stent and up to the left renal pelvis. The stent was removed, and an 11/13-Rwandan ureteral access catheter was passed over the wire, up to the proximal ureter. The Ratliff Boa flexible ureteroscope was then passed through the ureteral access catheter sheath and advanced under direct vision up to the left renal pelvis. Each calyx was examined. The urine within the kidney was noted to be cloudy. This urine was aspirated to improve visualization. The urine was sent for culture and sensitivity, as well as fungal culture and TB culture. After irrigating the renal pelvis, each calyx was examined. The lower pole and midpole calyces appeared normal. The upper pole calyx was dilated and appeared inflamed, but there was no neoplasm suspicious for malignancy. Contrast was injected to demonstrate the anatomy of the intrarenal collecting system. The upper pole calyx was significantly dilated, as well as an adjacent calyx. There was no evidence of contrast extravasation. The ureteroscope was slowly withdrawn under direct vision. There was no evidence of ureteral narrowing. The patient tolerated the procedure well and was taken to the recovery room in stable condition.
--- NOTE | 2024-03-12 10:36 | FL ---
EXAMINATION TYPE: FL urography retrograde DATE OF EXAM: 02/27/2024 9:09 AM COMPARISON: Pre Operative Images if available both CT/MRI or plain film CLINICAL INDICATION: Male, 78 years old with history of Left Ureteral Stent Removal; TECHNIQUE: FL urography retrograde, multiple fluoroscopic images provided for procedure. Total fluoroscopy time: 23.7 seconds Total submitted images to PACS: 17 DAP: 2.65 mGym2 Gycm2 uGym2 cGycm2 or equivalent. FINDINGS: Fluoroscopic images during retrograde pyelogram demonstrate contrast in the renal collecting system. There is dilation of the collecting system. No evidence of extravasation of contrast. No immediate co mplication identified. IMPRESSION: 1. No evidence for intraoperative complication. 2. Please see the operative/procedural note for further details. [facility], , 03/12/2024 10:33 AM
== END 2024-02-27 10:07 | disposition home or self-care (01) ==
LOC: OR 05:56
PROVIDERS: ATTEND Urology
DX: D41.12 Neoplasm of uncertain behavior of left renal pelvis
CPT/HCPCS: 74420; 87086; 87102; 87116; 87206

== ENCOUNTER 2024-03-09 15:18 | Inpatient (IN) | payer MEDICARE ==
[2024-03-09] MEDS: SODIUM CHLORIDE 0.9% 1,000 ML IV STA (16:07)
[2024-03-09 16:17] LABS: Basophils # (A) 0.1 k/uL (0-0.2); Basophils % (A) 0 %; Eosinophils # (A) 1.1 k/uL (0-0.7); Eosinophils % (A) 5 %; HCT 31.8 % (39.0-53.0); HGB 9.9 gm/dL (13.0-17.5); Hypochromasia Marked; Lymphocytes # (A) 2.3 k/uL (1.0-4.8); Lymphocytes % (A) 11 %; MCH 26.7 pg (25.0-35.0); MCHC 31.1 g/dL (31.0-37.0); MCV 85.9 fL (80.0-100.0); Mean Platelet Volume 7.9; Monocytes # (A) 1.2 k/uL (0-1.0); Monocytes % (A) 6 %; Neutrophils # (A) 16.5 k/uL (1.3-7.7); Neutrophils % (A) 77 %; Platelet Count 401 k/uL (150-450); RDW 15.3 % (11.5-15.5); WBC 21.4 k/uL (3.8-10.6)
[2024-03-09 16:28] LABS: ALT 30 U/L (4-49); AST 34 U/L (17-59); African American GFR (CKD) 44 (>60 ml/min/1.73 sqM); Albumin 3.4 g/dL (3.5-5.0); Alkaline Phosphatase 153 U/L (38-126); Anion Gap 13 mmol/L; Blood Urea Nitrogen 35 mg/dL (9-20); Calcium 9.1 mg/dL (8.4-10.2); Carbon Dioxide 21 mmol/L (22-30); Chloride 103 mmol/L (98-107); Glucose 164 mg/dL (74-99); Magnesium 1.2 mg/dL (1.6-2.3); Non-African American GFR(CKD) 38 (>60 ml/min/1.73 sqM); Potassium 4.5 mmol/L (3.5-5.1); Sodium 137 mmol/L (137-145); Total Bilirubin 0.4 mg/dL (0.2-1.3); Total Protein 6.5 g/dL (6.3-8.2)
--- NOTE | 2024-03-09 16:29 | XR ---
EXAMINATION TYPE: XR chest 2V DATE OF EXAM: 03/09/2024 COMPARISON: 10/01/2023 HISTORY: Weakness TECHNIQUE: Frontal and lateral views of the chest are obtained. FINDINGS: There is no focal air space opacity, pleural effusion, or pneumothorax seen. The cardiac silhouette size is within normal limits. There has been median sternotomy. IMPRESSION: No acute cardiopulmonary process. [facility], Workstation: BRYAN 03/09/2024 4:27 PM
[2024-03-09 16:38] LABS: NT-Pro-B-Type Natriuretic Pept 1640 pg/mL
--- NOTE | 2024-03-09 18:35 | ED ---
SOB HPI - General Chief Complaint: Shortness of Breath Stated Complaint: Weakness,Poss Covid Time Seen by Provider: 03/09/24 15:24 Source: patient Mode of arrival: wheelchair Limitations: no limitations - History of Present Illness Initial Comments: 78-year-old male who presents emergency department with weakness. Patient was at his urology office today. He states he had a cystoscopy and was told that he had a "fungal infection in his kidney". He was supposed to start antifungals today. He mentioned that he was not feeling well to his urologist and they instructed that he come to the hospital for further evaluation. Patient did take a COVID test yesterday and was found to be positive. He admits to being shortness of breath with a nonproductive cough. Patient found to have low blood pressures upon arrival. States that he has a history of high blood pressure and to take his blood pressure medications today. He has had a poor appetite with poor oral intake. No reported fevers. Patient not currently on any antibiotics. No other alleviating, precipitating or modifying factors - Related Data Home Medications Medication Instructions Recorded Confirmed Atorvastatin [Lipitor] 80 mg PO HS 11/04/14 03/09/24 metFORMIN HCL [Glucophage] 850 mg PO BID 11/04/14 03/09/24 Cholecalciferol [Vitamin D3 (25 25 mcg PO DAILY 12/21/22 03/09/24 Mcg = 1000 Iu)] Cyanocobalamin (Vitamin B-12) 1,000 mcg PO DAILY 12/21/22 03/09/24 [Vitamin B-12] Ezetimibe [Zetia] 10 mg PO DAILY 12/21/22 03/09/24 Latanoprost Ophth [Xalatan 0.005%] 1 drop BOTH EYES HS 12/21/22 03/09/24 Timolol 0.5% Ophth Soln [Timoptic 1 drop RIGHT EYE BID 10/01/23 03/09/24 0.5% Ophth Soln] Valsartan [Diovan] 320 mg PO DAILY 10/01/23 03/09/24 Venlafaxine HCl [Effexor XR] 75 mg PO DAILY 10/01/23 03/09/24 Tamsulosin [Flomax] 0.4 mg PO HS 01/06/24 03/09/24 Aspirin [Adult Low Dose Aspirin EC] 81 mg PO DAILY 02/25/24 03/09/24 Empagliflozin [Jardiance] 10 mg PO DAILY 02/25/24 03/09/24 Fluconazole [Diflucan] 100 mg PO DIRECTED 03/09/24 03/09/24 Iron Bis-Glycinat/Vit C/FA/B12 1 cap PO DAILY 03/09/24 03/09/24 [Gentle Iron 28 mg Capsule] Previous Rx's Medication Instructions Recorded Metoprolol Tartrate [Lopressor] 50 mg PO BID #60 tab 04/06/18 Allergies Allergy/AdvReac Type Severity Reaction Status Date / Time No Known Allergies Allergy Verified 03/09/24 17:40 Review of Systems ROS Statement: Those systems with pertinent positive or pertinent negative responses have been documented in the HPI. ROS Other: All systems not noted in ROS Statement are negative. Past Medical History Past Medical History: Coronary Artery Disease (CAD), Diabetes Mellitus, Hyperlipidemia, Hypertension, Hypertension, Myocardial Infarction ([place]), Sleep Apnea/CPAP/BIPAP Additional Past Medical History / Comment(s): seasonal allergies, unable to use cpap, obesity. varicose vein left leg Last Myocardial Infarction Date:: 1986 History of Any Multi-Drug Resistant Organisms: None Reported Past Surgical History: Coronary Bypass/CABG, Heart Catheterization With Stent, Orthopedic Surgery Additional Past Surgical History / Comment(s): 4 heart stents, varicose veins rt leg with right leg vein stripping. walker Cataract, LEFT HAND SX, HEART CATH 03/25/18 Past Anesthesia/Blood Transfusion Reactions: No Reported Reaction Date of Last Stent Placement:: 2002 Past Psychological History: Depression Smoking Status: Never smoker - Past Family History Mother Family Medical History: No Reported History, Renal Disease Additional Family Medical History / Comment(s): Mother at age 89 from kidney disease and bladder problems. Aortic Aneurysm. Father Family Medical History: Myocardial Infarction ([place]) Additional Family Medical History / Comment(s): Father from myocardial infarction at age 56. General Exam Limitations: no limitations General appearance: alert, in no apparent distress Head exam: Present: atraumatic, normocephalic, normal inspection Eye exam: Present: normal appearance, PERRL, EOMI. Absent: scleral icterus, conjunctival injection, periorbital swelling ENT exam: Present: normal exam, mucous membranes moist Neck exam: Present: normal inspection. Absent: tenderness, meningismus, lymphadenopathy Respiratory exam: Present: normal lung sounds bilaterally. Absent: respiratory distress, wheezes, rales, rhonchi, stridor Cardiovascular Exam: Present: regular rate, normal rhythm, normal heart sounds. Absent: systolic murmur, diastolic murmur, rubs, gallop, clicks GI/Abdominal exam: Present: soft, normal bowel sounds. Absent: distended, tenderness, guarding, rebound, rigid Extremities exam: Present: normal inspection, full ROM, normal capillary refill. Absent: tenderness, pedal edema, joint swelling, calf tenderness Back exam: Present: normal inspection Neurological exam: Present: alert, oriented X3, CN II-XII intact Psychiatric exam: Present: normal affect, normal mood Skin exam: Present: warm, dry, intact, normal color. Absent: rash Course Vital Signs 03/09/24 03/09/24 03/09/24 15:20 16:05 19:00 Temperature 97.9 F Pulse Rate 90 78 Respiratory 20 16 Rate Blood Pressure 80/48 91/59 98/73 O2 Sat by Pulse 92 L 97 Oximetry 03/09/24 03/09/24 03/10/24 19:34 23:23 06:17 Temperature 97.8 F 97.8 F 97.4 F L Pulse Rate 79 86 92 Respiratory 16 16 16 Rate Blood Pressure 98/73 132/76 121/72 O2 Sat by Pulse 96 94 L 94 L Oximetry 03/10/24 03/10/24 03/10/24 08:02 09:59 14:19 Temperature Pulse Rate 80 78 82 Respiratory 18 20 16 Rate Blood Pressure 121/109 121/100 123/74 O2 Sat by Pulse 96 95 95 Oximetry 03/10/24 15:57 Temperature Pulse Rate 74 Respiratory 16 Rate Blood Pressure 128/79 O2 Sat by Pulse 96 Oximetry Medical Decision Making - Medical Decision Making Was pt. sent in by a medical professional or institution (, PA, ROLL RECLAIMER, urgent care, hospital, or prison...) When possible be specific @ -Patient sent in from his urology office Did you speak to anyone other than the patient for history (EMS, parent, family, police, friend...)? What history was obtained from this source @ -Spoke with family for history Did you review nursing and triage notes (agree or disagree)? Why? @ -I reviewed and agree with nursing and triage notes Were old charts reviewed (outside hosp., previous admission, EMS record, old EKG, old radiological studies, urgent care reports/EKG's, prison records)? Report findings @ -No old charts were reviewed Differential Diagnosis (chest pain, altered mental status, abdominal pain women, abdominal pain men, vaginal bleeding, weakness, fever, dyspnea, syncope, headache, dizziness, GI bleed, back pain, seizure, CVA, palpatations, mental health, musculoskeletal)? @ -Differential Fever: Pneumonia, viral URI, endocarditis, myocarditis, pericarditis, otitis, sinusitis, peritonsillar Abscess, retropharyngeal Abscess, epiglottitis, peritonitis, appendicitis, Nataly cystitis, diverticulitis, hepatitis, colitis, UTI, PID, TOA, pyelonephritis, prostatitis, epididymitis, meningitis, encephalitis, pulmonary embolism, CVA, thyroid storm, pancreatitis, adrenal crisis, cavernous sinus thrombosis, this is not meant to be an all-inclusive list. EKG interpreted by me (3pts min.). @ -Yes and demonstrates sinus rhythm with a rate of 83. Parable 183. QRS 91. QTc of 427. Inverted T wave lead III. No acute ST segment elevation X-rays interpreted by me (1pt min.). @ -Yes and demonstrates no acute process CT interpreted by me (1pt min.). @ -None done U/S interpreted by me (1pt. min.). @ -None done What testing was considered but not performed or refused? (CT, X-rays, U/S, labs)? Why? @ -None What meds were considered but not given or refused? Why? @ -None Did you discuss the management of the patient with other professionals (professionals i.e. , PA, ROLL RECLAIMER, lab, RT, psych nurse, nursing home social worker, scenario writer, teacher, antisubmarine weapons officer, case supervisor)? Give summary @ -Spoke with dr skaggs for admission Was smoking cessation discussed for >3mins.? @ -No Was critical care preformed (if so, how long)? @ -No Were there social determinants of health that impacted care today? How? (Homelessness, low income, unemployed, alcoholism, drug addiction, transportation, low edu. Level, literacy, decrease access to med. care, penitentiary, rehab)? @ -No Was there de-escalation of care discussed even if they declined (Discuss DNR or withdrawal of care, Hospice)? DNR status @ -No What co-morbidities impacted this encounter? (DM, HTN, Smoking, COPD, CAD, Cancer, CVA, ARF, Chemo, Hep., AIDS, mental health diagnosis, sleep apnea, morbid obesity)? @ -Chronic UTI Was patient admitted / discharged? Hospital course, mention meds given and route, prescriptions, significant lab abnormalities, going to OR and other pertinent info. @ -Upon arrival patient seen and evaluated in room 24. Thorough history and physical exam was performed. Patient arrives hypotensive. IV is established. He is given 2 L of normal saline. Laboratory studies are conducted. He is positive for COVID. I recommended admission. He does have improvement in his blood pressures with fluid administration. I did start his antifungals as it was reported that his urinary tract infection is due to yeast from the urologist. Patient was agreeable to this treatment and will condition Undiagnosed new problem with uncertain prognosis? @ -No Drug Therapy requiring intensive monitoring for toxicity (Heparin, Nitro, Insulin, Cardizem)? @ -No Were any procedures done? @ -No Diagnosis/symptom? @ -Acute hypotension, acute COVID infection, recent diagnosis fungal UTI Acute, or Chronic, or Acute on Chronic? @ -Acute Uncomplicated (without systemic symptoms) or Complicated (systemic symptoms)? @ -Complicated Side effects of treatment? @ -No Exacerbation, Progression, or Severe Exacerbation? @ -No Poses a threat to life or bodily function? How? (Chest pain, [place], [place], pneumonia, PE, COPD, DKA, ARF, appy, cholecystitis, CVA, Diverticulitis, Homicidal, Suicidal, threat to staff... and all critical care pts) @ -No - Lab Data Result diagrams: 03/11/24 06:36 03/11/24 06:36 Lab Results 03/09/24 03/09/24 03/09/24 Range/Units 16:10 16:10 16:10 WBC 21.4 H (3.8-10.6) k/uL RBC 3.70 L (4.30-5.90) m/uL Hgb 9.9 L (13.0-17.5) gm/dL Hct 31.8 L (39.0-53.0) % MCV 85.9 (80.0-100.0) fL MCH 26.7 (25.0-35.0) pg MCHC 31.1 (31.0-37.0) g/dL RDW 15.3 (11.5-15.5) % Plt Count 401 (150-450) k/uL MPV 7.9 Neutrophils % 77 % Lymphocytes % 11 % Monocytes % 6 % Eosinophils % 5 % Basophils % 0 % Neutrophils # 16.5 H (1.3-7.7) k/uL Lymphocytes # 2.3 (1.0-4.8) k/uL Monocytes # 1.2 H (0-1.0) k/uL Eosinophils # 1.1 H (0-0.7) k/uL Basophils # 0.1 (0-0.2) k/uL Hypochromasia Marked D-Dimer 0.47 (<0.60) mg/L FEU Sodium 137 (137-145) mmol/L Potassium 4.5 (3.5-5.1) mmol/L Chloride 103 (98-107) mmol/L Carbon Dioxide 21 L (22-30) mmol/L Anion Gap 13 mmol/L BUN 35 H (9-20) mg/dL Creatinine 1.68 H (0.66-1.25) mg/dL Est GFR (CKD-EPI)AfAm 44 (>60 ml/min/1.73 sqM) Est GFR (CKD-EPI)NonAf 38 (>60 ml/min/1.73 sqM) Glucose 164 H (74-99) mg/dL Lactic Ac Sepsis Rflx Plasma Lactic Acid Eduardo (0.7-2.0) mmol/L Calcium 9.1 (8.4-10.2) mg/dL Magnesium 1.2 L (1.6-2.3) mg/dL Total Bilirubin 0.4 (0.2-1.3) mg/dL AST 34 (17-59) U/L ALT 30 (4-49) U/L Alkaline Phosphatase 153 H (38-126) U/L Troponin I (0.000-0.034) ng/mL NT-Pro-B Natriuret Pep 1640 pg/mL Total Protein 6.5 (6.3-8.2) g/dL Albumin 3.4 L (3.5-5.0) g/dL SARS-CoV-2 (PCR) (Not Detectd) 03/09/24 03/09/24 03/09/24 Range/Units 16:10 16:10 16:10 WBC (3.8-10.6) k/uL RBC (4.30-5.90) m/uL Hgb (13.0-17.5) gm/dL Hct (39.0-53.0) % MCV (80.0-100.0) fL MCH (25.0-35.0) pg MCHC (31.0-37.0) g/dL RDW (11.5-15.5) % Plt Count (150-450) k/uL MPV Neutrophils % % Lymphocytes % % Monocytes % % Eosinophils % % Basophils % % Neutrophils # (1.3-7.7) k/uL Lymphocytes # (1.0-4.8) k/uL Monocytes # (0-1.0) k/uL Eosinophils # (0-0.7) k/uL Basophils # (0-0.2) k/uL Hypochromasia D-Dimer (<0.60) mg/L FEU Sodium (137-145) mmol/L Potassium (3.5-5.1) mmol/L Chloride (98-107) mmol/L Carbon Dioxide (22-30) mmol/L Anion Gap mmol/L BUN (9-20) mg/dL Creatinine (0.66-1.25) mg/dL Est GFR (CKD-EPI)AfAm (>60 ml/min/1.73 sqM) Est GFR (CKD-EPI)NonAf (>60 ml/min/1.73 sqM) Glucose (74-99) mg/dL Lactic Ac Sepsis Rflx Plasma Lactic Acid Eduardo 4.7 H* (0.7-2.0) mmol/L Calcium (8.4-10.2) mg/dL Magnesium (1.6-2.3) mg/dL Total Bilirubin (0.2-1.3) mg/dL AST (17-59) U/L ALT (4-49) U/L Alkaline Phosphatase (38-126) U/L Troponin I <0.012 (0.000-0.034) ng/mL NT-Pro-B Natriuret Pep pg/mL Total Protein (6.3-8.2) g/dL Albumin (3.5-5.0) g/dL SARS-CoV-2 (PCR) Detected A (Not Detectd) 03/09/24 Range/Units 16:42 WBC (3.8-10.6) k/uL RBC (4.30-5.90) m/uL Hgb (13.0-17.5) gm/dL Hct (39.0-53.0) % MCV (80.0-100.0) fL MCH (25.0-35.0) pg MCHC (31.0-37.0) g/dL RDW (11.5-15.5) % Plt Count (150-450) k/uL MPV Neutrophils % % Lymphocytes % % Monocytes % % Eosinophils % % Basophils % % Neutrophils # (1.3-7.7) k/uL Lymphocytes # (1.0-4.8) k/uL Monocytes # (0-1.0) k/uL Eosinophils # (0-0.7) k/uL Basophils # (0-0.2) k/uL Hypochromasia D-Dimer (<0.60) mg/L FEU Sodium (137-145) mmol/L Potassium (3.5-5.1) mmol/L Chloride (98-107) mmol/L Carbon Dioxide (22-30) mmol/L Anion Gap mmol/L BUN (9-20) mg/dL Creatinine (0.66-1.25) mg/dL Est GFR (CKD-EPI)AfAm (>60 ml/min/1.73 sqM) Est GFR (CKD-EPI)NonAf (>60 ml/min/1.73 sqM) Glucose (74-99) mg/dL Lactic Ac Sepsis Rflx Y Plasma Lactic Acid Eduardo (0.7-2.0) mmol/L Calcium (8.4-10.2) mg/dL Magnesium (1.6-2.3) mg/dL Total Bilirubin (0.2-1.3) mg/dL AST (17-59) U/L ALT (4-49) U/L Alkaline Phosphatase (38-126) U/L Troponin I (0.000-0.034) ng/mL NT-Pro-B Natriuret Pep pg/mL Total Protein (6.3-8.2) g/dL Albumin (3.5-5.0) g/dL SARS-CoV-2 (PCR) (Not Detectd) Disposition Clinical Impression: Hypotension, COVID-19, Lactic acid acidosis, Leukocytosis Disposition: ADMITTED IP TO THIS [facility] Condition: Serious Is patient prescribed a controlled substance at d/c from ED?: No Time of Disposition: 18:44 Decision to Admit Reason: Admit from EC Decision Date: 03/09/24 Decision Time: 18:44
[2024-03-09] MEDS ORDERED: NALOXONE 0.4 MG/ML 1 ML VIAL IV PRN (18:44)
[2024-03-09] MEDS: SODIUM CHLORIDE 0.9% 1,000 ML IV SCH (18:57)
[2024-03-09] MEDS: MAGNESIUM SULFATE-D5W PMX 1 GM in DEXTROSE/WATER 1 100ML.BAG IVPB SCH (18:57)
--- NOTE | 2024-03-09 21:22 | P.HPIM ---
History of Present Illness H&P Date: 03/09/24 Chief Complaint: Weakness and cough Patient is a 78-year-old male with prostate cancer and recurrent UTIs presents to the ED with complaints of weakness and cough. He states that his cough started a month ago along with shortness of breath and it has been progressively worsening since the last 2 weeks. The cough is nonproductive. He mentions getting short of breath with minimal physical activity like when getting up to use the restroom. He also complains of weakness and dizziness and sees black spots when standing up. He was at his urologist's office earlier today when he was found to be pale and was advised to go to the ER. He has experienced cold sweats since the past 2 weeks. He has lost 50 pounds in the last 6 months and has poor apetite. Denies fever, nausea, vomiting, chest pain, palpitations, hemoptysis, suprapubic pain, flank pain, dysuria, blood in the urine or stool, joint pain, rashes. He was in the hospital 2 weeks ago for cystoscopy, left ureteral stent removal and left ureteroscopy as well as amputation of the right second toe 2 months ago. ED workup determined he was positive for SARS-CoV-2 and his WBC 21.4, hemoglobin 9.9, lactic acid 4.7, magnesium 1.2. He treated with acetaminophen and 0.9 normal saline and magnesium was repleted. he is currently struggling with frequent urination every hour, only small amount comes out, yellow daniel in color , no hematuria , but he feels irritated and full. Vitals: T97.8 F, P 79 bpm, RR 16, BP 80/48 and O2 sat 96% on room air CBC: WBC 11.4, hemoglobin 9.9, platelet 401, hematocrit 31.8 CMP: Bicarb 21, BUN 35, creatinine 1.68, glucose 164, lactic acid 0.4 0.7, magnesium 1.2, ALP 153, albumin 3.4 Troponin:< 0.012 proBNP: 1640 D-dimer: 0.47 ED documentation reviewed. Review of systems: Pertinent positives and negatives as discussed in HPI, a complete review of systems was performed and all other systems are negative. PMH: Coronary artery disease, NIDDM, hyperlipidemia, hypertension, obstructive sleep apnea PSH: Coronary artery bypass grafting 5 years ago FMH: Coronary artery disease Social history: Tobacco: Never smoker Alcohol: Occasional Recreational drugs: Denies use Travel: No recent travel history Sick contacts: None Physical examination: Vital signs reviewed General: mild distress, appears at stated age, overweight no effusion on rash h ead atraumatic Derm: no unusual rashes/lesions, warm Head: atraumatic, normocephalic, symmetric Eyes: EOMI, anicteric sclera ENT: Nose and ears atraumatic Mouth: no lip lesion, mucus membranes moist Cardiovascular: S1S2 reg, no murmur, no peripheral edema Lungs: mild wheezing b/l, congested cough, no accessory muscle use Abdominal: soft, nontender to palpation, no guarding Ext: amputated right second toe, muscle strength 5 out of 5 in all 4 extremities grossly, no gross muscle atrophy, no contractures, Neuro: CN II-XI grossly intact, no gross focal neuro deficits Psych: Alert, oriented, appropriate affect Assessment/Plan: Patient is an 78-year-old male with prostate cancer presented to the ED with the complaint of weakness, cough, shortness of breath. ED documentation has been reviewed and admission accepted for COVID-19. #. COVID-19 infection SARS-CoV-2 detected Lactic acid 4.7 trended down to 2.1 Chest x-ray showed no acute cardiopulmonary process Continue with normal saline 150 mL/h, s/p 1 L normal saline bolus ID consulted supplemental oxygen as needed , he is not requiring any at this time D dimer 0.47 unremarkable , Trops negative check procalcitonin leukocytosis 21.4 afebrile #. Fungal infection of bladder present on admission Blood culture ordered Continue with fluconazole 100 mg p.o. daily (adjusted to creatine clearance of <50) #. Prostate cancer Hold home med tamsulosin 0.4 mg p.o. at bedtime check post void residual due to frequent small amount of urination while in the ED #. Hypomagnesemia Magnesium 1.2 Repleted with 2 g magnesium sulfate #. Anemia Hb 9.9 Continue with iron 1 capsule p.o. daily Monitor CBC #. Enz-[id number] diabetes mellitus, s/p toe amputation 2 month ago Glucose 164 Insulin sliding scale Hold home med metformin 850 mg p.o. twice daily and empagliflozin 10 mg p.o. daily #. History of coronary artery disease s/p coronary artery bypass grafting 5 years ago Continue with aspirin 81 mg p.o. daily Hold home med metoprolol #. History of hypertension Blood pressure 98/73 Hold home med valsartan 320 mg p.o. daily #. Chronic kidney disease stage 3b BUN 35, creatinine 1.68, GFR 38 Monitor BMP if renal function worsens , consider renal US to rule out post obstructive uropathy from prostate cancer, given the symptoms of frequent urination , or if post void residual is significantly high then consider renal US #. Hyperlipidemia Continue with atorvastatin 80 mg p.o. at bedtime and ezetimibe 10 mg p.o. daily #. History of glaucoma Continue with latanoprost and timolol #. History of anxiety and depression Continue with venlafaxine 75 mg p.o. daily one time xanax 0.5 mg po F: 0.9 normal saline at 150 mL/h E: Magnesium repleted N: Heart healthy diet A: Ambulatory DVT prophylaxis: Lovenox 40mg daily SQ The patient is admitted with an anticipated more than 2 midnight stay for evaluation of cough and shortness of breath CODE STATUS: Full code Discussed with: Patient Anticipated discharge place: Home Past Medical History Past Medical History: Coronary Artery Disease (CAD), Diabetes Mellitus, Hyperlipidemia, Hypertension, Hypertension, Myocardial Infarction ([place]), Sleep Apnea/CPAP/BIPAP Additional Past Medical History / Comment(s): seasonal allergies, unable to use cpap, obesity. varicose vein left leg Last Myocardial Infarction Date:: 1986 History of Any Multi-Drug Resistant Organisms: None Reported Past Surgical History: Coronary Bypass/CABG, Heart Catheterization With Stent, Orthopedic Surgery Additional Past Surgical History / Comment(s): 4 heart stents, varicose veins rt leg with right leg vein stripping. walker Cataract, LEFT HAND SX, HEART CATH 03/25/18 Past Anesthesia/Blood Transfusion Reactions: No Reported Reaction Date of Last Stent Placement:: 2002 Past Psychological History: Depression Smoking Status: Never smoker - Past Family History Mother Family Medical History: No Reported History, Renal Disease Additional Family Medical History / Comment(s): Mother at age 89 from kidney disease and bladder problems. Aortic Aneurysm. Father Family Medical History: Myocardial Infarction ([place]) Additional Family Medical History / Comment(s): Father from myocardial infarction at age 56. Medications and Allergies Home Medications Medication Instructions Recorded Confirmed Type Atorvastatin [Lipitor] 80 mg PO HS 11/04/14 03/09/24 History metFORMIN HCL [Glucophage] 850 mg PO BID 11/04/14 03/09/24 History Metoprolol Tartrate [Lopressor] 50 mg PO BID #60 tab 04/06/18 03/09/24 Rx Cholecalciferol [Vitamin D3 (25 25 mcg PO DAILY 12/21/22 03/09/24 History Mcg = 1000 Iu)] Cyanocobalamin (Vitamin B-12) 1,000 mcg PO DAILY 12/21/22 03/09/24 History [Vitamin B-12] Ezetimibe [Zetia] 10 mg PO DAILY 12/21/22 03/09/24 History Latanoprost Ophth [Xalatan 0.005%] 1 drop BOTH EYES HS 12/21/22 03/09/24 History Timolol 0.5% Ophth Soln [Timoptic 1 drop RIGHT EYE BID 10/01/23 03/09/24 History 0.5% Ophth Soln] Valsartan [Diovan] 320 mg PO DAILY 10/01/23 03/09/24 History Venlafaxine HCl [Effexor XR] 75 mg PO DAILY 10/01/23 03/09/24 History Tamsulosin [Flomax] 0.4 mg PO HS 01/06/24 03/09/24 History Aspirin [Adult Low Dose Aspirin EC] 81 mg PO DAILY 02/25/24 03/09/24 History Empagliflozin [Jardiance] 10 mg PO DAILY 02/25/24 03/09/24 History Fluconazole [Diflucan] 100 mg PO DIRECTED 03/09/24 03/09/24 History Iron Bis-Glycinat/Vit C/FA/B12 1 cap PO DAILY 03/09/24 03/09/24 History [Gentle Iron 28 mg Capsule] Allergies Allergy/AdvReac Type Severity Reaction Status Date / Time No Known Allergies Allergy Verified 03/09/24 17:40 Physical Exam Vitals: Vital Signs Temp Pulse Resp BP Pulse Ox 03/09/24 19:34 97.8 F 79 16 98/73 96 03/09/24 19:00 78 16 98/73 97 03/09/24 16:05 91/59 03/09/24 15:20 97.9 F 90 20 80/48 92 L Intake and Output 03/09/24 03/09/2424 06:59 14:59 22:59 Other: Weight 95.254 kg Results CBC & Chem 7: 03/09/24 16:10 03/09/24 16:10 Labs: Abnormal Lab Results - Last 24 Hours (Table) 03/09/24 03/09/24 03/09/24 Range/Units 16:10 16:10 16:10 WBC 21.4 H (3.8-10.6) k/uL RBC 3.70 L (4.30-5.90) m/uL Hgb 9.9 L (13.0-17.5) gm/dL Hct 31.8 L (39.0-53.0) % Neutrophils # 16.5 H (1.3-7.7) k/uL Monocytes # 1.2 H (0-1.0) k/uL Eosinophils # 1.1 H (0-0.7) k/uL Carbon Dioxide 21 L (22-30) mmol/L BUN 35 H (9-20) mg/dL Creatinine 1.68 H (0.66-1.25) mg/dL Glucose 164 H (74-99) mg/dL Plasma Lactic Acid Eduardo 4.7 H* (0.7-2.0) mmol/L Magnesium 1.2 L (1.6-2.3) mg/dL Alkaline Phosphatase 153 H (38-126) U/L Albumin 3.4 L (3.5-5.0) g/dL SARS-CoV-2 (PCR) (Not Detectd) 03/09/24 Range/Units 16:10 WBC (3.8-10.6) k/uL RBC (4.30-5.90) m/uL Hgb (13.0-17.5) gm/dL Hct (39.0-53.0) % Neutrophils # (1.3-7.7) k/uL Monocytes # (0-1.0) k/uL Eosinophils # (0-0.7) k/uL Carbon Dioxide (22-30) mmol/L BUN (9-20) mg/dL Creatinine (0.66-1.25) mg/dL Glucose (74-99) mg/dL Plasma Lactic Acid Eduardo (0.7-2.0) mmol/L Magnesium (1.6-2.3) mg/dL Alkaline Phosphatase (38-126) U/L Albumin (3.5-5.0) g/dL SARS-CoV-2 (PCR) Detected A (Not Detectd) Thrombosis Risk Factor Assmnt - Choose All That Apply Each Factor Represents 1 point: Medical pt on bed rest (This), Obesity (BMI >25) Each Risk Factor Represents 3 Points: Age 75 years or older (High risk okay) Thrombosis Risk Factor Assessment Total Risk Factor Score: 5 Thrombosis Risk Factor Assessment Level: High Risk Assessment and Plan Assessment: I have seen and evaluated the patient today. I Discussed the case with the anamaria bray and agree with the resident's findings I edited the assessment and plan as necessary as documented in the resident's note.
[2024-03-09] MEDS: metFORMIN 850 MG TAB PO SCH (22:56)
[2024-03-09] MEDS: ATORVASTATIN 80 MG TAB PO SCH (23:03)
[2024-03-09] MEDS: ALPRAZolam 0.5 MG TAB PO STA (23:03)
[2024-03-09] MEDS: LATANOPROST 0.005% OPHTH DROPS 2.5 ML BTL BOTH EYES SCH (23:03)
[2024-03-09] MEDS: FLUCONAZOLE 100 MG TAB PO SCH (23:03)
[2024-03-09] MEDS: TIMOLOL 0.5% OPHTH DROPS 5 ML BTL RIGHT EYE SCH (23:04)
[2024-03-09] MEDS: ACETAMINOPHEN TAB 325 MG TAB PO PRN (23:16)
[2024-03-10] MEDS: INSULIN ASPART (NovoLOG) 100 UNIT/ML VIAL SQ SCH (07:55)
[2024-03-10] MEDS: ENOXAPARIN 40 MG/0.4 ML SYRINGE SQ SCH (09:55)
[2024-03-10] MEDS: EZETIMIBE 10 MG TAB PO SCH (09:55)
[2024-03-10] MEDS: DAPAGLIFLOZIN PROPANEDIOL 5 MG TABLET PO SCH (09:55)
[2024-03-10] MEDS: VENLAFAXINE HCL ER 75 MG CAP PO SCH (09:55)
[2024-03-10] MEDS: ASPIRIN 81 MG PO SCH (09:56)
[2024-03-10] MEDS: CHOLECALCIFEROL 25 MCG (1000 IU) TABLET PO SCH (09:56)
[2024-03-10] MEDS: CYANOCOBALAMIN 500 MCG TAB PO SCH (09:56)
[2024-03-10 10:39] LABS: Basophils # (A) 0.1 k/uL (0-0.2); Basophils % (A) 0 %; Eosinophils # (A) 0.8 k/uL (0-0.7); Eosinophils % (A) 5 %; HCT 29.9 % (39.0-53.0); HGB 9.1 gm/dL (13.0-17.5); Hypochromasia Marked; Lymphocytes # (A) 1.3 k/uL (1.0-4.8); Lymphocytes % (A) 8 %; MCH 26.6 pg (25.0-35.0); MCHC 30.5 g/dL (31.0-37.0); MCV 87.2 fL (80.0-100.0); Mean Platelet Volume 7.7; Monocytes # (A) 0.9 k/uL (0-1.0); Monocytes % (A) 5 %; Neutrophils # (A) 13.4 k/uL (1.3-7.7); Neutrophils % (A) 81 %; Platelet Count 335 k/uL (150-450); RBC 3.42 m/uL (4.30-5.90); RDW 15.3 % (11.5-15.5); WBC 16.5 k/uL (3.8-10.6)
[2024-03-10 10:58] LABS: African American GFR (CKD) 81 (>60 ml/min/1.73 sqM); Anion Gap 7 mmol/L; Blood Urea Nitrogen 26 mg/dL (9-20); Calcium 8.8 mg/dL (8.4-10.2); Carbon Dioxide 22 mmol/L (22-30); Chloride 109 mmol/L (98-107); Glucose 116 mg/dL (74-99); Magnesium 1.5 mg/dL (1.6-2.3); Non-African American GFR(CKD) 70 (>60 ml/min/1.73 sqM); Potassium 4.1 mmol/L (3.5-5.1); Sodium 138 mmol/L (137-145)
[2024-03-10] MEDS: MAGNESIUM SULFATE-D5W PMX 1 GM in DEXTROSE/WATER 1 100ML.BAG IVPB SCH (12:56)
--- NOTE | 2024-03-10 16:33 | P.PN ---
Subjective Progress Note Date: 03/10/24 Hospital course: Patient is a very pleasant 78-year-old male with a past medical history of CAD status post CABG and previous stent placement, hypertension, hyperlipidemia, diabetes mellitus, stage IIIb chronic kidney disease, and prostate cancer. He presented to the emergency department on 03/09/2024 with a chief complaint of weakness, shortness of breath, and cough progressively worsening x 2 weeks. Upon arrival to our facility, patient underwent evaluation in the emergency department. Vital signs upon arrival show blood pressure 80/48, heart rate 90, respiratory rate 20, temp 97.9 F, and SpO2 of 92% on room air. EKG completed showing normal sinus rhythm at 83 bpm with T wave inversion in inferior lead III and aVF and occasional PVC. Chest x-ray completed negative for acute cardiopulmonary process. Labs completed and reviewed. CBC showing leukocytosis with WBC count of 21.4 and normocytic anemia with hemoglobin of 9.9. BMP showing high anion gap metabolic acidosis with chloride of 103, bicarb of 21, and anion gap of 13 and renal function consistent with stage IIIb chronic kidney disease with BUN of 35, creatinine 1.68, GFR of 38. Blood glucose was 164.. Initial lactate 4.7. Magnesium 1.2. Liver profile showing elevated alkaline p hosphatase of 153. Troponin was negative at less than 0.012. BNP 1640. Procalcitonin was negative at 0.13. COVID PCR was positive. Physical exam: Patient seen and fully evaluated at the bedside. He reports improvement of cough and shortness of breath this morning. Vital signs reviewed and stable. General: Nontoxic, no distress and appears stated age. Derm: Skin warm and dry, normal coloration for ethnicity. Head: Atraumatic, normocephalic and symmetric. Eyes: EOM's intact, no lid lag, and anicteric sclera Mouth: no lip lesions, mucus membranes moist Cardiovascular: regular rate and rhythm with normal S1S2, soft systolic murmur, positive posterior tibial pulses bilaterally, and cap refill < 2 seconds. Lungs: Respirations even, regular, and unlabored on room air. Lungs CTA bilaterally, no rhonchi, no rales, no wheezing, and no accessory muscle usage. Abdominal: soft, nontender to palpation, no guarding, no appreciable organomegaly Ext: Movement and sensation intact. No gross muscle atrophy, no edema, no contractures. 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 Neuro: Speech clear, face symmetrical and CN II-XII grossly intact with no noted focal neuro deficits Psych: Alert and oriented to person, place, time, and situation. Appropriate and pleasant affect. Assessment and Plan of Care: COVID 19 pneumonitis -Oxygenation to be administered and titrated as needed to maintain SPO2 equal to or greater than 90%. Currently 94% on room air. -Telemetry monitoring. -Encourage Incentive Spirometry 10-15x hourly while awake -Continue vitamin C, Vitamin D, and Zinc. -DVT prophylaxis with Lovenox. -Strict Droplet plus Contact precautions Maggy tropicalis UTI, present at time of admission Prostate cancer -Continue fluconazole 100 mg daily. -Continue Flomax 0.4 mg daily. -Order placed for bladder scans to monitor for retention/postvoid residual. -Follow-up with urologist, Dr. Mueller after discharge. CAD status post CABG and stent placement Hypertension Hyperlipidemia -Continue daily medication regimen with aspirin 81 mg daily, atorvastatin 80 mg nightly, Farxiga 5 mg daily, Zetia 10 mg daily, and metoprolol 50 mg twice daily. [id number] diabetes mellitus -Hold metformin and Jardiance and place patient on glycemic protocol with NovoLog sliding scale. Data and imaging reviewed: Morning labs reviewed showing improvement of leukocytosis from 21.4 down to 16.5 and stable normocytic anemia with hemoglobin of 9.1. BMP showing hyperchloremia with chloride of 109, BUN 26, creatinine of 1.01, GFR of 70. Blood glucose 116. Magnesium 1.5. Blood pressure 121/72, heart rate 92, respiratory rate 16, temp 97.4 F, and SpO2 of 94% on room air. CODE STATUS: Full code DVT prophylaxis: Lovenox Anticipated discharge date: Pending clinical course Anticipated discharge place: Home Patient was seen independently by Nurse Pracitioner. This document was prepared using [employer] dictation software. Please allow for errors in moulder operator, while rare they do occur. . Magdy Nuñez NP rendered care for this patient independently, reviewed the fin dings and plan as documented in the note above. I did not physically speak with or examine the patient on this date. Objective - Vital Signs Vital signs: Vital Signs Temp 97.4 F L 03/10/24 06:17 Pulse 80 03/10/24 08:02 Resp 18 03/10/24 08:02 BP 121/109 03/10/24 08:02 Pulse Ox 96 03/10/24 08:02 FiO2 Intake & Output 03/09/24 03/10/24 03/10/24 18:59 06:59 18:59 Output Total 135 Balance -135 Weight 95.254 kg Output: Post Void Residual 135 - Labs CBC & Chem 7: 03/10/24 10:09 03/10/24 10:09 Labs: Abnormal Lab Results - Last 24 Hours (Table) 03/09/24 03/09/24 03/09/24 Range/Units 16:10 16:10 16:10 WBC 21.4 H (3.8-10.6) k/uL RBC 3.70 L (4.30-5.90) m/uL Hgb 9.9 L (13.0-17.5) gm/dL Hct 31.8 L (39.0-53.0) % Neutrophils # 16.5 H (1.3-7.7) k/uL Monocytes # 1.2 H (0-1.0) k/uL Eosinophils # 1.1 H (0-0.7) k/uL Carbon Dioxide 21 L (22-30) mmol/L BUN 35 H (9-20) mg/dL Creatinine 1.68 H (0.66-1.25) mg/dL Glucose 164 H (74-99) mg/dL Plasma Lactic Acid Eduardo 4.7 H* (0.7-2.0) mmol/L Magnesium 1.2 L (1.6-2.3) mg/dL Alkaline Phosphatase 153 H (38-126) U/L Albumin 3.4 L (3.5-5.0) g/dL SARS-CoV-2 (PCR) (Not Detectd) 03/09/24 03/09/24 Range/Units 16:10 20:13 WBC (3.8-10.6) k/uL RBC (4.30-5.90) m/uL Hgb (13.0-17.5) gm/dL Hct (39.0-53.0) % Neutrophils # (1.3-7.7) k/uL Monocytes # (0-1.0) k/uL Eosinophils # (0-0.7) k/uL Carbon Dioxide (22-30) mmol/L BUN (9-20) mg/dL Creatinine (0.66-1.25) mg/dL Glucose (74-99) mg/dL Plasma Lactic Acid Eduardo 2.1 H* (0.7-2.0) mmol/L Magnesium (1.6-2.3) mg/dL Alkaline Phosphatase (38-126) U/L Albumin (3.5-5.0) g/dL SARS-CoV-2 (PCR) Detected A (Not Detectd)
[2024-03-10] MEDS: IRON BIS GLYCINAT PO SCH (18:51)
[2024-03-10] MEDS: VIT C PO SCH (18:51)
[2024-03-10] MEDS: B12 PO SCH (18:51)
[2024-03-10] MEDS: [UNRECOGNIZED DRUG - OTHER] PO SCH (18:51)
[2024-03-10] MEDS: TAMSULOSIN 0.4 MG CAP.ER.24H PO SCH (20:28)
[2024-03-10] MEDS: METOPROLOL TARTRATE 50 MG TAB PO SCH (20:29)
[2024-03-11 07:06] LABS: HCT 28.9 % (39.0-53.0); HGB 8.9 gm/dL (13.0-17.5); Hypochromasia Marked; MCH 26.7 pg (25.0-35.0); MCHC 30.8 g/dL (31.0-37.0); MCV 86.5 fL (80.0-100.0); Mean Platelet Volume 7.5; Platelet Count 320 k/uL (150-450); RBC 3.34 m/uL (4.30-5.90); RDW 15.4 % (11.5-15.5); WBC 14.9 k/uL (3.8-10.6)
--- NOTE | 2024-03-11 07:18 | P.CONS ---
History of Present Illness - Reason for Consult Consult date: 03/10/24 Acute COVID infection Requesting physician: Emma Modi - Chief Complaint Weakness x few days - History of Present Illness Patient is a 78-year-old male with a past medical history significant for diabetes mellitus hypertension hyperlipidemia [place] sleep apnea coronary disease presenting to the hospital with weakness apparently the patient recently did have a cystoscopy done by urology and the patient has been told that he did have a fungal infection in his kidneys he was supposed to be started by antifungal however the patient was not feeling well and the patient was advised to go to the hospital patient symptoms of weakness not feeling well has been goi ng on for more than a week he also been complaining of cough that has been mild to moderate intensity going on for more than a week denies any chest pain or hemoptysis did have some mild but no vomiting no abdominal pain or diarrhea did have difficulty urination as well as burning and lower abdominal discomfort no diarrhea patient on presentation the hospital was afebrile and no fever have been recorded subsequently patient was not tachycardic hypotensive or hypoxic and no need for supplemental oxygen patient did have a white count of 21.4 with a left shift BUN/creatinine has been mildly elevated liver isms are normal patient did tested positive for COVID-19 no UA has been reviewed with patient urine culture was done on 02/27/2024 has been growing yeast one of the ED culture finalized with Maggy tropicalis infectious was consulted for his positive COVID test patient did have a chest x-ray that was negative for acute cardiopulmonary process Review of Systems Positive point and negatives has been mentioned in the HPI, complete review of systems was performed and all other systems are negative Past Medical History Past Medical History: Coronary Artery Disease (CAD), Diabetes Mellitus, Hyperlipidemia, Hypertension, Hypertension, Myocardial Infarction ([place]), Sleep Apnea/CPAP/BIPAP Additional Past Medical History / Comment(s): seasonal allergies, unable to use cpap, obesity. varicose vein left leg Last Myocardial Infarction Date:: 1986 History of Any Multi-Drug Resistant Organisms: None Reported Past Surgical History: Coronary Bypass/CABG, Heart Catheterization With Stent, Orthopedic Surgery Additional Past Surgical History / Comment(s): 4 heart stents, varicose veins rt leg with right leg vein stripping. walker Cataract, LEFT HAND SX, HEART CATH 03/25/18 Past Anesthesia/Blood Transfusion Reactions: No Reported Reaction Date of Last Stent Placement:: 2002 Past Psychological History: Depression Smoking Status: Never smoker - Past Family History Mother Family Medical History: No Reported History, Renal Disease Additional Family Medical History / Comment(s): Mother at age 89 from kidney disease and bladder problems. Aortic Aneurysm. Father Family Medical History: Myocardial Infarction ([place]) Additional Family Medical History / Comment(s): Father from myocardial infarction at age 56. Medications and Allergies Home Medications Medication Instructions Recorded Confirmed Type Atorvastatin [Lipitor] 80 mg PO HS 11/04/14 03/09/24 History metFORMIN HCL [Glucophage] 850 mg PO BID 11/04/14 03/09/24 History Metoprolol Tartrate [Lopressor] 50 mg PO BID #60 tab 04/06/18 03/09/24 Rx Cholecalciferol [Vitamin D3 (25 25 mcg PO DAILY 12/21/22 03/09/24 History Mcg = 1000 Iu)] Cyanocobalamin (Vitamin B-12) 1,000 mcg PO DAILY 12/21/22 03/09/24 History [Vitamin B-12] Ezetimibe [Zetia] 10 mg PO DAILY 12/21/22 03/09/24 History Latanoprost Ophth [Xalatan 0.005%] 1 drop BOTH EYES HS 12/21/22 03/09/24 History Timolol 0.5% Ophth Soln [Timoptic 1 drop RIGHT EYE BID 10/01/23 03/09/24 History 0.5% Ophth Soln] Valsartan [Diovan] 320 mg PO DAILY 10/01/23 03/09/24 History Venlafaxine HCl [Effexor XR] 75 mg PO DAILY 10/01/23 03/09/24 History Tamsulosin [Flomax] 0.4 mg PO HS 01/06/24 03/09/24 History Aspirin [Adult Low Dose Aspirin EC] 81 mg PO DAILY 02/25/24 03/09/24 History Empagliflozin [Jardiance] 10 mg PO DAILY 02/25/24 03/09/24 History Fluconazole [Diflucan] 100 mg PO DIRECTED 03/09/24 03/09/24 History Iron Bis-Glycinat/Vit C/FA/B12 1 cap PO DAILY 03/09/24 03/09/24 History [Gentle Iron 28 mg Capsule] Allergies Allergy/AdvReac Type Severity Reaction Status Date / Time No Known Allergies Allergy Verified 03/09/24 17:40 Physical Exam Vitals: Vital Signs Temp Pulse Resp BP Pulse Ox 03/10/24 09:59 78 20 121/100 95 03/10/24 08:02 80 18 121/109 96 03/10/24 06:17 97.4 F L 92 16 121/72 94 L 03/09/24 23:23 97.8 F 86 16 132/76 94 L 03/09/24 19:34 97.8 F 79 16 98/73 96 03/09/24 19:00 78 16 98/73 97 03/09/24 16:05 91/59 03/09/24 15:20 97.9 F 90 20 80/48 92 L Intake and Output 03/09/24 03/10/24 03/10/24 22:59 06:59 14:59 Output Total 135 Balance -135 Output: Post Void Residual 135 Other: Weight 95.254 kg GENERAL DESCRIPTION: Elderly male lying in bed, no distress. No tachypnea or accessory muscle of respiration use. HEENT: Shows Pallor , no scleral icterus. Oral mucous membrane is dry. No pharyngeal erythema or thrush NECK: Trachea central, no thyromegaly. LUNGS: Unlabored breathing. Decreased intensity of breath sounds HEART: S1, S2, regular rate and rhythm. No loud murmur ABDOMEN: Soft, no tenderness , guarding or rigidity, no organomegaly EXTREMITIES: No edema of feet. SKIN: No rash, no masses palpable. NEUROLOGICAL: The patient is awake, alert, oriented x3, mood and affect normal. Results CBC & Chem 7: 03/11/24 06:36 03/10/24 10:09 Labs: Abnormal Lab Results - Last 24 Hours (Table) 03/09/24 03/09/24 03/09/24 Range/Units 16:10 16:10 16:10 WBC 21.4 H (3.8-10.6) k/uL RBC 3.70 L (4.30-5.90) m/uL Hgb 9.9 L (13.0-17.5) gm/dL Hct 31.8 L (39.0-53.0) % MCHC (31.0-37.0) g/dL Neutrophils # 16.5 H (1.3-7.7) k/uL Monocytes # 1.2 H (0-1.0) k/uL Eosinophils # 1.1 H (0-0.7) k/uL Chloride (98-107) mmol/L Carbon Dioxide 21 L (22-30) mmol/L BUN 35 H (9-20) mg/dL Creatinine 1.68 H (0.66-1.25) mg/dL Glucose 164 H (74-99) mg/dL Plasma Lactic Acid Eduardo 4.7 H* (0.7-2.0) mmol/L Magnesium 1.2 L (1.6-2.3) mg/dL Alkaline Phosphatase 153 H (38-126) U/L Albumin 3.4 L (3.5-5.0) g/dL SARS-CoV-2 (PCR) (Not Detectd) 03/09/24 03/09/24 03/10/24 Range/Units 16:10 20:13 10:09 WBC 16.5 H (3.8-10.6) k/uL RBC 3.42 L (4.30-5.90) m/uL Hgb 9.1 L (13.0-17.5) gm/dL Hct 29.9 L (39.0-53.0) % MCHC 30.5 L (31.0-37.0) g/dL Neutrophils # 13.4 H (1.3-7.7) k/uL Monocytes # (0-1.0) k/uL Eosinophils # 0.8 H (0-0.7) k/uL Chloride (98-107) mmol/L Carbon Dioxide (22-30) mmol/L BUN (9-20) mg/dL Creatinine (0.66-1.25) mg/dL Glucose (74-99) mg/dL Plasma Lactic Acid Eduardo 2.1 H* (0.7-2.0) mmol/L Magnesium (1.6-2.3) mg/dL Alkaline Phosphatase (38-126) U/L Albumin (3.5-5.0) g/dL SARS-CoV-2 (PCR) Detected A (Not Detectd) 03/10/24 Range/Units 10:09 WBC (3.8-10.6) k/uL RBC (4.30-5.90) m/uL Hgb (13.0-17.5) gm/dL Hct (39.0-53.0) % MCHC (31.0-37.0) g/dL Neutrophils # (1.3-7.7) k/uL Monocytes # (0-1.0) k/uL Eosinophils # (0-0.7) k/uL Chloride 109 H (98-107) mmol/L Carbon Dioxide (22-30) mmol/L BUN 26 H (9-20) mg/dL Creatinine (0.66-1.25) mg/dL Glucose 116 H (74-99) mg/dL Plasma Lactic Acid Eduardo (0.7-2.0) mmol/L Magnesium 1.5 L (1.6-2.3) mg/dL Alkaline Phosphatase (38-126) U/L Albumin (3.5-5.0) g/dL SARS-CoV-2 (PCR) (Not Detectd) Assessment and Plan (1) UTI (urinary tract infection) Current Visit: Yes Status: Acute Code(s): N39.0 - URINARY TRACT INFECTION, SITE NOT SPECIFIED SNOMED Code(s): 46301779 (2) COVID-19 Current Visit: Yes Status: Acute Code(s): U07.1 - COVID-19 SNOMED Code(s): 171328494 Plan: 1patient presented to hospital with weakness which is likely multifactorial in this patient who did tested positive for COVID-19 could be contribute to some of his symptoms however the patient is currently not hypoxic chest x-ray was negative for acute infiltrate treated will be mostly supportive no need for steroid or remdesivir 2-patient also been diagnosed with a complicated UTI with urine culture done in the outpatient setting positive for Maggy tropicalis 3-repeat UA and culture 4-patient has been started on zinc vitamin C and Lovenox to continue 5-continue the Diflucan for the UTI We will follow on clinical condition and cultures to further adjust medication if needed Thank you for this consultation we will follow the patient along with you Dictation was produced using [employer] dictation software. please excuse any grammatical, word or spelling errors. Time with Patient: Greater than 30
[2024-03-11 07:30] LABS: ALT 29 U/L (4-49); AST 31 U/L (17-59); African American GFR (CKD) >90 (>60 ml/min/1.73 sqM); Albumin 2.6 g/dL (3.5-5.0); Alkaline Phosphatase 119 U/L (38-126); Anion Gap 9 mmol/L; Blood Urea Nitrogen 19 mg/dL (9-20); Calcium 8.5 mg/dL (8.4-10.2); Carbon Dioxide 25 mmol/L (22-30); Chloride 105 mmol/L (98-107); Glucose 112 mg/dL (74-99); Magnesium 1.5 mg/dL (1.6-2.3); Non-African American GFR(CKD) 79 (>60 ml/min/1.73 sqM); Sodium 139 mmol/L (137-145); Total Bilirubin 0.2 mg/dL (0.2-1.3); Total Protein 5.4 g/dL (6.3-8.2)
[2024-03-11] MEDS: MAGNESIUM SULFATE-D5W PMX 1 GM in DEXTROSE/WATER 1 100ML.BAG IVPB SCH (08:40)
[2024-03-11] MEDS: VALSARTAN 160 MG TAB PO SCH (08:41)
[2024-03-11] MEDS: ASCORBIC ACID 500 MG TAB PO SCH (08:42)
[2024-03-11] MEDS: ZINC SULFATE 220 MG CAP PO SCH (08:42)
[2024-03-11] MEDS: MAGNESIUM OXIDE 400 MG TAB PO SCH (08:42)
--- NOTE | 2024-03-11 11:15 | P.PN ---
Subjective Progress Note Date: 03/11/24 Principal diagnosis: Reason for follow-up is Maggy tropicalis UTI and COVID-19 Patient is a 78-year-old male with a past medical history significant for diabetes mellitus hypertension hyperlipidemia [place] sleep apnea coronary disease presenting to the hospital with weakness, recent cystoscopy with a urine culture positive for Maggy tropicalis, tested positive for COVID-19 however chest x-ray was negative. On today's evaluation that is 03/11/2024, the patient continues to be afebrile, the patient is on room air and breathing comfortably, the Pt denies having any chest pain did have a mild dry cough, the patient denies having any abdominal pain no vomiting or any diarrhea has been reported by the nursing staff, patient mention feeling better wants to go home. Patient white count is down to 14.8, creatinine 0.91 procalcitonin 0.13 blood culture have been negative UA requested not obtained Objective - Vital Signs Vital signs: Vital Signs Temp 98.2 F 03/11/24 09:12 Pulse 85 03/11/24 09:12 Resp 16 03/11/24 09:12 BP 95/55 03/11/24 09:12 Pulse Ox 95 03/11/24 09:12 FiO2 Intake & Output 03/10/24 03/11/24 03/11/24 18:59 06:59 18:59 Intake Total 120 Output Total 600 Balance -600 120 Weight 95.254 kg Intake: Oral 120 Output: Urine 600 Other: Voiding Method External Catheter External Catheter - Exam GENERAL DESCRIPTION: An elderly male up in the chair in no distress RESPIRATORY SYSTEM: Unlabored breathing , decreased breath sounds at bases HEART: S1 S2 regular rate and rhythm , ABDOMEN: Soft , no tenderness EXTREMITIES: No edema feet - Labs CBC & Chem 7: 03/11/24 06:36 03/11/24 06:36 Labs: Abnormal Lab Results - Last 24 Hours (Table) 03/11/24 03/11/24 Range/Units 06:36 06:36 WBC 14.9 H (3.8-10.6) k/uL RBC 3.34 L (4.30-5.90) m/uL Hgb 8.9 L (13.0-17.5) gm/dL Hct 28.9 L (39.0-53.0) % MCHC 30.8 L (31.0-37.0) g/dL Glucose 112 H (74-99) mg/dL Magnesium 1.5 L (1.6-2.3) mg/dL Total Protein 5.4 L (6.3-8.2) g/dL Albumin 2.6 L (3.5-5.0) g/dL Microbiology - Last 24 Hours (Table) 03/09/24 20:13 Blood Culture - Preliminary Blood Assessment and Plan (1) UTI (urinary tract infection) Current Visit: Yes Status: Acute Code(s): N39.0 - URINARY TRACT INFECTION, SITE NOT SPECIFIED SNOMED Code(s): 35064880 (2) COVID-19 Current Visit: Yes Status: Acute Code(s): U07.1 - COVID-19 SNOMED Code(s): 023218205 Plan: 1patient presented to hospital with weakness which is likely multifactorial in this patient who did tested positive for COVID-19 could be contribute to some of his symptoms however the patient is currently not hypoxic chest x-ray was negative for acute infiltrate treated will be mostly supportive no need for steroid or remdesivir 2-patient also been diagnosed with a complicated UTI with urine culture done in the outpatient setting positive for Maggy tropicalis 3-repeat UA and culture has been requested but not completed 4-patient to continue with zinc vitamin C and Lovenox along with the Diflucan and monitor clinical course closely Dictation was produced using [employer] dictation software. please excuse any grammatical, word or spelling errors. Time with Patient: Less than 30
[2024-03-11 12:10] LABS: Appearance,Urine Turbid (Clear); Bacteria,Urine Occasional /hpf; Bilirubin,Urine Negative (Negative); Blood,Urine Moderate (Negative); Color,Urine Colorless; Glucose,Urine (UA) 4+ (Negative); Ketones,Urine Negative (Negative); Leukocyte Esterase,Urine Large (Negative); Mucus,Urine Rare /hpf; Nitrite,Urine Negative (Negative); PH, Urine 5.5 (5.0-8.0); Protein,Urine Trace (Negative); RBC,Urine 65 /hpf (0-5); Specific Gravity,Urine 1.019 (1.001-1.035); Squamous Epithelial Cell,Urine 1 /hpf (0-4); Urobilinogen,Urine <2.0 mg/dL (<2.0); WBC,Urine >182 /hpf (0-5)
--- NOTE | 2024-03-11 12:59 | P.PN ---
Subjective Progress Note Date: 03/11/24 Hospital course: Patient is a very pleasant 78-year-old male with a past medical history of CAD status post CABG and previous stent placement, hypertension, hyperlipidemia, diabetes mellitus, stage IIIb chronic kidney disease, and prostate cancer. He presented to the emergency department on 03/09/2024 with a chief complaint of weakness, shortness of breath, and cough progressively worsening x 2 weeks. Upon arrival to our facility, patient underwent evaluation in the emergency department. Vital signs upon arrival show blood pressure 80/48, heart rate 90, respiratory rate 20, temp 97.9 F, and SpO2 of 92% on room air. EKG completed showing normal sinus rhythm at 83 bpm with T wave inversion in inferior lead III and aVF and occasional PVC. Chest x-ray completed negative for acute cardiopulmonary process. Labs completed and reviewed. CBC showing leukocytosis with WBC count of 21.4 and normocytic anemia with hemoglobin of 9.9. BMP showing high anion gap metabolic acidosis with chloride of 103, bicarb of 21, and anion gap of 13 and renal function consistent with stage IIIb chronic kidney disease with BUN of 35, creatinine 1.68, GFR of 38. Blood glucose was 164.. Initial lactate 4.7. Magnesium 1.2. Liver profile showing elevated alkaline p hosphatase of 153. Troponin was negative at less than 0.012. BNP 1640. Procalcitonin was negative at 0.13. COVID PCR was positive. Physical exam: Patient seen and fully evaluated at the bedside. He reports feeling well this morning. He does report experiencing moderate exertional dyspnea stating he was "huffing and puffing" just walking to the bathroom. He denies experiencing shortness of breath at rest, chest pain, palpitations, or any other complaints. Patient's blood pressure has been running soft overnight. Vital signs reviewed and stable. General: Nontoxic, no distress and appears stated age. Derm: Skin warm and dry, normal coloration for ethnicity. Head: Atraumatic, normocephalic and symmetric. Eyes: EOM's intact, no lid lag, and anicteric sclera Mouth: no lip lesions, mucus membranes moist Cardiovascular: regular rate and rhythm with normal S1S2, soft systolic murmur, positive posterior tibial pulses bilaterally, and cap refill < 2 seconds. Lungs: Respirations even, regular, and unlabored on room air. Lungs CTA bilate rally, no rhonchi, no rales, no wheezing, and no accessory muscle usage. Abdominal: soft, nontender to palpation, no guarding, no appreciable organomegaly Ext: Movement and sensation intact. No gross muscle atrophy, no edema, no contractures. 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 Neuro: Speech clear, face symmetrical and CN II-XII grossly intact with no noted focal neuro deficits Psych: Alert and oriented to person, place, time, and situation. Appropriate and pleasant affect. Assessment and Plan of Care: COVID 19 pneumonitis -Oxygenation to be administered and titrated as needed to maintain SPO2 equal to or greater than 90%. Currently 94% on room air. -Telemetry monitoring. -Encourage Incentive Spirometry 10-15x hourly while awake -Continue vitamin C, Vitamin D, and Zinc. -DVT prophylaxis with Lovenox. -Strict Droplet plus Contact precautions Maggy tropicalis UTI, present at time of admission Prostate cancer Leukocytosis, improving possibly reactive secondary to COVID-19 infection vs infectious from previously known UTI -Continue fluconazole 100 mg daily. -Continue Flomax 0.4 mg daily. -Order placed for bladder scans to monitor for retention/postvoid residual. -Infectious disease following recommending repeating urinalysis and urine culture. -Follow-up with urologist, Dr. Mueller after discharge. Hypomagnesemia -Magnesium 1.5. Order placed for magnesium sulfate 2 g IVPB and secondary to daily needs of IV magnesium replacement and continued hypomagnesemia, patient started on daily magnesium supplement with Mag-Ox 400 mg daily. CAD status post CABG and stent placement Hypertension Hyperlipidemia -Continue daily medication regimen with aspirin 81 mg daily, atorvastatin 80 mg nightly, Farxiga 5 mg daily, Zetia 10 mg daily, and metoprolol 50 mg twice daily . Sly-Yazmwmo-[id number] diabetes mellitus -Hold metformin and Jardiance and continue glycemic protocol with NovoLog sliding scale. Data and imaging reviewed: Morning labs reviewed showing improvement of leukocytosis from 21.4 down to 14.9 and stable normocytic anemia with hemoglobin of 8.9. BMP unremarkable. Blood glucose 112. Magnesium 1.5. Blood pressure 95/55, heart rate 85, respiratory rate 16, temp 98.2 F, and SpO2 of 95% on room air. CODE STATUS: Full code DVT prophylaxis: Lovenox Anticipated discharge date: Pending clinical course Anticipated discharge place: Home Patient was seen independently by Nurse Pracitioner. This document was prepared using [employer] dictation software. Please allow for errors in environmental restoration planner, while rare they do occur. Magdy Nuñez NP rendered care for this patient independently, reviewed the findings and plan as documented in the note above. I did not physically speak with or examine the patient on this date. Objective - Vital Signs Vital signs: Vital Signs Temp 98.1 F 03/11/24 03:10 Pulse 70 03/11/24 03:10 Resp 16 03/11/24 03:10 BP 92/52 03/11/24 03:10 Pulse Ox 94 L 03/11/24 03:10 FiO2 Intake & Output 03/10/24 03/11/24 03/11/24 18:59 06:59 18:59 Output Total 600 Balance -600 Weight 95.254 kg Output: Urine 600 Other: Voiding Method External Catheter - Labs CBC & Chem 7: 03/11/24 06:36 03/11/24 06:36 Labs: Abnormal Lab Results - Last 24 Hours (Table) 03/10/24 03/10/24 03/11/24 Range/Units 10:09 10:09 06:36 WBC 16.5 H 14.9 H (3.8-10.6) k/uL RBC 3.42 L 3.34 L (4.30-5.90) m/uL Hgb 9.1 L 8.9 L (13.0-17.5) gm/dL Hct 29.9 L 28.9 L (39.0-53.0) % MCHC 30.5 L 30.8 L (31.0-37.0) g/dL Neutrophils # 13.4 H (1.3-7.7) k/uL Eosinophils # 0.8 H (0-0.7) k/uL Chloride 109 H (98-107) mmol/L BUN 26 H (9-20) mg/dL Glucose 116 H (74-99) mg/dL Magnesium 1.5 L (1.6-2.3) mg/dL Total Protein (6.3-8.2) g/dL Albumin (3.5-5.0) g/dL 03/11/24 Range/Units 06:36 WBC (3.8-10.6) k/uL RBC (4.30-5.90) m/uL Hgb (13.0-17.5) gm/dL Hct (39.0-53.0) % MCHC (31.0-37.0) g/dL Neutrophils # (1.3-7.7) k/uL Eosinophils # (0-0.7) k/uL Chloride (98-107) mmol/L BUN (9-20) mg/dL Glucose 112 H (74-99) mg/dL Magnesium 1.5 L (1.6-2.3) mg/dL Total Protein 5.4 L (6.3-8.2) g/dL Albumin 2.6 L (3.5-5.0) g/dL Microbiology - Last 24 Hours (Table) 03/09/24 20:13 Blood Culture - Preliminary Blood
[2024-03-11] MEDS: bisacodyL 5 MG TABLET.DR PO PRN (20:27)
--- NOTE | 2024-03-12 13:14 | P.PN ---
Subjective Progress Note Date: 03/12/24 Principal diagnosis: Reason for follow-up is Maggy tropicalis UTI and COVID-19 Patient is a 78-year-old male with a past medical history significant for diabetes mellitus hypertension hyperlipidemia [place] sleep apnea coronary disease presenting to the hospital with weakness, recent cystoscopy with a urine culture positive for Maggy tropicalis, tested positive for COVID-19 however chest x-ray was negative. On today's evaluation that is 03/12/2024, Patient is afebrile patient is currently on room air and denies having any shortness of breath, the patient denies any chest pain patient did have a cough which is more productive now, the patient denies any nausea vomiting did not have any abdominal pain and no diarrhea. He did have a positive UA yesterday culture pending no labs drawn today blood cultures are pending Objective - Vital Signs Vital signs: Vital Signs Temp 97.7 F 03/12/24 08:00 Pulse 78 03/12/24 08:00 Resp 16 03/12/24 08:00 BP 132/73 03/12/24 08:00 Pulse Ox 97 03/12/24 08:00 FiO2 Intake & Output 03/11/24 03/12/24 03/12/24 18:59 06:59 18:59 Intake Total 240 10 250 Output Total 500 1000 Balance -260 -990 250 Weight 90.1 kg Intake: IV 10 10 Invasive Line 1 10 10 Oral 240 240 Output: Urine 500 1000 Other: Voiding Method External Catheter External Catheter External Catheter - Exam GENERAL DESCRIPTION: An elderly male up in the chair in no distress RESPIRATORY SYSTEM: Unlabored breathing , decreased breath sounds at bases HEART: S1 S2 regular rate and rhythm , ABDOMEN: Soft , no tenderness EXTREMITIES: No edema feet - Labs CBC & Chem 7: 03/11/24 06:36 03/11/24 06:36 Labs: Abnormal Lab Results - Last 24 Hours (Table) 03/11/24 Range/Units 11:50 Urine Protein Trace H (Negative) Urine Glucose (UA) 4+ H (Negative) Urine Blood Moderate H (Negative) Ur Leukocyte Esterase Large H (Negative) Urine RBC 65 H (0-5) /hpf Urine WBC >182 H (0-5) /hpf Urine WBC Clumps Many H (None) /hpf Urine Bacteria Occasional H (None) /hpf Urine Mucus Rare H (None) /hpf Microbiology - Last 24 Hours (Table) 03/09/24 20:13 Blood Culture - Preliminary Blood Assessment and Plan (1) UTI (urinary tract infection) Current Visit: Yes Status: Acute Code(s): N39.0 - URINARY TRACT INFECTION, SITE NOT SPECIFIED SNOMED Code(s): 04815160 (2) COVID-19 Current Visit: Yes Status: Acute Code(s): U07.1 - COVID-19 SNOMED Code(s): 153080120 Plan: 1patient presented to hospital with weakness which is likely multifactorial in this patient who did tested positive for COVID-19 could be contribute to some of his symptoms however the patient is currently not hypoxic chest x-ray was negative for acute infiltrate treated will be mostly supportive no need for steroid or remdesivir 2-patient also been diagnosed with a complicated UTI with urine culture done in the outpatient setting positive for Maggy tropicalis 3-repeat UA positive cultures currently pending 4-patient did have subclinical improvement well continue with zinc vitamin C and Lovenox along with the Diflucan while waiting for repeat culture to finalize Dictation was produced using [employer] dictation software. please excuse any grammatical, word or spelling errors. Time with Patient: Less than 30
--- NOTE | 2024-03-12 14:33 | P.PN ---
Subjective Progress Note Date: 03/12/24 Hospital course: Patient is a very pleasant 78-year-old male with a past medical history of CAD status post CABG and previous stent placement, hypertension, hyperlipidemia, diabetes mellitus, stage IIIb chronic kidney disease, and prostate cancer. He presented to the emergency department on 03/09/2024 with a chief complaint of weakness, shortness of breath, and cough progressively worsening x 2 weeks. Upon arrival to our facility, patient underwent evaluation in the emergency department. Vital signs upon arrival show blood pressure 80/48, heart rate 90, respiratory rate 20, temp 97.9 F, and SpO2 of 92% on room air. EKG completed showing normal sinus rhythm at 83 bpm with T wave inversion in inferior lead III and aVF and occasional PVC. Chest x-ray completed negative for acute cardiopulmonary process. Labs completed and reviewed. CBC showing leukocytosis with WBC count of 21.4 and normocytic anemia with hemoglobin of 9.9. BMP showing high anion gap metabolic acidosis with chloride of 103, bicarb of 21, and anion gap of 13 and renal function consistent with stage IIIb chronic kidney disease with BUN of 35, creatinine 1.68, GFR of 38. Blood glucose was 164.. Initial lactate 4.7. Magnesium 1.2. Liver profile showing elevated alkaline p hosphatase of 153. Troponin was negative at less than 0.012. BNP 1640. Procalcitonin was negative at 0.13. COVID PCR was positive. Physical exam: Patient seen and fully evaluated at the bedside. He reports feeling well this morning, but states not as good as yesterday still feels fatigued and shortness of breath with exertion. Patient continues to deny any shortness of breath at rest. Patient updated on need to wait for urine culture results prior to discharge per recommendations of infectious disease. Patient agreeable at this time and denies having any other questions, needs, or complaints. Vital signs reviewed and stable. General: Nontoxic, no distress and appears stated age. Derm: Skin warm and dry, normal coloration for ethnicity. Head: Atraumatic, normocephalic and symmetric. Eyes: EOM's intact, no lid lag, and anicteric sclera Mouth: no lip lesions, mucus membranes moist Cardiovascular: regular rate and rhythm with normal S1S2, soft systolic murmur, positive posterior tibial pulses bilaterally, and cap refill < 2 seconds. Lungs: Respirations even, regular, and unlabored on room air. Lungs CTA bilaterally, no rhonchi, no rales, no wheezing, and no accessory muscle usage. Abdominal: soft, nontender to palpation, no guarding, no appreciable organomegaly Ext: Movement and sensation intact. No gross muscle atrophy, no edema, no contractures. 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 Neuro: Speech clear, face symmetrical and CN II-XII grossly intact with no noted focal neuro deficits Psych: Alert and oriented to person, place, time, and situation. Appropriate and pleasant affect. Assessment and Plan of Care: COVID 19 pneumonitis -Oxygenation to be administered and titrated as needed to maintain SPO2 equal to or greater than 90%. Currently 94% on room air. -Telemetry monitoring. -Encourage Incentive Spirometry 10-15x hourly while awake -Continue vitamin C, Vitamin D, and Zinc. -DVT prophylaxis with Lovenox. -Strict Droplet plus Contact precautions Maggy tropicalis UTI, present at time of admission Prostate cancer Leukocytosis, improving possibly reactive secondary to COVID-19 infection vs infectious from previously known UTI -Continue fluconazole 100 mg daily and was started on Rocephin 2 g IVPB daily secondary to continued positive UTI. -Continue Flomax 0.4 mg daily. -Order placed for bladder scans to monitor for retention/postvoid residual. -Infectious disease following and discussed plan of care with Dr. Torres who stated he is in agreement with current plan of care recommending awaiting urine culture. -Follow-up with urologist, Dr. Mueller after discharge. Hypomagnesemia -Magnesium 1.5. Patient received magnesium sulfate 2 g IVPB and secondary to daily needs of IV magnesium replacement and continued hypomagnesemia, patient started on daily magnesium supplement with Mag-Ox 400 mg daily. CAD status post CABG and stent placement Hypertension Hyperlipidemia -Continue daily medication regimen with aspirin 81 mg daily, atorvastatin 80 mg nightly, Farxiga 5 mg daily, Zetia 10 mg daily, and metoprolol 50 mg twice daily. Lov-[id number]-[id number] diabetes mellitus -Hold metformin and Jardiance and continue glycemic protocol with NovoLog sliding scale. Data and imaging reviewed: Vital signs reviewed. Blood pressure 132/73, heart rate 78, respiratory rate 16, temp 97.7 F, and SpO2 of 97% on room air. Blood cultures showing no growth to date. Urinalysis positive for protein, glucose, blood, large leukocyte esterase, 65 urine RBCs and greater than 182 urine WBCs. Urine culture pending. CODE STATUS: Full code DVT prophylaxis: Lovenox Anticipated discharge date: Pending clinical course Anticipated discharge place: Home Patient was seen independently by Nurse Pracitioner. This document was prepared using [employer] dictation software. Please allow for errors in pipe fitter helper, while rare they do occur. Magdy Nuñez NP rendered care for this patient independently, reviewed the findings and plan as documented in the note above. I did not physically speak with or examine the patient on this date. Objective - Vital Signs Vital signs: Vital Signs Temp 97.5 F L 03/12/24 04:00 Pulse 75 03/12/24 04:00 Resp 16 03/12/24 04:00 BP 102/52 03/12/24 04:00 Pulse Ox 92 L 03/12/24 04:00 FiO2 Intake & Output 03/11/24 03/12/24 03/12/24 18:59 06:59 18:59 Intake Total 240 10 Output Total 500 1000 Balance -260 -990 Weight 90.1 kg Intake: IV 10 Invasive Line 1 10 Oral 240 Output: Urine 500 1000 Other: Voiding Method External Catheter External Catheter - Labs CBC & Chem 7: 03/11/24 06:36 03/11/24 06:36 Labs: Abnormal Lab Results - Last 24 Hours (Table) 03/11/24 Range/Units 11:50 Urine Protein Trace H (Negative) Urine Glucose (UA) 4+ H (Negative) Urine Blood Moderate H (Negative) Ur Leukocyte Esterase Large H (Negative) Urine RBC 65 H (0-5) /hpf Urine WBC >182 H (0-5) /hpf Urine WBC Clumps Many H (None) /hpf Urine Bacteria Occasional H (None) /hpf Urine Mucus Rare H (None) /hpf Microbiology - Last 24 Hours (Table) 03/09/24 20:13 Blood Culture - Preliminary Blood
[2024-03-13 07:11] LABS: HCT 29.1 % (39.0-53.0); Hypochromasia Marked; MCH 26.2 pg (25.0-35.0); MCHC 30.8 g/dL (31.0-37.0); MCV 84.9 fL (80.0-100.0); Mean Platelet Volume 7.5; Platelet Count 340 k/uL (150-450); RBC 3.42 m/uL (4.30-5.90); RDW 15.5 % (11.5-15.5); WBC 18.2 k/uL (3.8-10.6)
[2024-03-13 07:33] LABS: ALT 27 U/L (4-49); AST 24 U/L (17-59); African American GFR (CKD) 73 (>60 ml/min/1.73 sqM); Albumin 2.6 g/dL (3.5-5.0); Alkaline Phosphatase 126 U/L (38-126); Anion Gap 7 mmol/L; Blood Urea Nitrogen 20 mg/dL (9-20); Calcium 8.3 mg/dL (8.4-10.2); Carbon Dioxide 26 mmol/L (22-30); Chloride 104 mmol/L (98-107); Glucose 134 mg/dL (74-99); Magnesium 1.2 mg/dL (1.6-2.3); Non-African American GFR(CKD) 63 (>60 ml/min/1.73 sqM); Potassium 4.9 mmol/L (3.5-5.1); Sodium 137 mmol/L (137-145); Total Bilirubin 0.3 mg/dL (0.2-1.3); Total Protein 5.5 g/dL (6.3-8.2)
[2024-03-13] MEDS ORDERED: VANCOMYCIN IV PER PHARMACY 1 EACH MISC MISCELLANE PRN (12:58)
--- NOTE | 2024-03-13 13:02 | P.PN ---
Subjective Progress Note Date: 03/13/24 Principal diagnosis: Reason for follow-up is Maggy tropicalis UTI and COVID-19 Patient is a 78-year-old male with a past medical history significant for diabetes mellitus hypertension hyperlipidemia [place] sleep apnea coronary disease presenting to the hospital with weakness, recent cystoscopy with a urine culture positive for Maggy tropicalis, tested positive for COVID-19 however chest x-ray was negative. On today's evaluation that is 03/13/2024, patient has been afebrile, patient is breathing comfortably and is currently on room air, patient cough is decreased intensity less productive no chest pain, patient denies nausea vomiting or diarrhea and no abdominal pain. Patient white count is up to 18.2, creat is 1.10 urine culture now growing coagulase-negative staph Objective - Vital Signs Vital signs: Vital Signs Temp 97.9 F 03/13/24 11:23 Pulse 78 03/13/24 11:23 Resp 16 03/13/24 11:23 BP 130/77 03/13/24 11:23 Pulse Ox 96 03/13/24 11:23 FiO2 Intake & Output 03/12/24 03/13/24 03/13/24 18:59 06:59 18:59 Intake Total 860 240 250 Output Total 800 Balance 60 240 250 Weight 90 kg Intake: IV 20 10 Invasive Line 1 20 10 Oral 840 240 240 Output: Urine 800 Other: Voiding Method External Catheter Toilet Toilet # Voids 2 2 - Exam GENERAL DESCRIPTION: An elderly male up in the chair in no distress RESPIRATORY SYSTEM: Unlabored breathing , decreased breath sounds at bases HEART: S1 S2 regular rate and rhythm , ABDOMEN: Soft , no tenderness EXTREMITIES: No edema feet - Labs CBC & Chem 7: 03/13/24 06:52 03/13/24 06:52 Labs: Abnormal Lab Results - Last 24 Hours (Table) 03/13/24 03/13/24 Range/Units 06:52 06:52 WBC 18.2 H (3.8-10.6) k/uL RBC 3.42 L (4.30-5.90) m/uL Hgb 9.0 L (13.0-17.5) gm/dL Hct 29.1 L (39.0-53.0) % MCHC 30.8 L (31.0-37.0) g/dL Glucose 134 H (74-99) mg/dL Calcium 8.3 L (8.4-10.2) mg/dL Magnesium 1.2 L (1.6-2.3) mg/dL Total Protein 5.5 L (6.3-8.2) g/dL Albumin 2.6 L (3.5-5.0) g/dL Microbiology - Last 24 Hours (Table) 03/09/24 20:13 Blood Culture - Preliminary Blood 03/11/24 11:50 Urine Culture - Preliminary Urine,Voided Coagulase Negative Staph Assessment and Plan (1) UTI (urinary tract infection) Current Visit: Yes Status: Acute Code(s): N39.0 - URINARY TRACT INFECTION, SITE NOT SPECIFIED SNOMED Code(s): 39256324 (2) COVID-19 Current Visit: Yes Status: Acute Code(s): U07.1 - COVID-19 SNOMED Code(s): 573826966 Plan: 1patient presented to hospital with weakness which is likely multifactorial in this patient who did tested positive for COVID-19 could be contribute to some of his symptoms however the patient is currently not hypoxic chest x-ray was negative for acute infiltrate treated will be mostly supportive no need for steroid or remdesivir 2-patient also been diagnosed with a complicated UTI with urine culture done in the outpatient setting positive for Maggy tropicalis 3-repeat UA positive cultures currently growing coagulase-negative staph 4-patient did have worsening of the white count could be related to the coagulase-negative staph not being covered with Rocephin we will discontinue Rocephin start the patient on vancomycin repeat a CBC tomorrow continue with the Diflucan as well at the bedside multiple question concern answered Dictation was produced using [employer] dictation software. please excuse any grammatical, word or spelling errors. Time with Patient: Less than 30
--- NOTE | 2024-03-13 13:53 | P.PN ---
Subjective Progress Note Date: 03/13/24 Hospital course: Patient is a very pleasant 78-year-old male with a past medical history of CAD status post CABG and previous stent placement, hypertension, hyperlipidemia, diabetes mellitus, stage IIIb chronic kidney disease, and prostate cancer. He presented to the emergency department on 03/09/2024 with a chief complaint of weakness, shortness of breath, and cough progressively worsening x 2 weeks. Upon arrival to our facility, patient underwent evaluation in the emergency department. Vital signs upon arrival show blood pressure 80/48, heart rate 90, respiratory rate 20, temp 97.9 F, and SpO2 of 92% on room air. EKG completed showing normal sinus rhythm at 83 bpm with T wave inversion in inferior lead III and aVF and occasional PVC. Chest x-ray completed negative for acute cardiopulmonary process. Labs completed and reviewed. CBC showing leukocytosis with WBC count of 21.4 and normocytic anemia with hemoglobin of 9.9. BMP showing high anion gap metabolic acidosis with chloride of 103, bicarb of 21, and anion gap of 13 and renal function consistent with stage IIIb chronic kidney disease with BUN of 35, creatinine 1.68, GFR of 38. Blood glucose was 164.. Initial lactate 4.7. Magnesium 1.2. Liver profile showing elevated alkaline p hosphatase of 153. Troponin was negative at less than 0.012. BNP 1640. Procalcitonin was negative at 0.13. COVID PCR was positive. Physical exam: Patient seen and fully evaluated at the bedside. He reports feeling well this morning, but states not as good as yesterday still feels fatigued and shortness of breath with exertion. Patient continues to deny any shortness of breath at rest. Patient updated on need to wait for urine culture results prior to discharge per recommendations of infectious disease. Patient agreeable at this time and denies having any other questions, needs, or complaints. Vital signs reviewed and stable. General: Nontoxic, no distress and appears stated age. Derm: Skin warm and dry, normal coloration for ethnicity. Head: Atraumatic, normocephalic and symmetric. Eyes: EOM's intact, no lid lag, and anicteric sclera Mouth: no lip lesions, mucus membranes moist Cardiovascular: regular rate and rhythm with normal S1S2, soft systolic murmur, positive posterior tibial pulses bilaterally, and cap refill < 2 seconds. Lungs: Respirations even, regular, and unlabored on room air. Lungs CTA bilaterally, no rhonchi, no rales, no wheezing, and no accessory muscle usage. Abdominal: soft, nontender to palpation, no guarding, no appreciable organomegaly Ext: Movement and sensation intact. No gross muscle atrophy, no edema, no contractures. 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 Neuro: Speech clear, face symmetrical and CN II-XII grossly intact with no noted focal neuro deficits Psych: Alert and oriented to person, place, time, and situation. Appropriate and pleasant affect. Assessment and Plan of Care: COVID 19 pneumonitis -Oxygenation to be administered and titrated as needed to maintain SPO2 equal to or greater than 90%. Currently 94% on room air. -Telemetry monitoring. -Encourage Incentive Spirometry 10-15x hourly while awake -Continue vitamin C, Vitamin D, and Zinc. -DVT prophylaxis with Lovenox. -Strict Droplet plus Contact precautions Maggy tropicalis UTI, present at time of admission urine culture showing preliminary results for coagulase-negative staph Prostate cancer Leukocytosis, worsening -Urine culture preliminary resulting for coagulase-negative staph, awaiting final culture and sensitivity report. -Continue fluconazole 100 mg daily and patient started on vancomycin 1500 mg every 16 hours. Monitor renal function and vancomycin trough closely for any signs of vancomycin associated renal toxicity. -Continue Flomax 0.4 mg daily. -Continue bladder scans as needed to monitor for retention/postvoid residual. -Infectious disease following and discussed plan of care with Dr. Torres who stated patient to be started on IV vancomycin pending final culture and sensitivity report. -Follow-up with urologist, Dr. Mueller after discharge. Hypomagnesemia -Magnesium 1.2. Order placed for magnesium sulfate 3 g IVPB and secondary to daily needs of IV magnesium replacement, patient to continue daily magnesium supplement with Mag-Ox 400 mg daily. CAD status post CABG and stent placement Hypertension Hyperlipidemia -Continue daily medication regimen with aspirin 81 mg daily, atorvastatin 80 mg nightly, Farxiga 5 mg daily, Zetia 10 mg daily, and metoprolol 50 mg twice pro y. [id number]-[id number] diabetes mellitus -Hold metformin and Jardiance and continue glycemic protocol with NovoLog sliding scale. Data and imaging reviewed: Vital signs reviewed. Blood pressure 119/77, heart rate 80, respiratory rate 16, temp 98.2 F, and SpO2 of 97% on room air. Morning labs reviewed. CBC showing worsening leukocytosis with WBC count of 18.2 and stable normocytic anemia with hemoglobin of 9.0. BMP unremarkable. Blood glucose 134. Magnesium again low at 1.2. Blood cultures showing no growth to date. Urine culture preliminarily positive for coagulase-negative staph CODE STATUS: Full code DVT prophylaxis: Lovenox Anticipated discharge date: Pending clinical course Anticipated discharge place: Home Patient was seen independently by Nurse Pracitioner. This document was prepared using [employer] dictation software. Please allow for errors in firer diesel locomotive, while rare they do occur. I reviewed the documentation as provided by the MISTI above, who is the original author of this note. I agree with the documented assessment and plan, with the following changes: none Objective - Vital Signs Vital signs: Vital Signs Temp 98.2 F 03/13/24 07:37 Pulse 80 03/13/24 07:37 Resp 16 03/13/24 07:37 BP 119/77 03/13/24 07:37 Pulse Ox 97 03/13/24 07:37 FiO2 Intake & Output 03/12/24 03/13/24 03/13/24 18:59 06:59 18:59 Intake Total 860 240 Output Total 800 Balance 60 240 Weight 90 kg Intake: IV 20 Invasive Line 1 20 Oral 840 240 Output: Urine 800 Other: Voiding Method External Catheter Toilet # Voids 2 - Labs CBC & Chem 7: 03/13/24 06:52 03/13/24 06:52 Labs: Abnormal Lab Results - Last 24 Hours (Table) 03/13/24 03/13/24 Range/Units 06:52 06:52 WBC 18.2 H (3.8-10.6) k/uL RBC 3.42 L (4.30-5.90) m/uL Hgb 9.0 L (13.0-17.5) gm/dL Hct 29.1 L (39.0-53.0) % MCHC 30.8 L (31.0-37.0) g/dL Glucose 134 H (74-99) mg/dL Calcium 8.3 L (8.4-10.2) mg/dL Magnesium 1.2 L (1.6-2.3) mg/dL Total Protein 5.5 L (6.3-8.2) g/dL Albumin 2.6 L (3.5-5.0) g/dL Microbiology - Last 24 Hours (Table) 03/09/24 20:13 Blood Culture - Preliminary Blood 03/11/24 11:50 Urine Culture - Preliminary Urine,Voided Coagulase Negative Staph
[2024-03-13] MEDS: VANCOMYCIN 1,500 MG in SODIUM CHLORIDE 0.9% 500 ML 500 ML IVPB SCH (14:41)
[2024-03-13] MEDS: MAGNESIUM SULFATE-D5W PMX 1 GM in DEXTROSE/WATER 1 100ML.BAG IVPB SCH (14:42)
[2024-03-13 15:02] LABS: Glucose,Whole Blood 142 mg/dL (70-110)
[2024-03-13 15:03] LABS: Glucose,Whole Blood 266 mg/dL (70-110)
[2024-03-13 15:03] LABS: Glucose,Whole Blood 144 mg/dL (70-110)
[2024-03-13 15:03] LABS: Glucose,Whole Blood 129 mg/dL (70-110)
[2024-03-13 15:03] LABS: Glucose,Whole Blood 113 mg/dL (70-110)
[2024-03-13 15:03] LABS: Glucose,Whole Blood 163 mg/dL (70-110)
[2024-03-13 15:03] LABS: Glucose,Whole Blood 168 mg/dL (70-110)
[2024-03-13 15:03] LABS: Glucose,Whole Blood 156 mg/dL (70-110)
[2024-03-13 15:03] LABS: Glucose,Whole Blood 139 mg/dL (70-110)
[2024-03-13 15:03] LABS: Glucose,Whole Blood 133 mg/dL (70-110)
[2024-03-13 15:03] LABS: Glucose,Whole Blood 147 mg/dL (70-110)
[2024-03-13 15:04] LABS: Glucose,Whole Blood 135 mg/dL (70-110)
[2024-03-13 15:04] LABS: Glucose,Whole Blood 124 mg/dL (70-110)
[2024-03-13 15:04] LABS: Glucose,Whole Blood 108 mg/dL (70-110)
[2024-03-13 15:04] LABS: Glucose,Whole Blood 133 mg/dL (70-110)
[2024-03-13 16:19] LABS: Glucose,Whole Blood 153 mg/dL (70-110)
[2024-03-13 20:18] LABS: Glucose,Whole Blood 170 mg/dL (70-110)
[2024-03-14 05:48] LABS: Glucose,Whole Blood 152 mg/dL (70-110)
[2024-03-14 10:04] LABS: ALT 32 U/L (10-49); AST 27 U/L (14-35); Albumin 2.7 g/dL (3.8-4.9); Albumin/Globulin Ratio 0.93 Ratio (1.60-3.17); Alkaline Phosphatase 143 U/L (41-126); BUN/Creat Ratio 20.56 Ratio (12.00-20.00); Basophils # (A) 0.05 X 10*3/uL (0.00-0.10); Basophils % (A) 0.3 %; Blood Urea Nitrogen 18.5 mg/dL (9.0-27.0); Calcium 8.3 mg/dL (8.7-10.3); Carbon Dioxide 22.3 mmol/L (21.6-31.8); Chloride 103 mmol/L (96-109); Eosinophils # (A) 1.01 X 10*3/uL (0.04-0.35); Globulin 2.9 g/dL (1.6-3.3); Glucose 134 mg/dL (70-110); HCT 28.1 % (39.6-50.0); HGB 8.4 g/dL (13.0-17.0); Lymphocytes # (A) 2.08 X 10*3/uL (0.90-5.00); Lymphocytes % (A) 12.3 %; MCH 25.5 pg (27.0-32.0); MCHC 29.9 g/dL (32.0-37.0); MCV 85.2 FL (80.0-97.0); Magnesium 1.6 mg/dL (1.5-2.4); Mean Platelet Volume 10.3 FL (9.5-12.2); Monocytes # (A) 1.24 X 10*3/uL (0.20-1.00); Monocytes % (A) 7.3 %; NRBC Per 100 WBC 0 X 10*3/uL (0.00-0.01); Neutrophils % (A) 73.5 %; Platelet Count 337 X 10*3/uL (140-440); Potassium 4.6 mmol/L (3.5-5.5); RDW 15.9 % (11.5-14.5); Sodium 138 mmol/L (135-145); Total Bilirubin <0.2 mg/dL (0.3-1.2); Total Protein 5.6 g/dL (6.2-8.2); WBC 16.88 X 10*3/uL (4.50-10.00)
[2024-03-14 11:30] LABS: Glucose,Whole Blood 197 mg/dL (70-110)
--- NOTE | 2024-03-14 13:54 | P.PN ---
Subjective Progress Note Date: 03/14/24 Principal diagnosis: Reason for follow-up is Maggy tropicalis UTI and COVID-19 Patient is a 78-year-old male with a past medical history significant for diabetes mellitus hypertension hyperlipidemia TN sleep apnea coronary disease presenting to the hospital with weakness, recent cystoscopy with a urine culture positive for Maggy tropicalis, tested positive for COVID-19 however chest x-ray was negative. On today's evaluation that is 03/14/2024, Patient is afebrile this morning patient denies having any chest pain shortness of breath still having a cough but decreased in intensity, the patient is currently on room air, patient denies any abdominal pain no diarrhea no nausea no vomiting, mention improvement in her urinary symptoms. Patient white count is down to 16.88, creatinine 0.9 Objective - Vital Signs Vital signs: Vital Signs Temp 98.4 F 03/14/24 07:06 Pulse 82 03/14/24 07:06 Resp 16 03/14/24 07:06 BP 135/74 03/14/24 07:06 Pulse Ox 95 03/14/24 07:06 FiO2 Intake & Output 03/13/24 03/14/24 03/14/24 18:59 06:59 18:59 Intake Total 730 Output Total 375 Balance 355 Weight 108 kg Intake: IV 10 Invasive Line 1 10 Oral 720 Output: Urine 375 Other: Voiding Method Toilet Toilet Toilet Urinal # Voids 2 - Exam GENERAL DESCRIPTION: An elderly male up in the chair in no distress RESPIRATORY SYSTEM: Unlabored breathing , decreased breath sounds at bases HEART: S1 S2 regular rate and rhythm , ABDOMEN: Soft , no tenderness EXTREMITIES: No edema feet - Labs CBC & Chem 7: 03/14/24 04:49 03/14/24 04:49 Labs: Abnormal Lab Results - Last 24 Hours (Table) 03/09/24 03/10/24 03/10/24 Range/Units 23:02 11:54 20:21 WBC (4.50-10.00) X 10*3/uL RBC (4.40-5.60) X 10*6/uL Hgb (13.0-17.0) g/dL Hct (39.6-50.0) % MCH (27.0-32.0) pg MCHC (32.0-37.0) g/dL RDW (11.5-14.5) % Immature Gran # (0.00-0.04) X 10*3/uL Neutrophils # (1.80-7.70) X 10*3/uL Monocytes # (0.20-1.00) X 10*3/uL Eosinophils # (0.04-0.35) X 10*3/uL Anion Gap (4.00-12.00) mmol/L BUN/Creatinine Ratio (12.00-20.00) Ratio Glucose (70-110) mg/dL POC Glucose (mg/dL) 124 H 133 H 135 H (70-110) mg/dL Calcium (8.7-10.3) mg/dL Total Bilirubin (0.3-1.2) mg/dL Alkaline Phosphatase (41-126) U/L C-Reactive Protein (0.00-0.80) mg/dL Total Protein (6.2-8.2) g/dL Albumin (3.8-4.9) g/dL Albumin/Globulin Ratio (1.60-3.17) Ratio 03/11/24 03/11/24 03/11/24 Range/Units 06:31 11:11 16:11 WBC (4.50-10.00) X 10*3/uL RBC (4.40-5.60) X 10*6/uL Hgb (13.0-17.0) g/dL Hct (39.6-50.0) % MCH (27.0-32.0) pg MCHC (32.0-37.0) g/dL RDW (11.5-14.5) % Immature Gran # (0.00-0.04) X 10*3/uL Neutrophils # (1.80-7.70) X 10*3/uL Monocytes # (0.20-1.00) X 10*3/uL Eosinophils # (0.04-0.35) X 10*3/uL Anion Gap (4.00-12.00) mmol/L BUN/Creatinine Ratio (12.00-20.00) Ratio Glucose (70-110) mg/dL POC Glucose (mg/dL) 113 H 266 H 129 H (70-110) mg/dL Calcium (8.7-10.3) mg/dL Total Bilirubin (0.3-1.2) mg/dL Alkaline Phosphatase (41-126) U/L C-Reactive Protein (0.00-0.80) mg/dL Total Protein (6.2-8.2) g/dL Albumin (3.8-4.9) g/dL Albumin/Globulin Ratio (1.60-3.17) Ratio 03/11/24 03/12/24 03/12/24 Range/Units 19:52 06:12 11:43 WBC (4.50-10.00) X 10*3/uL RBC (4.40-5.60) X 10*6/uL Hgb (13.0-17.0) g/dL Hct (39.6-50.0) % MCH (27.0-32.0) pg MCHC (32.0-37.0) g/dL RDW (11.5-14.5) % Immature Gran # (0.00-0.04) X 10*3/uL Neutrophils # (1.80-7.70) X 10*3/uL Monocytes # (0.20-1.00) X 10*3/uL Eosinophils # (0.04-0.35) X 10*3/uL Anion Gap (4.00-12.00) mmol/L BUN/Creatinine Ratio (12.00-20.00) Ratio Glucose (70-110) mg/dL POC Glucose (mg/dL) 147 H 144 H 139 H (70-110) mg/dL Calcium (8.7-10.3) mg/dL Total Bilirubin (0.3-1.2) mg/dL Alkaline Phosphatase (41-126) U/L C-Reactive Protein (0.00-0.80) mg/dL Total Protein (6.2-8.2) g/dL Albumin (3.8-4.9) g/dL Albumin/Globulin Ratio (1.60-3.17) Ratio 03/12/24 03/12/24 03/12/24 Range/Units 16:52 20:05 20:24 WBC (4.50-10.00) X 10*3/uL RBC (4.40-5.60) X 10*6/uL Hgb (13.0-17.0) g/dL Hct (39.6-50.0) % MCH (27.0-32.0) pg MCHC (32.0-37.0) g/dL RDW (11.5-14.5) % Immature Gran # (0.00-0.04) X 10*3/uL Neutrophils # (1.80-7.70) X 10*3/uL Monocytes # (0.20-1.00) X 10*3/uL Eosinophils # (0.04-0.35) X 10*3/uL Anion Gap (4.00-12.00) mmol/L BUN/Creatinine Ratio (12.00-20.00) Ratio Glucose (70-110) mg/dL POC Glucose (mg/dL) 142 H 168 H 156 H (70-110) mg/dL Calcium (8.7-10.3) mg/dL Total Bilirubin (0.3-1.2) mg/dL Alkaline Phosphatase (41-126) U/L C-Reactive Protein (0.00-0.80) mg/dL Total Protein (6.2-8.2) g/dL Albumin (3.8-4.9) g/dL Albumin/Globulin Ratio (1.60-3.17) Ratio 03/13/24 03/13/24 03/13/24 Range/Units 06:13 11:43 16:16 WBC (4.50-10.00) X 10*3/uL RBC (4.40-5.60) X 10*6/uL Hgb (13.0-17.0) g/dL Hct (39.6-50.0) % MCH (27.0-32.0) pg MCHC (32.0-37.0) g/dL RDW (11.5-14.5) % Immature Gran # (0.00-0.04) X 10*3/uL Neutrophils # (1.80-7.70) X 10*3/uL Monocytes # (0.20-1.00) X 10*3/uL Eosinophils # (0.04-0.35) X 10*3/uL Anion Gap (4.00-12.00) mmol/L BUN/Creatinine Ratio (12.00-20.00) Ratio Glucose (70-110) mg/dL POC Glucose (mg/dL) 163 H 133 H 153 H (70-110) mg/dL Calcium (8.7-10.3) mg/dL Total Bilirubin (0.3-1.2) mg/dL Alkaline Phosphatase (41-126) U/L C-Reactive Protein (0.00-0.80) mg/dL Total Protein (6.2-8.2) g/dL Albumin (3.8-4.9) g/dL Albumin/Globulin Ratio (1.60-3.17) Ratio 03/13/24 03/14/24 03/14/24 Range/Units 20:12 04:49 04:49 WBC 16.88 H (4.50-10.00) X 10*3/uL RBC 3.30 L (4.40-5.60) X 10*6/uL Hgb 8.4 L (13.0-17.0) g/dL Hct 28.1 L (39.6-50.0) % MCH 25.5 L (27.0-32.0) pg MCHC 29.9 L (32.0-37.0) g/dL RDW 15.9 H (11.5-14.5) % Immature Gran # 0.10 H (0.00-0.04) X 10*3/uL Neutrophils # 12.40 H (1.80-7.70) X 10*3/uL Monocytes # 1.24 H (0.20-1.00) X 10*3/uL Eosinophils # 1.01 H (0.04-0.35) X 10*3/uL Anion Gap 12.70 H (4.00-12.00) mmol/L BUN/Creatinine Ratio 20.56 H (12.00-20.00) Ratio Glucose 134 H (70-110) mg/dL POC Glucose (mg/dL) 170 H (70-110) mg/dL Calcium 8.3 L (8.7-10.3) mg/dL Total Bilirubin <0.2 L (0.3-1.2) mg/dL Alkaline Phosphatase 143 H (41-126) U/L C-Reactive Protein 10.80 H (0.00-0.80) mg/dL Total Protein 5.6 L (6.2-8.2) g/dL Albumin 2.7 L (3.8-4.9) g/dL Albumin/Globulin Ratio 0.93 L (1.60-3.17) Ratio 03/14/24 03/14/24 Range/Units 05:47 11:28 WBC (4.50-10.00) X 10*3/uL RBC (4.40-5.60) X 10*6/uL Hgb (13.0-17.0) g/dL Hct (39.6-50.0) % MCH (27.0-32.0) pg MCHC (32.0-37.0) g/dL RDW (11.5-14.5) % Immature Gran # (0.00-0.04) X 10*3/uL Neutrophils # (1.80-7.70) X 10*3/uL Monocytes # (0.20-1.00) X 10*3/uL Eosinophils # (0.04-0.35) X 10*3/uL Anion Gap (4.00-12.00) mmol/L BUN/Creatinine Ratio (12.00-20.00) Ratio Glucose (70-110) mg/dL POC Glucose (mg/dL) 152 H 197 H (70-110) mg/dL Calcium (8.7-10.3) mg/dL Total Bilirubin (0.3-1.2) mg/dL Alkaline Phosphatase (41-126) U/L C-Reactive Protein (0.00-0.80) mg/dL Total Protein (6.2-8.2) g/dL Albumin (3.8-4.9) g/dL Albumin/Globulin Ratio (1.60-3.17) Ratio Assessment and Plan (1) UTI (urinary tract infection) Current Visit: Yes Status: Acute Code(s): N39.0 - URINARY TRACT INFECTION, S ITE NOT SPECIFIED SNOMED Code(s): 83051856 (2) COVID-19 Current Visit: Yes Status: Acute Code(s): U07.1 - COVID-19 SNOMED Code(s): 050750489 Plan: 1patient presented to hospital with weakness which is likely multifactorial in this patient who did tested positive for COVID-19 could be contribute to some of his symptoms however the patient is currently not hypoxic chest x-ray was negative for acute infiltrate treated will be mostly supportive no need for steroid or remdesivir 2-patient also been diagnosed with a complicated UTI with urine culture done in the outpatient setting positive for Maggy tropicalis 3-repeat UA positive cultures currently growing coagulase-negative staph 4-patient white count trending down with addition of vancomycin yesterday nursing staff to get sensitivity on the coagulase-negative staph in the urine to determine his discharge antibiotics Dictation was produced using [employer] dictation software. please excuse any grammatical, word or spelling errors. Time with Patient: Less than 30
[2024-03-14 16:15] LABS: Glucose,Whole Blood 147 mg/dL (70-110)
[2024-03-14] MEDS ORDERED: ALBUTEROL HFA INHALER INHALATION PRN (17:55)
--- NOTE | 2024-03-14 18:03 | P.PN ---
Subjective Progress Note Date: 03/14/24 Hospital course: Patient is a very pleasant 78-year-old male with a past medical history of CAD status post CABG and previous stent placement, hypertension, hyperlipidemia, diabetes mellitus, stage IIIb chronic kidney disease, and prostate cancer. He presented to the emergency department on 03/09/2024 with a chief complaint of weakness, shortness of breath, and cough progressively worsening x 2 weeks. Upon arrival to our facility, patient underwent evaluation in the emergency department. Vital signs upon arrival show blood pressure 80/48, heart rate 90, respiratory rate 20, temp 97.9 F, and SpO2 of 92% on room air. EKG completed showing normal sinus rhythm at 83 bpm with T wave inversion in inferior lead III and aVF and occasional PVC. Chest x-ray completed negative for acute cardiopulmonary process. Labs completed and reviewed. CBC showing leukocytosis with WBC count of 21.4 and normocytic anemia with hemoglobin of 9.9. BMP showing high anion gap metabolic acidosis with chloride of 103, bicarb of 21, and anion gap of 13 and renal function consistent with stage IIIb chronic kidney disease with BUN of 35, creatinine 1.68, GFR of 38. Blood glucose was 164.. Initial lactate 4.7. Magnesium 1.2. Liver profile showing elevated alkaline p hosphatase of 153. Troponin was negative at less than 0.012. BNP 1640. Procalcitonin was negative at 0.13. COVID PCR was positive. Physical exam: Patient seen and fully evaluated at the bedside. He reports feeling well this morning, but states he has been coughing and feeling more tired each day he spends on the hospital. Patient reports he wants to go home but also states understanding that we are waiting on final culture and sensitivity report. Vital signs reviewed and stable. General: Nontoxic, no distress and appears stated age. Derm: Skin warm and dry, normal coloration for ethnicity. Head: Atraumatic, normocephalic and symmetric. Eyes: EOM's intact, no lid lag, and anicteric sclera Mouth: no lip lesions, mucus membranes moist Cardiovascular: regular rate and rhythm with normal S1S2, soft systolic murmur, positive posterior tibial pulses bilaterally, and cap refill < 2 seconds. Lungs: Respirations even, regular, and unlabored on room air. Lungs diminished with soft expiratory wheezes Abdominal: soft, nontender to palpation, no guarding, no appreciable organomegaly Ext: Movement and sensation intact. No gross muscle atrophy, no edema, no contractures. 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 Neuro: Speech clear, face symmetrical and CN II-XII grossly intact with no noted focal neuro deficits Psych: Alert and oriented to person, place, time, and situation. Appropriate and pleasant affect. Assessment and Plan of Care: COVID 19 pneumonitis -Oxygenation to be administered and titrated as needed to maintain SPO2 equal to or greater than 90%. Currently 94% on room air. -Telemetry monitoring. -Encourage Incentive Spirometry 10-15x hourly while awake -Continue vitamin C, Vitamin D, and Zinc. -DVT prophylaxis with Lovenox. -Strict Droplet plus Contact precautions -Order repeat chest x-ray to follow-up secondary to worsening cough. -Order placed for Ventolin inhaler scheduled 2 puffs 4 times daily and as needed for wheezing/shortness of breath. Maggy tropicalis UTI, present at time of admission urine culture showing preliminary results for coagulase-negative staph Prostate cancer Leukocytosis, worsening -Urine culture preliminary resulting for coagulase-negative staph, awaiting f inal culture and sensitivity report. -Continue fluconazole 100 mg daily and vancomycin 1500 mg every 16 hours. Monitor renal function and vancomycin trough closely for any signs of vancomycin associated renal toxicity. -Continue Flomax 0.4 mg daily. -Continue bladder scans as needed to monitor for retention/postvoid residual. -Infectious disease following and discussed plan of care with Dr. Torres who stated patient to continue IV vancomycin pending final culture and sensitivity report. -Follow-up with urologist, Dr. Mueller after discharge. Hypomagnesemia -Magnesium 1.5. Order placed for magnesium sulfate 2 g IVPB and secondary to daily needs of IV magnesium replacement, patient to continue daily magnesium supplement with Mag-Ox 400 mg daily. CAD status post CABG and stent placement Hypertension Hyperlipidemia -Continue daily medication regimen with aspirin 81 mg daily, atorvastatin 80 mg nightly, Farxiga 5 mg daily, Zetia 10 mg daily, and metoprolol 50 mg twice daily. [id number] diabetes mellitus -Hold metformin and Jardiance and continue glycemic protocol with NovoLog sliding scale. CKD stage IIIa Microcytic anemia -Continue to monitor hemoglobin and renal function closely with repeat a.m. labs. Data and imaging reviewed: Vital signs reviewed. Blood pressure 135/74, heart rate 82, respiratory rate 16, temp 98.4 F, and SpO2 of 95% on room air. Morning labs reviewed. CBC showing leukocytosis with WBC count of 16.88 and anemia with hemoglobin of 8.4. BMP showing slightly elevated anion gap of 12.70. Blood glucose 134. Magnesium low at 1.6. Liver profile showing elevated alkaline phosphatase of 143. CRP was elevated at 10.80. Blood cultures showing no growth to date after 72 hours Urine culture preliminarily positive for coagulase-negative staph CODE STATUS: Full code DVT prophylaxis: Lovenox Anticipated discharge date: Pending clinical course Anticipated discharge place: Home Patient was seen independently by Nurse Pracitioner. This document was prepared using [employer] dictation software. Please allow for errors in stranding machine operator helper, while rare they do occur. I reviewed the documentation as provided by the MISTI above, who is the original author of this note. I agree with the documented assessment and plan, with the following changes: none Objective - Vital Signs Vital signs: Vital Signs Temp 98.4 F 03/14/24 07:06 Pulse 82 03/14/24 07:06 Resp 16 03/14/24 07:06 BP 135/74 03/14/24 07:06 Pulse Ox 95 03/14/24 07:06 FiO2 Intake & Output 03/13/24 03/14/24 03/14/24 18:59 06:59 18:59 Intake Total 730 Output Total 375 Balance 355 Weight 108 kg Intake: IV 10 Invasive Line 1 10 Oral 720 Output: Urine 375 Other: Voiding Method Toilet Toilet Urinal # Voids 2 - Labs CBC & Chem 7: 03/14/24 04:49 03/14/24 04:49 Labs: Abnormal Lab Results - Last 24 Hours (Table) 03/09/24 03/10/24 03/10/24 Range/Units 23:02 11:54 20:21 POC Glucose (mg/dL) 124 H 133 H 135 H (70-110) mg/dL 03/11/24 03/11/24 03/11/24 Range/Units 06:31 11:11 16:11 POC Glucose (mg/dL) 113 H 266 H 129 H (70-110) mg/dL 03/11/24 03/12/24 03/12/24 Range/Units 19:52 06:12 11:43 POC Glucose (mg/dL) 147 H 144 H 139 H (70-110) mg/dL 03/12/24 03/12/24 03/12/24 Range/Units 16:52 20:05 20:24 POC Glucose (mg/dL) 142 H 168 H 156 H (70-110) mg/dL 03/13/24 03/13/24 03/13/24 Range/Units 06:13 11:43 16:16 POC Glucose (mg/dL) 163 H 133 H 153 H (70-110) mg/dL 03/13/24 03/14/24 Range/Units 20:12 05:47 POC Glucose (mg/dL) 170 H 152 H (70-110) mg/dL Microbiology - Last 24 Hours (Table) 03/09/24 20:13 Blood Culture - Preliminary Blood
[2024-03-14] MEDS: MAGNESIUM SULFATE-D5W PMX 1 GM in DEXTROSE/WATER 1 100ML.BAG IVPB SCH (18:23)
[2024-03-14] MEDS: guaiFENesin SYRUP 100MG/5ML 200 MG/10 ML CUP PO PRN (18:32)
--- NOTE | 2024-03-14 18:51 | XR ---
EXAMINATION TYPE: XR chest 1V portable DATE OF EXAM: 03/14/2024 COMPARISON: 03/09/2024 INDICATION: COVID TECHNIQUE: Single frontal view of the chest is obtained. FINDINGS: The heart size is normal. The pulmonary vasculature is normal. Subtle minimal infiltrate may be within the left midlung. Finding could be correlated with atypical p neumonia or atelectasis. IMPRESSION: 1. Minimal infiltrate within the left lower lung field. Atypical pneumonia and atelectasis is within the differential. [facility], Workstation: [facility], 03/14/2024 6:48 PM
[2024-03-14] MEDS: ALBUTEROL HFA INHALER INHALATION SCH (21:05)
[2024-03-14 21:25] LABS: Glucose,Whole Blood 168 mg/dL (70-110)
[2024-03-14] MEDS: BENZOCAINE/MENTHOL LOZENG 1 EACH LOZENGE MUCOUS MEM PRN (21:33)
[2024-03-15 06:39] LABS: Glucose,Whole Blood 165 mg/dL (70-110)
[2024-03-15 08:13] VITALS: BP 116/72; PULSE 79; RESP 16; TEMP 98.1
[2024-03-15 09:15] LABS: HCT 29.5 % (39.6-50.0); HGB 8.7 g/dL (13.0-17.0); MCH 25.4 pg (27.0-32.0); MCHC 29.5 g/dL (32.0-37.0); Mean Platelet Volume 9.8 FL (9.5-12.2); NRBC Per 100 WBC 0 X 10*3/uL (0.00-0.01); Platelet Count 344 X 10*3/uL (140-440); RBC 3.43 X 10*6/uL (4.40-5.60); RDW 16.1 % (11.5-14.5)
[2024-03-15 10:13] LABS: BUN/Creat Ratio 18.36 Ratio (12.00-20.00); Blood Urea Nitrogen 20.2 mg/dL (9.0-27.0); Calcium 8.3 mg/dL (8.7-10.3); Carbon Dioxide 24.7 mmol/L (21.6-31.8); Chloride 102 mmol/L (96-109); Glucose 132 mg/dL (70-110); Magnesium 1.9 mg/dL (1.5-2.4); Potassium 4.9 mmol/L (3.5-5.5); Sodium 137 mmol/L (135-145)
[2024-03-15] MEDS: NITROFURANTOIN MONOHYD/M-CRYST 100 MG CAP PO SCH (11:49)
--- NOTE | 2024-03-15 14:54 | P.DS ---
Providers Date of admission: 03/09/24 18:49 Expected date of discharge: 03/15/24 Attending physician: Pietro Rodarte Consults: 03/09/24 18:44 Consult Physician Urgent Consulting Provider: Daniel Torres Consult Reason/Comments: acute covid infection Do you want consulting provider notified?: Yes Primary care physician: Matt Ponce Hospital Course: Discharge Diagnosis: COVID 19 pneumonitis. Patient maintaining SpO2 on room air denies shortness of breath. Patient strongly encouraged to continue use of incentive spirometry postdischarge to prevent development of atelectasis and pneumonia. Maggy tropicalis UTI, present at time of admission and repeat urine culture positive for Staphylococcus epidermidis. Infectious disease following, recommending discharge on nitrofurantoin 100 mg twice daily for 10 days and for patient to complete remaining fluconazole prescription. Patient instructed he will need to follow-up outpatient with urologist in 2 weeks. Prostate cancer . Continue to follow up outpatient with urology. Leukocytosis, believed to be reactive from COVID-19 pneumonitis. Hypomagnesemia. Resolved. Secondary to daily IV magnesium replacement patient was discharged home on Mag-Ox 400 mg daily. CAD status post CABG and stent placement. Continue daily medication regimen with aspirin 81 mg daily, atorvastatin 80 mg nightly, Farxiga 5 mg daily, Zetia 10 mg daily, and metoprolol 50 mg twice daily. Hypertension.. Continue daily medication regimen with metoprolol 50 mg twice daily. Hyperlipidemia. Continue daily medication regimen with atorvastatin 80 mg nightly and Zetia 10 mg daily. Poy-Xamiihm-ebunrbtyt diabetes mellitus. Continue metformin and Jardiance. Follow heart healthy and carb consistent diet. CKD stage IIIa. Renal function stable. Microcytic anemia Hospital course: Patient is a very pleasant 78-year-old male with a past medical history of CAD status post CABG and previous stent placement, hypertension, hyperlipidemia, diabetes mellitus, stage IIIb chronic kidney disease, and prostate cancer. He presented to the emergency department on 03/09/2024 with a chief complaint of weakness, shortness of breath, and cough progressively worsening x 2 weeks. Upon arrival to our facility, patient underwent evaluation in the emergency department. Vital signs upon arrival show blood pressure 80/48, heart rate 90, respiratory rate 20, temp 97.9 F, and SpO2 of 92% on room air. EKG completed showing normal sinus rhythm at 83 bpm with T wave inversion in inferior lead III and aVF and occasional PVC. Chest x-ray completed negative for acute cardiopulmonary process. Labs completed and reviewed. CBC showing leukocytosis with WBC count of 21.4 and normocytic anemia with hemoglobin of 9.9. BMP showing high anion gap metabolic acidosis with chloride of 103, bicarb of 21, and anion gap of 13 and renal function consistent with stage IIIb chronic kidney disease with BUN of 35, creatinine 1.68, GFR of 38. Blood glucose was 164.. Initial lactate 4.7. Magnesium 1.2. Liver profile showing elevated alkaline phosphatase of 153. Troponin was negative at less than 0.012. BNP 1640. Procalcitonin was negative at 0.13. COVID PCR was positive. Patient was admitted for treatment and was evaluated by infectious disease physician. Repeat urinalysis was obtained positive for infection. Urine culture positive for Staphylococcus epidermidis. Infectious disease physician recommending discharge on Macrobid 100 mg twice daily for 10 days and for patient to complete remaining fluconazole prescription. Patient is medically stable at this time, family at bedside to take patient home. Patient to follow-up outpatient with PCP in 1 to 2 days and with urologist in 2 weeks. Physical exam: Vital signs reviewed and stable. General: Nontoxic, no distress and appears stated age. Derm: Skin warm and dry, normal coloration for ethnicity. Head: Atraumatic, normocephalic and symmetric. Eyes: EOM's intact, no lid lag, and anicteric sclera Mouth: no lip lesions, mucus membranes moist Cardiovascular: regular rate and rhythm with normal S1S2, soft systolic murmur, positive posterior tibial pulses bilaterally, and cap refill < 2 seconds. Lungs: Respirations even, regular, and unlabored on room air. Lungs slightly diminished, no adventitious sounds noted including wheezing, rhonchi, rales, or crackles. Abdominal: soft, nontender to palpation, no guarding, no appreciable organomegaly Ext: Movement and sensation intact. No gross muscle atrophy, no edema, no contractures. 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 Neuro: Speech clear, face symmetrical and CN II-XII grossly intact with no noted focal neuro deficits Psych: Alert and oriented to person, place, time, and situation. Appropriate and pleasant affect. A total of 38 minutes of time were spent preparing this complex discharge summary. Pt was discharged on 03/15/2024 at 10:58 AM. Patient was seen independently by Nurse Practitioner. This document was prepared using [employer] dictation software. Please allow for errors in loftsman while rare they do occur. I reviewed the documentation as provided by the MISTI above, who is the original author of this note. I agree with the documented assessment and plan, with the following changes: none Patient Condition at Discharge: Stable Plan - Discharge Summary Discharge Rx Participant: No New Discharge Prescriptions: New Nitrofurantoin Monohyd/M-Cryst [Macrobid] 100 mg PO BID 10 Days #20 cap Magnesium Oxide [Mag-Ox] 400 mg PO DAILY 90 Days #90 tab Continue metFORMIN HCL [Glucophage] 850 mg PO BID Atorvastatin [Lipitor] 80 mg PO HS Metoprolol Tartrate [Lopressor] 50 mg PO BID #60 tab Latanoprost Ophth [Xalatan 0.005%] 1 drop BOTH EYES HS Cholecalciferol [Vitamin D3 (25 Mcg = 1000 Iu)] 25 mcg PO DAILY Valsartan [Diovan] 320 mg PO DAILY Venlafaxine HCl [Effexor XR] 75 mg PO DAILY Timolol 0.5% Ophth Soln [Timoptic 0.5% Ophth Soln] 1 drop RIGHT EYE BID Aspirin [Adult Low Dose Aspirin EC] 81 mg PO DAILY Fluconazole [Diflucan] 100 mg PO DIRECTED Ezetimibe [Zetia] 10 mg PO DAILY Cyanocobalamin (Vitamin B-12) [Vitamin B-12] 1,000 mcg PO DAILY Tamsulosin [Flomax] 0.4 mg PO HS Empagliflozin [Jardiance] 10 mg PO DAILY Iron Bis-Glycinat/Vit C/FA/B12 [Gentle Iron 28 mg Capsule] 1 cap PO DAILY Discharge Medication List Atorvastatin [Lipitor] 80 mg PO HS 11/04/14 [History] metFORMIN HCL [Glucophage] 850 mg PO BID 11/04/14 [History] Metoprolol Tartrate [Lopressor] 50 mg PO BID #60 tab 04/06/18 [Rx] Cholecalciferol [Vitamin D3 (25 Mcg = 1000 Iu)] 25 mcg PO DAILY 12/21/22 [History] Cyanocobalamin (Vitamin B-12) [Vitamin B-12] 1,000 mcg PO DAILY 12/21/22 [History] Ezetimibe [Zetia] 10 mg PO DAILY 12/21/22 [History] Latanoprost Ophth [Xalatan 0.005%] 1 drop BOTH EYES HS 12/21/22 [History] Timolol 0.5% Ophth Soln [Timoptic 0.5% Ophth Soln] 1 drop RIGHT EYE BID 10/01/23 [History] Valsartan [Diovan] 320 mg PO DAILY 10/01/23 [History] Venlafaxine HCl [Effexor XR] 75 mg PO DAILY 10/01/23 [History] Tamsulosin [Flomax] 0.4 mg PO HS 01/06/24 [History] Aspirin [Adult Low Dose Aspirin EC] 81 mg PO DAILY 02/25/24 [History] Empagliflozin [Jardiance] 10 mg PO DAILY 02/25/24 [History] Fluconazole [Diflucan] 100 mg PO DIRECTED 03/09/24 [History] Iron Bis-Glycinat/Vit C/FA/B12 [Gentle Iron 28 mg Capsule] 1 cap PO DAILY 03/09/24 [History] Magnesium Oxide [Mag-Ox] 400 mg PO DAILY 90 Days #90 tab 03/15/24 [Rx] Nitrofurantoin Monohyd/M-Cryst [Macrobid] 100 mg PO BID 10 Days #20 cap 03/15/24 [Rx] Follow up Appointment(s)/Referral(s): Coleman Mueller MD [STAFF PHYSICIAN] - 2 Weeks Matt Ponce MD [Primary Care Provider] - 1-2 days [facility] Visiting Nurse, [NON-STAFF] - 1 Week Patient Instructions/Handouts: Urinary Tract Infection in Men (DC), COVID-19 (Coronavirus Disease 2019) (DC), COVID-19 and Chronic Health Conditions (DC) Activity/Diet/Wound Care/Special Instructions: Activity: As tolerated. Take breaks as needed. Diet: Heart healthy and carb consistent diet. Avoid salts, or foods with hidden salts such as canned or boxed foods and frozen dinners. Extra salt makes your heart work harder and traps the fluid in your body for longer. Special Instructions: Take all of your medications as directed and remember to keep all of your doctor's appointments and follow-up as needed. As discussed, chest x-ray is showing mild atelectasis and it is important for you to increase activity/ambulation, practice coughing and deep breathing exercises, and continue use of the incentive spirometry as we discussed at bedside to prevent development of pneumonia. Thank you for allowing us to participate in your care, it was truly a pleasure having you for our patient!!! Discharge Disposition: HOME WITH HOME HEALTH SERVICES
[2024-03-16] MEDS ORDERED: VANCOMYCIN TROUGH DUE 1 EACH MISC MISCELLANE ONE (05:00)
--- NOTE | 2024-03-16 08:46 | P.PN ---
Subjective Progress Note Date: 03/15/24 Principal diagnosis: Reason for follow-up is Maggy tropicalis UTI and COVID-19 Patient is a 78-year-old male with a past medical history significant for diabetes mellitus hypertension hyperlipidemia IA sleep apnea coronary disease presenting to the hospital with weakness, recent cystoscopy with a urine culture positive for Maggy tropicalis, tested positive for COVID-19 however chest x-ray was negative. On today's evaluation that is 03/15/2024,the patient denies any fever or any chills, patient is breathing comfortably on room air, the patient denies chest pain shortness of breath and n cough is decreased intensity mostly dry in nature, patient denies abdominal pain, no nausea vomiting or diarrhea. Patient urinary symptom has improved feeling better wants to go home. Patient urine culture have been finalized with lora epi that is sensitive to Macrobid Zyvox Objective - Vital Signs Vital signs: Vital Signs Temp 98.1 F 03/15/24 08:00 Pulse 79 03/15/24 08:00 Resp 16 03/15/24 08:00 BP 116/72 03/15/24 08:00 Pulse Ox 96 03/15/24 08:00 FiO2 Intake & Output 03/14/24 03/15/24 03/15/24 18:59 06:59 18:59 Weight 113 kg Other: Voiding Method Toilet Toilet # Voids 2 5 # Bowel Movements 1 - Exam GENERAL DESCRIPTION: An elderly male up in the chair in no distress RESPIRATORY SYSTEM: Unlabored breathing , decreased breath sounds at bases HEART: S1 S2 regular rate and rhythm , ABDOMEN: Soft , no tenderness EXTREMITIES: No edema feet - Labs CBC & Chem 7: 03/15/24 02:34 03/15/24 02:34 Labs: Abnormal Lab Results - Last 24 Hours (Table) 03/14/24 03/15/24 03/15/24 Range/Units 21:23 02:34 02:34 WBC 18.10 H (4.50-10.00) X 10*3/uL RBC 3.43 L (4.40-5.60) X 10*6/uL Hgb 8.7 L (13.0-17.0) g/dL Hct 29.5 L (39.6-50.0) % MCH 25.4 L (27.0-32.0) pg MCHC 29.5 L (32.0-37.0) g/dL RDW 16.1 H (11.5-14.5) % Glucose 132 H (70-110) mg/dL POC Glucose (mg/dL) 168 H (70-110) mg/dL Calcium 8.3 L (8.7-10.3) mg/dL 03/15/24 Range/Units 06:38 WBC (4.50-10.00) X 10*3/uL RBC (4.40-5.60) X 10*6/uL Hgb (13.0-17.0) g/dL Hct (39.6-50.0) % MCH (27.0-32.0) pg MCHC (32.0-37.0) g/dL RDW (11.5-14.5) % Glucose (70-110) mg/dL POC Glucose (mg/dL) 165 H (70-110) mg/dL Calcium (8.7-10.3) mg/dL Microbiology - Last 24 Hours (Table) 03/09/24 20:13 Blood Culture - Final Blood 03/11/24 11:50 Urine Culture - Final Urine,Voided Staphylococcus epidermidis Assessment and Plan (1) UTI (urinary tract infection) Status: Acute Code(s): N39.0 - URINARY TRACT INFECTION, SITE NOT SPECIFIED SNOMED Code(s): 26103562 (2) COVID-19 Status: Acute Code(s): U07.1 - COVID-19 SNOMED Code(s): 644838001 Plan: 1patient presented to hospital with weakness which is likely multifactorial in this patient who did tested positive for COVID-19 could be contribute to some of his symptoms however the patient is currently not hypoxic chest x-ray was negati ve for acute infiltrate treated will be mostly supportive no need for steroid or remdesivir 2-patient also been diagnosed with a complicated UTI with urine culture done in the outpatient setting positive for Maggy tropicalis 3-repeat UA positive cultures currently growing staph epi that is sensitive to Zyvox as well as Macrobid but resistant to Bactrim and tetracycline 4-patient feeling better wants to go home we cannot use Zyvox because of drug interaction with his SSRI, we will consider a 10-day course of Macrobid on discharge this was discussed with NET DEVELOPMENT MANAGER for admitting team working on discharge Dictation was produced using [employer] dictation software. please excuse any grammatical, word or spelling errors. Time with Patient: Less than 30
== END 2024-03-15 12:57 | disposition home health service (06) | DRG 177 ==
LOC: EC 15:18 → 3SCARD 18:49 → 4SSUR 03-13 18:39
PROVIDERS: ADMIT Student in an Organized Health Care Education/Training Program; ATTEND Student in an Organized Health Care Education/Training Program
DX: U07.1 COVID-19 (principal); J12.82 Pneumonia due to coronavirus disease 2019; E87.20 Acidosis, unspecified; B37.49 Other urogenital candidiasis; C61 Malignant neoplasm of prostate; D50.9 Iron deficiency anemia, unspecified; E11.22 Type 2 diabetes mellitus with diabetic chronic kidney disease; E78.5 Hyperlipidemia, unspecified; E83.42 Hypomagnesemia; F32.A Depression, unspecified; D63.1 Anemia in chronic kidney disease; I95.9 Hypotension, unspecified; H40.9 Unspecified glaucoma; R63.4 Abnormal weight loss; G47.33 Obstructive sleep apnea (adult) (pediatric); E66.9 Obesity, unspecified; I12.9 Hypertensive chronic kidney disease with stage 1 through stage 4 chronic kidney disease, or unspecified chronic kidney disease; N18.32 Chronic kidney disease, stage 3b; I25.10 Atherosclerotic heart disease of native coronary artery without angina pectoris; I25.2 Old myocardial infarction; I49.3 Ventricular premature depolarization; Z28.21 Immunization not carried out because of patient refusal; Z79.82 Long term (current) use of aspirin; Z79.84 Long term (current) use of oral hypoglycemic drugs; Z79.899 Other long term (current) drug therapy; Z87.440 Personal history of urinary (tract) infections; Z95.1 Presence of aortocoronary bypass graft; Z95.5 Presence of coronary angioplasty implant and graft
CPT/HCPCS: 36415; 71045; 71046; 80048; 80053; 81001; 83605; 83735; 83880; 84145; 84484; 85025; 85027; 85379; 86140; 87040; 87077; 87086; 87186; 87635; 93005; 94640; 96361; 96365; 96366; 96367; 96372; 99285

== ENCOUNTER 2024-04-11 18:42 | Emergency (ER) | payer MEDICARE ==
--- NOTE | 2024-04-11 20:11 | ED ---
General Adult HPI - General Chief complaint: Urogenital Stated complaint: Urogenital issues Time Seen by Provider: 04/11/24 19:08 Source: patient, RN notes reviewed, old records reviewed Mode of arrival: ambulatory Limitations: no limitations - History of Present Illness Initial comments: 79-year-old male presenting with urinary retention over the past several hours. Patient does have remote history of prostate cancer and had recent urological procedure several months ago for renal abnormality. He states he has been eating and drinking normally. He was making normal urine up until several hours ago where he was unable to urinate he has been only able to urinate small dribbles of urine. - Related Data Home Medications Medication Instructions Recorded Confirmed Atorvastatin [Lipitor] 80 mg PO HS 11/04/14 03/09/24 metFORMIN HCL [Glucophage] 850 mg PO BID 11/04/14 03/09/24 Cholecalciferol [Vitamin D3 (25 25 mcg PO DAILY 12/21/22 03/09/24 Mcg = 1000 Iu)] Cyanocobalamin (Vitamin B-12) 1,000 mcg PO DAILY 12/21/22 03/09/24 [Vitamin B-12] Ezetimibe [Zetia] 10 mg PO DAILY 12/21/22 03/09/24 Latanoprost Ophth [Xalatan 0.005%] 1 drop BOTH EYES HS 12/21/22 03/09/24 Timolol 0.5% Ophth Soln [Timoptic 1 drop RIGHT EYE BID 10/01/23 03/09/24 0.5% Ophth Soln] Valsartan [Diovan] 320 mg PO DAILY 10/01/23 03/09/24 Venlafaxine HCl [Effexor XR] 75 mg PO DAILY 10/01/23 03/09/24 Tamsulosin [Flomax] 0.4 mg PO HS 01/06/24 03/09/24 Aspirin [Adult Low Dose Aspirin EC] 81 mg PO DAILY 02/25/24 03/09/24 Empagliflozin [Jardiance] 10 mg PO DAILY 02/25/24 03/09/24 Fluconazole [Diflucan] 100 mg PO DIRECTED 03/09/24 03/09/24 Iron Bis-Glycinat/Vit C/FA/B12 1 cap PO DAILY 03/09/24 03/09/24 [Gentle Iron 28 mg Capsule] Previous Rx's Medication Instructions Recorded Metoprolol Tartrate [Lopressor] 50 mg PO BID #60 tab 04/06/18 Magnesium Oxide [Mag-Ox] 400 mg PO DAILY 90 Days #90 tab 03/15/24 Nitrofurantoin Monohyd/M-Cryst 100 mg PO BID 10 Days #20 cap 03/15/24 [Macrobid] Cephalexin [Keflex] 500 mg PO Q12HR 7 Days #14 cap 04/11/24 Allergies Allergy/AdvReac Type Severity Reaction Status Date / Time No Known Allergies Allergy Verified 04/11/24 18:53 Review of Systems ROS Statement: Those systems with pertinent positive or pertinent negative responses have been documented in the HPI. ROS Other: All systems not noted in ROS Statement are negative. Past Medical History Past Medical History: Coronary Artery Disease (CAD), Cancer, Diabetes Mellitus, Hyperlipidemia, Hypertension, Hypertension, Myocardial Infarction (DC), Sleep Apnea/CPAP/BIPAP Additional Past Medical History / Comment(s): seasonal allergies, unable to use cpap, obesity. varicose vein left leg. prostate cancer Last Myocardial Infarction Date:: 1986 History of Any Multi-Drug Resistant Organisms: None Reported Past Surgical History: Coronary Bypass/CABG, Heart Catheterization With Stent, Orthopedic Surgery Additional Past Surgical History / Comment(s): 4 heart stents, varicose veins rt leg with right leg vein stripping. walker Cataract, LEFT HAND SX, HEART CATH 03/25/18 Past Anesthesia/Blood Transfusion Reactions: No Reported Reaction Date of Last Stent Placement:: 2002 Past Psychological History: Depression Smoking Status: Never smoker - Past Family History Mother Family Medical History: No Reported History, Renal Disease Additional Family Medical History / Comment(s): Mother at age 89 from kidney disease and bladder problems. Aortic Aneurysm. Father Family Medical History: Myocardial Infarction (DC) Additional Family Medical History / Comment(s): Father from myocardial infarction at age 56. General Exam Limitations: no limitations General appearance: alert, in no apparent distress Head exam: Present: atraumatic, normocephalic Eye exam: Present: normal appearance, PERRL ENT exam: Present: normal exam Neck exam: Present: normal inspection. Absent: tenderness, meningismus Respiratory exam: Present: normal lung sounds bilaterally, respiratory distress Cardiovascular Exam: Present: regular rate, normal rhythm GI/Abdominal exam: Present: soft, tenderness (suprapubic). Absent: distended Neurological exam: Present: alert, oriented X3 Psychiatric exam: Present: anxious Course Vital Signs 04/11/24 18:50 Temperature 98.2 F Pulse Rate 68 Respiratory 16 Rate Blood Pressure 122/80 O2 Sat by Pulse 91 L Oximetry Medical Decision Making - Medical Decision Making Was pt. sent in by a medical professional or institution ([facility], [facility], urgent care, hospital, or group home...) When possible be specific @ -No Did you speak to anyone other than the patient for history (EMS, parent, family, police, friend...)? What history was obtained from this source @ -No Did you review nursing and triage notes (agree or disagree)? Why? @ -I reviewed and agree with nursing and triage notes Were old charts reviewed (outside hosp., previous admission, EMS record, old EKG, old radiological studies, urgent care reports/EKG's, group home records)? Report findings @ -No old charts were reviewed Differential Abdominal Pain Men: Appendicitis, cholecystitis, diverticulosis, ischemic bowel, pancreatitis, hepatitis, UTI, gastroenteritis, AAA, incarcerated hernia, bowel obstruction, constipation, inflammatory bowel, hepatitis, peptic ulcer disease, splenic infarction, perforated viscus, testicular torsion, this is not meant to be an all-inclusive list EKG interpreted by me (3pts min.). @ -As above X-rays interpreted by me (1pt min.). @ -None done CT interpreted by me (1pt min.). @ -None done U/S interpreted by me (1pt. min.). @ -None done What testing was considered but not performed or refused? (CT, X-rays, U/S, labs)? Why? @ -None What meds were considered but not given or refused? Why? @ -None Did you discuss the management of the patient with other professionals (professionals i.e. [facility] Ewing, [facility], lab, RT, psych nurse, social science analyst, information and referral director, teacher, principal gifts officer, insurance case manager)? Give summary @ -No Was smoking cessation discussed for >3mins.? @ -No Was critical care preformed (if so, how long)? @ -No Were there social determinants of health that impacted care today? How? (Homelessness, low income, unemployed, alcoholism, drug addiction, transportation, low edu. Level, literacy, decrease access to med. care, intermediate, rehab)? @ -No Was there de-escalation of care discussed even if they declined (Discuss DNR or withdrawal of care, Hospice)? DNR status @ -No What co-morbidities impacted this encounter? (DM, HTN, Smoking, COPD, CAD, Cancer, CVA, ARF, Chemo, Hep., AIDS, mental health diagnosis, sleep apnea, morbid obesity)? @ -None Was patient admitted / discharged? Hospital course, mention meds given and route, prescriptions, significant lab abnormalities, going to OR and other pertinent info. @79-year-old male with acute urinary retention. Mott catheter is placed after bladder scan reveals 500 cc of retained urine. Urine is dark with some small blood clots. Urinalysis likely infection and urine culture pending. Patient has complete relief with Mott catheter. He is instructed to follow-up closely with urology. Undiagnosed new problem with uncertain prognosis? @ -No Drug Therapy requiring intensive monitoring for toxicity (Heparin, Nitro, Insulin, Cardizem)? @ -No Were any procedures done? @ -No Diagnosis/symptom? @Urinary retention Acute, or Chronic, or Acute on Chronic? @ -Acute Uncomplicated (without systemic symptoms) or Complicated (systemic symptoms)? @ -Default Side effects of treatment? @ -No Exacerbation, Progression, or Severe Exacerbation? @ -No Poses a threat to life or bodily function? How? (Chest pain, USA, DC, pneumonia, PE, COPD, DKA, ARF, appy, cholecystitis, CVA, Diverticulitis, Homicidal, Suicidal, threat to staff... and all critical care pts) @ -No - Lab Data Lab Results 04/11/24 Range/Units 20:03 Urine Color Light Red Urine Appearance Cloudy (Clear) Urine pH 5.5 (5.0-8.0) Ur Specific Z[place]ki 1.009 (1.001-1.035) Urine Protein 1+ H (Negative) Urine Glucose (UA) 4+ H (Negative) Urine Ketones Negative (Negative) Urine Blood Large H (Negative) Urine Nitrite Negative (Negative) Urine Bilirubin Negative (Negative) Urine Urobilinogen <2.0 (<2.0) mg/dL Ur Leukocyte Esterase Small H (Negative) Urine RBC 75 H (0-5) /hpf Urine WBC 23 H (0-5) /hpf Urine WBC Clumps Moderate H (None) /hpf Amorphous Sediment Few H (None) /hpf Urine Bacteria Occasional H (None) /hpf Hyaline Casts 24 H (0-2) /lpf Disposition Clinical Impression: UTI (urinary tract infection), Acute retention of urine Disposition: HOME SELF-CARE Condition: Fair Instructions (If sedation given, give patient instructions): Urinary Retention in Men (ED), Urinary Tract Infection in Men (ED) Prescriptions: Cephalexin [Keflex] 500 mg PO Q12HR 7 Days #14 cap Is patient prescribed a controlled substance at d/c from ED?: No Referrals: Matt Ponce MD [Primary Care Provider] - 1-2 days Marshal Samson MD [STAFF PHYSICIAN] - 1-2 days Time of Disposition: 20:10
[2024-04-11 20:30] LABS: Amorphous Sediment,Urine Few /hpf; Appearance,Urine Cloudy (Clear); Bacteria,Urine Occasional /hpf; Bilirubin,Urine Negative (Negative); Blood,Urine Large (Negative); Color,Urine Light Red; Glucose,Urine (UA) 4+ (Negative); Hyaline Casts,Urine 24 /lpf (0-2); Ketones,Urine Negative (Negative); Leukocyte Esterase,Urine Small (Negative); Nitrite,Urine Negative (Negative); PH, Urine 5.5 (5.0-8.0); Protein,Urine 1+ (Negative); RBC,Urine 75 /hpf (0-5); Specific Gravity,Urine 1.009 (1.001-1.035); Urobilinogen,Urine <2.0 mg/dL (<2.0); WBC,Urine 23 /hpf (0-5)
[2024-04-11 20:51] VITALS: BP 124/58; PULSE 58; RESP 17; TEMP 98
== END 2024-04-11 20:40 | disposition home or self-care (01) ==
LOC: EC 18:42
DX: N39.0 Urinary tract infection, site not specified (principal)
CPT/HCPCS: 51702; 51798; 81001; 87086; 99284

== ENCOUNTER → 2024-06-05 | Outpatient (CLI) | payer MEDICARE ==
[2024-06-05 11:33] LABS: African American GFR (CKD) 79 (>60 ml/min/1.73 sqM); Blood Urea Nitrogen 28 mg/dL (9-20); Non-African American GFR(CKD) 68 (>60 ml/min/1.73 sqM)
--- NOTE | 2024-06-05 13:00 | CT ---
EXAMINATION TYPE: CT urogram wo/w con CT DLP: 4122 mGycm, Automated exposure control for dose reduction was used. DATE OF EXAM: 06/05/2024 12:34 PM COMPARISON: CT abdomen pelvis 02/14/2024 CLINICAL INDICATION:Male, 79 years old with history of [id number] UNSPECIFIED HYDRONEPHROSIS; PHH, LEFT HY DRONEPHROSIS TECHNIQUE: Urogram of the abdomen and pelvis was performed before and after the administration of 100 cc of IV c ontrast Isovue 300 contrast. Delayed imaging was performed. Coronal and sagittal reformats were perfo rmed. One or more CT dose reduction strategies were utilized during this examination. 2D and 3D recon structions are performed to assist visualization of the urinary tract on a separate workstation. FINDINGS: GENITOURINARY: RIGHT KIDNEY AND URETER: No calculi. No hydronephrosis or hydroureter. Cortical thinning. No renal ma ss or other lesions. No urothelial lesions: no filling defect, dilation, stricture or wall thickening . LEFT KIDNEY AND URETER: No calculi. No hydronephrosis or hydroureter. Cortical thinning. Renal sinus cyst measuring up to 3.5 cm. Approximately 4 hypodense superior pole lesions with 2 demonstrating biju e internal hyperattenuation. One measures up to 4.9 cm within the left mid kidney laterally with some wall calcification (series 9, image 41). Another 1 measures up to 3.1 cm within the upper pole of th e left kidney (series 9, image 34). No definitive internal enhancement. Poor visualization of the mid portion of the left ureter to the lack of enhancement. No urothelial lesions: no filling defect, dila tion, stricture or wall thickening. URINARY BLADDER: Mildly distended. Normal, no calculi, mass or other lesions. REPRODUCTIVE: Unremarkable. ABDOMEN LIVER: Unremarkable. GALLBLADDER AND BILE DUCTS: Unremarkable PANCREAS: Unremarkable. SPLEEN: Unremarkable. ADRENAL GLANDS: Unremarkable. STOMACH AND BOWEL: . The appendix within normal limits. A few scattered colonic diverticula without e vidence for acute diverticulitis. No focal bowel wall thickening or surrounding inflammatory changes. Couple of duodenal diverticulum. No evidence of bowel obstruction. PERITONEUM: No evidence of pneumoperitoneum, free fluid, or adenopathy. VASCULATURE: Atherosclerotic calcifications are present throughout the abdominal aorta and its branch es. No abdominal aortic aneurysm. MUSCULOSKELETAL: No acute osseous abnormalities. Degenerative changes of the SI joints with left ante rior bridging. Multilevel degenerative changes of the visualized spine. SOFT TISSUE/ABDOMINAL WALL: Unremarkable. LOWER CHEST: Mild bilateral lower lobe dependent subsegmental atelectasis. Post-CABG changes. Mild ca rdiomegaly. Coronary stents and/or calcifications. Median sternotomy wires. No pericardial effusion. Bilateral gynecomastia. IMPRESSION: 1. No hydronephrosis. Approximately 4 cystic lesions within the superior pole of the left kidney with additional left renal sinus cyst. 2 of the cystic lesions demonstrates some internal hyperdensity wi th some wall calcification. No definitive enhancement on contrast imaging. These are favored to repre sent Bosniak 1 and 2 classification. Probable hemorrhagic/proteinaceous cysts. 2. No evidence of urolithiasis or urothelial neoplasm. Poor visualization of the left mid ureter to l ack of contrast within the ureter. Contrast is demonstrated within the distal left ureter on delayed imaging. 3. Findings suggestive of chronic medical renal disease bilaterally. [facility], , 06/05/2024 12:58 PM
== END | disposition home or self-care (01) ==
LOC: RADCTMAIN 10:48
PROVIDERS: ATTEND Urology
DX: N13.30 Unspecified hydronephrosis (principal); N28.9 Disorder of kidney and ureter, unspecified
CPT/HCPCS: 82565; 84520; 74178; 36415; 74400; Q9967